=== PATIENT | female | born 2000 | race Caucasian/White ===

== ENCOUNTER 2018-12-09 15:58 | Inpatient (IN) ==
[2018-12-09 16:50] LABS: Appearance Urine Clear (Clear); Bacteria Urine Automated Negative (Negative); Bilirubin Urine Negative (Negative); Color Urine Dark Yellow; Epithelial Cell Urine Auto >30 /lpf (0-5); Glucose Urine UA Negative (Negative); Ketones Urine Negative (Negative); Leukocyte Esterase Urine Negative (Negative); Nitrite Urine Negative (Negative); Protein Urine Trace (Negative); Specific Gravity Urine 1.032 (1.000-1.030); Urobilinogen Urine Negative (Negative)
[2018-12-09 17:10] LABS: Basophils # (auto) 0.03 K/uL (0-0.2); Basophils % (auto) 0.3 %; Eosinophils # (auto) 0.05 K/uL (0-0.5); Eosinophils % (auto) 0.5 %; Hematocrit (blood only) 42.3 % (37-47); Hemoglobin 13.6 g/dL (12.0-16.0); Immature Granulocytes # (auto) 0.01 K/uL (0.00-0.02); Immature Granulocytes % (auto) 0.1 %; Lymphocytes # (auto) 1.37 K/uL (1.2-3.4); Lymphocytes % (auto) 13.6 %; Mean Corpuscular Hgb Conc 32.2 g/dL (32-36); Mean Corpuscular Volume 85.1 fL (80-100); Mean Platelet Volume 9.4 fL (7.4-10.4); Monocytes # (auto) 0.58 K/uL (0.11-0.59); Monocytes % (auto) 5.8 %; Neutrophils % (auto) 79.7 %; Platelet Count 277 K/uL (130-400); RDW Coefficient of Variation 13.7 % (11.5-14.5); RDW Standard Deviation 42.3 fL (36.4-46.3); Red Blood Count 4.97 M/uL (4.2-5.4); White Blood Count 10.04 K/uL (4.8-10.8)
[2018-12-09 17:21] LABS: Amphetamines+Metham, Urine Neg (Neg); Barbiturates, Urine Neg (Neg); Benzodiazepine, Urine Neg (Neg); Cocaine, Urine Neg (Neg); MDMA (Ecstacy), Urine Neg (Neg); Methadone, Urine Neg (Neg); Opiate, Urine Neg (Neg); Phencyclidine, Urine Neg (Neg)
[2018-12-09 17:33] LABS: Albumin Level 4.3 gm/dl (3.4-5.0); Calcium 8.8 mg/dl (8.5-10.1); Creatinine Clr Calc Pharmacy 78.6 ml/min; Est GFR (African American) 97.4; Est GFR (Non-African American) 84.1; Potassium 4.2 mmol/L (3.5-5.1)
[2018-12-09 17:43] LABS: Albumin Globulin Ratio 1.1 (0.9-2); Bilirubin,Total 0.6 mg/dl (0.2-1); Total Protein 8.3 gm/dl (6.4-8.2)
[2018-12-09 19:36] LABS: Pregnancy Test, Serum Negative (Negative)
--- NOTE | 2018-12-09 20:16 | Emergency Department Note ---
Entered by Nancy De Souza acting as a scribe for Anthony Xie DO History of Present Illness General Chief complaint: Mental Health Evaluation Stated complaint: MANIC EPISODE-BIPOLAR Source: patient and family Mode of arrival: ambulatory Limitations: no limitations History of Present Illness Provider complaint: MHE Onset (ago): day(s) (a few) Location: head Pain Consistency: + other (episode) Quality: + other (manic) Relieved By: + medication (Geodon) Associated symptoms: + denies other symptoms (SI, HI) and + other (restless, racing thoughts) The patient is a 18 year old female who presents to the Emergency Room for a mental health evaluation. The patient reports that she has a history of bipolar disorder and had not had a manic episode for 3 years. She states that she has been restless and has had racing thoughts. The father notes that the patient was home for several days and took Geodon. He reports that [employer] requires the patient to be medically cleared before returning. The patient states that she has not been taking medication for several years and was doing well. She denies any suicidal ideations, homicidal ideations or recent irrational decisions. She notes that she is currently on her menstrual period. Home Medications Home Medications Medication Instructions Recorded Confirmed Type multivitamin 1 tab PO DAILY 12/09/18 12/09/18 History ziprasidone HCl [Geodon] 80 mg PO UD 12/09/18 12/09/18 History Allergies Allergy/AdvReac Type Severity Reaction Status Date / Time Fish Containing Products AdvReac Severe Gastrointestinal Verified 12/09/18 20:39 Upset Past Med/Surg History Medical History Bipolar disorder Family History Mother Bipolar disorder Social History current occupational status: student Feels Safe at Home: Yes Smoking Status: Never smoker Preferred Language: Nigerian Review of Systems See HPI for pertinent positives & negatives. and A total of 10 systems reviewed and were otherwise negative Physical Exam Vital Signs Vital Signs - 24 hr 12/09/18 16:21 Temperature 37.2 C Temperature Source Oral Sepsis Recent Fever Within 48 Hours No Sepsis New/Unexplained Change in Mental Status No Sepsis Action Taken by Nursing No Action Required Pulse Rate 88 Pulse Rhythm Regular Pulse Strength Normal Respiratory Rate 20 Respiratory Effort / Characteristics Non-Labored Spontaneous Respiratory Depth Normal Respiratory Pattern Regular Blood Pressure 133/79 Blood Pressure Mean 97 Blood Pressure Position Sitting Pulse Oximetry 99 Oxygen Delivery Method Room Air GENERAL: Sitting up in bed, no acute distress, non-toxic EYE EXAM: normal conjunctiva. OROPHARYNX: no exudate, no erythema, lips, buccal mucosa, and tongue normal and mucous membranes are moist NECK: supple, no nuchal rigidity, no adenopathy, non-tender LUNGS: Clear to auscultation. Normal chest wall mechanics HEART: no murmurs, S1 normal and S2 normal ABDOMEN: abdomen soft, non-tender, normo-active bowel, sounds, no masses, no rebound or guarding. BACK: Back is symmetrical on inspection and there is no deformity, no midline tenderness, no CVA tenderness. SKIN: no rashes and no bruising UPPER EXTREMITIES: upper extremities are grossly normal. LOWER EXTREMITIES: No pitting edema. NEURO EXAM: Normal sensorium, cranial nerves II-XII grossly intact, normal speech, no gross weakness of arms, no gross weakness of legs. PSYCH: admits to racing thoughts, trouble sleeping, pressured speech, denies SI or HI. Course ED COURSE: Vital signs were reviewed and are within normal limits. The patients medical record was reviewed The above diagnostic studies were performed and reviewed. ED treatments and interventions as stated above. 1732: The patient was evaluated in room A6. A complete history and physical examination was performed. 2000: I discussed my findings with the patient and she understands and agrees with the treatment plan. Based on the patients age, coexisting illnesses, exam and lab findings the decision to treat as an inpatient was made. The patient remained stable while under my care. The patient was accepted into [address] [place] [address]. Administered Medications Medical Decision Making Differential Diagnosis Differential diagnoses considered include mood disorder, infection, hypoglycemia , electrolyte abnormalities, cardiac sources, intracerebral event, toxicologic, neurologic, as well as others. Medical Records Attestation: I reviewed the patient's medical records. Home Medications Current Medication List: was personally reviewed by me Laboratory Data Attestation: I reviewed the patient's lab results. Result diagrams: 12/09/18 16:56 12/09/18 16:56 Lab Results 12/09/18 12/09/18 12/09/18 Range/Units 16:56 16:56 16:56 WBC 10.04 (4.8-10.8) K/uL RBC 4.97 (4.2-5.4) M/uL Hgb 13.6 (12.0-16.0) g/dL Hct 42.3 (37-47) % MCV 85.1 (80-100) fL MCH 27.4 (25-34) pg MCHC 32.2 (32-36) g/dL RDW Std Deviation 42.3 (36.4-46.3) fL RDW Coeff of Anastacio 13.7 (11.5-14.5) % Plt Count 277 (130-400) K/uL MPV 9.4 (7.4-10.4) fL Immature Gran % (Auto) 0.1 % Neut % (Auto) 79.7 % Lymph % (Auto) 13.6 % Ocean % (Auto) 5.8 % Eos % (Auto) 0.5 % Baso % (Auto) 0.3 % Immature Gran # (Auto) 0.01 (0.00-0.02) K/uL Neut # (Auto) 8.00 H (1.4-6.5) K/uL Lymph # (Auto) 1.37 (1.2-3.4) K/uL Ocean # (Auto) 0.58 (0.11-0.59) K/uL Eos # (Auto) 0.05 (0-0.5) K/uL Baso # (Auto) 0.03 (0-0.2) K/uL Sodium 138 (136-145) mmol/L Potassium 4.2 (3.5-5.1) mmol/L Chloride 105 (98-107) mmol/L Carbon Dioxide 26 (21-32) mmol/L Anion Gap 7.0 (3-11) BUN 13 (7-18) mg/dl Creatinine 0.97 (0.6-1.2) mg/dl Est Cr Clr Drug Dosing 78.6 ml/min Est GFR ( Amer) 97.4 Est GFR (Non-Af Amer) 84.1 BUN/Creatinine Ratio 13.0 (10-20) Glucose 91 (70-99) mg/dl Calcium 8.8 (8.5-10.1) mg/dl Total Bilirubin 0.6 (0.2-1) mg/dl AST 12 L (15-37) U/L ALT 24 (12-78) U/L Alkaline Phosphatase 51 (45-117) U/L Total Protein 8.3 H (6.4-8.2) gm/dl Albumin 4.3 (3.4-5.0) gm/dl Globulin 4.0 (2.5-4.0) gm/dl Albumin/Globulin Ratio 1.1 (0.9-2) TSH 0.870 (0.300-4.500) uIu/ml HCG, Qual (Negative) Urine Color Urine Appearance (Clear) Urine pH (4.5-7.5) Ur Specific [place] (1.000-1.030) Urine Protein (Negative) Urine Glucose (UA) (Negative) Urine Ketones (Negative) Urine Blood (Negative) Urine Nitrite (Negative) Urine Bilirubin (Negative) Urine Urobilinogen (Negative) Ur Leukocyte Esterase (Negative) Urine WBC (Auto) (0-5) /hpf Urine RBC (Auto) (0-4) /hpf U Hyaline Cast (Auto) (0-5) /lpf U Epithel Cells (Auto) (0-5) /lpf Urine Bacteria (Auto) (Negative) Salicylates (2.8-20) mg/dl Urine Opiates Screen (Neg) Ur Methadone, Qual (Neg) Acetaminophen (10-30) ug/ml Urine Barbiturates (Neg) Ur Phencyclidine (PCP) (Neg) U Amphetamin/Meth Scrn (Neg) MDMA (Ecstasy) Screen (Neg) U Benzodiazepines Scrn (Neg) Ur Cocaine Metabolite (Neg) U Marijuana (THC) Screen (Neg) Ethyl Alcohol mg/dL < 3.0 (0-3) mg/dl 12/09/18 12/09/18 12/09/18 Range/Units 16:56 20:09 Unknown WBC (4.8-10.8) K/uL RBC (4.2-5.4) M/uL Hgb (12.0-16.0) g/dL Hct (37-47) % MCV (80-100) fL MCH (25-34) pg MCHC (32-36) g/dL RDW Std Deviation (36.4-46.3) fL RDW Coeff of Anastacio (11.5-14.5) % Plt Count (130-400) K/uL MPV (7.4-10.4) fL Immature Gran % (Auto) % Neut % (Auto) % Lymph % (Auto) % Ocean % (Auto) % Eos % (Auto) % Baso % (Auto) % Immature Gran # (Auto) (0.00-0.02) K/uL Neut # (Auto) (1.4-6.5) K/uL Lymph # (Auto) (1.2-3.4) K/uL Ocean # (Auto) (0.11-0.59) K/uL Eos # (Auto) (0-0.5) K/uL Baso # (Auto) (0-0.2) K/uL Sodium (136-145) mmol/L Potassium (3.5-5.1) mmol/L Chloride (98-107) mmol/L Carbon Dioxide (21-32) mmol/L Anion Gap (3-11) BUN (7-18) mg/dl Creatinine (0.6-1.2) mg/dl Est Cr Clr Drug Dosing ml/min Est GFR ( Amer) Est GFR (Non-Af Amer) BUN/Creatinine Ratio (10-20) Glucose (70-99) mg/dl Calcium (8.5-10.1) mg/dl Total Bilirubin (0.2-1) mg/dl AST (15-37) U/L ALT (12-78) U/L Alkaline Phosphatase (45-117) U/L Total Protein (6.4-8.2) gm/dl Albumin (3.4-5.0) gm/dl Globulin (2.5-4.0) gm/dl Albumin/Globulin Ratio (0.9-2) TSH (0.300-4.500) uIu/ml HCG, Qual Negative (Negative) Urine Color Urine Appearance (Clear) Urine pH (4.5-7.5) Ur Specific [place] (1.000-1.030) Urine Protein (Negative) Urine Glucose (UA) (Negative) Urine Ketones (Negative) Urine Blood (Negative) Urine Nitrite (Negative) Urine Bilirubin (Negative) Urine Urobilinogen (Negative) Ur Leukocyte Esterase (Negative) Urine WBC (Auto) (0-5) /hpf Urine RBC (Auto) (0-4) /hpf U Hyaline Cast (Auto) (0-5) /lpf U Epithel Cells (Auto) (0-5) /lpf Urine Bacteria (Auto) (Negative) Salicylates < 1.7 L (2.8-20) mg/dl Urine Opiates Screen Neg (Neg) Ur Methadone, Qual Neg (Neg) Acetaminophen < 2 L (10-30) ug/ml Urine Barbiturates Neg (Neg) Ur Phencyclidine (PCP) Neg (Neg) U Amphetamin/Meth Scrn Neg (Neg) MDMA (Ecstasy) Screen Neg (Neg) U Benzodiazepines Scrn Neg (Neg) Ur Cocaine Metabolite Neg (Neg) U Marijuana (THC) Screen Neg (Neg) Ethyl Alcohol mg/dL (0-3) mg/dl 12/09/18 Range/Units Unknown WBC (4.8-10.8) K/uL RBC (4.2-5.4) M/uL Hgb (12.0-16.0) g/dL Hct (37-47) % MCV (80-100) fL MCH (25-34) pg MCHC (32-36) g/dL RDW Std Deviation (36.4-46.3) fL RDW Coeff of Anastacio (11.5-14.5) % Plt Count (130-400) K/uL MPV (7.4-10.4) fL Immature Gran % (Auto) % Neut % (Auto) % Lymph % (Auto) % Ocean % (Auto) % Eos % (Auto) % Baso % (Auto) % Immature Gran # (Auto) (0.00-0.02) K/uL Neut # (Auto) (1.4-6.5) K/uL Lymph # (Auto) (1.2-3.4) K/uL Ocean # (Auto) (0.11-0.59) K/uL Eos # (Auto) (0-0.5) K/uL Baso # (Auto) (0-0.2) K/uL Sodium (136-145) mmol/L Potassium (3.5-5.1) mmol/L Chloride (98-107) mmol/L Carbon Dioxide (21-32) mmol/L Anion Gap (3-11) BUN (7-18) mg/dl Creatinine (0.6-1.2) mg/dl Est Cr Clr Drug Dosing ml/min Est GFR ( Amer) Est GFR (Non-Af Amer) BUN/Creatinine Ratio (10-20) Glucose (70-99) mg/dl Calcium (8.5-10.1) mg/dl Total Bilirubin (0.2-1) mg/dl AST (15-37) U/L ALT (12-78) U/L Alkaline Phosphatase (45-117) U/L Total Protein (6.4-8.2) gm/dl Albumin (3.4-5.0) gm/dl Globulin (2.5-4.0) gm/dl Albumin/Globulin Ratio (0.9-2) TSH (0.300-4.500) uIu/ml HCG, Qual (Negative) Urine Color Dark Yellow Urine Appearance Clear (Clear) Urine pH 5.0 (4.5-7.5) Ur Specific [place] 1.032 H (1.000-1.030) Urine Protein Trace H (Negative) Urine Glucose (UA) Negative (Negative) Urine Ketones Negative (Negative) Urine Blood Trace H (Negative) Urine Nitrite Negative (Negative) Urine Bilirubin Negative (Negative) Urine Urobilinogen Negative (Negative) Ur Leukocyte Esterase Negative (Negative) Urine WBC (Auto) 1-5 (0-5) /hpf Urine RBC (Auto) 0-4 (0-4) /hpf U Hyaline Cast (Auto) 1-5 (0-5) /lpf U Epithel Cells (Auto) >30 H (0-5) /lpf Urine Bacteria (Auto) Negative (Negative) Salicylates (2.8-20) mg/dl Urine Opiates Screen (Neg) Ur Methadone, Qual (Neg) Acetaminophen (10-30) ug/ml Urine Barbiturates (Neg) Ur Phencyclidine (PCP) (Neg) U Amphetamin/Meth Scrn (Neg) MDMA (Ecstasy) Screen (Neg) U Benzodiazepines Scrn (Neg) Ur Cocaine Metabolite (Neg) U Marijuana (THC) Screen (Neg) Ethyl Alcohol mg/dL (0-3) mg/dl Blood Pressure Blood Pressure Findings: Normal blood pressure Blood Pressure Disposition: did not require urgent referral MDM Narrative Patient is a 18-year-old female with a past medical history of bipolar and manic episode 3 years ago who has not been on her medications as doing well and presents the ER for racing thoughts and pressured speech. Labs were obtained and CBC along with BMP LFTs TSH were unremarkable. UA with negative. Salicylates and acetaminophen were negative. Patient was evaluated by [facility] psychiatric healthcare science specialist in [facility] Patient was accepted to [facility] on a 201. Impression & Plan Mood disorder Discharge Plan Visit Data Chief Complaint: Mental Health Evaluation Stated Complaint: MANIC EPISODE-BIPOLAR ED Provider: Anthony Xie Discharge Problem: Mood disorder Patient Disposition: Transfer Behavioral Health Fac Forms Stand Alone Forms: My [facility] Prescriptions Prescriptions: No Action ziprasidone HCl [Geodon] 40 mg Capsule 80 mg PO UD RF: 0 multivitamin Tablet 1 tab PO DAILY RF: 0 Referrals Referrals: PCP,NO [Primary Care Provider] - The scribe's documentation has been prepared under my direction and personally reviewed by me in its entirety. I confirm that the note above accurately reflects all work, treatment, procedures, and medical decision making performed by me.
[2018-12-09 21:02] LABS: Acetaminophen < 2 ug/ml (10-30); Salicylate < 1.7 mg/dl (2.8-20)
[2018-12-09] MEDS ORDERED: ZIPRASIDONE HCL 20 MG CAP PO STA ×2 (22:04→22:05)
[2018-12-09] MEDS ORDERED: MAGNESIUM HYDROXIDE SUSP 30 ML UDC PO PRN (22:06)
[2018-12-09] MEDS ORDERED: BISMUTH SUBSALICYLATE PER ML OMNICELL CHARGE PO PRN (22:06)
[2018-12-09] MEDS ORDERED: SODIUM CHLORIDE 0.65% NA SOLN 45 ML (OCEAN) PRN (22:06)
[2018-12-09] MEDS ORDERED: ACETAMINOPHEN 325 MG TAB PO PRN (22:06)
[2018-12-09] MEDS ORDERED: ALUMINUM/MAGNESIUM SUSP 30 ML UDC PO PRN (22:06)
--- NOTE | 2018-12-10 09:31 | History & Physical ---
Date of Service December 10, 2018 Impression / Recommendations Impression 18-year-old female [employer] student from [place] who has a history of bipolar disorder, eating disorder, self injury by cutting, multiple suicide attempts and hospitalizations, who has been off medications and out of treatment for several years with episodes of hypomania, now hospitalized with manic symptoms interfering with her ability to function in school. She would like to get back into treatment, and would like to resume ziprasidone which was previously beneficial for mood. Inpatient treatment is medically necessary due to the risk of decompensation, inability to function, and harm to self if discharged prematurely. (1) Bipolar disorder: Bipolar disorder type I: Patient presents with 13 days of elevated and irritable mood, decreased need for sleep, distractibility, excessive talking, racing thoughts, and suicidal thoughts, which are functionally impairing. -CBC, CMP, TSH, UA, and UDS unremarkable. No active medical conditions. -Continue voluntary hospitalization, checks for safety, and participation in unit groups and programming. Work on healthy coping skills and discharge safety plan. -Patient reports previous good response to ziprasidone, and has been taking 80 mg daily from an old prescription the past couple of days with benefit. She wishes to continue this medication, so will order 80 mg daily with dinner. Consider dose increase if necessary. -Hydroxyzine as needed for sleep. Consider additional sleep medication if needed. -Coordinate care with [facility], where the patient plans to follow up for therapy and psychiatry as an outpatient. -Coordination with the University. Encourage patient to explore ways to minimize stress for the remainder of the semester to allow for full recovery. -Family meeting with parents. Active/Remission status: currently active Current bipolar episode type: manic Current episode severity: moderate Qualified Code(s): F31.12 - Bipolar disorder, current episode manic without psychotic features, moderate Present on Admission?: Yes Inventory Assets Strengths: dedicated student, stable housing, supportive family Needs: medication, mood stability, outpatient treatment Risk Factors Assessment Male: No : Yes Do You Have Access To A Gun?: No (not at her apartment or parents' home) Health Problems: No Mental Health Diagnoses: Yes Substance Use Disorders: No Previous Attempt: Yes Family History of Suicide: No Previous Psychiatric Hospitalization: Yes Hopelessness: No Smoker: No Protective Factors Assessment Evangelical Beliefs: No : No Responsible for Young Children: No Employed: No Supportive Family: Yes Good Rapport with Provider: No Psychiatric History Identifying Data SHRUTI HUMMEL is a 18-year-old F [employer] student from [place] who has a history of bipolar disorder, and was admitted on 12/09/18 21:22 on a 201 voluntary commitment for julio cesar, paranoia, and SI. Chief Complaint "Do you want me to start with when I took Geodon before?" History of Present Illness Per records, the patient presented to the ER with racing thoughts, paranoia, decreased appetite and sleep, and SI. On my assessment she was seen with Sammie Coyne, MS4. She reports 13 days of mood symptoms, feeling "agitated" and distractible, very sensitive to lights and noises. She unable to sleep for more than a couple hours a night for the past week and a half, inability to focus, racing thoughts, feelings of agitation , excessive and rapid speech jumping from topic to topic, disorganized thinking , inability to function at school, and SI. She endorses suicidal thoughts without a plan, that she doesn't want to act on. She reports feeling so agitated that she "wanted to just bang my head against a wall." She denies any triggering event, but reports a history of similar episodes, and when symptoms are more mild, is able to get a lot done. This past weekend she went home to [place] and took an old Geodon prescription 80mg with dinner x 2 days. She returned to campus and contacted [facility] yesterday wanting to go back on medication, and they referred her to the ER. She describes a pattern of mood instability and "freak outs" that occurred while off medications, with paranoia and erratic behavior, usually lasting a couple of days, and inability to sleep with "freaking out" when stressed due to exams. She says she went to [facility] as "I couldn't function, because I hate counseling, just want to snap out of it." Mood is "stressed," and she is upset that she had to withdraw from some classes, but is planning to return to school. She reports "moments of terror" and felt unsafe at her apartment for unclear reasons. She called her parents who came and brought her to the hospital, but have since returned home. Her goal is to get back into treatment so she can return to school, recognizing "my mind isn't good." She reports a h/o bipolar which was diagnosed when she was 13 yrs old, but has been off medication for several years, and not in treatment, as she felt she was doing better and "didn't want to be on medicine my whole life, wanted to manage it with exercise." She is a previous gymnast and has a h/o eating disorder but has not had symptoms in years. She does periods of endorse elevated mood in the past, and enjoys hypomanic episodes where she doesn't need much sleep, but reports current episode has worsened to the point that she wants to sleep and stabilize. Denies hallucinations, paranoia, panic attacks. Her treatment is to get back on medication and to be able to return to school. Past Psychiatric History Previous Psych History: Diagnosed with bipolar at age 13. H/o anorexia and bulimia. H/o cutting superficially on torso (was a gymnast, so cut where leotard would hide lesions); last was in May 2018 superficially w/ razor. Prior to that hadn' t cut since high school. Never cut deep enough require sutures/medical treatment. States cutting helped her to stop her mind from racing and "feel something." Current Psychiatric Diagnosis: Bipolar disorder type I Outpatient Services: Off meds and out of treatment for several years. Intake at [facility] last week with Dr. Anneliese Garza, and plans to have OP follow up there with a psychiatrist and therapist. Previously in [place], [place] Previous Psych Admissions: Several in [id number] when [age] years old. [facility] age 13 for bipolar (2013) [facility] as a teenager after suicide attempt Do You Have Access To A Gun?: No (not at her apartment or parents' home) History of Previous Suicide Attempt: Yes (3 in teenage years - OD on pills x 2 ( OTC meds in cabinet and dad's hydrocodone, 2nd was Aleve and Geodon), tried to strangle self in hospital) Past Medication Trials: ziprasidone - helped with impulses and racing thoughts escitalopram - no effect lithium - "didn't do anything," but admits she didn't take it regularly aripiprazole - didn't take it regularly others she cannot recall Additional Notes: PCP is Dr. Arnulfo Mas at [facility] in [place], [place] Allergies Allergy/AdvReac Type Severity Reaction Status Date / Time Fish Containing Products AdvReac Severe Gastrointestinal Verified 12/09/18 20:39 Upset Home Medications Home Medications Medication Instructions Recorded Confirmed Type multivitamin 1 tab PO DAILY 12/09/18 12/09/18 History ziprasidone HCl [Geodon] 80 mg PO UD 12/09/18 12/09/18 History Family History Family History of: Anxiety (paternal grandfather), Alcoholism/Drug Abuse ( paternal grandfather abused Valium), Other-List under Comment (sister with borderline personality disorder) and Bipolar (mother and sister) Alcohol History Hx of Alcohol Use Over the Past 12 Months: No AUDIT Total Score: 0 History of alcohol abuse earlier in college, with severe hangovers, so stopped drinking. Smoking Use Have You Smoked or Used Tobacco Products in the Last 30 Days: No Smoking Status: Never smoker Substance History Hx of Prescription Med Misuse Over the Past 12 Months: No Hx of Over the Counter Med Misuse Over the Past 12 Months: No Hx of Inhalent Misuse Over the Past 12 Months: No Hx of Organic Substance Use Over the Past 12 Months: Yes (cannabis - daily in HS , last use 08/2018) Hx of Illegal Substances/Street Drug Use Over Past 12 Months: No Problems as a Result of Past Substance Use: None Identified Personal History Living Arrangements: APartment Living Arrangements Comments: alone in off campus apartment Childhood: 2 sisters, ages 21 and 28 Highest Grade Completed: High School Graduate Highest Grade Completed Comment: [employer] at [employer] majoring in nutrition; GPA 3.8. 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 Employment Status: Student Marital Status: Single Number Of Children: 0 Beliefs That Will Affect Care: None Current Legal Problems: Yes Patient History Medical History Bipolar disorder Family History Mother Bipolar disorder Social History current occupational status: student Feels Safe at Home: Yes Smoking Status: Never smoker Beliefs That Will Affect Care: None Preferred Language: Maltese Communication Ability: Impaired Ware Cleaner Required: No Review of Systems All systems reviewed & are unremarkable except as noted in HPI & below Physical Exam Psychiatric Well-nourished well-developed white female appearing her stated age. Casually dressed, adequately groomed, with a blanket wrapped around her. Seated in no acute distress. Good eye contact, mild fidgeting/restlessness. Cooperative with the interview. Speech is excessive, rapid, mildly pressured. Mood is elevated, mildly irritable, and affect is restricted to the same. Inappropriate laughter at times. Thoughts are circumstantial, slightly loose. + Suicidal thoughts, but no intent to harm herself here. No homicidal thoughts , hallucinations, paranoia, or delusions evident. Level of intelligence estimated to be above average. Insight and judgment are fair. Vital Signs (Past 24 Hours) Last Vital Signs Temp 36.5 C 12/10/18 08:18 Pulse 69 12/10/18 08:18 Resp 16 12/10/18 08:18 BP 108/78 12/10/18 08:18 Pulse Ox 99 12/09/18 16:21 A physical exam was performed in the ER prior to admission to the unit by Dr. Anthony Xie. I accept that physical as correct/medical clearance for the inpatient physical exam. Results & Data Laboratory Results Laboratory Results - last 24 hr 12/09/18 12/09/18 12/09/18 16:56 16:56 16:56 WBC 10.04 RBC 4.97 Hgb 13.6 Hct 42.3 MCV 85.1 MCH 27.4 MCHC 32.2 RDW Std Deviation 42.3 RDW Coeff of Anastacio 13.7 Plt Count 277 MPV 9.4 Immature Gran % (Auto) 0.1 Neut % (Auto) 79.7 Lymph % (Auto) 13.6 [place] % (Auto) 5.8 Eos % (Auto) 0.5 Baso % (Auto) 0.3 Immature Gran # (Auto) 0.01 Neut # (Auto) 8.00 H Lymph # (Auto) 1.37 [place] # (Auto) 0.58 Eos # (Auto) 0.05 Baso # (Auto) 0.03 Sodium 138 Potassium 4.2 Chloride 105 Carbon Dioxide 26 Anion Gap 7.0 BUN 13 Creatinine 0.97 Est Cr Clr Drug Dosing 78.6 Est GFR ( Amer) 97.4 Est GFR (Non-Af Amer) 84.1 BUN/Creatinine Ratio 13.0 Glucose 91 Calcium 8.8 Total Bilirubin 0.6 AST 12 L ALT 24 Alkaline Phosphatase 51 Total Protein 8.3 H Albumin 4.3 Globulin 4.0 Albumin/Globulin Ratio 1.1 TSH 0.870 HCG, Qual Urine Color Urine Appearance Urine pH Ur Specific [place] Urine Protein Urine Glucose (UA) Urine Ketones Urine Blood Urine Nitrite Urine Bilirubin Urine Urobilinogen Ur Leukocyte Esterase Urine WBC (Auto) Urine RBC (Auto) U Hyaline Cast (Auto) U Epithel Cells (Auto) Urine Bacteria (Auto) Salicylates Urine Opiates Screen Ur Methadone, Qual Acetaminophen Urine Barbiturates Ur Phencyclidine (PCP) U Amphetamin/Meth Scrn MDMA (Ecstasy) Screen U Benzodiazepines Scrn Ur Cocaine Metabolite U Marijuana (THC) Screen Ethyl Alcohol mg/dL < 3.0 12/09/18 12/09/18 12/09/18 16:56 20:09 Unknown WBC RBC Hgb Hct MCV MCH MCHC RDW Std Deviation RDW Coeff of Anastacio Plt Count MPV Immature Gran % (Auto) Neut % (Auto) Lymph % (Auto) [place] % (Auto) Eos % (Auto) Baso % (Auto) Immature Gran # (Auto) Neut # (Auto) Lymph # (Auto) [place] # (Auto) Eos # (Auto) Baso # (Auto) Sodium Potassium Chloride Carbon Dioxide Anion Gap BUN Creatinine Est Cr Clr Drug Dosing Est GFR ( Amer) Est GFR (Non-Af Amer) BUN/Creatinine Ratio Glucose Calcium Total Bilirubin AST ALT Alkaline Phosphatase Total Protein Albumin Globulin Albumin/Globulin Ratio TSH HCG, Qual Negative Urine Color Urine Appearance Urine pH Ur Specific [place] Urine Protein Urine Glucose (UA) Urine Ketones Urine Blood Urine Nitrite Urine Bilirubin Urine Urobilinogen Ur Leukocyte Esterase Urine WBC (Auto) Urine RBC (Auto) U Hyaline Cast (Auto) U Epithel Cells (Auto) Urine Bacteria (Auto) Salicylates < 1.7 L Urine Opiates Screen Neg Ur Methadone, Qual Neg Acetaminophen < 2 L Urine Barbiturates Neg Ur Phencyclidine (PCP) Neg U Amphetamin/Meth Scrn Neg MDMA (Ecstasy) Screen Neg U Benzodiazepines Scrn Neg Ur Cocaine Metabolite Neg U Marijuana (THC) Screen Neg Ethyl Alcohol mg/dL 12/09/18 Unknown WBC RBC Hgb Hct MCV MCH MCHC RDW Std Deviation RDW Coeff of Anastacio Plt Count MPV Immature Gran % (Auto) Neut % (Auto) Lymph % (Auto) [place] % (Auto) Eos % (Auto) Baso % (Auto) Immature Gran # (Auto) Neut # (Auto) Lymph # (Auto) [place] # (Auto) Eos # (Auto) Baso # (Auto) Sodium Potassium Chloride Carbon Dioxide Anion Gap BUN Creatinine Est Cr Clr Drug Dosing Est GFR ( Amer) Est GFR (Non-Af Amer) BUN/Creatinine Ratio Glucose Calcium Total Bilirubin AST ALT Alkaline Phosphatase Total Protein Albumin Globulin Albumin/Globulin Ratio TSH HCG, Qual Urine Color Dark Yellow Urine Appearance Clear Urine pH 5.0 Ur Specific [place] 1.032 H Urine Protein Trace H Urine Glucose (UA) Negative Urine Ketones Negative Urine Blood Trace H Urine Nitrite Negative Urine Bilirubin Negative Urine Urobilinogen Negative Ur Leukocyte Esterase Negative Urine WBC (Auto) 1-5 Urine RBC (Auto) 0-4 U Hyaline Cast (Auto) 1-5 U Epithel Cells (Auto) >30 H Urine Bacteria (Auto) Negative Salicylates Urine Opiates Screen Ur Methadone, Qual Acetaminophen Urine Barbiturates Ur Phencyclidine (PCP) U Amphetamin/Meth Scrn MDMA (Ecstasy) Screen U Benzodiazepines Scrn Ur Cocaine Metabolite U Marijuana (THC) Screen Ethyl Alcohol mg/dL Current Inpatient Medications Current Inpatient Medications: Current Inpatient Medications Acetaminophen (Tylenol) 650 mg PO Q4H PRN PRN Reason: Headache or Minor Fever Stop: 01/08/19 22:05 Al Hydrox/Mg Hydrox/Simethicone (Maalox) 30 ml PO Q4H PRN PRN Reason: GI Upset Stop: 01/08/19 22:05 Bismuth Subsalicylate (Kaopectate) 15 ml PO PRN PRN PRN Reason: Loose Stool Stop: 01/08/19 22:05 Hydroxyzine HCl (Vistaril) 50 mg PO HSZ PRN PRN Reason: Insomnia Stop: 01/08/19 22:05 Hydroxyzine HCl (Vistaril) 25 mg PO Q4H PRN PRN Reason: Anxiety Stop: 01/08/19 22:05 Magnesium Hydroxide (Milk Of Magnesia) 30 ml PO DAILY PRN PRN Reason: Heartburn Stop: 01/08/19 22:05 Sodium Chloride ([place] Nasal) 1 - 2 sprays NA PRN PRN PRN Reason: Nasal Dryness/Congestion Stop: 01/08/19 22:05 CPT Code CPT Code Initial Hospital Care: 23391
--- NOTE | 2018-12-10 10:47 | History & Physical ---
Date of Service December 10, 2018 Impression / Recommendations Impression This is a 18-year-old female with bipolar I disorder who is admitted for a >1 week of manic symptoms including irritability, decreased need for sleep, racing thoughts, distractability, and increased activity. With irritable mood being her predominant symptom and having at least 4 supporting symptoms met, she meets criteria for a manic episode. 1. Bipolar I, manic episode - As she was previously stable on ziprasidone, we will restart for her. We will begin at 80 mg once daily with meals. - Follow fasting glucose and cholesterol labs. 2. Difficulty sleeping - We will offer hydroxyzine as needed for sleep. Inventory Assets Strengths: dedicated student, stable housing, supportive family Needs: medication, mood stability, outpatient treatment Risk Factors Assessment Male: No : Yes Health Problems: No Mental Health Diagnoses: Yes Substance Use Disorders: No Previous Attempt: Yes Family History of Suicide: No Previous Psychiatric Hospitalization: Yes Hopelessness: No Smoker: No Protective Factors Assessment Tenriism Beliefs: No : No Responsible for Young Children: No Employed: No Supportive Family: Yes Good Rapport with Provider: No Psychiatric History Identifying Data SHRUTI HUMMEL is a 18-year-old F who currently lives in alone, has a history of bipolar I, and was admitted on 12/09/18 21:22 on a 201 voluntary commitment for manic episode. 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 She says this episode began 12-13 days ago where she felt highly energetic, talkative, and irritable. Her mood fluctuates but she says that she is mostly "agitated." She states "I want a to punch the wall. I won't but I want to." She is frustrated because she normally does well in school, but her symptoms aren't allowing her to be productive. She can't focus on her reading because of her mind racing. Shruti also shares that she has been more talkative than usual and speaks really fast. She is easily distracted by bright lights and loud sounds. She says that these stimuli make her even more agitated. She sleeps about 2 hours per night because of racing thoughts as well. When she can't sleep, she will stay up and do homework or go to the [employer] near her apartment so she can exercise and talk to other people there. She denies any impulsive behavior. She has had random suicidal thoughts but affirms that she has no plan or intent to follow through. She states "I like my life now." She denies homicidal ideation. She admits to a "paranoid" feeling where she fears her car will "blow up" while driving it. She acknowledges that this fear is unreasonable, but in the moment she says she panics and calls her parents about it. She also denies hallucinations. Because these symptoms were inhibiting her ability to do school work, she went to [facility] on campus on Sunday, 12/06 and to seek help. Her understanding of their plan was to wait until Sunday, 12/09 to see if things started to get better and to call with an update. Until then, she went home in [place] for the weekend and took some of her old prescription of ziprasidone with slight improvement. When it was time to call on Sunday, [facility] felt that she should be admitted to the hospital to get control of this episode. She was diagnosed with bipolar disorder at 13 years old where she was hospitalized at [facility]. She has been hospitalized several times for psychiatric care, two of which were for suicide attempts. In the past, she has tried abilify, lexapro, and lithium. She had hoarded these medications and took them sporadically, so she's not sure if they work for her or not. She was ultimately prescribed 80mg ziprasidone daily because her mother, who also has bipolar disorder, was stable on it. She said this medicine helped by decreasing her impulsivity and racing thoughts. Around 3 years ago, she was doing really well and was given the option to go off of her medication. She hasn't had a manic episode in 3 years, but she does admit to having 1-2 day periods of time where she will be more active, sleep very little, and be in a good mood. She says that she enjoys these short episodes because she is often very productive during them. Past Psychiatric History Previous Psych History: Bipolar I - as above Anorexia and Bulimia - hospitalized at [facility] in 2013. Shruti states that this is completely resolved. Cutting - She has used a razor to make superficial cuts on her abdomen so it would have been hidden by her gymnastics leotard. Her last episode of cutting was in May. Current Psychiatric Diagnosis: Bipolar I Previous Psych Admissions: [facility] - 2013 - eating disorder Jeramy - age 13 - Bipolar I History of Previous Suicide Attempt: Yes (3 in teenage years - OD on pills x 2 ( OTC meds in cabinet and dad's hydrocodone, 2nd was Aleve and Geodon), tried to strangle self in hospital) Describe Attempts in the Past: Denies Past Medication Trials: [place] Lexapro, [place] - states that she hoarded these medicines for a suicide attempt, so she's not sure that if taken as directed, they would be helpful for her. Allergies Allergy/AdvReac Type Severity Reaction Status Date / Time Fish Containing Products AdvReac Severe Gastrointestinal Verified 12/09/18 20:39 Upset Home Medications Home Medications Medication Instructions Recorded Confirmed Type multivitamin 1 tab PO DAILY 12/09/18 12/09/18 History Family History Family History of: Anxiety (paternal grandfather), Alcoholism/Drug Abuse ( paternal grandfather abused Valium), Other-List under Comment (sister with borderline personality disorder) and Bipolar (mother and sister) Family Mental Health History Comment: Pt says sister has BPD,out pt tx,Mom hx of bipolar d/o w/inpt,currently out tx Father hx of insomnia and anxiety Alcohol History Hx of Alcohol Use Over the Past 12 Months: No AUDIT Total Score: 0 Smoking Use Have You Smoked or Used Tobacco Products in the Last 30 Days: No Smoking Status: Never smoker Substance History Hx of Prescription Med Misuse Over the Past 12 Months: No Hx of Over the Counter Med Misuse Over the Past 12 Months: No Hx of Inhalent Misuse Over the Past 12 Months: No Hx of Organic Substance Use Over the Past 12 Months: Yes (cannabis - daily in HS , last use 08/2018. 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 Employment Status: Student Marital Status: Single Number Of Children: 0 Beliefs That Will Affect Care: None Patient History Medical History Bipolar disorder Family History Mother Bipolar disorder Social History current occupational status: student Feels Safe at Home: Yes Smoking Status: Never smoker Beliefs That Will Affect Care: None Preferred Language: Frisian Communication Ability: Impaired [employer] Worker Required: No Physical Exam Mental Examination Shruti sits covered in a blanket for the interview. She is cooperative and pleasant throughout the interview, despite her feeling "agitated." She uses light humor as she describes her history. Appearance: Well Groomed Eye Contact: Maintains Eye Contact Motor Behavior: Unremarkable Speech: Normal (but at times can be pressured) Mood: Irritable Affect: Appropriate Thought Process: Intact and Logical Thought Content: Linear Hallucinations: None Insight: Good Judgement: Good Vital Signs (Past 24 Hours) Last Vital Signs Temp 36.5 C 12/10/18 08:18 Pulse 69 12/10/18 08:18 Resp 16 12/10/18 08:18 BP 108/78 12/10/18 08:18 Pulse Ox 99 12/09/18 16:21 Results & Data Laboratory Results Laboratory Results - last 24 hr 12/09/18 12/09/18 12/09/18 16:56 16:56 16:56 WBC 10.04 RBC 4.97 Hgb 13.6 Hct 42.3 MCV 85.1 MCH 27.4 MCHC 32.2 RDW Std Deviation 42.3 RDW Coeff of Anastacio 13.7 Plt Count 277 MPV 9.4 Immature Gran % (Auto) 0.1 Neut % (Auto) 79.7 Lymph % (Auto) 13.6 Overton % (Auto) 5.8 Eos % (Auto) 0.5 Baso % (Auto) 0.3 Immature Gran # (Auto) 0.01 Neut # (Auto) 8.00 H Lymph # (Auto) 1.37 Overton # (Auto) 0.58 Eos # (Auto) 0.05 Baso # (Auto) 0.03 Sodium 138 Potassium 4.2 Chloride 105 Carbon Dioxide 26 Anion Gap 7.0 BUN 13 Creatinine 0.97 Est Cr Clr Drug Dosing 78.6 Est GFR ( Amer) 97.4 Est GFR (Non-Af Amer) 84.1 BUN/Creatinine Ratio 13.0 Glucose 91 Calcium 8.8 Total Bilirubin 0.6 AST 12 L ALT 24 Alkaline Phosphatase 51 Total Protein 8.3 H Albumin 4.3 Globulin 4.0 Albumin/Globulin Ratio 1.1 TSH 0.870 HCG, Qual Urine Color Urine Appearance Urine pH Ur Specific [place] Urine Protein Urine Glucose (UA) Urine Ketones Urine Blood Urine Nitrite Urine Bilirubin Urine Urobilinogen Ur Leukocyte Esterase Urine WBC (Auto) Urine RBC (Auto) U Hyaline Cast (Auto) U Epithel Cells (Auto) Urine Bacteria (Auto) Salicylates Urine Opiates Screen Ur Methadone, Qual Acetaminophen Urine Barbiturates Ur Phencyclidine (PCP) U Amphetamin/Meth Scrn MDMA (Ecstasy) Screen U Benzodiazepines Scrn Ur Cocaine Metabolite U Marijuana (THC) Screen Ethyl Alcohol mg/dL < 3.0 12/09/18 12/09/18 12/09/18 16:56 20:09 Unknown WBC RBC Hgb Hct MCV MCH MCHC RDW Std Deviation RDW Coeff of Anastacio Plt Count MPV Immature Gran % (Auto) Neut % (Auto) Lymph % (Auto) [place] % (Auto) Eos % (Auto) Baso % (Auto) Immature Gran # (Auto) Neut # (Auto) Lymph # (Auto) [place] # (Auto) Eos # (Auto) Baso # (Auto) Sodium Potassium Chloride Carbon Dioxide Anion Gap BUN Creatinine Est Cr Clr Drug Dosing Est GFR ( Amer) Est GFR (Non-Af Amer) BUN/Creatinine Ratio Glucose Calcium Total Bilirubin AST ALT Alkaline Phosphatase Total Protein Albumin Globulin Albumin/Globulin Ratio TSH HCG, Qual Negative Urine Color Urine Appearance Urine pH Ur Specific [place] Urine Protein Urine Glucose (UA) Urine Ketones Urine Blood Urine Nitrite Urine Bilirubin Urine Urobilinogen Ur Leukocyte Esterase Urine WBC (Auto) Urine RBC (Auto) U Hyaline Cast (Auto) U Epithel Cells (Auto) Urine Bacteria (Auto) Salicylates < 1.7 L Urine Opiates Screen Neg Ur Methadone, Qual Neg Acetaminophen < 2 L Urine Barbiturates Neg Ur Phencyclidine (PCP) Neg U Amphetamin/Meth Scrn Neg MDMA (Ecstasy) Screen Neg U Benzodiazepines Scrn Neg Ur Cocaine Metabolite Neg U Marijuana (THC) Screen Neg Ethyl Alcohol mg/dL 12/09/18 Unknown WBC RBC Hgb Hct MCV MCH MCHC RDW Std Deviation RDW Coeff of Anastacio Plt Count MPV Immature Gran % (Auto) Neut % (Auto) Lymph % (Auto) [place] % (Auto) Eos % (Auto) Baso % (Auto) Immature Gran # (Auto) Neut # (Auto) Lymph # (Auto) [place] # (Auto) Eos # (Auto) Baso # (Auto) Sodium Potassium Chloride Carbon Dioxide Anion Gap BUN Creatinine Est Cr Clr Drug Dosing Est GFR ( Amer) Est GFR (Non-Af Amer) BUN/Creatinine Ratio Glucose Calcium Total Bilirubin AST ALT Alkaline Phosphatase Total Protein Albumin Globulin Albumin/Globulin Ratio TSH HCG, Qual Urine Color Dark Yellow Urine Appearance Clear Urine pH 5.0 Ur Specific [place] 1.032 H Urine Protein Trace H Urine Glucose (UA) Negative Urine Ketones Negative Urine Blood Trace H Urine Nitrite Negative Urine Bilirubin Negative Urine Urobilinogen Negative Ur Leukocyte Esterase Negative Urine WBC (Auto) 1-5 Urine RBC (Auto) 0-4 U Hyaline Cast (Auto) 1-5 U Epithel Cells (Auto) >30 H Urine Bacteria (Auto) Negative Salicylates Urine Opiates Screen Ur Methadone, Qual Acetaminophen Urine Barbiturates Ur Phencyclidine (PCP) U Amphetamin/Meth Scrn MDMA (Ecstasy) Screen U Benzodiazepines Scrn Ur Cocaine Metabolite U Marijuana (THC) Screen Ethyl Alcohol mg/dL Current Inpatient Medications Current Inpatient Medications: Current Inpatient Medications Acetaminophen (Tylenol) 650 mg PO Q4H PRN PRN Reason: Headache or Minor Fever Stop: 01/08/19 22:05 Al Hydrox/Mg Hydrox/Simethicone (Maalox) 30 ml PO Q4H PRN PRN Reason: GI Upset Stop: 01/08/19 22:05 Bismuth Subsalicylate (Kaopectate) 15 ml PO PRN PRN PRN Reason: Loose Stool Stop: 01/08/19 22:05 Hydroxyzine HCl (Vistaril) 50 mg PO HSZ PRN PRN Reason: Insomnia Stop: 01/08/19 22:05 Hydroxyzine HCl (Vistaril) 25 mg PO Q4H PRN PRN Reason: Anxiety Stop: 01/08/19 22:05 Magnesium Hydroxide (Milk Of Magnesia) 30 ml PO DAILY PRN PRN Reason: Heartburn Stop: 01/08/19 22:05 Sodium Chloride ([place] Nasal) 1 - 2 sprays NA PRN PRN PRN Reason: Nasal Dryness/Congestion Stop: 01/08/19 22:05 Ziprasidone (Geodon) 80 mg PO DAILYBD FRANTZ Stop: 01/09/19 17:14
[2018-12-10] MEDS: ZIPRASIDONE HCL 80 MG CAP PO SCH (17:36)
[2018-12-11 08:48] LABS: Glucose Fasting 86 mg/dl (70-99)
[2018-12-11 08:55] LABS: Chol HDL Ratio 4; Cholesterol 172 mg/dl (0-200); HDL Cholesterol 48 mg/dl; LDL Cholesterol Calculated 111 mg/dl; Triglycerides 66 mg/dl (0-150); VLDL Cholesterol 13 mg/dl
--- NOTE | 2018-12-11 14:37 | Medical Student Progress Note ---
Date of Service December 11, 2018 Assessment & Plan (1) Bipolar disorder: This is a 18-year-old female with bipolar I who is admitted for a manic episode. She feels somewhat improved today but continues to have manic symptoms including difficulty concentrating and feeling irritable. She is participating appropriately in group but refused a family meeting. 1. Bipolar I - Improving, but not back to baseline. - Continue 80 mg ziprasidone today, increase to 100 tomorrow. - Continue to attend group therapy and activities. - Consider re-approaching idea of family meeting tomorrow. - Consider taking the ziprasidone later at night to avoid fatigue during group. - She is not sexually active, but was counseled about seeking help from her physician to manage her antipsychotic needs in combination with her control needs depending on her goals. 2. Sleep disturbance - Continue to offer hydroxyzine as needed for sleep. 3. Disposition - Discuss plan for outpatient medication management and counseling. Active/Remission status: currently active Current bipolar episode type: manic Current episode severity: moderate Psychotic features: Most recent bipolar episode type: Qualified Code(s): F31.12 - Bipolar disorder , current episode manic without psychotic features, moderate Subjective Evita is a 18-year-old female with a history of bipolar I and suicide attemps x3 who is admitted for manic episode. When asked how she's doing, she chuckles and says "living." Today she says she is doing better than yesterday - she feels less agitated, better able to focus, and better able to maintain eye contact. Although improving, she is not back to her baseline. She continues to feel somewhat agitated and still physically "on edge" and "keyed up." She says her thoughts are still going too fast, but are not racing to the same extent as yesterday Last night Evita says she had what she thinks was a "panic attack." When she laid down, she felt that she "could not breath." She says "basic easy things were overwhelming" for her. She admits that she had suicidal thoughts and says that she thought "I can't live like this." She denies having a specific plan to follow through on those thoughts. She was able to talk with one of the nurses who was able to calm her down and give her hydroxyzine to help her sleep. In addition, she became agitated during group last night. She thinks this might have been because she felt drowsy after taking her ziprasidone and couldn't focus on what was happening. She hopes to try taking her antipsychotic later at night so that she's able to function for group activities in the evening. We also discussed the concern of becoming while on ziprasidone. Evita says that she is not sexually active. We discussed following up with her psychiatrist if she decides to start having sex in order to make a safe plan consistent with her goals while also attending to her mental health. Evita denies suicidal ideation, homicidal ideation, and hallucinations today. Physical Exam 2 Vital Signs (Past 24 Hours): Last Vital Signs Temp 36.6 C 12/11/18 06:39 Pulse 63 12/11/18 06:40 Resp 16 12/11/18 06:39 BP 121/81 12/11/18 11:10 Pulse Ox 99 12/09/18 16:21 Psychiatric: Orientation: alert Apperance: appropriately dressed Eye Contact: good eye contact Motor Behavior: no abnormal motor movements Speech: normal rate/rhythm/volume of speech Affect: euthymic affect Mood: + irritable mood (but less so than yesterday) Thought Process: goal directed thought process Suicidal Thoughts: denies suicidal thoughts Homicidal Thoughts: denies homicidal thoughts Cognition: recent memory grossly intact Estimated Intelligence: average estimated intelligence Insight: good insight Judgement: good judgement Results & Data Medications Administered Hydroxyzine HCl (Vistaril) 50 mg PO HSZ PRN PRN Reason: Insomnia Stop: 01/08/19 22:05 Last Admin: 12/10/18 21:04 Dose: 50 mg Ziprasidone (Geodon) 80 mg PO DAILYBD FRANTZ Stop: 01/09/19 17:14 Last Admin: 12/10/18 17:36 Dose: 80 mg
--- NOTE | 2018-12-11 15:12 | Psychiatric Progress Note ---
Date of Service December 11, 2018 Impression / Recommendations Impression Some improvement with restart of Geodon but remains easily agitated. Geodon 80 mg just started last evening and so will wait another day before titrating to 100 mg. She is asking to move it to 8 pm so she doesn't get tired too early in the evening which I agree to do, and she agrees to hold her dinner until that time. I have told her that we will not keep secrets with her about her suicidality and so will likely need to cancel the meeting with her parents. (1) Bipolar disorder: Bipolar disorder type I: Patient presents with 13 days of elevated and irritable mood, decreased need for sleep, distractibility, excessive talking, racing thoughts, and suicidal thoughts, which are functionally impairing. -CBC, CMP, TSH, UA, and UDS unremarkable. No active medical conditions. -Continue voluntary hospitalization, checks for safety, and participation in unit groups and programming. Work on healthy coping skills and discharge safety plan. -Patient reports previous good response to ziprasidone, and has been taking 80 mg daily from an old prescription the past couple of days with benefit. She wishes to continue this medication, so will order 80 mg daily with dinner. Consider dose increase if necessary. -Hydroxyzine as needed for sleep. Consider additional sleep medication if needed. -Coordinate care with [facility], where the patient plans to follow up for therapy and psychiatry as an outpatient. -Coordination with the [facility]. Encourage patient to explore ways to minimize stress for the remainder of the semester to allow for full recovery. -Family meeting with parents. 12/11 - Continue Geodon 80 mg another day and plan to increase to 100 mg tomorrow - Will likely need to cancel family meeting as the patient is wanting to keep secrets from her parents which we cannot support. Will continue to encourage honesty in treatment and with her parents. Inventory Assets Strengths: dedicated student, stable housing, supportive family Needs: medication, mood stability, outpatient treatment Risk Factors Assessment Male: No : Yes Do You Have Access To A Gun?: No (not at her apartment or parents' home) Health Problems: No Mental Health Diagnoses: Yes Substance Use Disorders: No Previous Attempt: Yes Family History of Suicide: No Previous Psychiatric Hospitalization: Yes Hopelessness: No Smoker: No Protective Factors Assessment Orthodoxy Beliefs: No : No Responsible for Young Children: No Employed: No Supportive Family: Yes Good Rapport with Provider: No Interval History Identifying Information 18 yo female admitted voluntarily with depression and suicidality, having been off of her psychiatric medications. Chief Complaint "Better". Review of Systems Sleep Information Total Hours of Sleep: 8 Sleep Comments: pt appeared to sleep 3 hrs during evening shift. pt NPO during the night. TRISTAN @0500. pt wrote/julio while in the kitchen area. pt on q-15 minute checks Meal Information Percent Meal Consumed - Breakfast: 100 Percent Meal Consumed - Lunch: 100 Percent Meal Consumed - Dinner: 100 Subjective Subjective Patient was seen & assessed and interval progress reviewed with Treatment Team. The patient says that she is feeling better today attributing her improvement to the Geodon. Yesterday she felt like she couldn't even carry on a conversation or think clearly, which is better today. last evening she was still having frequent thoughts of suicide, but this is subsiding today. Last evening she had a panic attack and felt agitated which she thinks triggered the SI. She got a prn and waited it out til it passed. She is scheduled to have a meeting with her parents today and does not want us to tell them about the SI. I inform her that we will not keep secrets and ask her why she would want to keep that from them. "They already hate me. They'll tell me its my fault. Its always my fault.". She becomes upset and agitated, "I can't do this right now.". Wants to cancel the meeting and return to group. She also wants her Geodon increased to address the agitation. Physical Exam Vital Signs (Past 24 Hours) Last Vital Signs Temp 36.6 C 12/11/18 06:39 Pulse 63 12/11/18 06:40 Resp 16 12/11/18 06:39 BP 121/81 12/11/18 11:10 Pulse Ox 99 12/09/18 16:21 Results & Data Laboratory Results Laboratory Results - last 24 hr 12/11/18 08:08 Fasting Glucose 86 Triglycerides 66 Cholesterol 172 LDL Cholesterol, Calc 111 VLDL Cholesterol, Calc 13 HDL Cholesterol 48 Cholesterol/HDL Ratio 4 Current Inpatient Medications Current Inpatient Medications: Current Inpatient Medications Acetaminophen (Tylenol) 650 mg PO Q4H PRN PRN Reason: Headache or Minor Fever Stop: 01/08/19 22:05 Al Hydrox/Mg Hydrox/Simethicone (Maalox) 30 ml PO Q4H PRN PRN Reason: GI Upset Stop: 01/08/19 22:05 Bismuth Subsalicylate (Kaopectate) 15 ml PO PRN PRN PRN Reason: Loose Stool Stop: 01/08/19 22:05 Hydroxyzine HCl (Vistaril) 50 mg PO HSZ PRN PRN Reason: Insomnia Stop: 01/08/19 22:05 Last Admin: 12/10/18 21:04 Dose: 50 mg Hydroxyzine HCl (Vistaril) 25 mg PO Q4H PRN PRN Reason: Anxiety Stop: 01/08/19 22:05 Magnesium Hydroxide (Milk Of Magnesia) 30 ml PO DAILY PRN PRN Reason: Heartburn Stop: 01/08/19 22:05 Sodium Chloride ([place] Nasal) 1 - 2 sprays NA PRN PRN PRN Reason: Nasal Dryness/Congestion Stop: 01/08/19 22:05 Ziprasidone (Geodon) 80 mg PO DAILYBD FRANTZ Stop: 01/09/19 17:14 Last Admin: 12/10/18 17:36 Dose: 80 mg Post Discharge Appointments Primary Care Physician Name Of Family Doctor: [facility]Dr Arnulfo Mas Psychiatrist Name of Psychiatrist: Dr Benjamin Gandara Therapist Name of Therapist: JANUSZ Specialist Name of Specialist: [facility] Phone Number for Specialist: [phone] Specialty Appointment Comment: [facility] Contact Information Discharge Discharge Address: [address] [place] [address] [facility] CPT Code CPT Code 17472 _ (1) Bipolar disorder Active/Remission status: currently active Current bipolar episode type: manic Current episode severity: moderate Most recent bipolar episode type: Psychotic features: Qualified Code(s): F31.12 - Bipolar disorder, current episode manic without psychotic features, moderate
[2018-12-11] MEDS: ZIPRASIDONE HCL 80 MG CAP PO SCH (19:41)
--- NOTE | 2018-12-12 10:05 | Psychiatric Progress Note ---
Date of Service December 12, 2018 Impression / Recommendations Impression Some improvement with restart of Geodon but remains easily agitated and manic, was unable to tolerate a family meeting yesterday, so will try again. Will increase Geodon, which she would like to move back to 7:30 pm, and continue exploring OP. (1) Bipolar disorder: Bipolar disorder type I: Patient presents with 13 days of elevated and irritable mood, decreased need for sleep, distractibility, excessive talking, racing thoughts, and suicidal thoughts, which are functionally impairing. -CBC, CMP, TSH, UA, and UDS unremarkable. No active medical conditions. -Continue voluntary hospitalization, checks for safety, and participation in unit groups and programming. Work on healthy coping skills and discharge safety plan. -Patient reports previous good response to ziprasidone, and has been taking 80 mg daily from an old prescription the past couple of days with benefit. She wishes to continue this medication, so will order 80 mg daily with dinner. Consider dose increase if necessary. -Hydroxyzine as needed for sleep. Consider additional sleep medication if needed. -Coordinate care with [facility], where the patient plans to follow up for therapy and psychiatry as an outpatient. -Coordination with the [facility]. Encourage patient to explore ways to minimize stress for the remainder of the semester to allow for full recovery. -Family meeting with parents. 12/11 - Continue Geodon 80 mg another day and plan to increase to 100 mg tomorrow - Will likely need to cancel family meeting as the patient is wanting to keep secrets from her parents which we cannot support. Will continue to encourage honesty in treatment and with her parents. 12/12 - Increase ziprasidone to 100mg and move to 7:30PM at patient's request. Ensure she takes it with at least 500 sarai. - FG and FLP obtained yesterday for monitoring on an atypical antipsychotic and all values are within normal limits. - Re-attempt family meeting once symptoms are better controlled and the patient is able to tolerate it. - Coordinate with [facility], as patient states she was told she could receive outpatient care there. Inventory Assets Strengths: dedicated student, stable housing, supportive family Needs: medication, mood stability, outpatient treatment Risk Factors Assessment Male: No : Yes Do You Have Access To A Gun?: No (not at her apartment or parents' home) Health Problems: No Mental Health Diagnoses: Yes Substance Use Disorders: No Previous Attempt: Yes Family History of Suicide: No Previous Psychiatric Hospitalization: Yes Hopelessness: No Smoker: No Protective Factors Assessment Quaker Beliefs: No : No Responsible for Young Children: No Employed: No Supportive Family: Yes Good Rapport with Provider: No Interval History Identifying Information 18 yo female admitted voluntarily with depression and suicidality, having been off of her psychiatric medications. Chief Complaint "I'm just really agitated, I freak out". Review of Systems Sleep Information Total Hours of Sleep: 7.75 Sleep Comments: pt appeared to sleep 3 hrs during evening shift. pt NPO during the night. TRISTAN @0500. pt wrote/julio while in the kitchen area. pt on q-15 minute checks Meal Information Percent Meal Consumed - Breakfast: 100 Percent Meal Consumed - Lunch: 100 Percent Meal Consumed - Dinner: 100 Subjective Subjective Patient was seen & assessed and interval progress reviewed with Nursing and social work. Staff report she is attending groups, but having difficulty focusing. [facility] was contacted as the patient reported they told her they would provide services after discharge, but they have not yet confirmed that. She had a family meeting scheduled with parents yesterday afternoon, which was canceled as she was overwhelmed and unable to tolerate it. On my assessment, patient was seen with Sammie Coyne, MS4. She reports feeling on edge, irritable, easily overwhelmed/annoyed (by noises, lights, etc). She says she was unable to tolerate a family meeting yesterday as she was feeling overwhelmed and worried that her family would "hate me" if they knew how poorly she'd been doing, then started thinking the social science manager was out to get her and that people had bad intentions, which she now thinks was incorrect. She feels "I can't handle things yet" and feels out of control. She continues to have racing thoughts, decreased sleep (getting up very early). She does think that her medication is helping and is agreeable to going up on the dose. Physical Exam Mental Examination Well-nourished well-developed white female appearing her stated age. Casually dressed with adequate grooming and hygiene. Seated in no acute distress, but appears very anxious, leaning forward in her chair with muscles tensed. Good eye contact. Speech is over productive, rapid, normal volume and tone. Mood is irritable and affect is intense, expansive, and congruent. Thoughts are mildly loose but goal-directed enough to follow her train of thought. Denies SI , HI, hallucinations, but does report paranoia and thought distortions. Alert and oriented. Good insight, fair judgment. Vital Signs (Past 24 Hours) Last Vital Signs Temp 36.6 C 12/12/18 06:35 Pulse 76 12/12/18 06:36 Resp 16 12/12/18 06:35 BP 118/80 12/12/18 06:36 Pulse Ox 99 12/09/18 16:21 Results & Data Current Inpatient Medications Current Inpatient Medications: Current Inpatient Medications Acetaminophen (Tylenol) 650 mg PO Q4H PRN PRN Reason: Headache or Minor Fever Stop: 01/08/19 22:05 Al Hydrox/Mg Hydrox/Simethicone (Maalox) 30 ml PO Q4H PRN PRN Reason: GI Upset Stop: 01/08/19 22:05 Bismuth Subsalicylate (Kaopectate) 15 ml PO PRN PRN PRN Reason: Loose Stool Stop: 01/08/19 22:05 Hydroxyzine HCl (Vistaril) 50 mg PO HSZ PRN PRN Reason: Insomnia Stop: 01/08/19 22:05 Last Admin: 12/10/18 21:04 Dose: 50 mg Hydroxyzine HCl (Vistaril) 25 mg PO Q4H PRN PRN Reason: Anxiety Stop: 01/08/19 22:05 Magnesium Hydroxide (Milk Of Magnesia) 30 ml PO DAILY PRN PRN Reason: Heartburn Stop: 01/08/19 22:05 Sodium Chloride ([place] Nasal) 1 - 2 sprays NA PRN PRN PRN Reason: Nasal Dryness/Congestion Stop: 01/08/19 22:05 Ziprasidone (Geodon) 80 mg PO DAILYBD FRANTZ Stop: 01/09/19 17:14 Last Admin: 12/11/18 19:41 Dose: 80 mg Post Discharge Appointments Primary Care Physician Name Of Family Doctor: [facility]Dr Arnulfo Mas Psychiatrist Name of Psychiatrist: Dr Benjamin Gandara Therapist Name of Therapist: JANUSZ Specialist Name of Specialist: [facility] Phone Number for Specialist: [phone] Specialty Appointment Comment: [facility] Contact Information Discharge Discharge Address: [address] [place] [address] [place] [address] CPT Code CPT Code 14950 _ (1) Bipolar disorder Active/Remission status: currently active Current bipolar episode type: manic Current episode severity: moderate Most recent bipolar episode type: Psychotic features: Qualified Code(s): F31.12 - Bipolar disorder, current episode manic without psychotic features, moderate
--- NOTE | 2018-12-12 14:01 | Medical Student Progress Note ---
Date of Service December 12, 2018 Assessment & Plan (1) Bipolar disorder: This is a 18-year-old female with bipolar I who is admitted for a manic episode. Evita overall sees herself improving in her irritability and ability to focus, but is not back to baseline yet. She is in agreement with the plan to increase her ziprasidone and also find the best time to take her medicine in order for her to function as best as she can throughout the day. 1. Bipolar I - Improving, but not back to baseline. - Increase to ziprasidone to 100 mg daily with food. - Continue to attend group therapy and activities. - Consider re-approaching idea of family meeting. - Fasting glucose and lipid panel are WNL. 2. Sleep disturbance - Continue to offer hydroxyzine as needed for sleep. 3. Disposition - Discuss plan for outpatient medication management and counseling - [facility] (near her apartment) +/- [facility] on campus. Active/Remission status: currently active Current bipolar episode type: manic Current episode severity: moderate Psychotic features: Most recent bipolar episode type: Qualified Code(s): F31.12 - Bipolar disorder , current episode manic without psychotic features, moderate Subjective This is a 18-year-old female with bipolar I who is admitted for a manic episode. She says that she feels better each day that she's been here but still fells "on edge" at times. She notices her irritability being worse late at night and early in the morning, and this feeling is especially provoked by loud noises. She is glad that she is better able to maintain eye contact. Evita was scheduled to have a family meeting yesterday but felt too agitated to participate, so it was subsequently canceled. Looking back she shares that she "freaked out" because she was scared how her parents would react to hearing about her suicidal ideation. She says she was worried that they would take college away from her. She says that she sees that that is not realistic now. Overall, Evita has noticed positive progress in her manic symptoms but is not completely back to her normal self. She says she is not ready to go home yet because she doesn't "blow up on people I like." She is amenable to increasing her ziprasidone to 100mg and requests taking it ~7:30 in order to time the drowsiness side effect with her bed time, while also not becoming too tired for late group activities. Physical Exam 2 Vital Signs (Past 24 Hours): Last Vital Signs Temp 36.6 C 12/12/18 06:35 Pulse 76 12/12/18 06:36 Resp 16 12/12/18 06:35 BP 118/80 12/12/18 06:36 Pulse Ox 99 12/09/18 16:21 Psychiatric: Orientation: alert Apperance: appropriately dressed Eye Contact: good eye contact Motor Behavior: no abnormal motor movements Speech: normal rate/rhythm/volume of speech Affect: euthymic affect Mood: + irritable mood (but less so than yesterday) Thought Process: goal directed thought process Suicidal Thoughts: denies suicidal thoughts Homicidal Thoughts: denies homicidal thoughts Cognition: recent memory grossly intact Estimated Intelligence: average estimated intelligence Insight: good insight Judgement: good judgement Results & Data Medications Administered Hydroxyzine HCl (Vistaril) 50 mg PO HSZ PRN PRN Reason: Insomnia Stop: 01/08/19 22:05 Last Admin: 12/10/18 21:04 Dose: 50 mg
[2018-12-12] MEDS: ZIPRASIDONE HCL 20 MG CAP PO SCH (19:42)
[2018-12-12] MEDS: ZIPRASIDONE HCL 80 MG CAP PO SCH (19:43)
--- NOTE | 2018-12-13 09:40 | Psychiatric Progress Note ---
Date of Service December 13, 2018 Impression / Recommendations Impression Pt reports ongoing improvement in agitation and restlessness, but continues to struggle with tolerating groups discussing school subjects. Pt admits she is not ready for heavy discussions, but is hopeful for a family meeting this weekend. She has been working on writing statements to inform her parents of the presence of SI during this meeting, but continues to be anxious about disclosing this to anyone. She admits that it is important, and although anxious is still willing to tell them. Will continue ziprasidone at 100mg today , but consider titration if necessary through the weekend. Pt continues to display some signs of julio cesar, and without adequate disclosure between parents and patient, she lacks a support system reliable enough to warrant discharge. She is also unable to clearly deny SI, leaving her at increased risk of harm to self if discharged prematurely. (1) Bipolar disorder: Bipolar disorder type I: Patient presents with 13 days of elevated and irritable mood, decreased need for sleep, distractibility, excessive talking, racing thoughts, and suicidal thoughts, which are functionally impairing. -CBC, CMP, TSH, UA, and UDS unremarkable. No active medical conditions. -Continue voluntary hospitalization, checks for safety, and participation in unit groups and programming. Work on healthy coping skills and discharge safety plan. -Patient reports previous good response to ziprasidone, and has been taking 80 mg daily from an old prescription the past couple of days with benefit. She wishes to continue this medication, so will order 80 mg daily with dinner. Consider dose increase if necessary. -Hydroxyzine as needed for sleep. Consider additional sleep medication if needed. -Coordinate care with [facility], where the patient plans to follow up for therapy and psychiatry as an outpatient. -Coordination with the [facility]. Encourage patient to explore ways to minimize stress for the remainder of the semester to allow for full recovery. -Family meeting with parents. 12/11 - Continue Geodon 80 mg another day and plan to increase to 100 mg tomorrow - Will likely need to cancel family meeting as the patient is wanting to keep secrets from her parents which we cannot support. Will continue to encourage honesty in treatment and with her parents. 12/12 - Increase ziprasidone to 100mg and move to 7:30PM at patient's request. Ensure she takes it with at least 500 sarai. - FG and FLP obtained yesterday for monitoring on an atypical antipsychotic and all values are within normal limits. - Re-attempt family meeting once symptoms are better controlled and the patient is able to tolerate it. - Coordinate with [facility], as patient states she was told she could receive outpatient care there. 12/13 - Continue ziprasidone 100mg, consider titration through weekend if necessary. Pt admits she is willing to consider - Gradually more able to tolerate groups, some necessary discussions remain difficult. Hopeful she is better able to communicate school concerns and SI with parents, hoping for meeting over the weekend. - Solidify aftercare arrangements Inventory Assets Strengths: dedicated student, stable housing, supportive family Needs: medication, mood stability, outpatient treatment Risk Factors Assessment Male: No : Yes Do You Have Access To A Gun?: No (not at her apartment or parents' home) Health Problems: No Mental Health Diagnoses: Yes Substance Use Disorders: No Previous Attempt: Yes Family History of Suicide: No Previous Psychiatric Hospitalization: Yes Hopelessness: No Smoker: No Protective Factors Assessment Tenriism Beliefs: No : No Responsible for Young Children: No Employed: No Supportive Family: Yes Good Rapport with Provider: No Interval History Identifying Information 18 yo female admitted voluntarily with depression and suicidality, having been off of her psychiatric medications. Chief Complaint "I'm definitely feeling better, but still a little jumpy". Review of Systems Notes Constitutional: reports increased energy and some ongoing restlessness Cardiovascular: denied Respiratory: denied Gastrointestinal: denied Neurological: denied Psychiatric: denies symptoms other than stated above Total of at least 10 systems reviewed, pertinent positives as above and in HPI. Sleep Information Total Hours of Sleep: 6.75 Sleep Comments: pt appeared to sleep 3 hrs during evening shift. pt NPO during the night. TRISTAN @0500. pt wrote/julio while in the kitchen area. pt on q-15 minute checks Meal Information Percent Meal Consumed - Breakfast: 100 Percent Meal Consumed - Lunch: 90 Percent Meal Consumed - Dinner: 100 Subjective Subjective Patient was seen & assessed and interval progress reviewed with Treatment Team. Staff report the patient has been resistant to involve family or friends in a meeting to discuss her condition and stressors. Pt was seen today to assess progress since admission. Pt states she has been doing well, and has noticed improvement in her symptoms since resuming ziprasidone. She states, "I usually need a few days to know how well it's working." Pt states she is not resistant for further titration, but would like to see how helpful the 100mg dose is before increasing further. She admits to ongoing restlessness and energy, but feels this is improving, "I did 25 word searches last night, and walking just now really helped. At least it's to the point that I can channel it." Pt has been sleeping better as well. She continues to be concerned about expectations for a family meeting. Pt does believe it would be helpful for her to tell her parents about her SI, but is anxious about "my world just blowing up." She continues to receptive to guidance from social work, who is assisting her with ways in which she can bring up the topic. Pt is hopeful for a meeting to be scheduled this weekend. She continues to report some irritability, stating "I had to walk out of group yesterday. They were talking about school, and I just can't handle that yet." Pt was asked about the presence of SI and stated, "not really", stating she continues to have some hopelessness, but it is not as overwhelming. She denies other concerns at this time. Physical Exam Psychiatric Orientation: alert, oriented x 3 and cooperative Apperance: appropriately dressed, appropriately groomed and appeared stated age Eye Contact: good eye contact Motor Behavior: steady gait and station and no abnormal motor movements (mildly restless) Speech is not pressured, but seems rapid, somewhat hyperproductive still Affect: euthymic affect Mood: + anxious mood ("just worried about telling them [parents]" and "worried my whole world will blow up") Thought Process: goal directed thought process, linear/logical thought process and clear/coherent thought process; thought process not circumstantial, thought process not tangential and no looseness of associations Thought Content: reality based without delusions Suicidal Thoughts: denies suicidal thoughts (denies overt SI, but admits to vague hopelessness. less overwhelming, but cannot clearly deny SI) Homicidal Thoughts: denies homicidal thoughts Hallucinations: no auditory hallucinations and no visual hallucinations Cognition: recent memory grossly intact, remote memory grossly intact, attention grossly intact and language grossly intact Estimated Intelligence: consistent with education level Insight: + fair insight Judgement: + fair judgement Vital Signs (Past 24 Hours) Last Vital Signs Temp 36.6 C 12/13/18 06:29 Pulse 84 12/13/18 06:31 Resp 16 12/13/18 06:29 BP 112/73 12/13/18 06:31 Pulse Ox 99 12/09/18 16:21 Results & Data Current Inpatient Medications Current Inpatient Medications: Current Inpatient Medications Acetaminophen (Tylenol) 650 mg PO Q4H PRN PRN Reason: Headache or Minor Fever Stop: 01/08/19 22:05 Al Hydrox/Mg Hydrox/Simethicone (Maalox) 30 ml PO Q4H PRN PRN Reason: GI Upset Stop: 01/08/19 22:05 Bismuth Subsalicylate (Kaopectate) 15 ml PO PRN PRN PRN Reason: Loose Stool Stop: 01/08/19 22:05 Hydroxyzine HCl (Vistaril) 50 mg PO HSZ PRN PRN Reason: Insomnia Stop: 01/08/19 22:05 Last Admin: 12/10/18 21:04 Dose: 50 mg Hydroxyzine HCl (Vistaril) 25 mg PO Q4H PRN PRN Reason: Anxiety Stop: 01/08/19 22:05 Magnesium Hydroxide (Milk Of Magnesia) 30 ml PO DAILY PRN PRN Reason: Heartburn Stop: 01/08/19 22:05 Sodium Chloride ([place] Nasal) 1 - 2 sprays NA PRN PRN PRN Reason: Nasal Dryness/Congestion Stop: 01/08/19 22:05 Ziprasidone (Geodon) 20 mg PO DAILY@1930 [facility] Stop: 01/11/19 19:29 Last Admin: 12/12/18 19:42 Dose: 20 mg Ziprasidone (Geodon) 80 mg PO DAILY@1930 [facility] Stop: 01/11/19 19:29 Last Admin: 12/12/18 19:43 Dose: 80 mg Post Discharge Appointments Primary Care Physician Name Of Family Doctor: [facility],Dr Arnulfo Mas Psychiatrist Name of Psychiatrist: Dr Benjamin Gandara Therapist Name of Therapist: Adonis Gregory Therapist's Date of Therapist Appointment: 12/18/18 Time of Therapist Appointment: 9am Therapy Appointment Comment: [address], [place] [address] Specialist Name of Specialist: [facility] Phone Number for Specialist: [phone] Specialty Appointment Comment: [facility] Building Contact Information Discharge Discharge Address: [address] [place] [address] [address] [place] [address] CPT Code CPT Code 56146 _ (1) Bipolar disorder Active/Remission status: currently active Current bipolar episode type: manic Current episode severity: moderate Most recent bipolar episode type: Psychotic features: Qualified Code(s): F31.12 - Bipolar disorder, current episode manic without psychotic features, moderate
--- NOTE | 2018-12-13 15:23 | Psychiatric Progress Note ---
Date of Service December 13, 2018 Impression / Recommendations Impression The patient continues to show improvement, but does still have residual symptoms of hypomania. Although her speech is not pressured, she does speak rapidly and her mood appears somewhat elated, given the present circumstances. There is no evidence of any psychotic features. 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 Although she acknowledged suicidal thoughts at the time of admission, she insists that these thoughts were fleeting, occurred during episodes of sleeplessness and flight of ideas, and were not associated with any specific intent. She does acknowledge a past history of suicide attempts, as well as a more recent history of intentional self-injurious behaviors for this he self cutting, superficially, to relieve stress and slow her rapid thoughts, but she notes that she regrets her past suicide attempts, and has had no specific thoughts of suicide with plan or intent for over 3 years now. The patient, herself, reports that she does feel that her manic episode is improving as evidenced by the fact that she is now more comfortable, less anxious, able to sleep, and, for the most part, has noticed a near resolution of the flight of ideaswhich seems to have been her main complaint, together with insomnia, at the time of admission. Because she indicates that she may be having breakthrough symptoms in the early evening, I would recommend possibly increasing her dose of ziprasidone, depending upon the response to the recent increase last night. May possibility would be to increase her dose to ziprasidone 20 mg in the morning and 100 mg at bedtime. The patient's mother also takes ziprasidone, and the patient sees dosages that are as high as her mother's dose as evidence that her own bipolar disorder is "just as bad as [her] mother," and she feels that her illness is basically not as severe as her mother's was, so that I suspect that she will consider a dose of ziprasidone 120 mg daily to be evidence that, in fact, her illness is as bad as her motherbecause her mother's dose of ziprasidone typically ranges between 120 and 160 mg daily. (1) Bipolar disorder: Bipolar disorder type I: Patient presents with 13 days of elevated and irritable mood, decreased need for sleep, distractibility, excessive talking, racing thoughts, and suicidal thoughts, which are functionally impairing. -CBC, CMP, TSH, UA, and UDS unremarkable. No active medical conditions. -Continue voluntary hospitalization, checks for safety, and participation in unit groups and programming. Work on healthy coping skills and discharge safety plan. -Patient reports previous good response to ziprasidone, and has been taking 80 mg daily from an old prescription the past couple of days with benefit. She wishes to continue this medication, so will order 80 mg daily with dinner. Consider dose increase if necessary. -Hydroxyzine as needed for sleep. Consider additional sleep medication if needed. -Coordinate care with [facility], where the patient plans to follow up for therapy and psychiatry as an outpatient. -Coordination with the [employer]. Encourage patient to explore ways to minimize stress for the remainder of the semester to allow for full recovery. -Family meeting with parents. 12/11 - Continue Geodon 80 mg another day and plan to increase to 100 mg tomorrow - Will likely need to cancel family meeting as the patient is wanting to keep secrets from her parents which we cannot support. Will continue to encourage honesty in treatment and with her parents. 12/12 - Increase ziprasidone to 100mg and move to 7:30PM at patient's request. Ensure she takes it with at least 500 sarai. - FG and FLP obtained yesterday for monitoring on an atypical antipsychotic and all values are within normal limits. - Re-attempt family meeting once symptoms are better controlled and the patient is able to tolerate it. - Coordinate with [facility], as patient states she was told she could receive outpatient care there. 12/13 - Continue ziprasidone 100mg, consider titration through weekend if necessary. Pt admits she is willing to consider - Gradually more able to tolerate groups, some necessary discussions remain difficult. Hopeful she is better able to communicate school concerns and SI with parents, hoping for meeting over the weekend. - Solidify aftercare arrangements Inventory Assets Strengths: dedicated student, stable housing, supportive family Needs: medication, mood stability, outpatient treatment Risk Factors Assessment Male: No : Yes Do You Have Access To A Gun?: No (not at her apartment or parents' home) Health Problems: No Mental Health Diagnoses: Yes Substance Use Disorders: No Previous Attempt: Yes Family History of Suicide: No Previous Psychiatric Hospitalization: Yes Hopelessness: No Smoker: No Protective Factors Assessment Nondenominational Beliefs: No : No Responsible for Young Children: No Employed: No Supportive Family: Yes Good Rapport with Provider: No Interval History Identifying Information 18 yo female admitted voluntarily with julio cesar and suicidality, having been off of her psychiatric medications. Chief Complaint "I was having a manic episode". Review of Systems Sleep Information Total Hours of Sleep: 6.75 Sleep Comments: pt appeared to sleep 3 hrs during evening shift. pt NPO during the night. TRISTAN @0500. pt wrote/julio while in the kitchen area. pt on q-15 minute checks Meal Information Percent Meal Consumed - Breakfast: 100 Percent Meal Consumed - Lunch: 90 Percent Meal Consumed - Dinner: 100 Subjective Subjective Patient was seen & assessed and interval progress reviewed with Treatment Team. I met individually with the patient in order to assess her current mental status, evaluate her response to treatment, coordinate any necessary changes in the treatment plan with the patient, and address questions and concerns that may arise. The patient provides the following history: She has a known diagnosis of bipolar disorder, dating back many years. However, she tells me that she had been stable for the past 3 years without taking psychiatric medications. Historically, her manic episodes have typically lasted anywhere from a matter of hours, up to a week or 2, but the most frequent duration has been 3 or 4 days. During these periods, she experiences increased energy, flight of ideas, pressured speech, decreased desire for sleep, impulsive spending, and elated or expansive mood. Although the patient initially said that she had been stable for the past 3 years, she admitted that she has had several brief manic episodes, lasting no more than "maybe 3 days, sometimes just an afternoon" during this 3-year period. However, approximately 3 weeks ago she began to notice symptoms of julio cesar, such as decreased desire for sleep, associated insomnia, and flight of ideas with mood lability. The patient's reports that she waited several days before reporting her symptoms to her family because, as above, the manic episodes that she has experienced recently typically resolved after a few days and she re-stabilized without interventions. However, this time she experienced persistent insomnia and tells me that she went for about 12 days without sleeping more than "may be an hour or 2" each night. She also had racing thoughts to the degree that she was unable to help with her thoughts and, within that context, would periodically have fleeting nonspecific thoughts of suicide, without any plan or intent. She does acknowledge a past history of several suicide attempts during middle adolescence, but has had no attempts for at least 3 years and'denies any specific suicidal thoughts during the same time.. Her suicide attempts have included overdosing on medications and, on one occasion, tying a piece of clothing around her neck and tightening it. The patient's mother also suffers from bipolar disorder and also takes ziprasidone. The patient notes that her mother has been a primary support, and she has been able to tell her mother when she is experiencing man episodes. Also, the patient's mother is sufficiently aware of manic symptoms that she, herself, is able to identify them even before the patient tells her. There is a past favorable response to ziprasidone. She has taken aripiprazole and lithium in the past, but these medications were not particularly effective. Although she spends most of her time feeling euthymic, she also has episodes of depression. These are characterized by depressed mood, apathy, anergia, psychosocial withdrawal, and anhedonia. She reports that these episodes typically last 3 or 4 days before resolving. The team has been titrating her dose of ziprasidone and, starting last evening, she took a dose of ziprasidone 100 mg at approximately 7 PM and last night she slept for most of the night without awakening. She tells me that she still sometimes notices that her thoughts are racing, particularly in the late afternoons or early evenings, but that she also feels that her julio cesar is subsiding and she is returning to baseline. Physical Exam Psychiatric Orientation: alert and oriented x 3 Apperance: appropriately dressed Eye Contact: good eye contact Motor Behavior: steady gait and station and no abnormal motor movements The patient's speech is rapid, but not exactly pressured. She waits for responses, can be interrupted, and is not exhibiting flight of ideas. Affect: euthymic affect The patient describes her mood as "pretty good." Thought Process: goal directed thought process and clear/coherent thought process; no flight of ideas Thought Content: reality based without delusions Suicidal Thoughts: denies suicidal thoughts As above, the patient reports that she had fleeting, vague thoughts of suicide, mostly at night, prior to admission. She said these would occur while sitting alone in a darkened room and unable to sleep. However, the thoughts did not include any specific plan for suicide and were never associated with any suicidal intent. The patient states, "basically, my life is going well and I am not suicidal." She does have a recent history of intentional self-injurious behaviors that consists of superficially cutting her abdomen. She says that these are not continue to cause serious harm and, instead, 10 to help relieve the flight of ideas and anxiety associated with a manic episode. Homicidal Thoughts: denies homicidal thoughts Hallucinations: no auditory hallucinations and no visual hallucinations Cognition: recent memory grossly intact, remote memory grossly intact, attention grossly intact and language grossly intact Estimated Intelligence: + above average estimated intelligence Insight: + fair insight Judgement: + fair judgement Vital Signs (Past 24 Hours) Last Vital Signs Temp 36.6 C 12/13/18 06:29 Pulse 84 12/13/18 06:31 Resp 16 12/13/18 06:29 BP 112/73 12/13/18 06:31 Pulse Ox 99 12/09/18 16:21 Results & Data Current Inpatient Medications Current Inpatient Medications: Current Inpatient Medications Acetaminophen (Tylenol) 650 mg PO Q4H PRN PRN Reason: Headache or Minor Fever Stop: 01/08/19 22:05 Al Hydrox/Mg Hydrox/Simethicone (Maalox) 30 ml PO Q4H PRN PRN Reason: GI Upset Stop: 01/08/19 22:05 Bismuth Subsalicylate (Kaopectate) 15 ml PO PRN PRN PRN Reason: Loose Stool Stop: 01/08/19 22:05 Hydroxyzine HCl (Vistaril) 50 mg PO HSZ PRN PRN Reason: Insomnia Stop: 01/08/19 22:05 Last Admin: 12/10/18 21:04 Dose: 50 mg Hydroxyzine HCl (Vistaril) 25 mg PO Q4H PRN PRN Reason: Anxiety Stop: 01/08/19 22:05 Magnesium Hydroxide (Milk Of Magnesia) 30 ml PO DAILY PRN PRN Reason: Heartburn Stop: 01/08/19 22:05 Sodium Chloride ([place] Nasal) 1 - 2 sprays NA PRN PRN PRN Reason: Nasal Dryness/Congestion Stop: 01/08/19 22:05 Ziprasidone (Geodon) 20 mg PO DAILY@1930 FRANTZ Stop: 01/11/19 19:29 Last Admin: 12/12/18 19:42 Dose: 20 mg Ziprasidone (Geodon) 80 mg PO DAILY@1930 FRANTZ Stop: 01/11/19 19:29 Last Admin: 12/12/18 19:43 Dose: 80 mg Post Discharge Appointments Primary Care Physician Name Of Family Doctor: [facility],Viviana ZARAGOZA,Dr Arnulfo Mas [facility] Time of Appointment with PCP: follow up as needed. Provider Appointment Comment: [address] [place] [address] Psychiatrist Name of Psychiatrist: Dr Benjamin Gandara Psychiatrist's Date of Appointment with Psychiatrist: 12/30/18 Time of Appointment with Psychiatrist: 3:30pm Psychiatric Appointment Comment: [phone], [place] [address] Therapist Name of Therapist: [facility] Gregory Therapist's Date of Therapist Appointment: 12/18/18 Time of Therapist Appointment: 9am Therapy Appointment Comment: [address], [place] [address] Specialist Name of Specialist: [facility] Phone Number for Specialist: [phone] Date of Appointment with Specialist: 12/17/18 Time of Appointment with Specialist: 11am Specialty Appointment Comment: [facility] Contact Information Discharge Discharge Address: [address] [place] [address] CPT Code CPT Code 97030 _ (1) Bipolar disorder Active/Remission status: currently active Current bipolar episode type: manic Current episode severity: moderate Psychotic features: Most recent bipolar episode type: Qualified Code(s): F31.12 - Bipolar disorder, current episode manic without psychotic features, moderate
--- NOTE | 2018-12-13 15:57 | Medical Student Progress Note ---
Date of Service December 13, 2018 Assessment & Plan (1) Bipolar disorder: This is a 18-year-old female with bipolar I who is admitted for a manic episode. Evita overall sees herself improving in her irritability and ability to focus, but is not back to baseline yet. Evita sees improvement with 100 mg of ziprasidone and would like to stay on this dose for one more day. She is attending and participating well in group activities. 1. Bipolar I - Overall improving, but not back to baseline. - Continue ziprasidone 100 mg daily with food. - Continue to attend group therapy and activities. - Family meeting planned for this evening. - Fasting glucose and lipid panel are WNL. 2. Sleep disturbance - Improving with moving ziprasidone administration later in the day. - Continue to offer hydroxyzine as needed for sleep. 3. Disposition - Discuss plan for outpatient medication management and counseling - [facility] (near her apartment) +/- [facility] on campus. She prefers a younger therapist. Active/Remission status: currently active Current bipolar episode type: manic Current episode severity: moderate Most recent bipolar episode type: Psychotic features: Qualified Code(s): F31.12 - Bipolar disorder, current episode manic without psychotic features, moderate Subjective This is a 18-year-old female with bipolar I who is admitted for a manic episode. Today she says she feels "less overwhelmed." She continues to feel more so agitated in the mornings and evenings. She shares that her physical symptoms of julio cesar are improving, but not the psychological such as racing thoughts. When asked about suicidal ideation, she says "I like my life but I don 't know how to get through it" but confirms that she has no intention or plan to harm herself. She denies homicidal ideation and hallucinations. She shares that many adults in her life have not been emotionally supportive. One of her concerns with going to therapy is seeing an older therapist because of her distrust for adults. She would prefer a therapist closer to her own age. Evita is noticing overall improvement in her symptoms at 100 mg of ziprasidone. She also took her medication later in the evening which is why she thinks she slept longer and uninterrupted last night. She would like to stay on this dose for one more day before considering alteration of her dosage. She plans to have a family meeting with her parents moo. Physical Exam 2 Vital Signs (Past 24 Hours): Last Vital Signs Temp 36.6 C 12/13/18 06:29 Pulse 84 12/13/18 06:31 Resp 16 12/13/18 06:29 BP 112/73 12/13/18 06:31 Pulse Ox 99 12/09/18 16:21 Psychiatric: Orientation: alert Apperance: appropriately dressed Eye Contact: good eye contact Motor Behavior: no abnormal motor movements Speech: normal rate/rhythm/volume of speech (however sometimes she is difficult to interrupt.) Affect: euthymic affect Mood: + irritable mood (but less so than yesterday) Thought Process: goal directed thought process Suicidal Thoughts: denies suicidal thoughts Homicidal Thoughts: denies homicidal thoughts Cognition: recent memory grossly intact Estimated Intelligence: average estimated intelligence Insight: good insight Judgement: good judgement Results & Data Medications Administered Hydroxyzine HCl (Vistaril) 50 mg PO HSZ PRN PRN Reason: Insomnia Stop: 01/08/19 22:05 Last Admin: 12/10/18 21:04 Dose: 50 mg Ziprasidone (Geodon) 20 mg PO DAILY@1929 REPLACED [facility] Stop: 01/11/19 19:29 Last Admin: 12/12/18 19:42 Dose: 20 mg Ziprasidone (Geodon) 80 mg PO DAILY@1929 REPLACED BY [facility] Stop: 01/11/19 19:29 Last Admin: 12/12/18 19:43 Dose: 80 mg
[2018-12-13] MEDS: ZIPRASIDONE HCL 20 MG CAP PO SCH (19:44)
[2018-12-13] MEDS: ZIPRASIDONE HCL 80 MG CAP PO SCH (19:44)
--- NOTE | 2018-12-14 09:11 | Psychiatric Progress Note ---
Date of Service December 14, 2018 Impression / Recommendations Impression The patient continues to show improvement, but does still have residual symptoms of hypomania. Although her speech is not pressured, she does speak rapidly and her mood appears activated today with an increased intensity. There is no evidence of any psychotic features. 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 Although she acknowledged suicidal thoughts at the time of admission, she insists that these thoughts were fleeting, occurred during episodes of sleeplessness and flight of ideas, and were not associated with any specific intent, she confirms this today. She does acknowledge a past history of suicide attempts, as well as a more recent history of intentional self- injurious behaviors for this he self cutting, superficially, to relieve stress and slow her rapid thoughts, but she notes that she regrets her past suicide attempts, and has had no specific thoughts of suicide with plan or intent for over 3 years now." She confirms this today. Due to some residual symptoms of activation s/p 2 nights of geodon 100mg, will advance to 120mg at hs tonight as she declines bid dosing due to h/o sedation with geodon when taken too early in the day. Could consider buspar if anxiety persists. SHe declines additional med today wishing to see if one med will be sufficient. (1) Bipolar disorder: This is a 18-year-old female with bipolar I who is admitted for a manic episode. Evita barlow sees herself improving in her irritability and ability to focus, but is not back to baseline yet. She is attending and participating well in group activities. 1. Bipolar I - Overall improving, but not back to baseline, advance to 120mg geodon at hs with food tonight 12/14. - Continue to attend group therapy and activities. - Family meeting planned for this evening. - Fasting glucose and lipid panel are WNL. 2. Sleep disturbance - Improving with moving ziprasidone administration later in the day. - Continue to offer hydroxyzine as needed for sleep. 3. Disposition - Discuss plan for outpatient medication management and counseling - [facility] (near her apartment) +/- [facility] on campus. She prefers a younger therapist. Outpatient Medication management is presently set for Dr Coffman. Inventory Assets Strengths: dedicated student, stable housing, supportive family Needs: medication, mood stability, outpatient treatment, work on assertive communication and emotional interdependence with her supports Risk Factors Assessment Male: No : Yes Do You Have Access To A Gun?: No (not at her apartment or parents' home) Health Problems: No Mental Health Diagnoses: Yes Substance Use Disorders: No Previous Attempt: Yes Family History of Suicide: No Previous Psychiatric Hospitalization: Yes Hopelessness: No Smoker: No Protective Factors Assessment Sikhism Beliefs: No : No Responsible for Young Children: No Employed: No Supportive Family: Yes Good Rapport with Provider: No Interval History Identifying Information 18 yo female admitted voluntarily with julio cesar and suicidality, having been off of her psychiatric medications. Chief Complaint " I am feeling somewhat better but still not myself, I am on edge". Review of Systems Sleep Information Total Hours of Sleep: 7.5 Sleep Comments: pt appeared to sleep 3 hrs during evening shift. pt NPO during the night. TRISTAN @0500. pt wrote/julio while in the kitchen area. pt on q-15 minute checks Meal Information Percent Meal Consumed - Breakfast: 100 Percent Meal Consumed - Lunch: 90 Percent Meal Consumed - Dinner: 100 Subjective Subjective Patient was seen & assessed and interval progress reviewed with Treatment Team. She is engaging in the milieu and appropriate behavior, sleep has improved Today she states "I am feeling better but still not myself" She is perseverative on the family meeting and not wanting to tell her parents that she was suicidal fearing they will again hover and over monitor as they did in her tten years when she was suicidal in the past. SHe states "I don't know how to do this....my brain does not work" SHe speaks in [id number] patterns, e.g. "they are perfect, they don't understand." She reports she feels "on egde" describes tightness in her chest but "I feel better than I did when I came." She denies racing thoughts today but verbalizes perseverative worries and is somewhat distractible jumping into circular thoughts about how she cannot talk to her parents, and listens to discussion but unable to generate ideas for ways to talk despite being given examples. 'My brain does not work" She denies EPS, dystonia, despite stating she feels 'on edge" she denies feeling restless or akathisia feels able to sit still. SHe has intact appetite and denies feeling sedated in the day with all hs dosing with food of geodon 100mg. She denies h/h/w denies acute SI, but seems to have difficulty verbalizing how she would reach out if she again had SI not wanting to talk to parents, not having aftercare established and not able to tell her friends. She does feel modestly irritable "on edge" and anxious , she denies overt depressive symptoms but feels more "low" than when she came inpatient. Physical Exam Psychiatric Orientation: alert, oriented x 3 and cooperative Apperance: appropriately dressed, appropriately groomed and appeared stated age Eye Contact: good eye contact Motor Behavior: steady gait and station and no abnormal motor movements (she is somewhat "on edge" sitting with leg pulled to chest, upright posture not relaxed but not shaking her legs) Speech: normal rate/rhythm/volume of speech (voluble and repititious in thought about talking to her parents, not pressured, is redirectable) Affect: + anxious affect Mood: + anxious mood ("just worried about talking to my parents") and + irritable mood (but "less so everyday") Thought Process: goal directed thought process and clear/coherent thought process (perseveration on conversation with her parents); thought process not circumstantial, thought process not tangential, no flight of ideas and no looseness of associations Thought Content: reality based without delusions (expresses that she feels her mind is not working and cannot easily participate in CBT to work on communication today) Suicidal Thoughts: denies suicidal thoughts Homicidal Thoughts: denies homicidal thoughts Hallucinations: no auditory hallucinations and no visual hallucinations Cognition: recent memory grossly intact, remote memory grossly intact, attention grossly intact and language grossly intact Estimated Intelligence: average estimated intelligence, consistent with education level and + above average estimated intelligence Insight: good insight (to need for treatment, poor for building and communication to supports, and poor for safety planning stating "I can't do it on my own" but feeling unable to know how to ask for help or communicate when she is feeling poorly) Judgement: good judgement (in regards to agreeing to treatment and meds, but limited in her dilema about communication) Vital Signs (Past 24 Hours) Last Vital Signs Temp 36.6 C 12/14/18 07:02 Pulse 72 12/14/18 07:03 Resp 16 02/09/19 07:02 BP 115/81 12/14/18 07:03 Pulse Ox 99 12/09/18 16:21 Results & Data Current Inpatient Medications Current Inpatient Medications: Current Inpatient Medications Acetaminophen (Tylenol) 650 mg PO Q4H PRN PRN Reason: Headache or Minor Fever Stop: 01/08/19 22:05 Al Hydrox/Mg Hydrox/Simethicone (Maalox) 30 ml PO Q4H PRN PRN Reason: GI Upset Stop: 01/08/19 22:05 Bismuth Subsalicylate (Kaopectate) 15 ml PO PRN PRN PRN Reason: Loose Stool Stop: 01/08/19 22:05 Hydroxyzine HCl (Vistaril) 50 mg PO HSZ PRN PRN Reason: Insomnia Stop: 01/08/19 22:05 Last Admin: 12/10/18 21:04 Dose: 50 mg Hydroxyzine HCl (Vistaril) 25 mg PO Q4H PRN PRN Reason: Anxiety Stop: 01/08/19 22:05 Magnesium Hydroxide (Milk Of Magnesia) 30 ml PO DAILY PRN PRN Reason: Heartburn Stop: 01/08/19 22:05 Sodium Chloride ([place] Nasal) 1 - 2 sprays NA PRN PRN PRN Reason: Nasal Dryness/Congestion Stop: 01/08/19 22:05 Ziprasidone (Geodon) 20 mg PO DAILY@[facility] Stop: 01/11/19 19:29 Last Admin: 12/13/18 19:44 Dose: 20 mg Ziprasidone (Geodon) 80 mg PO DAILY@[facility] Stop: 01/11/19 19:29 Last Admin: 12/13/18 19:44 Dose: 80 mg Post Discharge Appointments Primary Care Physician Name Of Family Doctor: [facility]Dr Arnulfo Mas Primary [facility] Time of Appointment with PCP: follow up as needed. Provider Appointment Comment: [facility] [place] [address] Psychiatrist Name of Psychiatrist: Dr Benjamin Gandara Psychiatrist's Date of Appointment with Psychiatrist: 12/30/18 Time of Appointment with Psychiatrist: 3:30pm Psychiatric Appointment Comment: [address], [place] [address] Therapist Name of Therapist: Ad[facility]is Gregory Therapist's Date of Therapist Appointment: 12/18/18 Time of Therapist Appointment: 9am Therapy Appointment Comment: [address], [place] [address] Specialist Name of Specialist: [facility] Phone Number for Specialist: [phone] Date of Appointment with Specialist: 12/17/18 Time of Appointment with Specialist: 11am Specialty Appointment Comment: [facility] Contact Information Discharge Discharge Address: [address] [place] [address] [place] [address] CPT Code CPT Code 18204 _ (1) Bipolar disorder Active/Remission status: currently active Current bipolar episode type: manic Current episode severity: moderate Psychotic features: Most recent bipolar episode type: Qualified Code(s): F31.12 - Bipolar disorder, current episode manic without psychotic features, moderate
[2018-12-14] MEDS ORDERED: ZIPRASIDONE HCL 20 MG CAP PO SCH (19:30)
--- NOTE | 2018-12-15 09:54 | Psychiatric Progress Note ---
Date of Service December 15, 2018 Impression / Recommendations Impression The patient continues to show improvement wtih some ongoing emotionality in the 4pm time frame which is likely due to residual sx combined with trough of her medication levels. She continues to be hesitant about bid dosing, so we agree to montior to see if she continues to get improvement over several days, if afternoon emotionality continues could split medication to 20mg/AM and 100mg/hs to minimize daytime sedation while trying to minimize the level trough in the afternoon. She is an anxious individual, agrees to therapy and CBT, declines additional medication to target worry, or anxiety at this time. (1) Bipolar disorder: This is a 18-year-old female with bipolar I who is admitted for a manic episode. Evita overall sees herself improving in her irritability and ability to focus, but is not back to baseline yet. She is attending and participating well in group activities. 1. Bipolar I - Overall improving, but not back to baseline, advance to 120mg geodon at hs with food starting 12/14. - Continue to attend group therapy and activities. - Family meeting planned for this evening. - Fasting glucose and lipid panel are WNL. 2. Sleep disturbance - Improving with moving ziprasidone administration later in the day. - Continue to offer hydroxyzine as needed for sleep. 3. ANxiety - prefers to pursue therapy and declines medication at this time, but seems to have underlying WENDY sx 3. Disposition - Discuss plan for outpatient medication management and counseling - [facility] (near her apartment). She prefers a younger therapist. Outpatient Medication management is presently set for Dr Coffman. Inventory Assets Strengths: dedicated student, stable housing, supportive family Needs: medication, mood stability, outpatient treatment, work on assertive communication and emotional interdependence with her supports Risk Factors Assessment Male: No : Yes Do You Have Access To A Gun?: No (not at her apartment or parents' home) Health Problems: No Mental Health Diagnoses: Yes Substance Use Disorders: No Previous Attempt: Yes Family History of Suicide: No Previous Psychiatric Hospitalization: Yes Hopelessness: No Smoker: No Protective Factors Assessment Christian Beliefs: No : No Responsible for Young Children: No Employed: No Supportive Family: Yes Good Rapport with Provider: No Interval History Identifying Information 18 yo female admitted voluntarily with julio cesar and suicidality, having been off of her psychiatric medications. Chief Complaint "I am doing better". Review of Systems Sleep Information Total Hours of Sleep: 6.75 Sleep Comments: pt appeared to sleep 3 hrs during evening shift. pt NPO during the night. TRISTAN @0500. pt wrote/julio while in the kitchen area. pt on q-15 minute checks Meal Information Percent Meal Consumed - Breakfast: 25 Percent Meal Consumed - Lunch: 50 Percent Meal Consumed - Dinner: 100 Subjective Subjective Patient was seen & assessed and interval progress reviewed with Nursing Patient selpt overnight, she is whoing more opennes to a meeting with her parents and disclosing her recent suicidality, she wrote a letter to parents to help her articulate what she wants to say [facility] patient, she denies SE from the 120mg geodon first dose last night She continues to feel mildly edgy "but less everyday, I think the medication is helping" specifically she notes in the 4pm hour she feels a "mood swing" with more proness to irritability and emotionality "It is getting better, I am no longer crying for 2 hours each afternoon." She admits to anxiety worrying for instance about the upcoming snow and sleet and having to "uber, what if there are no uber rides when it is time to go" She is readily willing to engage in CBT to unpack her thoughts and feelings and find balance thought that she will problem solve this if/when the need arises. She expresses that it is the reassurance she is seeking. Discussed ways to ask her parents for what she needs, and to ask therapist for help in practicing expressing her thoughts and even discussing how to communicate when she is having SI before it is so severe that it obligates inpatient. She participates actively and is receptive to this conversation. We discussed bid geodon vs. continuing all in the evening. On ROS she denies other physical concerns at this time. Physical Exam Psychiatric Orientation: alert, oriented x 3 and cooperative Apperance: appropriately dressed, appropriately groomed and appeared stated age Eye Contact: good eye contact Motor Behavior: steady gait and station and no abnormal motor movements (she does bounce her leg intermittantly but denies feeling restless, "I am worried about the weather") Speech: normal rate/rhythm/volume of speech (voluble anxious tone, not pressured , is redirectable) Affect: + anxious affect (but bright, not elevated and not depressed) Mood: + anxious mood ("just worried about talking to my parents") and + irritable mood (but "less so everyday just around 4pm") Thought Process: goal directed thought process, linear/logical thought process and clear/coherent thought process (perseveration on conversation with her parents); thought process not circumstantial, thought process not tangential, no flight of ideas and no looseness of associations Thought Content: reality based without delusions (seems even more clear and fluid thinking today, less preoccupied, less overwhelmed with concepts) Suicidal Thoughts: denies suicidal thoughts Homicidal Thoughts: denies homicidal thoughts Hallucinations: no auditory hallucinations and no visual hallucinations Cognition: recent memory grossly intact, remote memory grossly intact, attention grossly intact and language grossly intact Estimated Intelligence: average estimated intelligence, consistent with education level and + above average estimated intelligence Insight: good insight (to need for treatment, improving for willingness to work on communication to supports, and poor for safety planning stating "I can't do it on my own" but feeling unable to know how to ask for help or communicate when she is feeling poorly) and + fair insight Judgement: good judgement (in regards to agreeing to treatment and meds, improving regarding communication) Vital Signs (Past 24 Hours) Last Vital Signs Temp 36.7 C 12/15/18 06:57 Pulse 74 12/15/18 06:58 Resp 16 12/15/18 06:57 BP 111/79 12/15/18 06:58 Pulse Ox 99 12/09/18 16:21 Results & Data Current Inpatient Medications Current Inpatient Medications: Current Inpatient Medications Acetaminophen (Tylenol) 650 mg PO Q4H PRN PRN Reason: Headache or Minor Fever Stop: 01/08/19 22:05 Al Hydrox/Mg Hydrox/Simethicone (Maalox) 30 ml PO Q4H PRN PRN Reason: GI Upset Stop: 01/08/19 22:05 Bismuth Subsalicylate (Kaopectate) 15 ml PO PRN PRN PRN Reason: Loose Stool Stop: 01/08/19 22:05 Hydroxyzine HCl (Vistaril) 50 mg PO HSZ PRN PRN Reason: Insomnia Stop: 01/08/19 22:05 Last Admin: 12/10/18 21:04 Dose: 50 mg Hydroxyzine HCl (Vistaril) 25 mg PO Q4H PRN PRN Reason: Anxiety Stop: 01/08/19 22:05 Magnesium Hydroxide (Milk Of Magnesia) 30 ml PO DAILY PRN PRN Reason: Heartburn Stop: 01/08/19 22:05 Sodium Chloride ([place] Nasal) 1 - 2 sprays NA PRN PRN PRN Reason: Nasal Dryness/Congestion Stop: 01/08/19 22:05 Ziprasidone (Geodon) 120 mg PO DAILY@1929 [facility] Stop: 12/15/18 19:00 Last Admin: 12/14/18 19:41 Dose: 120 mg Ziprasidone (Geodon) 80 mg PO DAILY@1929 [facility] Stop: 01/14/19 19:29 Ziprasidone (Geodon) 40 mg PO DAILY@1929 [facility] Stop: 01/14/19 19:29 Post Discharge Appointments Primary Care Physician Name Of Family Doctor: [facility]Dr Arnulfo Mas Primary [facility] Time of Appointment with PCP: follow up as needed. Provider Appointment Comment: [facility] [place] [address] Psychiatrist Name of Psychiatrist: Dr Benjamin Gandara Psychiatrist's Date of Appointment with Psychiatrist: 12/30/18 Time of Appointment with Psychiatrist: 3:30pm Psychiatric Appointment Comment: [address], [place] [address] Therapist Name of Therapist: [facility]is Gregory Therapist's Date of Therapist Appointment: 12/18/18 Time of Therapist Appointment: 9am Therapy Appointment Comment: [address], [place] [address] Specialist Name of Specialist: [facility] Phone Number for Specialist: [phone] Date of Appointment with Specialist: 12/17/18 Time of Appointment with Specialist: 11am Specialty Appointment Comment: [address] Contact Information Discharge Discharge Address: [address] [place] [address] CPT Code CPT Code 68357 _ (1) Bipolar disorder Active/Remission status: currently active Current bipolar episode type: manic Current episode severity: moderate Psychotic features: Most recent bipolar episode type: Qualified Code(s): F31.12 - Bipolar disorder, current episode manic without psychotic features, moderate
[2018-12-15] MEDS: ZIPRASIDONE HCL 80 MG CAP PO SCH (20:50)
[2018-12-15] MEDS: ZIPRASIDONE HCL 20 MG CAP PO SCH (20:50)
--- NOTE | 2018-12-16 11:26 | Psychiatric Progress Note ---
Date of Service December 16, 2018 Impression / Recommendations Impression Sleep and irritability have improved, but patient remains hyperverbal, pressured , anxious, and easily overwhelmed. She has not yet been able to tolerate a family meeting with her parents, but we will attempt again today. (1) Bipolar disorder: Bipolar disorder type I: Patient presents with 13 days of elevated and irritable mood, decreased need for sleep, distractibility, excessive talking, racing thoughts, and suicidal thoughts, which are functionally impairing. -CBC, CMP, TSH, UA, and UDS unremarkable. No active medical conditions. -Continue voluntary hospitalization, checks for safety, and participation in unit groups and programming. Work on healthy coping skills and discharge safety plan. -Patient reports previous good response to ziprasidone, and has been taking 80 mg daily from an old prescription the past couple of days with benefit. She wishes to continue this medication, so will order 80 mg daily with dinner. Consider dose increase if necessary. -Hydroxyzine as needed for sleep. Consider additional sleep medication if needed. -Coordinate care with [facility], where the patient plans to follow up for therapy and psychiatry as an outpatient. -Coordination with the [facility]. Encourage patient to explore ways to minimize stress for the remainder of the semester to allow for full recovery. -Family meeting with parents. 12/11 - Continue Geodon 80 mg another day and plan to increase to 100 mg tomorrow - Will likely need to cancel family meeting as the patient is wanting to keep secrets from her parents which we cannot support. Will continue to encourage honesty in treatment and with her parents. 12/12 - Increase ziprasidone to 100mg and move to 7:30PM at patient's request. Ensure she takes it with at least 500 sarai. - FG and FLP obtained yesterday for monitoring on an atypical antipsychotic and all values are within normal limits. - Re-attempt family meeting once symptoms are better controlled and the patient is able to tolerate it. - Coordinate with [facility], as patient states she was told she could receive outpatient care there. 12/13 - Continue ziprasidone 100mg, consider titration through weekend if necessary. Pt admits she is willing to consider - Gradually more able to tolerate groups, some necessary discussions remain difficult. Hopeful she is better able to communicate school concerns and SI with parents, hoping for meeting over the weekend. - Solidify aftercare arrangements 12/14 - 12/15 - Overall improving, but not back to baseline, advance to 120mg Geodon at hs with food starting 12/14. - Continue to attend group therapy and activities. - Family meeting planned for this evening. - Fasting glucose and lipid panel are WNL. 2. Sleep disturbance - Improving with moving ziprasidone administration later in the day. - Continue to offer hydroxyzine as needed for sleep. 3. Anxiety - prefers to pursue therapy and declines medication at this time, but seems to have underlying WENDY sx 3. Disposition - Discuss plan for outpatient medication management and counseling - [facility] (near her apartment). She prefers a younger therapist. Outpatient Medication management is presently set for Dr Coffman. 12/16 - Will again attempt family meeting with parents today. - Patient improved but remains hyperverbal, easily overwhelmed, anxious, distractible. She believes she is ready to return to school, but parents would like her to take more time off. Doctor to doctor review performed with Dr. Singleton from her insurance company today, who declined to faustino coverage for any further days despite concerns expressed regarding patient's ability to function on an outpatient basis and inability to tolerate a family meeting despite multiple tries during her hospitalization. Inventory Assets Strengths: dedicated student, stable housing, supportive family Needs: medication, mood stability, outpatient treatment, work on assertive communication and emotional interdependence with her supports Risk Factors Assessment Male: No : Yes Do You Have Access To A Gun?: No (not at her apartment or parents' home) Health Problems: No Mental Health Diagnoses: Yes Substance Use Disorders: No Previous Attempt: Yes Family History of Suicide: No Previous Psychiatric Hospitalization: Yes Hopelessness: No Smoker: No Protective Factors Assessment Anglican Beliefs: No : No Responsible for Young Children: No Employed: No Supportive Family: Yes Good Rapport with Provider: No Interval History Identifying Information 18 yo female admitted voluntarily with julio cesar and suicidality, having been off of her psychiatric medications. Chief Complaint "You know how things fall together? Well things are falling apart". Review of Systems Sleep Information Total Hours of Sleep: 7.25 Sleep Comments: pt appeared to sleep 3 hrs during evening shift. pt NPO during the night. TRISTAN @0500. pt wrote/julio while in the kitchen area. pt on q-15 minute checks Meal Information Percent Meal Consumed - Breakfast: 100 Percent Meal Consumed - Lunch: 70 Percent Meal Consumed - Dinner: 80 Subjective Subjective Patient was seen & assessed and interval progress reviewed with Treatment Team. Staff report she continues to perseverate on her family meeting with her parents , and although she wrote the letter, has not yet been able to tolerate a meeting or discuss her suicidal thoughts with them. She thinks that her parents will blame her for her suicidal thoughts, or will become more controlling. She has been working one-on-one with staff on ways to express herself to her parents. On my assessment, the patient reports she is perseverating on the family meeting and telling her parents about her SI, and is very anxious about the meeting and how it will go. She notes her conversations with them have been "good, because we don't talk about anything bad." She says she "literally can't say it" with respect to telling her parents about her symptoms, and is focused on a particular oncology social work not being here to help her discuss this with her parents. She feels her symptoms are improving, "but I'm still really stressed and anxious," and worries she won't be able to function well in school. She is sleeping more, 6-7 hours a night, but still less than at baseline. Appetite is "back and forth," worse when she is anxious. She denies SI and feels safe here. Physical Exam Mental Examination Well-nourished, well-developed white female appearing her stated age. Casually dressed, appropriate grooming and hygiene. Seated in no acute distress, but tensed up, on the edge of her chair, leaning forward. Good eye contact, normal gait and station. Cooperative with the assessment. Speech is over productive, rapid, and loud. Mood is anxious, and affect is restricted to anxious. Thoughts are perseverative, focused on a family meeting with her parents. Denies SI, HI, hallucinations, and delusions. Alert and oriented. Insight and judgment are fair. Vital Signs (Past 24 Hours) Last Vital Signs Temp 36.6 C 12/16/18 07:13 Pulse 86 12/16/18 07:14 Resp 16 12/16/18 07:13 BP 117/81 12/16/18 07:14 Pulse Ox 99 12/15/18 10:00 Results & Data Current Inpatient Medications Current Inpatient Medications: Current Inpatient Medications Acetaminophen (Tylenol) 650 mg PO Q4H PRN PRN Reason: Headache or Minor Fever Stop: 01/08/19 22:05 Al Hydrox/Mg Hydrox/Simethicone (Maalox) 30 ml PO Q4H PRN PRN Reason: GI Upset Stop: 01/08/19 22:05 Bismuth Subsalicylate (Kaopectate) 15 ml PO PRN PRN PRN Reason: Loose Stool Stop: 01/08/19 22:05 Hydroxyzine HCl (Vistaril) 50 mg PO HSZ PRN PRN Reason: Insomnia Stop: 01/08/19 22:05 Last Admin: 12/10/18 21:04 Dose: 50 mg Hydroxyzine HCl (Vistaril) 25 mg PO Q4H PRN PRN Reason: Anxiety Stop: 01/08/19 22:05 Magnesium Hydroxide (Milk Of Magnesia) 30 ml PO DAILY PRN PRN Reason: Heartburn Stop: 01/08/19 22:05 Sodium Chloride ([place] Nasal) 1 - 2 sprays NA PRN PRN PRN Reason: Nasal Dryness/Congestion Stop: 01/08/19 22:05 Ziprasidone (Geodon) 80 mg PO DAILY@1929 [facility] Stop: 01/14/19 19:29 Last Admin: 12/15/18 20:50 Dose: 80 mg Ziprasidone (Geodon) 40 mg PO DAILY@1929 [facility] Stop: 01/14/19 19:29 Last Admin: 12/15/18 20:50 Dose: 40 mg Post Discharge Appointments Primary Care Physician Name Of Family Doctor: [facility],Viviana ZARAGOZA,Dr Arnulfo Mas Primary [facility] Time of Appointment with PCP: follow up as needed. Provider Appointment Comment: [address] [facility] [place] [address] Psychiatrist Name of Psychiatrist: Dr Benjamin Gandara Psychiatrist's Date of Appointment with Psychiatrist: 12/30/18 Time of Appointment with Psychiatrist: 3:30pm Psychiatric Appointment Comment: [id number], [place] [address] Therapist Name of Therapist: [facility] Therapist's Date of Therapist Appointment: 12/18/18 Time of Therapist Appointment: 9am Therapy Appointment Comment: [address], [place] [address] Specialist Name of Specialist: [facility] Phone Number for Specialist: [phone] Date of Appointment with Specialist: 12/17/18 Time of Appointment with Specialist: 11am Specialty Appointment Comment: [address] Smoking Cessation Counseling Tobacco Cessation Medication Prescribed at Discharge: Not Applicable/Non-Smoker Contact Information Discharge Discharge Address: [address] [place] [address] [place] [address] CPT Code CPT Code 60075 _ (1) Bipolar disorder Active/Remission status: currently active Current bipolar episode type: manic Current episode severity: moderate Psychotic features: Most recent bipolar episode type: Qualified Code(s): F31.12 - Bipolar disorder, current episode manic without psychotic features, moderate
--- NOTE | 2018-12-16 15:16 | Medical Student Progress Note ---
Date of Service December 16, 2018 Assessment & Plan (1) Bipolar disorder: This is a 18-year-old female with bipolar I who is admitted for a manic episode. Evita overall sees herself improving in her irritability and ability to focus, but is not back to baseline yet. Evita sees improvement with 120 mg of ziprasidone and is starting to feel ready to go back to school. She is still resistant to having a family meeting without having Mariana present. 1. Bipolar I - Overall improving, but not back to baseline. - Continue ziprasidone 120 mg daily with food. - Continue to attend group therapy and activities. - Family meeting has been canceled. She is not trusting of anyone to disclose her thoughts to. - Fasting glucose and lipid panel are WNL. 2. Sleep disturbance - Improving with moving ziprasidone administration later in the day. - Continue to offer hydroxyzine as needed for sleep. 3. Disposition - Discuss plan for outpatient medication management and counseling - [facility] (near her apartment) +/- [facility] on campus. She prefers a younger therapist. Active/Remission status: currently active Current bipolar episode type: manic Current episode severity: moderate Most recent bipolar episode type: Psychotic features: Qualified Code(s): F31.12 - Bipolar disorder, current episode manic without psychotic features, moderate Subjective This is a 18-year-old female with bipolar I who is admitted for a manic episode. Today she says she feels "less stressed." She is starting to feel close to her normal self and feels ready to go back to class. She denies having suicidal thoughts today. She says that she was "in a mood" this morning" but feels more calm now. Evita has been resistant to the idea of a family meeting, but Mariana was able to convince her to have it. Because Mariana is not here today, Evita does not want to do it. She says that she would rather have one with her older sister. She is worried that they will respond in similar way that they have in the past. She worries they will take her "out of school and make me go to community college." She says that the way they controlled her in the past has made her have more suicidal thoughts, and she worries that this will happen again. She enjoys her independence of being away at college and says she has great friends as supporters. Upon meeting with Nava, Evita insists that she does not want the meeting and asks if it is her right to not have one. Physical Exam 2 Vital Signs (Past 24 Hours): Last Vital Signs Temp 36.6 C 12/16/18 07:13 Pulse 86 12/16/18 07:14 Resp 16 12/16/18 07:13 BP 117/81 12/16/18 07:14 Pulse Ox 99 12/15/18 10:00 Psychiatric: Orientation: alert Apperance: appropriately dressed Eye Contact: good eye contact Motor Behavior: no abnormal motor movements Speech: normal rate/rhythm/volume of speech (however sometimes she is difficult to interrupt.) Affect: euthymic affect Mood: + anxious mood Thought Process: goal directed thought process Suicidal Thoughts: denies suicidal thoughts Homicidal Thoughts: denies homicidal thoughts Cognition: recent memory grossly intact Estimated Intelligence: average estimated intelligence Insight: + limited insight Judgement: + limited judgement Results & Data Medications Administered Hydroxyzine HCl (Vistaril) 50 mg PO HSZ PRN PRN Reason: Insomnia Stop: 01/08/19 22:05 Last Admin: 12/10/18 21:04 Dose: 50 mg Ziprasidone (Geodon) 80 mg PO DAILY@1929 [facility] Stop: 01/14/19 19:29 Last Admin: 12/15/18 20:50 Dose: 80 mg Ziprasidone (Geodon) 40 mg PO DAILY@193 [facility] Stop: 01/14/19 19:29 Last Admin: 12/15/18 20:50 Dose: 40 mg
[2018-12-16] MEDS: ZIPRASIDONE HCL 20 MG CAP PO SCH (20:28)
[2018-12-16] MEDS: ZIPRASIDONE HCL 80 MG CAP PO SCH (20:28)
--- NOTE | 2018-12-17 08:33 | Discharge Summary ---
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 She says this episode began 12-13 days ago where she felt highly energetic, talkative, and irritable. Her mood fluctuates but she says that she is mostly "agitated." She states "I want a to punch the wall. I won't but I want to." She is frustrated because she normally does well in school, but her symptoms aren't allowing her to be productive. She can't focus on her reading because of her mind racing. Evita also shares that she has been more talkative than usual and speaks really fast. She is easily distracted by bright lights and loud sounds. She says that these stimuli make her even more agitated. She sleeps about 2 hours per night because of racing thoughts as well. When she can't sleep, she will stay up and do homework or go to the [employer] near her apartment so she can exercise and talk to other people there. She denies any impulsive behavior. She has had random suicidal thoughts but affirms that she has no plan or intent to follow through. She states "I like my life now." She denies homicidal ideation. She admits to a "paranoid" feeling where she fears her car will "blow up" while driving it. She acknowledges that this fear is unreasonable, but in the moment she says she panics and calls her parents about it. She also denies hallucinations. Because these symptoms were inhibiting her ability to do school work, she went to [facility] on campus on Sunday, 12/06 and to seek help. Her understanding of their plan was to wait until Sunday, 12/09 to see if things started to get better and to call with an update. Until then, she went home in [place] for the weekend and took some of her old prescription of ziprasidone with slight improvement. When it was time to call on Sunday, [facility] felt that she should be admitted to the hospital to get control of this episode. She was diagnosed with bipolar disorder at 13 years old where she was hospitalized at [facility]. She has been hospitalized several times for psychiatric care, two of which were for suicide attempts. In the past, she has tried abilify, lexapro, and lithium. She had hoarded these medications and took them sporadically, so she's not sure if they work for her or not. She was ultimately prescribed 80mg ziprasidone daily because her mother, who also has bipolar disorder, was stable on it. She said this medicine helped by decreasing her impulsivity and racing thoughts. Around 3 years ago, she was doing really well and was given the option to go off of her medication. She hasn't had a manic episode in 3 years, but she does admit to having 1-2 day periods of time where she will be more active, sleep very little, and be in a good mood. She says that she enjoys these short episodes because she is often very productive during them. Physical Exam Mental Examination WNWD WF appearing her stated age. Casually dressed and adequately groomed. Seated in NAD. Calm and cooperative with the assessment. Good eye contact, and no abnormal movements. Speech is spontaneous, slightly rapid, but normal volume and tone, not pressured. Mood is "pretty good, still up and down, but better." Affect is mildly anxious, but appropriate, reactive, and congruent. Thoughts are goal-directed, focused on discharge. She denies SI, HI, hallucinations. No delusions are evident. She is alert and oriented. Level of intelligence is estimated to be at least average. Insight and judgment are fair to good. Vital Signs (Past 24 Hours) Last Vital Signs Temp 36.5 C 12/17/18 06:45 Pulse 77 12/17/18 06:45 Resp 16 12/17/18 06:45 BP 117/78 12/17/18 06:45 Pulse Ox 99 12/15/18 10:00 Principal Diagnosis Bipolar disorder type I, most recent episode manic. Psychiatric Data Lenore was hospitalized for 8 days. On admission, she was resumed on ziprasidone , she reported it had been previously effective. She wanted to take it only once a day, so it was prescribed at dinner. Over the course of her hospitalization, the dose was titrated to 120 mg daily. Her manic symptoms improved, mood stabilized, and sleep improved. She was eating well and performing ADLs independently. She attended and participated in groups and therapy. Multiple family meetings with her parents were attempted, and she was initially unable to tolerate them. She ultimately declined a family meeting with parents, although she did talk to them throughout her hospital stay. She was referred for outpatient therapy and psychiatric care in the community. Her suicidal thoughts resolved, and she worked on her discharge safety plan. Day of Discharge Assessment Patient is focused on discharge, asking if she can go home. She reports she feels improved from admission, although is not yet at her baseline, as she feels "still jumpy, forgetful, cannot put X and Y together sometimes." She describes being confused at times, and gives the example of mixing up the days and thinking that the holiday was today rather than 2 days from now. She feels is easily overwhelmed at times, but notes she is no longer getting upset and tearful, and does not feel as overwhelmed by her emotions. Mood is described as "pretty good, still up and down, but better." She is no longer feeling hypersensitive to light and sound, and thoughts are slowed and more organized. Although she ultimately declined a meeting with her parents, she says they are coming to visit her this weekend. She is not sure when she will return to class , noting she is worried that she is still forgetful and confused at times, and plans to meet with [facility] and then decide when she will return to school. She denies suicidal thoughts in the last several days. Transition of Care Transition Of Care Record: was reviewed with the patient Advance Directives Advance Directives Information Provided: Yes Advance Directives: No Mental Health Advance Directive: No Advance Directives on File: No Living Will: No Power of Business Services Coordinator: No Advance Directives Reason:: Declines as Mental Health Visit. Risk Factors Assessment Risk factors were mitigated by admission to the inpatient unit, use of medications to target manic symptoms, psychoeducation regarding her diagnosis and the need for ongoing treatment, involving her in groups and therapy, working on healthy coping skills and a discharge safety plan, recommending a family meeting which she ultimately declined, referring her for outpatient follow-up, and coordination with the University. She has been compliant with medications, involved in treatment, demonstrated improvement in mood, suicidal thoughts have resolved, she is eating and sleeping well, and is tending to ADLs independently. She is requesting discharge, and as she is no longer at acute risk of harm to herself, can be managed as an outpatient at this time. She does not have significant risk factors for harm to others. Male: No : Yes Do You Have Access To A Gun?: No (not at her apartment or parents' home) Health Problems: No Mental Health Diagnoses: Yes Substance Use Disorders: No Previous Attempt: Yes Family History of Suicide: No Previous Psychiatric Hospitalization: Yes Hopelessness: No Smoker: No Protective Factors Assessment Adventism Beliefs: No : No Responsible for Young Children: No Employed: No Supportive Family: Yes Good Rapport with Provider: No Tobacco Cessation at Discharge Tobacco Cessation Medication Prescribed at Discharge: Not Applicable/Non-Smoker Total Time Total Time Spent: Greater Than 30 Minutes Total Time Includes: Examination of the patient, Discharge Planning and Medication Reconciliation Discharge Data Lab Results 12/09/18 12/09/18 12/09/18 16:56 16:56 16:56 WBC 10.04 RBC 4.97 Hgb 13.6 Hct 42.3 MCV 85.1 MCH 27.4 MCHC 32.2 RDW Std Deviation 42.3 RDW Coeff of Anastacio 13.7 Plt Count 277 MPV 9.4 Immature Gran % (Auto) 0.1 Neut % (Auto) 79.7 Lymph % (Auto) 13.6 Salem % (Auto) 5.8 Eos % (Auto) 0.5 Baso % (Auto) 0.3 Immature Gran # (Auto) 0.01 Neut # (Auto) 8.00 H Lymph # (Auto) 1.37 Salem # (Auto) 0.58 Eos # (Auto) 0.05 Baso # (Auto) 0.03 Sodium 138 Potassium 4.2 Chloride 105 Carbon Dioxide 26 Anion Gap 7.0 BUN 13 Creatinine 0.97 Est Cr Clr Drug Dosing 78.6 Est GFR ( Amer) 97.4 Est GFR (Non-Af Amer) 84.1 BUN/Creatinine Ratio 13.0 Glucose 91 Fasting Glucose Calcium 8.8 Total Bilirubin 0.6 AST 12 L ALT 24 Alkaline Phosphatase 51 Total Protein 8.3 H Albumin 4.3 Globulin 4.0 Albumin/Globulin Ratio 1.1 Triglycerides Cholesterol LDL Cholesterol, Calc VLDL Cholesterol, Calc HDL Cholesterol Cholesterol/HDL Ratio TSH 0.870 HCG, Qual Urine Color Urine Appearance Urine pH Ur Specific [place] Urine Protein Urine Glucose (UA) Urine Ketones Urine Blood Urine Nitrite Urine Bilirubin Urine Urobilinogen Ur Leukocyte Esterase Urine WBC (Auto) Urine RBC (Auto) U Hyaline Cast (Auto) U Epithel Cells (Auto) Urine Bacteria (Auto) Salicylates Urine Opiates Screen Ur Methadone, Qual Acetaminophen Urine Barbiturates Ur Phencyclidine (PCP) U Amphetamin/Meth Scrn MDMA (Ecstasy) Screen U Benzodiazepines Scrn Ur Cocaine Metabolite U Marijuana (THC) Screen Ethyl Alcohol mg/dL < 3.0 12/09/18 12/09/18 12/09/18 16:56 20:09 Unknown WBC RBC Hgb Hct MCV MCH MCHC RDW Std Deviation RDW Coeff of Anastacio Plt Count MPV Immature Gran % (Auto) Neut % (Auto) Lymph % (Auto) [place] % (Auto) Eos % (Auto) Baso % (Auto) Immature Gran # (Auto) Neut # (Auto) Lymph # (Auto) Salem # (Auto) Eos # (Auto) Baso # (Auto) Sodium Potassium Chloride Carbon Dioxide Anion Gap BUN Creatinine Est Cr Clr Drug Dosing Est GFR ( Amer) Est GFR (Non-Af Amer) BUN/Creatinine Ratio Glucose Fasting Glucose Calcium Total Bilirubin AST ALT Alkaline Phosphatase Total Protein Albumin Globulin Albumin/Globulin Ratio Triglycerides Cholesterol LDL Cholesterol, Calc VLDL Cholesterol, Calc HDL Cholesterol Cholesterol/HDL Ratio TSH HCG, Qual Negative Urine Color Urine Appearance Urine pH Ur Specific [place] Urine Protein Urine Glucose (UA) Urine Ketones Urine Blood Urine Nitrite Urine Bilirubin Urine Urobilinogen Ur Leukocyte Esterase Urine WBC (Auto) Urine RBC (Auto) U Hyaline Cast (Auto) U Epithel Cells (Auto) Urine Bacteria (Auto) Salicylates < 1.7 L Urine Opiates Screen Neg Ur Methadone, Qual Neg Acetaminophen < 2 L Urine Barbiturates Neg Ur Phencyclidine (PCP) Neg U Amphetamin/Meth Scrn Neg MDMA (Ecstasy) Screen Neg U Benzodiazepines Scrn Neg Ur Cocaine Metabolite Neg U Marijuana (THC) Screen Neg Ethyl Alcohol mg/dL 12/09/18 12/11/18 Unknown 08:08 WBC RBC Hgb Hct MCV MCH MCHC RDW Std Deviation RDW Coeff of Anastacio Plt Count MPV Immature Gran % (Auto) Neut % (Auto) Lymph % (Auto) [place] % (Auto) Eos % (Auto) Baso % (Auto) Immature Gran # (Auto) Neut # (Auto) Lymph # (Auto) [place] # (Auto) Eos # (Auto) Baso # (Auto) Sodium Potassium Chloride Carbon Dioxide Anion Gap BUN Creatinine Est Cr Clr Drug Dosing Est GFR ( Amer) Est GFR (Non-Af Amer) BUN/Creatinine Ratio Glucose Fasting Glucose 86 Calcium Total Bilirubin AST ALT Alkaline Phosphatase Total Protein Albumin Globulin Albumin/Globulin Ratio Triglycerides 66 Cholesterol 172 LDL Cholesterol, Calc 111 VLDL Cholesterol, Calc 13 HDL Cholesterol 48 Cholesterol/HDL Ratio 4 TSH HCG, Qual Urine Color Dark Yellow Urine Appearance Clear Urine pH 5.0 Ur Specific [place] 1.032 H Urine Protein Trace H Urine Glucose (UA) Negative Urine Ketones Negative Urine Blood Trace H Urine Nitrite Negative Urine Bilirubin Negative Urine Urobilinogen Negative Ur Leukocyte Esterase Negative Urine WBC (Auto) 1-5 Urine RBC (Auto) 0-4 U Hyaline Cast (Auto) 1-5 U Epithel Cells (Auto) >30 H Urine Bacteria (Auto) Negative Salicylates Urine Opiates Screen Ur Methadone, Qual Acetaminophen Urine Barbiturates Ur Phencyclidine (PCP) U Amphetamin/Meth Scrn MDMA (Ecstasy) Screen U Benzodiazepines Scrn Ur Cocaine Metabolite U Marijuana (THC) Screen Ethyl Alcohol mg/dL Hospital Course (1) Bipolar disorder: Bipolar disorder type I: Patient presents with 13 days of elevated and irritable mood, decreased need for sleep, distractibility, excessive talking, racing thoughts, and suicidal thoughts, which are functionally impairing. -CBC, CMP, TSH, UA, and UDS unremarkable. No active medical conditions. -Continue voluntary hospitalization, checks for safety, and participation in unit groups and programming. Work on healthy coping skills and discharge safety plan. -Patient reports previous good response to ziprasidone, and has been taking 80 mg daily from an old prescription the past couple of days with benefit. She wishes to continue this medication, so will order 80 mg daily with dinner. Consider dose increase if necessary. -Hydroxyzine as needed for sleep. Consider additional sleep medication if needed. -Coordinate care with [facility], where the patient plans to follow up for therapy and psychiatry as an outpatient. -Coordination with the [facility]. Encourage patient to explore ways to minimize stress for the remainder of the semester to allow for full recovery. -Family meeting with parents. 12/11 - Continue Geodon 80 mg another day and plan to increase to 100 mg tomorrow - Will likely need to cancel family meeting as the patient is wanting to keep secrets from her parents which we cannot support. Will continue to encourage honesty in treatment and with her parents. 12/12 - Increase ziprasidone to 100mg and move to 7:30PM at patient's request. Ensure she takes it with at least 500 sarai. - FG and FLP obtained yesterday for monitoring on an atypical antipsychotic and all values are within normal limits. - Re-attempt family meeting once symptoms are better controlled and the patient is able to tolerate it. - Coordinate with [facility], as patient states she was told she could receive outpatient care there. 12/13 - Continue ziprasidone 100mg, consider titration through weekend if necessary. Pt admits she is willing to consider - Gradually more able to tolerate groups, some necessary discussions remain difficult. Hopeful she is better able to communicate school concerns and SI with parents, hoping for meeting over the weekend. - Solidify aftercare arrangements 12/14 - 12/15 - Overall improving, but not back to baseline, advance to 120mg Geodon at hs with food starting 12/14. - Continue to attend group therapy and activities. - Family meeting planned for this evening. - Fasting glucose and lipid panel are WNL. 2. Sleep disturbance - Improving with moving ziprasidone administration later in the day. - Continue to offer hydroxyzine as needed for sleep. 3. Anxiety - prefers to pursue therapy and declines medication at this time, but seems to have underlying WENDY sx 3. Disposition - Discuss plan for outpatient medication management and counseling - [facility] (near her apartment). She prefers a younger therapist. Outpatient Medication management is presently set for Dr Coffman. 12/16 - Will again attempt family meeting with parents today. - Patient improved but remains hyperverbal, easily overwhelmed, anxious, distractible. She believes she is ready to return to school, but parents would like her to take more time off. Doctor to doctor review performed with Dr. Singleton from her insurance company today, who declined to faustino coverage for any further days despite concerns expressed regarding patient's ability to function on an outpatient basis and inability to tolerate a family meeting despite multiple tries during her hospitalization. 12/17 -patient declined family meeting with parents. -Patient requesting discharge, willing to follow up with outpatient providers. Post Discharge Appointments Primary Care Physician Name Of Family Doctor: [facility]Dr Arnulfo Mas Primary [facility] Time of Appointment with PCP: follow up as needed. Provider Appointment Comment: [id number] [place] [address] Psychiatrist Name of Psychiatrist: Dr. Coffman Psychiatrist's Date of Appointment with Psychiatrist: 12/30/18 Time of Appointment with Psychiatrist: 3:30pm Psychiatric Appointment Comment: [id number], [place] [address] Therapist Name of Therapist: Adonis Gregory Therapist's Date of Therapist Appointment: 12/18/18 Time of Therapist Appointment: 9am Therapy Appointment Comment: [address], [address], [facility] [id number] Specialist Name of Specialist: [facility] Phone Number for Specialist: [phone] Date of Appointment with Specialist: 12/17/18 Time of Appointment with Specialist: 11 am Specialty Appointment Comment: [address] Smoking Cessation Counseling Tobacco Cessation Medication Prescribed at Discharge: Not Applicable/Non-Smoker Contact Information Discharge Discharge Address[address] [address] [place] [address] Discharge Plan Discharge Items Patient Disposition: Home - Self-Care Reason For Visit: BIPOLAR DISORDER Discharge Diagnosis: bipolar disorder type I, most recent episode manic Discharge Goals: Improve disease control, Improve function, Learn about illness and Therapeutic intervention Activity: Per 'Additional Instructions' section Non-emergency contact: Primary Care Provider, Psychiatrist and Therapist Call non-emergency contact if: you have any medication questions and your symptoms worsen Diet: Regular Addtl Provider Instructions: SPECIAL CARE INSTRUCTIONS: 1. Follow through with your scheduled aftercare appointments. If unable to keep an appointment, please call to reschedule. 2. Take your medication only as prescribed. Medication should not be changed or stopped without the approval of your doctor. In the event of worsening symptoms or concerns about side effects, contact your doctor immediately. 3. Utilize new healthy coping skills, anger management skills, and stress management skills learned during your hospitalization. Journal feelings and process them with a support person. Identify stressors or situations that may result in relapse, deterioration or inappropriate behaviors and develop a plan to deal with those issues. 4. If your coping skills are ineffective and you are in crisis, contact your outpatient providers for direction. If unable to reach your providers, please call the CAN HELP LINE AT or go to the closest Emergency Room. 5. Avoid alcohol and un-prescribed drugs. 6. You have been provided with the Mental Health Advance Directives Pamphlet for your review. AFTERCARE APPOINTMENTS: * Please call your insurance company prior to your scheduled appointment to confirm your aftercare providers are covered. Take your insurance information to your appointments. WHO TO CALL AND WHEN: Medical Emergencies: For questions or emergencies related to your hospital stay, please contact the Inpatient Behavioral Health Unit at [phone]. A direct mail clerk is on-call 28/05 for the Behavioral Health Unit for emergencies At any time you feel your situation is an emergency, you may also call 911 immediately. Your Doctors Instructions noted above were prepared by provider Larissa Mcgraw MD. Prescriptions: New ziprasidone HCl 80 mg Capsule 80 mg PO DAILY@193 Qty: 30 RF: 0 ziprasidone HCl 20 mg Capsule 40 mg PO DAILY@1930 Qty: 60 RF: 0 Continue multivitamin Tablet 1 tab PO DAILY RF: 0 Stand-Alone Forms: [facility] Discharge Orders: Discharge Order (Routine); Ordered 12/17/18 Ordered By: Larissa Mcgraw Admission Data Admit Date/Time: 12/09/18 21:22 Attending Provider: Larissa Mcgraw Admit Provider: Ame Menendez Primary Care Provider: PCP,LENNY Service: Psychiatry Other Interventions: Discharge Summary Assessment (RN) Last Done: 12/15/18 10:00 PSY Interdisciplinary Discharge Planning Last Done: 12/16/18 15:48 Pending Studies at Discharge: No
[2018-12-17] MEDS ORDERED: ZIPRASIDONE HCL 80 MG CAP PO SCH ×2 (09:00)
[2018-12-17] MEDS ORDERED: ZIPRASIDONE HCL 20 MG CAP PO SCH ×2 (09:00)
== END 2018-12-17 10:10 | disposition home or self-care (01) | DRG 885 ==
LOC: ED 15:58 → 3S 21:22

== ENCOUNTER 2019-04-30 15:23 | Inpatient (IN) ==
[2019-04-30 15:31] VITALS: O2SAT 97
[2019-04-30 16:23] LABS: Pregnancy Test, Urine Negative (Negative)
[2019-04-30 16:29] LABS: Appearance Urine Clear (Clear); Bacteria Urine Automated Negative (Negative); Bilirubin Urine Negative (Negative); Blood Urine Negative (Negative); Color Urine Dark Yellow; Epithelial Cell Urine Auto >30 /lpf (0-5); Glucose Urine UA Negative (Negative); Ketones Urine Trace (Negative); Leukocyte Esterase Urine Negative (Negative); Nitrite Urine Negative (Negative); Protein Urine Trace (Negative); RBC Urine Automated 0-4 /hpf (0-4); Specific Gravity Urine 1.029 (1.000-1.030); Urobilinogen Urine Negative (Negative)
[2019-04-30 16:40] LABS: Basophils # (auto) 0.02 K/uL (0-0.2); Basophils % (auto) 0.3 %; Eosinophils # (auto) 0.02 K/uL (0-0.5); Eosinophils % (auto) 0.3 %; Hematocrit (blood only) 38.9 % (37-47); Immature Granulocytes # (auto) 0.01 K/uL (0.00-0.02); Immature Granulocytes % (auto) 0.1 %; Lymphocytes # (auto) 1.35 K/uL (1.2-3.4); Lymphocytes % (auto) 17.9 %; Mean Corpuscular Hgb Conc 33.4 g/dL (32-36); Mean Corpuscular Volume 84.9 fL (80-100); Mean Platelet Volume 9.5 fL (7.4-10.4); Monocytes # (auto) 0.54 K/uL (0.11-0.59); Monocytes % (auto) 7.2 %; Neutrophils % (auto) 74.2 %; Platelet Count 260 K/uL (130-400); RDW Coefficient of Variation 13.8 % (11.5-14.5); Red Blood Count 4.58 M/uL (4.2-5.4); White Blood Count 7.54 K/uL (4.8-10.8)
[2019-04-30 17:01] LABS: Albumin Level 4.2 gm/dl (3.4-5.0); BUN Creatinine Ratio 8.8 (10-20); Calcium 8.9 mg/dl (8.5-10.1); Creatinine Clr Calc Pharmacy 97.4 ml/min; Est GFR (African American) 112.7; Est GFR (Non-African American) 97.3
[2019-04-30 17:05] LABS: Acetaminophen < 2 ug/ml (10-30); Salicylate < 1.7 mg/dl (2.8-20)
[2019-04-30 17:05] LABS: Amphetamines+Metham, Urine Neg (Neg); Barbiturates, Urine Neg (Neg); Benzodiazepine, Urine Neg (Neg); Cocaine, Urine Neg (Neg); MDMA (Ecstacy), Urine Neg (Neg); Methadone, Urine Neg (Neg); Opiate, Urine Neg (Neg); Phencyclidine, Urine Neg (Neg)
[2019-04-30 17:12] LABS: Albumin Globulin Ratio 1.3 (0.9-2); Bilirubin,Total 0.5 mg/dl (0.2-1); Globulin 3.3 gm/dl (2.5-4.0); Total Protein 7.5 gm/dl (6.4-8.2)
--- NOTE | 2019-04-30 18:10 | Emergency Department Note ---
Entered by Jayy Pleitez acting as a scribe for Pérez Redd MD History of Present Illness General Chief complaint: Mental Health Evaluation Stated complaint: WANT'S TO KILL HER SELF Time Seen by Provider: 04/30/19 15:57 Source: patient History of Present Illness Onset (ago): hour(s) (prior to arrival) Location: head (suicidal thoughts) Pain Consistency: + other (worsening) Relieved By: + none Associated symptoms: + denies other symptoms and + other (suicidal throughts with plan) The patient is a 18 year old F who presents to the Emergency Room with complaints of worsening suicidal thoughts that started prior to arrival. She states that she has a history of bipolar disorder and 3 previous suicidal attempts. She notes that she had a plan today. She states that her plan was to overdose on her medications and alcohol. She adds that she is prescribed 160 mg of Geodon and 10 mg of Lexapro. She notes that she is taking her medications as prescribed. She states that she went to see her therapist at [facility] today. She adds that her therapist referred her to come into the ED. She states that she is currently experiencing suicidal thoughts. She denies any other symptoms. Home Medications Home Medications Medication Instructions Recorded Confirmed Type Geodon 160 mg PO DAILY 04/30/19 04/30/19 History Lexapro 10 mg PO DAILY 04/30/19 04/30/19 History Allergies Allergy/AdvReac Type Severity Reaction Status Date / Time Fish Containing Products AdvReac Severe Gastrointestinal Verified 04/30/19 16:20 Upset Past Med/Surg History Medical History Anorexia nervosa, binge eating/purging type Anxiety Bipolar disorder Social History Preferred Language: Nigerien Communication Ability: Effective E Learning Specialist Required: No Beliefs That Will Affect Care: None current occupational status: student Feels Safe at Home: Yes Smoking Status: Never smoker Review of Systems See HPI for pertinent positives & negatives. and A total of 10 systems reviewed and were otherwise negative Physical Exam Vital Signs Vital Signs - 24 hr 04/30/19 15:26 Temperature 36.8 C Temperature Source Oral Sepsis Recent Fever Within 48 Hours No Sepsis New/Unexplained Change in Mental Status No Sepsis Action Taken by Nursing No Action Required Pulse Rate 72 Respiratory Rate 18 Respiratory Effort / Characteristics Non-Labored Respiratory Depth Normal Respiratory Pattern Regular Blood Pressure 128/88 Blood Pressure Mean 101 Pulse Oximetry 97 Oxygen Delivery Method Room Air GENERAL: Awake, alert, well-appearing, in no acute distress HENT: Normocephalic, atraumatic. Oropharynx unremarkable. EYES: Normal conjunctiva. Sclera non-icteric. NECK: Supple. No nuchal rigidity. FROM. No JVD. RESPIRATORY: Clear to auscultation. CARDIAC: Regular rate, normal rhythm. Extremities warm and well perfused. Pulses equal. ABDOMEN: Soft, non-distended. No tenderness to palpation. No rebound or guarding. No masses. RECTAL: Deferred. MUSCULOSKELETAL: Chest examination reveals no tenderness. The back is symmetrical on inspection without obvious abnormality. There is no CVA tendernes s to palpation. No joint edema. LOWER EXTREMITIES: Calves are equal size bilaterally and non-tender. No edema. No discoloration. NEURO: Normal sensorium. No sensory or motor deficits noted. SKIN: No rash or jaundice noted. Course 1600: Past medical records reviewed. The patient was evaluated in room A7. A complete history and physical exam was performed. 1855: The patient has been medically cleared and has been accepted to [facility]. Administered Medications Hydroxyzine HCl (Vistaril) 25 mg PO Q4H PRN PRN Reason: Anxiety Stop: 05/30/19 18:46 Last Admin: 05/01/19 17:37 Dose: 25 mg Documented by: [id number] Ziprasidone (Geodon) 160 mg PO QDD [facility] Stop: 05/31/19 17:44 Last Admin: 05/01/19 17:38 Dose: 160 mg Documented by: [id number] Discontinued Medications Escitalopram Oxalate (Lexapro) 10 mg PO DAILY [facility] Stop: 05/31/19 08:59 Last Admin: 05/01/19 08:16 Dose: 10 mg Documented by: [id number] Sertraline HCl (Zoloft) 25 mg PO NOW ONE Stop: 05/01/19 10:34 Last Admin: 05/01/19 10:53 Dose: 25 mg Documented by: [id number] Ziprasidone (Geodon) 160 mg PO DAILY@1530 [facility] Stop: 05/31/19 15:29 Last Admin: 04/30/19 21:35 Dose: 160 mg Documented by: [id number] Medical Decision Making Differential Diagnosis Differential diagnosis includes: mood disorder, infection, hypoglycemia, electrolyte abnormalities, cardiac sources, intracerebral event, toxicologic, neurologic, as well as others were entertained. Medical Records Attestation: I reviewed the patient's medical records. Home Medications Current Medication List: was personally reviewed by me Laboratory Data Attestation: I reviewed the patient's lab results. Result diagrams: 04/30/19 16:29 04/30/19 16:29 Lab Results 04/30/19 04/30/19 04/30/19 Range/Units 15:40 15:40 15:40 WBC (4.8-10.8) K/uL RBC (4.2-5.4) M/uL Hgb (12.0-16.0) g/dL Hct (37-47) % MCV (80-100) fL MCH (25-34) pg MCHC (32-36) g/dL RDW Std Deviation (36.4-46.3) fL RDW Coeff of Anastacio (11.5-14.5) % Plt Count (130-400) K/uL MPV (7.4-10.4) fL Immature Gran % (Auto) % Neut % (Auto) % Lymph % (Auto) % [place] % (Auto) % Eos % (Auto) % Baso % (Auto) % Immature Gran # (Auto) (0.00-0.02) K/uL Neut # (Auto) (1.4-6.5) K/uL Lymph # (Auto) (1.2-3.4) K/uL [place] # (Auto) (0.11-0.59) K/uL Eos # (Auto) (0-0.5) K/uL Baso # (Auto) (0-0.2) K/uL Sodium (136-145) mmol/L Potassium (3.5-5.1) mmol/L Chloride (98-107) mmol/L Carbon Dioxide (21-32) mmol/L Anion Gap (3-11) BUN (7-18) mg/dl Creatinine (0.6-1.2) mg/dl Est Cr Clr Drug Dosing ml/min Est GFR ( Amer) Est GFR (Non-Af Amer) BUN/Creatinine Ratio (10-20) Glucose (70-99) mg/dl Calcium (8.5-10.1) mg/dl Total Bilirubin (0.2-1) mg/dl AST (15-37) U/L ALT (12-78) U/L Alkaline Phosphatase (45-117) U/L Total Protein (6.4-8.2) gm/dl Albumin (3.4-5.0) gm/dl Globulin (2.5-4.0) gm/dl Albumin/Globulin Ratio (0.9-2) TSH (0.300-4.500) uIu/ml Urine Color Dark Yellow Urine Appearance Clear (Clear) Urine pH 6.0 (4.5-7.5) Ur Specific [place] 1.029 (1.000-1.030) Urine Protein Trace H (Negative) Urine Glucose (UA) Negative (Negative) Urine Ketones Trace H (Negative) Urine Blood Negative (Negative) Urine Nitrite Negative (Negative) Urine Bilirubin Negative (Negative) Urine Urobilinogen Negative (Negative) Ur Leukocyte Esterase Negative (Negative) Urine WBC (Auto) 1-5 (0-5) /hpf Urine RBC (Auto) 0-4 (0-4) /hpf U Hyaline Cast (Auto) 1-5 (0-5) /lpf U Epithel Cells (Auto) >30 H (0-5) /lpf Urine Bacteria (Auto) Negative (Negative) Urine Test Negative (Negative) Salicylates (2.8-20) mg/dl Urine Opiates Screen Neg (Neg) Ur Methadone, Qual Neg (Neg) Acetaminophen (10-30) ug/ml Urine Barbiturates Neg (Neg) Ur Phencyclidine (PCP) Neg (Neg) U Amphetamin/Meth Scrn Neg (Neg) MDMA (Ecstasy) Screen Neg (Neg) U Benzodiazepines Scrn Neg (Neg) Ur Cocaine Metabolite Neg (Neg) U Marijuana (THC) Screen Neg (Neg) Ethyl Alcohol mg/dL (0-3) mg/dl 04/30/19 04/30/19 04/30/19 Range/Units 16:29 16:29 16:29 WBC 7.54 (4.8-10.8) K/uL RBC 4.58 (4.2-5.4) M/uL Hgb 13.0 (12.0-16.0) g/dL Hct 38.9 (37-47) % MCV 84.9 (80-100) fL MCH 28.4 (25-34) pg MCHC 33.4 (32-36) g/dL RDW Std Deviation 43.0 (36.4-46.3) fL RDW Coeff of Anastacio 13.8 (11.5-14.5) % Plt Count 260 (130-400) K/uL MPV 9.5 (7.4-10.4) fL Immature Gran % (Auto) 0.1 % Neut % (Auto) 74.2 % Lymph % (Auto) 17.9 % [place] % (Auto) 7.2 % Eos % (Auto) 0.3 % Baso % (Auto) 0.3 % Immature Gran # (Auto) 0.01 (0.00-0.02) K/uL Neut # (Auto) 5.60 (1.4-6.5) K/uL Lymph # (Auto) 1.35 (1.2-3.4) K/uL [place] # (Auto) 0.54 (0.11-0.59) K/uL Eos # (Auto) 0.02 (0-0.5) K/uL Baso # (Auto) 0.02 (0-0.2) K/uL Sodium 141 (136-145) mmol/L Potassium 4.0 (3.5-5.1) mmol/L Chloride 109 H (98-107) mmol/L Carbon Dioxide 26 (21-32) mmol/L Anion Gap 6.0 (3-11) BUN 8 (7-18) mg/dl Creatinine 0.86 (0.6-1.2) mg/dl Est Cr Clr Drug Dosing 97.4 ml/min Est GFR ( Amer) 112.7 Est GFR (Non-Af Amer) 97.3 BUN/Creatinine Ratio 8.8 L (10-20) Glucose 87 (70-99) mg/dl Calcium 8.9 (8.5-10.1) mg/dl Total Bilirubin 0.5 (0.2-1) mg/dl AST 9 L (15-37) U/L ALT 17 (12-78) U/L Alkaline Phosphatase 41 L (45-117) U/L Total Protein 7.5 (6.4-8.2) gm/dl Albumin 4.2 (3.4-5.0) gm/dl Globulin 3.3 (2.5-4.0) gm/dl Albumin/Globulin Ratio 1.3 (0.9-2) TSH 0.418 (0.300-4.500) uIu/ml Urine Color Urine Appearance (Clear) Urine pH (4.5-7.5) Ur Specific [place] (1.000-1.030) Urine Protein (Negative) Urine Glucose (UA) (Negative) Urine Ketones (Negative) Urine Blood (Negative) Urine Nitrite (Negative) Urine Bilirubin (Negative) Urine Urobilinogen (Negative) Ur Leukocyte Esterase (Negative) Urine WBC (Auto) (0-5) /hpf Urine RBC (Auto) (0-4) /hpf U Hyaline Cast (Auto) (0-5) /lpf U Epithel Cells (Auto) (0-5) /lpf Urine Bacteria (Auto) (Negative) Urine Test (Negative) Salicylates < 1.7 L (2.8-20) mg/dl Urine Opiates Screen (Neg) Ur Methadone, Qual (Neg) Acetaminophen < 2 L (10-30) ug/ml Urine Barbiturates (Neg) Ur Phencyclidine (PCP) (Neg) U Amphetamin/Meth Scrn (Neg) MDMA (Ecstasy) Screen (Neg) U Benzodiazepines Scrn (Neg) Ur Cocaine Metabolite (Neg) U Marijuana (THC) Screen (Neg) Ethyl Alcohol mg/dL (0-3) mg/dl 04/30/19 Range/Units 16:29 WBC (4.8-10.8) K/uL RBC (4.2-5.4) M/uL Hgb (12.0-16.0) g/dL Hct (37-47) % MCV (80-100) fL MCH (25-34) pg MCHC (32-36) g/dL RDW Std Deviation (36.4-46.3) fL RDW Coeff of Anastacio (11.5-14.5) % Plt Count (130-400) K/uL MPV (7.4-10.4) fL Immature Gran % (Auto) % Neut % (Auto) % Lymph % (Auto) % [place] % (Auto) % Eos % (Auto) % Baso % (Auto) % Immature Gran # (Auto) (0.00-0.02) K/uL Neut # (Auto) (1.4-6.5) K/uL Lymph # (Auto) (1.2-3.4) K/uL [place] # (Auto) (0.11-0.59) K/uL Eos # (Auto) (0-0.5) K/uL Baso # (Auto) (0-0.2) K/uL Sodium (136-145) mmol/L Potassium (3.5-5.1) mmol/L Chloride (98-107) mmol/L Carbon Dioxide (21-32) mmol/L Anion Gap (3-11) BUN (7-18) mg/dl Creatinine (0.6-1.2) mg/dl Est Cr Clr Drug Dosing ml/min Est GFR ( Amer) Est GFR (Non-Af Amer) BUN/Creatinine Ratio (10-20) Glucose (70-99) mg/dl Calcium (8.5-10.1) mg/dl Total Bilirubin (0.2-1) mg/dl AST (15-37) U/L ALT (12-78) U/L Alkaline Phosphatase (45-117) U/L Total Protein (6.4-8.2) gm/dl Albumin (3.4-5.0) gm/dl Globulin (2.5-4.0) gm/dl Albumin/Globulin Ratio (0.9-2) TSH (0.300-4.500) uIu/ml Urine Color Urine Appearance (Clear) Urine pH (4.5-7.5) Ur Specific [place] (1.000-1.030) Urine Protein (Negative) Urine Glucose (UA) (Negative) Urine Ketones (Negative) Urine Blood (Negative) Urine Nitrite (Negative) Urine Bilirubin (Negative) Urine Urobilinogen (Negative) Ur Leukocyte Esterase (Negative) Urine WBC (Auto) (0-5) /hpf Urine RBC (Auto) (0-4) /hpf U Hyaline Cast (Auto) (0-5) /lpf U Epithel Cells (Auto) (0-5) /lpf Urine Bacteria (Auto) (Negative) Urine Test (Negative) Salicylates (2.8-20) mg/dl Urine Opiates Screen (Neg) Ur Methadone, Qual (Neg) Acetaminophen (10-30) ug/ml Urine Barbiturates (Neg) Ur Phencyclidine (PCP) (Neg) U Amphetamin/Meth Scrn (Neg) MDMA (Ecstasy) Screen (Neg) U Benzodiazepines Scrn (Neg) Ur Cocaine Metabolite (Neg) U Marijuana (THC) Screen (Neg) Ethyl Alcohol mg/dL < 3.0 (0-3) mg/dl Blood Pressure Blood Pressure Findings: Normal blood pressure Blood Pressure Disposition: did not require urgent referral MDM Narrative This is a 18-year-old female who presents emergency department complaining of threatening to kill herself. Patient has a plan to overdose on her medications. She was medically cleared by me and discussed with the psychiatric case liaison. She was then subsequently discussed with the [facility] liaison. Patient was admitted to [facility] Impression & Plan Mood disorder Discharge Plan Visit Data *Final* Discharge Date/Time: 04/30/19 19:21 Chief Complaint: Mental Health Evaluation Stated Complaint: WANT'S TO KILL HER SELF ED Provider: Pérez Redd Discharge Problem: Mood disorder Patient Disposition: Admitted As Inpatient Discharge Instructions Interventions: ED Discharge Assessment Last Done: 04/30/19 19:21 The deeptiibe's documentation has been prepared under my direction and personally reviewed by me in its entirety. I confirm that the note above accurately reflec ts all work, treatment, procedures, and medical decision making performed by me.
[2019-04-30] MEDS ORDERED: SODIUM CHLORIDE 0.65% NA SOLN 45 ML (OCEAN) PRN (18:47)
[2019-04-30] MEDS ORDERED: MAGNESIUM HYDROXIDE SUSP 30 ML UDC PO PRN (18:47)
[2019-04-30] MEDS ORDERED: ALUMINUM/MAGNESIUM SUSP 30 ML UDC PO PRN (18:47)
[2019-04-30] MEDS ORDERED: BISMUTH SUBSALICYLATE PER ML OMNICELL CHARGE PO PRN (18:47)
[2019-04-30] MEDS ORDERED: ACETAMINOPHEN 325 MG TAB PO PRN (18:47)
[2019-05-01] MEDS ORDERED: ESCITALOPRAM OXALATE 10 MG TAB PO SCH (09:00)
--- NOTE | 2019-05-01 09:08 | History & Physical ---
Date of Service May 01, 2019 Impression / Recommendations Impression 18yo F who currently lives in [place] with her parents, has a history of Bipolar I, h/o eating disorder, h/o self-injurious behaviour, h/o multiple suicide attempts, h/o multiple psychiatric hospitalizations, and was admitted on 04/30/19 18:47 on a 201 voluntary commitment for suicidal ideation with plan to overdose on her SSRI and EtOH. Admission labs reviewed, no significant abnormalities noted. Initial assessment reveals multiple triggers and symptoms, which need to be addressed. Patient is willing for therapy and medication management. At this time, with ongoing suicidal ideation as well as multiple provoking symptoms, inpatient treatment is medically necessary due to the risk of decompensation, inability to function, and harm to self if discharged prematurely. Clinical history and presentation was reviewed with psychiatrist, Dr. Mcgraw, who was present during assessment and medical decision making with patient. (1) Suicidal ideation: - q15 minute safety checks - Medication management for symptoms as described below - Encourage participation in group and recreational therapies to develop healthy coping skills - Gather collateral information from outpatient providers and family - Suggest family meeting to involve outpatient supports in safety planning - patient agreeable to meeting with mother and encouraged to involve father as well - Need to collect/dispose hoarded medication from patient's home - Arrangements for appropriate aftercare (2) Bipolar disorder: - Fasting lipids and glucose reviewed from Dec 2018 - in acceptable range - Continue dose of Geodon 160mg with supper - was increased a few weeks ago in outpatient setting - Can discuss optimize dosing/absorption if split into BID dosing in future Active/Remission status: currently active Current bipolar episode type: manic Current episode severity: moderate Qualified Code(s): F31.12 - Bipolar disorder, current episode manic without psychotic features, moderate (3) Anxiety: - Seemingly patient's most distressing symptom, patient keen for alternative/titrated medications - Long h/o escitalopram use with minimal benefits, per patient. Patient denies trial of any other SSRI - Agreeable to switch to sertraline, with risks and benefits outlined - 25mg of sertraline added to AM dose of escitalopram. Will discontinue escitalopram and start sertraline 50mg daily starting tomorrow - titrate as tolerated - Monitor for mood instability or evidence of provoked (hypo)manic symptoms, which would necessitate discontinuation/med change. - Encourage participation in group and recreational therapies to develop healthy coping skills - PRN hydroxyzine available (4) Paranoia: - Patient describes paranoia, agoraphobia, feeling unsafe, being followed, lack of trust with therapist who might be lying to her - Continue Geodon as patient describes improvement in paranoia since recent titration - Management of anxiety as above (5) Alcohol use: - Offer motivational interviewing for cessation - Encourage participation in group and recreational therapies to develop healthy coping skills (6) Anorexia nervosa, binge eating/purging type: - Past issue that had seemingly resolved. Recurrent episode prior to admission - Offered outpatient referral for eating disorder management/therapy - patient declines attributing episode to recent stressors and symptoms, but otherwise denying restrictive/binge eating/purging as ongoing behavioural issues - Monitor for signs of restrictive/binge eating +/- purging Inventory Assets Strengths: dedicated student, stable housing, supportive family Needs: medication, mood stability, outpatient treatment, plan for return to [place] for school in June Risk Factors Assessment Male: No : Yes Do You Have Access To A Gun?: No (not at her apartment or parents' home) Health Problems: No Mental Health Diagnoses: Yes Substance Use Disorders: No Previous Attempt: Yes Previous Attempt; Highly Lethal: Yes Previous Attempt; Planned: Yes Family History of Suicide: Yes Previous Psychiatric Hospitalization: Yes Hopelessness: Yes Smoker: No Protective Factors Assessment Zoroastrian Beliefs: No : No Responsible for Young Children: No Employed: No Stable Relationships: Yes Supportive Family: Yes Psychiatric History Identifying Data SHRUTI HUMMEL is a 18-year-old F who currently lives in [place] with her parents, has a history of Bipolar I, h/o eating disorder, h/o self-injurious behaviour, h/o multiple suicide attempts, h/o multiple psychiatric hospitalizations, and was admitted on 04/30/19 18:47 on a 201 voluntary commitment for suicidal ideation with plan to overdose on her SSRI and EtOH. Chief Complaint "I can't be alone. I need to drink alcohol to not kill myself". History of Present Illness Patient states that she has been a mess since her previous admission to [facility] in December 2018 for manic episode, after which she withdrew from the semester at [employer] and moved back home with her parents in [place]. Since that admission, patient has noted worsened anxiety, intermittent episodes of low mood, and feelings of paranoia. She stated despite this, she had been coping well, even without therapy thanks to support from her mother and participation in cross fit training. However, during a cross fit exercise, the patient 'broke her elbow' ~1 month ago and has been unable to utilize this strategy as a means of coping. She is also frustrated because she does not feel her psychiatrist is trying to help her, stating "they said I'm maxed out on my meds, but I'm not better. I asked for something for anxiety, but they said they can't help me. They can't go up on my Lexapro because I have julio cesar. They gave me gabapentin, but that turned me into a zombie [sedation]." She is concerned/paranoid that her therapist is trying to hurt her or is lying to her. She does state that since discharge, her Geodon was increased from 120mg to 160mg daily, which has helped her with sleep and improved her paranoia. She states that initially, she "could not even leave the house" because of paranoia, but she is able to do so now. However, her anxiety does worsen in crowds. Also, when driving she continues to have intermittent fear of being followed. As a break, the patient and her family decided she should visit her friend in [place] for the month. However, the patient notes that her symptoms spiraled acutely since arriving in [place] 2 weeks ago. Interactions with her friends were positive, but since then, patient has been staying alone in her rented apartment, and has been tormented by her thoughts and anxiety. She has felt alone, persistently depressed, and unsafe with suicidal thoughts commencing 2 weeks ago. She has had to drink multiple units of mixed alcoholic drinks to tolerate her thoughts and prevent herself from acting on her suicidal thoughts. She notes, that in planning for her overdose, she actually stopped taking/started collecting her Lexapro tablets over the last 2 weeks. She denies any missed doses of Geodon. In the interim, patient admits she began restricting her diet to gain control of her life. On at least 5 occasions, patient also purged self, in hopes to lose weight and possibly feel better. She admits to diagnosis of anorexia, purging type with hospitalization from ages [age], but no issues with eating disorder since then. She admits that since being admitted presently, she has discontinued restrictive eating patterns, and would rather not have ongoing outpatient follow up for eating disorder, attributing the relapse to her spiraling symptoms. Patient states that she has racing thoughts related to her anxiety, but denies manic/hypomanic episodes since December 2018. She states the Geodon is effective in allowing her to sleep ~8 hours nightly, although she does wake up early ~5am on several mornings. She feels returning to [place] has worsened her anxiety, and she fears that she "won't be able to return to school since [her] brain is so broken." She states "since no one can help me, I think I should just ," confirming ongoing suicidal ideation. She denies HI, compulsive thoughts, auditory/visual hallucinations. She does not smoke tobacco. She admits to intermittently smoking cannabis "but only once in the past 2 weeks," and increased EtOH use patterns in the last 2 weeks. She denies access to weapons. Her main supports are her mother, one of her two older sisters, and some friends in [place]. She denies physical or sexual trauma in her past. Past Psychiatric History Previous Psych History: - Bipolar I - diagnosed at 13 years old where she was hospitalized at [facility]. Has tried Abilify, Lexapro, and lithium in past, but difficult to assess effectiveness given inconsistent/sporadic use. Was ultimately prescribed 80mg ziprasidone daily because her mother, who also has bipolar disorder, was stable on it. Patient feels this medicine helped by decreasing her paranoia, impulsivity and racing thoughts. Around 3 years ago, patient was doing really well and was given the option to go off of her medication. Since being off medication, patient had no manic episodes, although she does admit to having 1-2 day periods of time where she will be more active, sleep very little, and be in a good mood. She says that she enjoys these short episodes because she is often very productive during them. Last admission for julio cesar Dec 2018 where she was restarted and discharged on 120mg ziprasidone. - Anorexia and Bulimia - hospitalized at [facility] in 2013. Not an ongoing issue since then. - Cutting - She has used a razor to make superficial cuts on her abdomen so it would have been hidden by her gymnastics leotard. Her last episode of cutting was in May 2018. Never cut deep enough require sutures/medical treatment. States cutting helped her to stop her mind from racing and "feel something." - History of Previous Suicide Attempt - 3 in teenage years - OD on pills x 2 (OTC meds in cabinet and dad's hydrocodone, 2nd was Aleve and Geodon), tried to strangle self in hospital Current Psychiatric Diagnosis: Bipolar disorder Outpatient Services: Psychiatrist in [place] Therapist at [facility], no recent visits since discharge in Dec 2018, until just prior to admission in Apr 2019 Previous Psych Admissions: Several in [id number] when [age] years old [facility] age 13 for Bipolar I (2013) [facility] for eating disorder, and as a teenager after suicide attempt (2013) [facility] for Bipolar I (2018) Do You Have Access To A Gun?: No (not at her apartment or parents' home) History of Previous Suicide Attempt: Yes Describe Attempts in the Past: Overdose 2x and strangulation 1x Past Medication Trials: ziprasidone - helped with impulses and racing thoughts escitalopram - no effect lithium - "didn't do anything," but admits she didn't take it regularly aripiprazole - didn't take it regularly gabapentin - "made her feel ," describing excessive sedation others she cannot recall Additional Notes: PCP is Dr. Arnulfo Mas at [facility] in [place], [place] Past Head Trauma/Neuro History History of Concussion/Seizure: No Allergies Allergy/AdvReac Type Severity Reaction Status Date / Time Fish Containing Products AdvReac Severe Gastrointestinal Verified 04/30/19 16:20 Upset Home Medications Home Medications Medication Instructions Recorded Confirmed Type Geodon 160 mg PO DAILY 04/30/19 04/30/19 History Lexapro 10 mg PO DAILY 04/30/19 04/30/19 History Family History Family History of: Anxiety, Other-List under Comment, Bipolar and Suicide Completion Family Mental Health History Comment: Mom - bipolar Maternal grandfather - completed suicide Father - anxiety Sister - borderline personality disorder Alcohol History Hx of Alcohol Use Over the Past 12 Months: Yes (Past week daily, drinking to get intoxicated) AUDIT Total Score: 7 Smoking Use Have You Smoked or Used Tobacco Products in the Last 30 Days: No Smoking Status: Never smoker Substance History Hx of Prescription Med Misuse Over the Past 12 Months: No Hx of Over the Counter Med Misuse Over the Past 12 Months: No Hx of Inhalent Misuse Over the Past 12 Months: No Hx of Organic Substance Use Over the Past 12 Months: Yes (marijuana 1x monthly) Hx of Illegal Substances/Street Drug Use Over Past 12 Months: Yes (intermittent use of cannabis) Problems as a Result of Past Substance Use: None Identified Personal History Living Arrangements: Home Living Arrangements Comments: Home with Mom and dad when in [place], alone in rented apartment in [place] Highest Grade Completed: High School Graduate 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; 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.) Marital Status: Single Beliefs That Will Affect Care: None Current Legal Problems: No Hx Traumatic Life Events: No Patient History Medical History Anorexia nervosa, binge eating/purging type Anxiety Bipolar disorder Social History Preferred Language: Welsh Communication Ability: Effective Decorator Consultant Required: No Beliefs That Will Affect Care: None current occupational status: student Feels Safe at Home: Yes Smoking Status: Never smoker Review of Systems Review of Systems: All systems reviewed & are unremarkable except as noted in HPI & below Physical Exam Psychiatric: Well-nourished, well-developed female. Seated without acute distress, but persistent restlessness/fidgeting. Cooperative with the interview. Orientation: alert, oriented x 3 and cooperative Apperance: appropriately dressed (casually dress), appropriately groomed and appeared stated age Eye Contact: good eye contact Motor Behavior: + psychomotor agitation (fidgeting, bouncing legs, and appearing restless); no psychomotor retardation and n tremor Speech: normal rate/rhythm/volume of speech Affect: + anxious affect Mood: + anxious mood and + irritable mood Thought Process: goal directed thought process, linear/logical thought process and clear/coherent thought process Thought Content: + paranoid, + cognitive distortions, + persecution and + hopelessness Suicidal Thoughts: + reports suicidal thoughts and + reports suicidal plan Homicidal Thoughts: denies homicidal thoughts Hallucinations: no auditory hallucinations and no visual hallucinations Cognition: recent memory grossly intact, remote memory grossly intact, attention grossly intact and language grossly intact Estimated Intelligence: consistent with education level and + above average estimated intelligence Insight: + fair insight Judgement: + poor judgement Vital Signs (Past 24 Hours): Last Vital Signs Temp 36.5 C 05/01/19 06:45 Pulse 74 05/01/19 06:46 Resp 16 05/01/19 06:45 BP 117/71 05/01/19 06:46 Pulse Ox 97 04/30/19 15:26 Results & Data Laboratory Results Laboratory Results - last 24 hr 04/30/19 04/30/19 04/30/19 15:40 15:40 15:40 WBC RBC Hgb Hct MCV MCH MCHC RDW Std Deviation RDW Coeff of Anastacio Plt Count MPV Immature Gran % (Auto) Neut % (Auto) Lymph % (Auto) Rains % (Auto) Eos % (Auto) Baso % (Auto) Immature Gran # (Auto) Neut # (Auto) Lymph # (Auto) Rains # (Auto) Eos # (Auto) Baso # (Auto) Sodium Potassium Chloride Carbon Dioxide Anion Gap BUN Creatinine Est Cr Clr Drug Dosing Est GFR ( Amer) Est GFR (Non-Af Amer) BUN/Creatinine Ratio Glucose Calcium Total Bilirubin AST ALT Alkaline Phosphatase Total Protein Albumin Globulin Albumin/Globulin Ratio TSH Urine Color Dark Yellow Urine Appearance Clear Urine pH 6.0 Ur Specific Parish 1.029 Urine Protein Trace H Urine Glucose (UA) Negative Urine Ketones Trace H Urine Blood Negative Urine Nitrite Negative Urine Bilirubin Negative Urine Urobilinogen Negative Ur Leukocyte Esterase Negative Urine WBC (Auto) 1-5 Urine RBC (Auto) 0-4 U Hyaline Cast (Auto) 1-5 U Epithel Cells (Auto) >30 H Urine Bacteria (Auto) Negative Urine Test Negative Salicylates Urine Opiates Screen Neg Ur Methadone, Qual Neg Acetaminophen Urine Barbiturates Neg Ur Phencyclidine (PCP) Neg U Amphetamin/Meth Scrn Neg MDMA (Ecstasy) Screen Neg U Benzodiazepines Scrn Neg Ur Cocaine Metabolite Neg U Marijuana (THC) Screen Neg Ethyl Alcohol mg/dL 04/30/19 04/30/19 04/30/19 16:29 16:29 16:29 WBC 7.54 RBC 4.58 Hgb 13.0 Hct 38.9 MCV 84.9 MCH 28.4 MCHC 33.4 RDW Std Deviation 43.0 RDW Coeff of Anastacio 13.8 Plt Count 260 MPV 9.5 Immature Gran % (Auto) 0.1 Neut % (Auto) 74.2 Lymph % (Auto) 17.9 Rains % (Auto) 7.2 Eos % (Auto) 0.3 Baso % (Auto) 0.3 Immature Gran # (Auto) 0.01 Neut # (Auto) 5.60 Lymph # (Auto) 1.35 Rains # (Auto) 0.54 Eos # (Auto) 0.02 Baso # (Auto) 0.02 Sodium 141 Potassium 4.0 Chloride 109 H Carbon Dioxide 26 Anion Gap 6.0 BUN 8 Creatinine 0.86 Est Cr Clr Drug Dosing 97.4 Est GFR ( Amer) 112.7 Est GFR (Non-Af Amer) 97.3 BUN/Creatinine Ratio 8.8 L Glucose 87 Calcium 8.9 Total Bilirubin 0.5 AST 9 L ALT 17 Alkaline Phosphatase 41 L Total Protein 7.5 Albumin 4.2 Globulin 3.3 Albumin/Globulin Ratio 1.3 TSH 0.418 Urine Color Urine Appearance Urine pH Ur Specific Parish Urine Protein Urine Glucose (UA) Urine Ketones Urine Blood Urine Nitrite Urine Bilirubin Urine Urobilinogen Ur Leukocyte Esterase Urine WBC (Auto) Urine RBC (Auto) U Hyaline Cast (Auto) U Epithel Cells (Auto) Urine Bacteria (Auto) Urine Test Salicylates < 1.7 L Urine Opiates Screen Ur Methadone, Qual Acetaminophen < 2 L Urine Barbiturates Ur Phencyclidine (PCP) U Amphetamin/Meth Scrn MDMA (Ecstasy) Screen U Benzodiazepines Scrn Ur Cocaine Metabolite U Marijuana (THC) Screen Ethyl Alcohol mg/dL 04/30/19 16:29 WBC RBC Hgb Hct MCV MCH MCHC RDW Std Deviation RDW Coeff of Anastacio Plt Count MPV Immature Gran % (Auto) Neut % (Auto) Lymph % (Auto) Rains % (Auto) Eos % (Auto) Baso % (Auto) Immature Gran # (Auto) Neut # (Auto) Lymph # (Auto) Rains # (Auto) Eos # (Auto) Baso # (Auto) Sodium Potassium Chloride Carbon Dioxide Anion Gap BUN Creatinine Est Cr Clr Drug Dosing Est GFR ( Amer) Est GFR (Non-Af Amer) BUN/Creatinine Ratio Glucose Calcium Total Bilirubin AST ALT Alkaline Phosphatase Total Protein Albumin Globulin Albumin/Globulin Ratio TSH Urine Color Urine Appearance Urine pH Ur Specific Parish Urine Protein Urine Glucose (UA) Urine Ketones Urine Blood Urine Nitrite Urine Bilirubin Urine Urobilinogen Ur Leukocyte Esterase Urine WBC (Auto) Urine RBC (Auto) U Hyaline Cast (Auto) U Epithel Cells (Auto) Urine Bacteria (Auto) Urine Test Salicylates Urine Opiates Screen Ur Methadone, Qual Acetaminophen Urine Barbiturates Ur Phencyclidine (PCP) U Amphetamin/Meth Scrn MDMA (Ecstasy) Screen U Benzodiazepines Scrn Ur Cocaine Metabolite U Marijuana (THC) Screen Ethyl Alcohol mg/dL < 3.0 Current Inpatient Medications Current Inpatient Medications: Current Inpatient Medications Acetaminophen (Tylenol) 650 mg PO Q4H PRN PRN Reason: Headache or Minor Fever Stop: 05/30/19 18:46 Al Hydrox/Mg Hydrox/Simethicone (Maalox) 30 ml PO Q4H PRN PRN Reason: GI Upset Stop: 05/30/19 18:46 Bismuth Subsalicylate (Kaopectate) 15 ml PO PRN PRN PRN Reason: Loose Stool Stop: 05/30/19 18:46 Escitalopram Oxalate (Lexapro) 10 mg PO DAILY FRANTZ Stop: 05/31/19 08:59 Last Admin: 05/01/19 08:16 Dose: 10 mg Documented by: Hydroxyzine HCl (Vistaril) 25 mg PO Q4H PRN PRN Reason: Anxiety Stop: 05/30/19 18:46 Hydroxyzine HCl (Vistaril) 50 mg PO HSZ PRN PRN Reason: Insomnia Stop: 05/30/19 18:46 Magnesium Hydroxide (Milk Of Magnesia) 30 ml PO DAILY PRN PRN Reason: Heartburn Stop: 05/30/19 18:46 Sodium Chloride ([place] Nasal) 1 - 2 sprays NA PRN PRN PRN Reason: Nasal Dryness/Congestion Stop: 05/30/19 18:46 Ziprasidone (Geodon) 160 mg PO QDD FRANTZ Stop: 05/31/19 17:44 Resident Activity Tracking Resident Involvement: Resident Care Provided Care Provided: Adult Hospital Medicine
[2019-05-01] MEDS ORDERED: SERTRALINE HCL 50 MG TABLET PO ONE (10:33)
[2019-05-01] MEDS ORDERED: ZIPRASIDONE HCL 80 MG CAP PO SCH (15:30)
[2019-05-01] MEDS: ZIPRASIDONE HCL 80 MG CAP PO SCH (17:38)
[2019-05-02] MEDS ORDERED: SERTRALINE HCL 50 MG TABLET PO SCH (09:00)
--- NOTE | 2019-05-02 09:24 | Psychiatric Progress Note ---
Date of Service May 02, 2019 Impression / Recommendations Impression 18-year-old female who currently lives in [place] with her parents, has a history of Bipolar I, h/o eating disorder, h/o self-injurious behavior, h/o multiple suicide attempts, h/o multiple psychiatric hospitalizations, and was admitted on 04/30/19 18:47 on a 201 voluntary commitment for suicidal ideation with plan to overdose on her SSRI and EtOH. Pt now refusing medication adjustments she had been agreeable to yesterday. She states her one dose of 25mg sertraline was ineffective and she is not interested in any more medications. Attempted to review mechanism of medications and that sertraline is a long-term solution to reducing anxiety. Pt not interested in hydroxyzine for anxiety as she feels it is also ineffective; however, nursing documentation suggests the patient reported moderate improvement from a dose last evening. She is scheduled to participate in a family meeting with her parents today. At this time, with ongoing suicidal ideation as well as multiple provoking symptoms, inpatient treatment is medically necessary due to the risk of decompensation, inability to function, and harm to self if discharged prematurely. (1) Suicidal ideation: 05/01 - q15 minute safety checks - Medication management for symptoms as described below - Encourage participation in group and recreational therapies to develop healthy coping skills - Gather collateral information from outpatient providers and family - Suggest family meeting to involve outpatient supports in safety planning - patient agreeable to meeting with mother and encouraged to involve father as well - Need to collect/dispose hoarded medication from patient's home - Arrangements for appropriate aftercare 05/02 - Remains actively suicidal, reporting desire to "go home and kill myself" (2) Bipolar disorder: 05/01 - Fasting lipids and glucose reviewed from Dec 2018 - in acceptable range - Continue dose of Geodon 160mg with supper - was increased a few weeks ago in outpatient setting - Can discuss optimize dosing/absorption if split into BID dosing in future 05/02 - Continue Geodon as above - Given limited cooperation, conversation regarding split dosing was not discussed (3) Anxiety: 05/01 - Seemingly patient's most distressing symptom, patient keen for alternative/titrated medications - Long h/o escitalopram use with minimal benefits, per patient. Patient denies trial of any other SSRI - Agreeable to switch to sertraline, with risks and benefits outlined - 25mg of sertraline added to AM dose of escitalopram. Will discontinue escitalopram and start sertraline 50mg daily starting tomorrow - titrate as tolerated - Monitor for mood instability or evidence of provoked (hypo)manic symptoms, which would necessitate discontinuation/med change. - Encourage participation in group and recreational therapies to develop healthy coping skills - PRN hydroxyzine available 05/02 - Pt refusing sertraline as she states it was ineffective, patient reminded that medication is not for acute anxiety; encouraged she reconsider her refusal and allow for titration to effective dosing. Will plan to revisit patient's willingness for medication adjustments - Continue to offer hydroxyzine as needed for anxiety, patient upset about not being provided with alprazolam - If sufficient trials of hydroxyzine with limited relief, could explore alternative agents such as buspirone (4) Paranoia: 05/01 - Patient describes paranoia, agoraphobia, feeling unsafe, being followed, lack of trust with therapist who might be lying to her - Continue Geodon as patient describes improvement in paranoia since recent titration - Management of anxiety as above (5) Alcohol use: 05/01 - Offer motivational interviewing for cessation - Encourage participation in group and recreational therapies to develop healthy coping skills (6) Anorexia nervosa, binge eating/purging type: 05/01 - Past issue that had seemingly resolved. Recurrent episode prior to admission - Offered outpatient referral for eating disorder management/therapy - patient declines attributing episode to recent stressors and symptoms, but otherwise denying restrictive/binge eating/purging as ongoing behavioral issues - Monitor for signs of restrictive/binge eating +/- purging Inventory Assets Strengths: dedicated student, stable housing, supportive family Needs: medication, mood stability, outpatient treatment, plan for return to [place] for school in June Risk Factors Assessment Male: No : Yes Do You Have Access To A Gun?: No (not at her apartment or parents' home) Health Problems: No Mental Health Diagnoses: Yes Substance Use Disorders: No Previous Attempt: Yes Previous Attempt; Highly Lethal: Yes Previous Attempt; Planned: Yes Family History of Suicide: Yes Previous Psychiatric Hospitalization: Yes Hopelessness: Yes Smoker: No Protective Factors Assessment Episcopal Beliefs: No : No Responsible for Young Children: No Employed: No Stable Relationships: Yes Supportive Family: Yes Interval History Identifying Information SHRUTI HUMMEL is a 18-year-old F who currently lives in [place] with her parents, has a history of Bipolar I, h/o eating disorder, h/o self-injurious behavior, h/o multiple suicide attempts, h/o multiple psychiatric hospitalizations, and was admitted on 04/30/19 18:47 on a 201 voluntary commitment for suicidal ideation with plan to overdose on her SSRI and EtOH. Chief Complaint "Not very well. I just have so much anxiety, I can't do it anymore. There is a solution, something that works, and you won't give it to me." Review of Systems Notes Constitutional: reports anxiety Cardiovascular: denied Respiratory: denied Gastrointestinal: denied Neurological: denied Psychiatric: denies symptoms other than stated above Total of at least 10 systems reviewed, pertinent positives as above and in HPI. Sleep Information Total Hours of Sleep: 9 Sleep Comments: pt on q-15 minute checks Meal Information Percent Meal Consumed - Breakfast: 80 Percent Meal Consumed - Lunch: 40 Percent Meal Consumed - Dinner: 100 Subjective Subjective Patient was seen & assessed and interval progress reviewed with Treatment Team. Staff reports the patient has continued to demonstrate irritability throughout her stay. She was reportedly angry and anxious thus far this morning, planning to request clonazepam for anxiety. Pt is scheduled for a family meeting with her parents this morning. Pt was seen prior to the meeting to assess progress since admission, as she had been reporting increased anxiety. This provider was also informed that the patient had refused her sertraline for the morning. Pt was agreeable to speaking with this provider, and immediately broke into tears upon entering the office. Pt admits to anxiety and states that she cannot keep living in this way. She states, "There is a solution, something that works, and you won't give it to me." Pt is referring to benzodiazepines, which she was previously informed would not be prescribed. Pt states, "the Zoloft didn't do sh*t yesterday." This provider attempting to explain to patient that response to SSRIs/SNRIs is rarely immediate and that it was an ideal solution to managing her anxiety long-term. Pt was informed that we would work to titrate her dose as quickly as tolerated to maximize eventual benefits. Pt states, "stop it, I dont' get it, just put me right on a dose that actually works!" Pt remained irritable and tearful as this provider attempted to explain why that approach is inappropriate. Pt continued to believe the Zoloft would not be effective for her and is not agreeing to take it. Pt was offered to discuss shorter-term solutions to manage anxiety, with recommendation to utilize hydroxyzine to determine her response. Pt states, "that doesn't work either, I still had a panic attack." Pt was read the nursing note from last evening, in which she reported moderate benefit from the prn - she had no follow-up comment. Pt states, "I just want to . Just let me go home so I can kill myself." Pt then states, "I want to go" confirming her request was to leave the office. Request was granted as conversation at this point in the day was not overly productive. Pt did not verbalize other concerns. Physical Exam Psychiatric Orientation: alert, oriented x 3 and + guarded; + uncooperative Apperance: appropriately dressed (casually in sweatshirt and scrub pants) and + disheveled Wearing corrective lenses, has obviously been crying this morning Eye Contact: + fair eye contact Motor Behavior: steady gait and station and no abnormal motor movements Speech: normal rate/rhythm/volume of speech Affect: + tearful affect and + irritable affect Mood: + anxious mood "I'm just so anxious, I can't live like this." Thought Process: clear/coherent thought process Thought Content: + preoccupation (with obtaining benzodiazepines for anxiety), + cognitive distortions and + hopelessness Suicidal Thoughts: + reports suicidal thoughts (verbalizes desire to go home so she can kill herself) Homicidal Thoughts: denies homicidal thoughts Cognition: attention grossly intact and language grossly intact Estimated Intelligence: consistent with education level Insight: + poor insight Judgement: + poor judgement Vital Signs (Past 24 Hours) Last Vital Signs Temp 36.7 C 05/02/19 06:51 Pulse 56 L 05/02/19 06:51 Resp 18 05/02/19 06:51 BP 115/79 05/02/19 06:51 Pulse Ox 97 04/30/19 15:26 Results & Data Current Inpatient Medications Current Inpatient Medications: Current Inpatient Medications Acetaminophen (Tylenol) 650 mg PO Q4H PRN PRN Reason: Headache or Minor Fever Stop: 05/30/19 18:46 Al Hydrox/Mg Hydrox/Simethicone (Maalox) 30 ml PO Q4H PRN PRN Reason: GI Upset Stop: 05/30/19 18:46 Bismuth Subsalicylate (Kaopectate) 15 ml PO PRN PRN PRN Reason: Loose Stool Stop: 05/30/19 18:46 Hydroxyzine HCl (Vistaril) 25 mg PO Q4H PRN PRN Reason: Anxiety Stop: 05/30/19 18:46 Last Admin: 05/01/19 17:37 Dose: 25 mg Documented by: Hydroxyzine HCl (Vistaril) 50 mg PO HSZ PRN PRN Reason: Insomnia Stop: 05/30/19 18:46 Magnesium Hydroxide (Milk Of Magnesia) 30 ml PO DAILY PRN PRN Reason: Heartburn Stop: 05/30/19 18:46 Sertraline HCl (Zoloft) 50 mg PO QAM FRANTZ Stop: 06/01/19 08:59 Sodium Chloride ([place] Nasal) 1 - 2 sprays NA PRN PRN PRN Reason: Nasal Dryness/Congestion Stop: 05/30/19 18:46 Ziprasidone (Geodon) 160 mg PO QDD FRANTZ Stop: 05/31/19 17:44 Last Admin: 05/01/19 17:38 Dose: 160 mg Documented by: Post Discharge Appointments Primary Care Physician Name Of Family Doctor: [facility] - Dr. aMs Primary Care Provider Appointment Comment: [address] [place] [address] Psychiatrist Name of Psychiatrist: Dr. Daniel Date of Appointment with Psychiatrist: 05/12/19 Time of Appointment with Psychiatrist: 3:45 p.m. Psychiatric Appointment Comment: [place] Therapist Name of Therapist: [facility] Date of Therapist Appointment: 05/06/19 Time of Therapist Appointment: 12:00 p.m. Therapy Appointment Comment: [address] [facility] Contact Information Discharge Discharge Address: [address] [place] [address] CPT Code CPT Code 95245 (1) Bipolar disorder Active/Remission status: currently active Current bipolar episode type: manic Current episode severity: moderate Qualified Code(s): F31.12 - Bipolar disorder, current episode manic without psychotic features, moderate
[2019-05-02] MEDS ORDERED: ESCITALOPRAM OXALATE 20 MG TAB PO ONE (14:30)
[2019-05-02] MEDS: ZIPRASIDONE HCL 80 MG CAP PO SCH (18:19)
[2019-05-03] MEDS: ESCITALOPRAM OXALATE 20 MG TAB PO SCH (08:30)
--- NOTE | 2019-05-03 08:50 | Psychiatric Progress Note ---
Date of Service May 03, 2019 Impression / Recommendations Impression 18-year-old female who currently lives in [place] with her parents, has a history of Bipolar I, h/o eating disorder, h/o self-injurious behavior, h/o multiple suicide attempts, h/o multiple psychiatric hospitalizations, and was admitted on 04/30/19 18:47 on a 201 voluntary commitment for suicidal ideation with plan to overdose on her SSRI and EtOH. Patient verbalized a desire to continue escitalopram, but was agreeable to titrating the dose to 20 mg yesterday. We will continue to observe changes in mood and anxiety and make other medication adjustments accordingly. Patient has been utilizing hydroxyzine for acute anxiety, finding it effective at the time of use - but continues to verbalize elevated anxiety levels and a desire for alprazolam. Patient participated in a family meeting with her mother yesterday, but was unwilling to disclose the worsening depression, suicidal ideation, and concerns about returning to school. We will continue to encourage patient to discuss these concerns with her parents, as she has been avoiding these topics which does not allow for adequate medication of risk factors. At this time, with ongoing suicidal ideation as well as multiple provoking symptoms, inpatient treatment is medically necessary due to the risk of decompensation, inability to function, and harm to self if discharged prematurely. (1) Suicidal ideation: 05/01 - q15 minute safety checks - Medication management for symptoms as described below - Encourage participation in group and recreational therapies to develop healthy coping skills - Gather collateral information from outpatient providers and family - Suggest family meeting to involve outpatient supports in safety planning - patient agreeable to meeting with mother and encouraged to involve father as well - Need to collect/dispose hoarded medication from patient's home - Arrangements for appropriate aftercare 05/02 - Remains actively suicidal, reporting desire to "go home and kill myself" 05/03 - SI ongoing, mildly improved. Able to contract for safety on unit, but not as an outpatient (2) Bipolar disorder: 05/01 - Fasting lipids and glucose reviewed from Dec 2018 - in acceptable range - Continue dose of Geodon 160mg with supper - was increased a few weeks ago in outpatient setting - Can discuss optimize dosing/absorption if split into BID dosing in future 05/02 - Continue Geodon as above - Given limited cooperation, conversation regarding split dosing was not discussed 05/03 - Continue current medication regimen (3) Anxiety: 05/01 - Seemingly patient's most distressing symptom, patient keen for alternative/titrated medications - Long h/o escitalopram use with minimal benefits, per patient. Patient denies trial of any other SSRI - Agreeable to switch to sertraline, with risks and benefits outlined - 25mg of sertraline added to AM dose of escitalopram. Will discontinue escitalopram and start sertraline 50mg daily starting tomorrow - titrate as tolerated - Monitor for mood instability or evidence of provoked (hypo)manic symptoms, which would necessitate discontinuation/med change. - Encourage participation in group and recreational therapies to develop healthy coping skills - PRN hydroxyzine available 05/02 - Pt refusing sertraline as she states it was ineffective, patient reminded that medication is not for acute anxiety; encouraged she reconsider her refusal and allow for titration to effective dosing. Will plan to revisit patient's willingness for medication adjustments - Continue to offer hydroxyzine as needed for anxiety, patient upset about not being provided with alprazolam - If sufficient trials of hydroxyzine with limited relief, could explore alternative agents such as buspirone 05/03 - Continue escitalopram 20mg daily; sertraline discontinued per patient request yesterday in favor of titration of escitalopram - Continue hydroxyzine as needed for anxiety (4) Paranoia: 05/01 - Patient describes paranoia, agoraphobia, feeling unsafe, being followed, lack of trust with therapist who might be lying to her - Continue Geodon as patient describes improvement in paranoia since recent titration - Management of anxiety as above 05/03 - Paranoia and lack of trust may be related to possible underlying personality traits - Pt appearing more trusting and adjusting to unit (5) Alcohol use: 05/01 - Offer motivational interviewing for cessation - Encourage participation in group and recreational therapies to develop healthy coping skills (6) Anorexia nervosa, binge eating/purging type: 05/01 - Past issue that had seemingly resolved. Recurrent episode prior to admission - Offered outpatient referral for eating disorder management/therapy - patient declines attributing episode to recent stressors and symptoms, but otherwise denying restrictive/binge eating/purging as ongoing behavioral issues - Monitor for signs of restrictive/binge eating +/- purging Inventory Assets Strengths: dedicated student, stable housing, supportive family Needs: medication, mood stability, outpatient treatment, plan for return to [place] for school in June Risk Factors Assessment Male: No : Yes Do You Have Access To A Gun?: No (not at her apartment or parents' home) Health Problems: No Mental Health Diagnoses: Yes Substance Use Disorders: No Previous Attempt: Yes Previous Attempt; Highly Lethal: Yes Previous Attempt; Planned: Yes Family History of Suicide: Yes Previous Psychiatric Hospitalization: Yes Hopelessness: Yes Smoker: No Protective Factors Assessment Muslim Beliefs: No : No Responsible for Young Children: No Employed: No Stable Relationships: Yes Supportive Family: Yes Interval History Identifying Information SHRUTI HUMMEL is a 18-year-old F who currently lives in [place] with her parents, has a history of Bipolar I, h/o eating disorder, h/o self-injurious behavior, h/o multiple suicide attempts, h/o multiple psychiatric hospitalizations, and was admitted on 04/30/19 18:47 on a 201 voluntary commitment for suicidal ideation with plan to overdose on her SSRI and EtOH. Chief Complaint "I'm feeling better today." Review of Systems Notes Constitutional: denied Cardiovascular: denied Respiratory: denied Gastrointestinal: denied Neurological: denied Psychiatric: denies symptoms other than stated above Total of at least 10 systems reviewed, pertinent positives as above and in HPI. Sleep Information Total Hours of Sleep: 10.75 Sleep Comments: pt on q-15 minute checks Meal Information Percent Meal Consumed - Breakfast: 80 Percent Meal Consumed - Lunch: 30 Percent Meal Consumed - Dinner: 80 Subjective Subjective Patient was seen & assessed and interval progress reviewed during report with nursing and transition social worker. Staff reports patient participated in a meeting with her mother via phone yesterday, but was unwilling to discuss her worsening depre ssion, suicidality, or thoughts regarding her ability to return to school. Patient's mother is scheduled to visit this weekend. Patient was seen today to assess progress since admission. She states that she is feeling "better." Patient reports taking hydroxyzine yesterday evening due to some increasing anxiety, which she found effective. Patient was encouraged to continue to utilize the medication as needed throughout the day to manage acute anxiety and prevent panic attacks. Patient reports her mood is "a little higher, but still depressed." Suicidal ideation is ongoing, and only mildly improved. Patient remains able to contract for safety on the unit. We reviewed her current medication regimen, which included her decision to continue escitalopram while titrating the dose to 20 mg daily. Patient states "it still does nothing for my anxiety." Again, this provider explained that these classes of medications are not designed for immediate relief of symptoms but rather gradual improvement in mood and anxiety over period of several weeks. Patient was encouraged to continue to utilize hydroxyzine in the short-term, as escitalopram becomes more effective. Patient requested an increased dose for today, and was educated on the FDA maximum being 20 mg with little evidence to go beyond that dose at this time. Patient was again reminded that this medication would not work overnight, and to utilize the hydroxyzine for anxiety in the short-term. Patient denies other needs or concerns at this time. Physical Exam Psychiatric Orientation: alert, oriented x 3 and cooperative (Superficially) Apperance: appropriately dressed, appropriately groomed and appeared stated age Eye Contact: good eye contact Motor Behavior: steady gait and station and no abnormal motor movements Speech: normal rate/rhythm/volume of speech Affect: + depressed affect, + anxious affect and + tearful affect (Though less so today) Mood: + depressed mood ("A little higher, but I am still depressed") and + anxious mood Thought Process: goal directed thought process and clear/coherent thought process Thought Content: + hopelessness and + worthlessness Suicidal Thoughts: + reports suicidal thoughts Homicidal Thoughts: denies homicidal thoughts Hallucinations: no auditory hallucinations and no visual hallucinations Cognition: attention grossly intact and language grossly intact Estimated Intelligence: consistent with education level Insight: + poor insight Judgement: + poor judgement Vital Signs (Past 24 Hours) Last Vital Signs Temp 36.7 C 05/03/19 06:32 Pulse 73 05/03/19 06:33 Resp 18 05/03/19 06:32 BP 112/73 05/03/19 06:33 Pulse Ox 97 04/30/19 15:26 Results & Data Current Inpatient Medications Current Inpatient Medications: Current Inpatient Medications Acetaminophen (Tylenol) 650 mg PO Q4H PRN PRN Reason: Headache or Minor Fever Stop: 05/30/19 18:46 Al Hydrox/Mg Hydrox/Simethicone (Maalox) 30 ml PO Q4H PRN PRN Reason: GI Upset Stop: 05/30/19 18:46 Bismuth Subsalicylate (Kaopectate) 15 ml PO PRN PRN PRN Reason: Loose Stool Stop: 05/30/19 18:46 Escitalopram Oxalate (Lexapro) 20 mg PO QAM FRANTZ Stop: 06/02/19 08:59 Last Admin: 05/03/19 08:30 Dose: 20 mg Documented by: Hydroxyzine HCl (Vistaril) 25 mg PO Q4H PRN PRN Reason: Anxiety Stop: 05/30/19 18:46 Last Admin: 05/02/19 18:19 Dose: 25 mg Documented by: Hydroxyzine HCl (Vistaril) 50 mg PO HSZ PRN PRN Reason: Insomnia Stop: 05/30/19 18:46 Magnesium Hydroxide (Milk Of Magnesia) 30 ml PO DAILY PRN PRN Reason: Heartburn Stop: 05/30/19 18:46 Sodium Chloride ([place] Nasal) 1 - 2 sprays NA PRN PRN PRN Reason: Nasal Dryness/Congestion Stop: 05/30/19 18:46 Ziprasidone (Geodon) 160 mg PO QDD FRANTZ Stop: 05/31/19 17:44 Last Admin: 05/02/19 18:19 Dose: 160 mg Documented by: Post Discharge Appointments Primary Care Physician Name Of Family Doctor: [facility] - Dr. Mas Primary Care Provider Appointment Comment: [address] [place] [address] Psychiatrist Name of Psychiatrist: Dr. Daniel Date of Appointment with Psychiatrist: 05/12/19 Time of Appointment with Psychiatrist: 3:45 p.m. Psychiatric Appointment Comment: [place] Therapist Name of Therapist: [facility] Date of Therapist Appointment: 05/06/19 Time of Therapist Appointment: 12:00 p.m. Therapy Appointment Comment: [address] [facility] Contact Information Discharge Discharge Address: [address] [place] [address] CPT Code CPT Code 47276 (1) Bipolar disorder Active/Remission status: currently active Current bipolar episode type: manic Current episode severity: moderate Qualified Code(s): F31.12 - Bipolar disorder, current episode manic without psychotic features, moderate
[2019-05-03] MEDS ORDERED: ESCITALOPRAM OXALATE 20 MG TAB PO ONE (14:11)
[2019-05-03] MEDS: ZIPRASIDONE HCL 80 MG CAP PO SCH (18:47)
[2019-05-04] MEDS: ESCITALOPRAM OXALATE 20 MG TAB PO SCH (07:40)
--- NOTE | 2019-05-04 07:50 | Psychiatric Progress Note ---
Date of Service May 04, 2019 Impression / Recommendations Impression 18-year-old female who currently lives in [place] with her parents, has a history of Bipolar I, h/o eating disorder, h/o self-injurious behavior, h/o multiple suicide attempts, h/o multiple psychiatric hospitalizations, and was admitted on 04/30/19 18:47 on a 201 voluntary commitment for suicidal ideation with plan to overdose on her SSRI and EtOH. Patient verbalized a desire to continue escitalopram, but was agreeable to titrating the dose to 20 mg yesterday. Pt did discuss her worsening mood and SI with her mother yesterday afternoon, but remains unable to contract for safety outside of the hospital set ting. At this time, with ongoing suicidal ideation as well as multiple provoking symptoms, inpatient treatment is medically necessary due to the risk of decompensation, inability to function, and harm to self if discharged prematurely. (1) Suicidal ideation: 05/01 - q15 minute safety checks - Medication management for symptoms as described below - Encourage participation in group and recreational therapies to develop healthy coping skills - Gather collateral information from outpatient providers and family - Suggest family meeting to involve outpatient supports in safety planning - patient agreeable to meeting with mother and encouraged to involve father as well - Need to collect/dispose hoarded medication from patient's home - Arrangements for appropriate aftercare 05/02 - Remains actively suicidal, reporting desire to "go home and kill myself" 05/03 - SI ongoing, mildly improved. Able to contract for safety on unit, but not as an outpatient (2) Bipolar disorder: 05/01 - Fasting lipids and glucose reviewed from Dec 2018 - in acceptable range - Continue dose of Geodon 160mg with supper - was increased a few weeks ago in outpatient setting - Can discuss optimize dosing/absorption if split into BID dosing in future 05/02 - Continue Geodon as above - Given limited cooperation, conversation regarding split dosing was not discussed 05/03 - Continue current medication regimen 05/04 - Continue Geodon 160mg, patient is not interested in split dosing (3) Anxiety: 05/01 - Seemingly patient's most distressing symptom, patient keen for alternative/titrated medications - Long h/o escitalopram use with minimal benefits, per patient. Patient denies trial of any other SSRI - Agreeable to switch to sertraline, with risks and benefits outlined - 25mg of sertraline added to AM dose of escitalopram. Will discontinue escitalopram and start sertraline 50mg daily starting tomorrow - titrate as tolerated - Monitor for mood instability or evidence of provoked (hypo)manic symptoms, which would necessitate discontinuation/med change. - Encourage participation in group and recreational therapies to develop healthy coping skills - PRN hydroxyzine available 05/02 - Pt refusing sertraline as she states it was ineffective, patient reminded that medication is not for acute anxiety; encouraged she reconsider her refusal and allow for titration to effective dosing. Will plan to revisit patient's willingness for medication adjustments - Continue to offer hydroxyzine as needed for anxiety, patient upset about not being provided with alprazolam - If sufficient trials of hydroxyzine with limited relief, could explore alternative agents such as buspirone 05/03 - Continue escitalopram 20mg daily; sertraline discontinued per patient request yesterday in favor of titration of escitalopram - Continue hydroxyzine as needed for anxiety 05/04 - Continue current medication regimen - Continue to communicate with parents and outpatient supports - Assist patient with development of aftercare plan, especially as it relates to returning to school (4) Paranoia: 05/01 - Patient describes paranoia, agoraphobia, feeling unsafe, being followed, lack of trust with therapist who might be lying to her - Continue Geodon as patient describes improvement in paranoia since recent titration - Management of anxiety as above 05/03 - Paranoia and lack of trust may be related to possible underlying personality characteristics - Pt appearing more trusting and adjusting to unit (5) Alcohol use: 05/01 - Offer motivational interviewing for cessation - Encourage participation in group and recreational therapies to develop healthy coping skills 05/04 -Brief intervention was offered and accepted Intervention was greater than 5 min in length. Brief interventions include: 1. Assess Readiness to Quit, 2. Advise: Help Patient to Reduce or Abstain from Alcohol, 3. Agree: Set Specific, Feasible Goals, 4. Assist: Anticipate barriers, Problem-Solving Solutions. Social work to 5. Arrange: Referrals to appropriate treatment. Summary of intervention: The patient is in precontemplation stage with regards to transtheoretical model of change. The patient is advised to decrease alcohol consumption due to depressant effects and risk of interactions with prescription medications. The patient was advised of recommendations for abstinence from alcohol and other abusable substances and to attend substance abuse treatment at discharge, and will be provided with recovery materials to continue to education self on how to cope with their condition without drinking. (6) Anorexia nervosa, binge eating/purging type: 05/01 - Past issue that had seemingly resolved. Recurrent episode prior to admission - Offered outpatient referral for eating disorder management/therapy - patient declines attributing episode to recent stressors and symptoms, but otherwise denying restrictive/binge eating/purging as ongoing behavioral issues - Monitor for signs of restrictive/binge eating +/- purging Inventory Assets Strengths: dedicated student, stable housing, supportive family Needs: medication, mood stability, outpatient treatment, plan for return to [employer] for school in June Risk Factors Assessment Male: No : Yes Do You Have Access To A Gun?: No (not at her apartment or parents' home) Health Problems: No Mental Health Diagnoses: Yes Substance Use Disorders: No Previous Attempt: Yes Previous Attempt; Highly Lethal: Yes Previous Attempt; Planned: Yes Family History of Suicide: Yes Previous Psychiatric Hospitalization: Yes Hopelessness: Yes Smoker: No Protective Factors Assessment Jewish Beliefs: No : No Responsible for Young Children: No Employed: No Stable Relationships: Yes Supportive Family: Yes Interval History Identifying Information SHRUTI HUMMEL is a 18-year-old F who currently lives in [place] with her parents, has a history of Bipolar I, h/o eating disorder, h/o self-injurious behavior, h/o multiple suicide attempts, h/o multiple psychiatric hospitalizations, and was admitted on 04/30/19 18:47 on a 201 voluntary commitment for suicidal ideation with plan to overdose on her SSRI and EtOH. Chief Complaint "Anxious...anxious and tired." Review of Systems Notes Constitutional: reports increased fatigue Cardiovascular: denied Respiratory: denied Gastrointestinal: denied Neurological: denied Psychiatric: denies symptoms other than stated above Total of at least 10 systems reviewed, pertinent positives as above and in HPI. Sleep Information Total Hours of Sleep: 6.5 Sleep Comments: pt on q-15 minute checks Meal Information Percent Meal Consumed - Breakfast: 80 Percent Meal Consumed - Lunch: 100 Percent Meal Consumed - Dinner: 100 Subjective Subjective Patient was seen & assessed and interval progress reviewed during report with nursing and social work. Staff reports the patient did disclose her worsening mood and SI to her mother last evening with some encouragement. Pt was seen today to assess progress since admission. Pt reports she continues to feel "anxious." Pt states, "I don't think I can be successful like this. I can't even concentrate in groups here. How am I supposed to concentrate in class, when it counts for a grade?" Pt began doubting her progress asking this provider, "Am I ever going to be successful? Do other people with bipolar disorder leave here and do productive things?" This provider attempted to comfort the patient, acknowledging that it will likely be an ongoing process, but with open communication and willingness to continue taking medications appropriately it is likely she will be able to return to school and work toward success academically and professionally. Pt seemed only somewhat comforted by this conversation. Pt states she is happy to have discussed her worsening condition with her mother, but feels her parents do not believe she will be successful returning to school. Pt continues to feel she could not participate appropriately in classes in her current condition, but was encouraged to continue her progress and work toward this goal. Pt admits to suicidality, but feels it is not as severe as at the time of admission. Pt denies other needs or concerns presently. Physical Exam Psychiatric Orientation: alert, oriented x 3 and cooperative Apperance: appropriately dressed, appropriately groomed and appeared stated age Eye Contact: good eye contact Motor Behavior: steady gait and station and no abnormal motor movements Speech: normal rate/rhythm/volume of speech Affect: + anxious affect and + tearful affect Mood: + anxious mood "Anxious...anxious and tired" Thought Process: goal directed thought process and clear/coherent thought process Thought Content: reality based without delusions, + hopelessness, + worthlessness and + guilt Suicidal Thoughts: + reports suicidal thoughts Homicidal Thoughts: denies homicidal thoughts Hallucinations: no auditory hallucinations and no visual hallucinations Cognition: attention grossly intact and language grossly intact Estimated Intelligence: consistent with education level Insight: + fair insight Judgement: + fair judgement Vital Signs (Past 24 Hours) Last Vital Signs Temp 36.8 C 05/04/19 06:55 Pulse 69 05/04/19 06:58 Resp 16 05/04/19 06:55 BP 107/71 05/04/19 06:58 Pulse Ox 97 04/30/19 15:26 Results & Data Current Inpatient Medications Current Inpatient Medications: Current Inpatient Medications Acetaminophen (Tylenol) 650 mg PO Q4H PRN PRN Reason: Headache or Minor Fever Stop: 05/30/19 18:46 Al Hydrox/Mg Hydrox/Simethicone (Maalox) 30 ml PO Q4H PRN PRN Reason: GI Upset Stop: 05/30/19 18:46 Bismuth Subsalicylate (Kaopectate) 15 ml PO PRN PRN PRN Reason: Loose Stool Stop: 05/30/19 18:46 Escitalopram Oxalate (Lexapro) 20 mg PO QAM FRANTZ Stop: 06/02/19 08:59 Last Admin: 05/04/19 07:40 Dose: 20 mg Documented by: Hydroxyzine HCl (Vistaril) 25 mg PO Q4H PRN PRN Reason: Anxiety Stop: 05/30/19 18:46 Last Admin: 05/03/19 14:49 Dose: 25 mg Documented by: Hydroxyzine HCl (Vistaril) 50 mg PO HSZ PRN PRN Reason: Insomnia Stop: 05/30/19 18:46 Magnesium Hydroxide (Milk Of Magnesia) 30 ml PO DAILY PRN PRN Reason: Heartburn Stop: 05/30/19 18:46 Sodium Chloride ([place] Nasal) 1 - 2 sprays NA PRN PRN PRN Reason: Nasal Dryness/Congestion Stop: 05/30/19 18:46 Ziprasidone (Geodon) 160 mg PO QDD FRANTZ Stop: 05/31/19 17:44 Last Admin: 05/03/19 18:47 Dose: 160 mg Documented by: Post Discharge Appointments Primary Care Physician Name Of Family Doctor: [facility] - Dr. Mas Primary Care Provider Appointment Comment: [address] [place] [address] Psychiatrist Name of Psychiatrist: Dr. Daniel Date of Appointment with Psychiatrist: 05/12/19 Time of Appointment with Psychiatrist: 3:45 p.m. Psychiatric Appointment Comment: [place] [facility] Name of Therapist: [facility] Date of Therapist Appointment: 05/06/19 Time of Therapist Appointment: 12:00 p.m. Therapy Appointment Comment: [facility] Contact Information Discharge Discharge Address: [address] [place] [address] CPT Code CPT Code 92890 (1) Bipolar disorder Active/Remission status: currently active Current bipolar episode type: manic Current episode severity: moderate Qualified Code(s): F31.12 - Bipolar disorder, current episode manic without psychotic features, moderate
[2019-05-04] MEDS: ZIPRASIDONE HCL 80 MG CAP PO SCH (18:08)
--- NOTE | 2019-05-05 11:20 | Psychiatric Progress Note ---
Date of Service May 05, 2019 Impression / Recommendations Impression 18-year-old female who currently lives in [place] with her parents, has a history of Bipolar I, h/o eating disorder, h/o self-injurious behavior, h/o multiple suicide attempts, h/o multiple psychiatric hospitalizations, and was admitted on 04/30/19 18:47 on a 201 voluntary commitment for suicidal ideation with plan to overdose on her SSRI and EtOH. Patient refused escitalopram this morning, stating that it is causing restlessness and making her "manic." Based on her presentation during our discussion, her behavior is not clearly reflective of activation or julio cesar. Patient was asked to explore the possibility that her restlessness may be related to ongoing anxiety. Despite education from several staff members regarding expectations for SSRIs, patient continues to feel that her Lexapro "is not working." And has decided she will not continue the medication. Multiple attempts were made during her visit to explore other antidepressant options, with limited willingness from the patient to engage in this conversation. Patient was clearly informed of this provider's concerns with her choosing to discontinue her antidepressant. We will continue to observe behaviors and educate the patient on appropriate medication adjustments, as refusing medications at this time put her at higher risk of decompensation and discharge would be considered unsafe. Pt feels her mood is worsening, and she is unable to contract for safety at this time feeling as though she is "nowhere close to discharge." At this time, with ongoing suicidal ideation as well as multiple provoking symptoms, inpatient treatment is medically necessary due to the risk of decompensation, inability to function, and harm to self if discharged prematurely. (1) Suicidal ideation: 05/01 - q15 minute safety checks - Medication management for symptoms as described below - Encourage participation in group and recreational therapies to develop healthy coping skills - Gather collateral information from outpatient providers and family - Suggest family meeting to involve outpatient supports in safety planning - patient agreeable to meeting with mother and encouraged to involve father as well - Need to collect/dispose hoarded medication from patient's home - Arrangements for appropriate aftercare 05/02 - Remains actively suicidal, reporting desire to "go home and kill myself" 05/03 - SI ongoing, mildly improved. Able to contract for safety on unit, but not as an outpatient (2) Bipolar disorder: 05/01 - Fasting lipids and glucose reviewed from Dec 2018 - in acceptable range - Continue dose of Geodon 160mg with supper - was increased a few weeks ago in outpatient setting - Can discuss optimize dosing/absorption if split into BID dosing in future 05/02 - Continue Geodon as above - Given limited cooperation, conversation regarding split dosing was not discussed 05/03 - Continue current medication regimen 05/04 - Continue Geodon 160mg, patient is not interested in split dosing (3) Anxiety: 05/01 - Seemingly patient's most distressing symptom, patient keen for altern ative/titrated medications - Long h/o escitalopram use with minimal benefits, per patient. Patient denies trial of any other SSRI - Agreeable to switch to sertraline, with risks and benefits outlined - 25mg of sertraline added to AM dose of escitalopram. Will discontinue escitalopram and start sertraline 50mg daily starting tomorrow - titrate as tolerated - Monitor for mood instability or evidence of provoked (hypo)manic symptoms, which would necessitate discontinuation/med change. - Encourage participation in group and recreational therapies to develop healthy coping skills - PRN hydroxyzine available 05/02 - Pt refusing sertraline as she states it was ineffective, patient reminded that medication is not for acute anxiety; encouraged she reconsider her refusal and allow for titration to effective dosing. Will plan to revisit patient's willingness for medication adjustments - Continue to offer hydroxyzine as needed for anxiety, patient upset about not being provided with alprazolam - If sufficient trials of hydroxyzine with limited relief, could explore alternative agents such as buspirone 05/03 - Continue escitalopram 20mg daily; sertraline discontinued per patient request yesterday in favor of titration of escitalopram - Continue hydroxyzine as needed for anxiety 05/04 - Continue current medication regimen - Continue to communicate with parents and outpatient supports - Assist patient with development of aftercare plan, especially as it relates to returning to school 05/05 - Pt now refusing her dose of escitalopram as reporting "restlessness" and "julio cesar" - no behavioral evidence at this time that this is the case - Continue to observe mood for possible evidence of activation (4) Paranoia: 05/01 - Patient describes paranoia, agoraphobia, feeling unsafe, being followed, lack of trust with therapist who might be lying to her - Continue Geodon as patient describes improvement in paranoia since recent titration - Management of anxiety as above 05/03 - Paranoia and lack of trust may be related to possible underlying personality characteristics - Pt appearing more trusting and adjusting to unit (5) Alcohol use: 05/01 - Offer motivational interviewing for cessation - Encourage participation in group and recreational therapies to develop healthy coping skills 05/04 -Brief intervention was offered and accepted Intervention was greater than 5 min in length. Brief interventions include: 1. Assess Readiness to Quit, 2. Advise: Help Patient to Reduce or Abstain from Alcohol, 3. Agree: Set Specific, Feasible Goals, 4. Assist: Anticipate barriers, Problem-Solving Solutions. Social work to 5. Arrange: Referrals to appropriate treatment. Summary of intervention: The patient is in precontemplation stage with regards to transtheoretical model of change. The patient is advised to decrease alcohol consumption due to depressant effects and risk of interactions with prescription medications. The patient was advised of recommendations for abstinence from alcohol and other abusable substances and to attend substance abuse treatment at discharge, and will be provided with recovery materials to continue to education self on how to cope with their condition without drinking. (6) Anorexia nervosa, binge eating/purging type: 05/01 - Past issue that had seemingly resolved. Recurrent episode prior to admission - Offered outpatient referral for eating disorder management/therapy - patient declines attributing episode to recent stressors and symptoms, but otherwise denying restrictive/binge eating/purging as ongoing behavioral issues - Monitor for signs of restrictive/binge eating +/- purging Inventory Assets Strengths: dedicated student, stable housing, supportive family Needs: medication, mood stability, outpatient treatment, plan for return to [place] for school in June Risk Factors Assessment Male: No : Yes Do You Have Access To A Gun?: No (not at her apartment or parents' home) Health Problems: No Mental Health Diagnoses: Yes Substance Use Disorders: No Previous Attempt: Yes Previous Attempt; Highly Lethal: Yes Previous Attempt; Planned: Yes Family History of Suicide: Yes Previous Psychiatric Hospitalization: Yes Hopelessness: Yes Smoker: No Protective Factors Assessment Jain Beliefs: No : No Responsible for Young Children: No Employed: No Stable Relationships: Yes Supportive Family: Yes Interval History Identifying Information SHRUTI HUMMEL is a 18-year-old F who currently lives in [place] with her parents, has a history of Bipolar I, h/o eating disorder, h/o self-injurious behavior, h/o multiple suicide attempts, h/o multiple psychiatric hospitalizations, and was admitted on 04/30/19 18:47 on a 201 voluntary commitment for suicidal ideation with plan to overdose on her SSRI and EtOH. Chief Complaint "I just cannot take the Lexapro anymore." Review of Systems Notes Constitutional: reports current "restlessness" Cardiovascular: denied Respiratory: denied Gastrointestinal: denied Neurological: denied Psychiatric: denies symptoms other than stated above Total of at least 10 systems reviewed, pertinent positives as above and in HPI. Sleep Information Total Hours of Sleep: 8.5 Sleep Comments: pt on q-15 minute checks Meal Information Percent Meal Consumed - Breakfast: 100 Percent Meal Consumed - Lunch: 80 Percent Meal Consumed - Dinner: 100 Subjective Subjective Patient was seen & assessed and interval progress reviewed with Treatment Team. Staff reports the patient continues to participate in group and recreational programming. Now that the work week has resumed, we will attempt to solidify patient's aftercare plan, as it remains unclear if she is intending to return to school or back home to [place] where her current providers are. Patient was seen today to assess progress since admission. She begins assessment by stating "I cannot take the Lexapro anymore." Patient was asked why she felt this was the case, and stated that she has been feeling "really restless and anxious, it is not working." Patient tells this provider "I feel manic." When asked to describe her physical concerns, patient continues to reiterate restlessness and anxiety. Patient reports ongoing depression and states "when I am manic I am still depressed. I feel manic." Patient continues to be unable to give specific descriptions of her physical presentation. Patient was informed of this provider's concern that what she is feeling, though it could be a result of activation, may be a result of ongoing anxiety. Patient again states "see, then it is not working." Patient was again reminded that antidepressant medications do not typically prove beneficial within a few days' time, and that it was too soon to determine if the increased dose of escitalopram would be effective to manage her anxiety in the long-term. Patient states "can I just be off it?" Patient was informed of this provider's concerns with not replacing the medication with another antidepressant, as she continues to endorse anxiety, low mood, and suicidal ideations. Patient states "then what else can I try?" This provider attempts to explain alternative agents to the patient, who does not appear to be receptive to the conversation at this time. Patient frequently interjects as this provider attempts to offer education on antidepressant agents, stating various other comments on her treatment: "My roommate got Ativan, it is not fair" and "my friend gained 15 pounds on Zoloft" and "she is harassing me" (referring to a psychiatrically ill patient on the unit). Patient verbalizes a desire to leave this provider's office, as she is now in tears. She states she would like one day to be "just on the Geodon." Patient was reminded on her way out of the office that this provider was concerned about this decision interfering with her overall progress. Patient did not verbalize any other needs or concerns today. Physical Exam Psychiatric Orientation: alert and oriented x 3; + uncooperative Apperance: appropriately dressed and + disheveled Wearing corrective lenses, a sweatshirt, and pajama bottoms Eye Contact: good eye contact Motor Behavior: steady gait and station and no abnormal motor movements Speech: normal rate/rhythm/volume of speech (Speaks for majority of visit and a whining tone) Affect: + tearful affect, + labile affect and + irritable affect Mood: + depressed mood and + anxious mood "Nothing is helping my mood" and "I feel restless, I am manic" Thought Process: goal directed thought process and clear/coherent thought process Thought Content: reality based without delusions Suicidal Thoughts: + reports suicidal thoughts Homicidal Thoughts: denies homicidal thoughts Hallucinations: no auditory hallucinations and no visual hallucinations Cognition: remote memory grossly intact and language grossly intact Estimated Intelligence: consistent with education level Insight: + limited insight Judgement: + limited judgement Vital Signs (Past 24 Hours) Last Vital Signs Temp 36.6 C 05/05/19 06:56 Pulse 62 05/05/19 06:56 Resp 16 05/05/19 06:56 BP 103/69 05/05/19 06:56 Pulse Ox 97 04/30/19 15:26 Results & Data Current Inpatient Medications Current Inpatient Medications: Current Inpatient Medications Acetaminophen (Tylenol) 650 mg PO Q4H PRN PRN Reason: Headache or Minor Fever Stop: 05/30/19 18:46 Al Hydrox/Mg Hydrox/Simethicone (Maalox) 30 ml PO Q4H PRN PRN Reason: GI Upset Stop: 05/30/19 18:46 Bismuth Subsalicylate (Kaopectate) 15 ml PO PRN PRN PRN Reason: Loose Stool Stop: 05/30/19 18:46 Escitalopram Oxalate (Lexapro) 20 mg PO QAM FRANTZ Stop: 06/02/19 08:59 Last Admin: 05/04/19 07:40 Dose: 20 mg Documented by: Hydroxyzine HCl (Vistaril) 25 mg PO Q4H PRN PRN Reason: Anxiety Stop: 05/30/19 18:46 Last Admin: 05/05/19 09:40 Dose: 25 mg Documented by: Hydroxyzine HCl (Vistaril) 50 mg PO HSZ PRN PRN Reason: Insomnia Stop: 05/30/19 18:46 Magnesium Hydroxide (Milk Of Magnesia) 30 ml PO DAILY PRN PRN Reason: Heartburn Stop: 05/30/19 18:46 Sodium Chloride ([place] Nasal) 1 - 2 sprays NA PRN PRN PRN Reason: Nasal Dryness/Congestion Stop: 05/30/19 18:46 Ziprasidone (Geodon) 160 mg PO QDD FRANTZ Stop: 05/31/19 17:44 Last Admin: 05/04/19 18:08 Dose: 160 mg Documented by: Mental Health [facility] Subst Abuse [facility] Psychiatrist Name of Psychiatrist: Dr. Daniel Date of Appointment with Psychiatrist: 05/12/19 Time of Appointment with Psychiatrist: 3:45 p.m. Psychiatric Appointment Comment: [place] Therapist Name of Therapist: [facility] Date of Therapist Appointment: 05/06/19 Time of Therapist Appointment: 12:00 p.m. Therapy Appointment Comment: [address] [facility] Post Discharge Appointments Primary Care Physician Name Of Family Doctor: [facility] - Dr. Mas Primary [facility] Time of Appointment with PCP: Follow up as needed Provider Appointment Comment: [address] [place], [place] [address] Contact Information Discharge Discharge Address: [address] [place] [address] CPT Code CPT Code 52270 (1) Bipolar disorder Active/Remission status: currently active Current bipolar episode type: manic Current episode severity: moderate Qualified Code(s): F31.12 - Bipolar disorder, current episode manic without psychotic features, moderate
[2019-05-05] MEDS: ESCITALOPRAM OXALATE 20 MG TAB PO SCH (11:22)
[2019-05-05] MEDS: ZIPRASIDONE HCL 80 MG CAP PO SCH (18:22)
[2019-05-06 06:51] VITALS: TEMP 97.7
[2019-05-06] MEDS: ESCITALOPRAM OXALATE 20 MG TAB PO SCH (08:50)
--- NOTE | 2019-05-06 09:25 | Discharge Summary ---
Date of Service May 06, 2019 History of Present Illness Patient states that she has been a mess since her previous admission to [facility] in December 2018 for manic episode, after which she withdrew from the semester at [employer] and moved back home with her parents in [place]. Since that admission, patient has noted worsened anxiety, intermittent episodes of low mood, and feelings of paranoia. She stated despite this, she had been coping well, even without therapy thanks to support from her mother and participation in cross fit training. However, during a cross fit exercise, the patient 'broke her elbow' ~1 month ago and has been unable to utilize this strategy as a means of coping. She is also frustrated because she does not feel her psychiatrist is trying to help her, stating "they said I'm maxed out on my meds, but I'm not better. I asked for something for anxiety, but they said they can't help me. They can't go up on my Lexapro because I have julio cesar. They gave me gabapentin, but that turned me into a zombie [sedation]." She is concerned/paranoid that her therapist is trying to hurt her or is lying to her. She does state that since discharge, her Geodon was increased from 120mg to 160mg daily, which has helped her with sleep and improved her paranoia. She states that initially, she "could not even leave the house" because of paranoia, but she is able to do so now. However, her anxiety does worsen in crowds. Also, when driving she continues to have intermittent fear of being followed. As a break, the patient and her family decided she should visit her friend in [place] for the month. However, the patient notes that her symptoms spiraled acutely since arriving in [place] 2 weeks ago. Interactions with her friends were positive, but since then, patient has been staying alone in her rented apartment, and has been tormented by her thoughts and anxiety. She has felt alone, persistently depressed, and unsafe with suicidal thoughts commencing 2 weeks ago. She has had to drink multiple units of mixed alcoholic drinks to tolerate her thoughts and prevent herself from acting on her suicidal thoughts. She notes, that in planning for her overdose, she actually stopped taking/started collecting her Lexapro tablets over the last 2 weeks. She denies any missed doses of Geodon. In the interim, patient admits she began restricting her diet to gain control of her life. On at least 5 occasions, patient also purged self, in hopes to lose weight and possibly feel better. She admits to diagnosis of anorexia, purging type with hospitalization from ages [age], but no issues with eating disorder since then. She admits that since being admitted presently, she has discontinued restrictive eating patterns, and would rather not have ongoing outpatient follow up for eating disorder, attributing the relapse to her spiraling symptoms. Patient states that she has racing thoughts related to her anxiety, but denies manic/hypomanic episodes since December 2018. She states the Geodon is effective in allowing her to sleep ~8 hours nightly, although she does wake up early ~5am on several mornings. She feels returning to [place] has worsened her anxiety, and she fears that she "won't be able to return to school since [her] brain is so broken." She states "since no one can help me, I think I should just ," confirming ongoing suicidal ideation. She denies HI, compulsive thoughts, auditory/visual hallucinations. She does not smoke tobacco. She admits to intermittently smoking cannabis "but only once in the past 2 weeks," and increased EtOH use patterns in the last 2 weeks. She denies access to weapons. Her main supports are her mother, one of her two older sisters, and some friends in [place]. She denies physical or sexual trauma in her past. Physical Exam Psychiatric Orientation: alert, oriented x 3 and cooperative (only somewhat cooperative) Apperance: appropriately dressed, + disheveled and appeared stated age Eye Contact: good eye contact Motor Behavior: steady gait and station and no abnormal motor movements Speech: normal rate/rhythm/volume of speech (Speaks for majority of visit and a whining tone) Affect: + anxious affect Mood: no depressed mood "I feel fine, not anxious as long as I get the Vistaril" Thought Process: goal directed thought process and clear/coherent thought process Thought Content: + preoccupation (with discharge) and reality based without delusions; no hopelessness and no worthlessness Suicidal Thoughts: denies suicidal thoughts and denies suicidal plan Homicidal Thoughts: denies homicidal thoughts Hallucinations: no auditory hallucinations and no visual hallucinations Cognition: recent memory grossly intact, remote memory grossly intact, attention grossly intact and language grossly intact Estimated Intelligence: consistent with education level Insight: + fair insight Judgement: + fair judgement Vital Signs (Past 24 Hours) Last Vital Signs Temp 36.5 C 05/06/19 06:49 Pulse 80 05/06/19 06:50 Resp 18 05/06/19 06:49 BP 104/69 05/06/19 06:50 Pulse Ox 97 04/30/19 15:26 Principal Diagnosis Bipolar I disorder, current episodes manic without psychotic features, moderate; Anxiety NOS; Alcohol use; Anorexia nervosa, binge eating/purging type Rule Out borderline personality disorder Psychiatric Data 18-year-old female admitted for inpatient psychiatric treatment on 04/30/2019 due to suicidal ideation with a plan to overdose on her escitalopram in combination with alcohol. Patient was last admitted to the behavioral health unit in December 2018, and subsequently withdrew from school to return home to [place] with her parents. Patient had returned to [place] to spend time with friends, but endorsed worsening mood and fear of leaving her house. Patient had endorsed a significant increase in alcohol use as well. Patient had admitted to discontinuing her escitalopram 2 weeks prior to admission, as she had been stockpiling the medications in order to overdose. At time of admission, patient had endorsed Venu ideation, increased anxiety, worsening mood, and some paranoia. Prior to admission, the patient's dose of ziprasidone was increased from 120 mg to 160 mg daily, which she feels has been helpful for sleep and mood. At time of admission, it was recommended the patient consider titration of escitalopram to 20 mg daily to target low mood and suicidal ideati on. Patient had endorsed concern about this he felt it would "make my julio cesar worse." It was encouraged that patient consider an alternative SSRI, and was initiated on sertraline 25 mg with a plan to titrate to therapeutic levels. Patient had taken 1 dose of the sertraline and had refused subsequent doses. Despite frequent education on expectations of efficacy with SSRIs/SSRIs, patient continued to feel that the medications did not have an immediate response but they were ineffective. Following 1 dose of sertraline, the patient is requested to return to escitalopram, and was agreeable to titrating the dose to 20 mg daily. Patient has tolerated this dose for several days, and then abruptly decided to refuse the medicationclaiming it was contributing to her anxiety/"julio cesar". Education was provided on alternative agents, though patient refused to participate in these discussions. Patient had requested to continue on ziprasidone alone, deciding she would not continue an antidepressant agent. Patient did find as needed doses of hydroxyzine beneficial, and is requesting to receive this medication on discharge. At time of discharge, recommended medication regimen was to continue ziprasidone 160 mg in combination with escitalopram 20mg; hydroxyzine to be used as needed for anxiety. Patient had participated in group and recreational programming over the course of her admission, though at times did not have a positive attitude as it relates to her treatment plan. She did reluctantly disclose to her mother that her depressive symptoms have been worsening and her suicidal ideation had returned. She now feels that she would be able to share any future concerns with her mother. At time of discharge, patient felt that her mood, suicidality, anxiety, and paranoia had all improved to an appropriate degree. She feels that she would be able to contract for safety outside of the hospital setting, and feels that she is no longer benefiting from inpatient treatment. Staff had frequently been in contact with the patient's mother to discuss her concerns and abuse on treatment. Patient's mother also sees improvement, and feels comfortable with the patient returning home in time to attend her outpatient therapy appointment. Concerns relating to mood fluctuations and episodes of emotional dysregulation were discussed with the patient and her mother, who did not feel that these concerns would affect the patient's safety at discharge. Both patient and mother feel the patient is safe to return home, as she will be with family until she begins classes in the fall. Appointments with her outpatient therapist and psychiatric prescriber have been confirmed and mother and patient ensure they will be compliant with these visits. Patient remains at relatively high risk of harm to self when compared with the general population. Acute risk of harm to self has been minimized during this admission, the patient will require ongoing monitoring of mood and suicidality to prevent decompensation. Based on patient's limited willingness to participate fully in treatment recommendations, it is felt that this risk will likely not be reduced further by ongoing inpatient treatment. Ongoing psychiatric treatment on an outpatient basis is the least restrictive setting for mood to be monitored. After reviewing these concerns with patient and mother, patient is to be discharged home to her mother supervision with recommendation for close follow-up appointments with her psychiatric providers. Day of Discharge Assessment Patient's case was reviewed and discussed during report with nursing and social work. Staff reports that the patient had refused to call student care and advocacy in order to have her questions addressed as it relates to returning to school. Patient's mother has continued to visit the patient while she is admitted, and we will need to confirm that mother feels comfortable with possible discharge today. It is reported that mother, herself, is requesting that the patient be discharged as she has an outpatient therapy appointment this afternoon. Patient was seen today to assess readiness for discharge. She tells this provider that she is feeling "fine." Patient begins conversation by requesting to go home. She does tell this provider that she has not been experiencing suicidal ideation, and feels comfortable reaching out to her mother should the thoughts recur. Patient endorses an improvement in mood from yesterday, but admits that she does not plan to continue the escitalopram after discharge. This provider again attempted to educate the patient on her presenting symptoms, and our recommendation that patient have an antidepressant medication in her regimen to target low mood, anxiety, and episodes of suicidality. Patient continues to believe that the escitalopram is contributing to her anxiety. She does state that hydroxyzine has been beneficial in managing her anxiety, and she has been taking it up to 2 times a day while on the unit. Patient states that she did not contact student care and advocacy as she states "they did not help me last time." Provider expressed concern related to patient returning to school if she does not yet feel ready. Patient states that she does have email contact for the office, and would reach out to them with any questions or concerns as the fall approaches. Patient was commended for her willingness to disclose worsening mood and suicidal ideation to her mother during her hospitalization. She states that she feels at this time she would be able to reach out to her mother for support if symptoms should worsen or suicidality recur. Patient states that she will remain with her mother for "the next 2 months." Patient is agreeable to following up with established aftercare appointments. She admits that she is interested in additional medication adjustments, but verbalizes a desire to return to her outpatient psychiatrist at home to discuss these options. Patient denies suicidal ideation, and at time of encounter is future oriented. She is initially irritated at the request to discuss her safety plan, but does participate in the conversation after this provider stresses its importance. Patient is able to verbalize red flags and provide several coping strategies that she finds to be effective. At this time, patient is requesting discharge so that she can attend an outpatient therapy appointment as scheduled. She does not verbalize any concerns related to discharge today and feels that she is able to contract for safety outside of the inpatient setting. Based on review of patient's case and their current presentation, risk of harm to self or others is no longer perceived to be acute-but some risk is ongoing. Management of symptoms on an outpatient basis seems the most appropriate and least restrictive setting. Pt seems appropriate for discharge with recommendation for consistent follow-up with outpatient psychiatric prescriber and therapist. Pt verbalized understanding of discharge plan reviewed and is agreeable with plan to be discharged home today. ROS: Constitutional: denied Cardiovascular: denied Respiratory: denied Gastrointestinal: denied Neurological: denied Psychiatric: denies symptoms other than stated above Total of at least 10 systems reviewed, pertinent positives as above and in HPI. Transition of Care Transition Of Care Record: was reviewed with the patient Advance Directives Advance Directives Information Provided: Yes Advance Directives: No Mental Health Advance Directive: No Advance Directives on File: No Living Will: No Power of Hospital Aide: No Advance Directives Reason:: Declines as Mental Health Visit. Risk Factors Assessment Presenting risk factors reviewed on discharge. Precipitating stressors mitigated by: admission for inpatient psychiatric observation and treatment, appropriate adjustments to medications to target symptoms, attendance of therapeutic treatment groups, development of healthy and effective coping strategies, involvement of outpatient supports, completion of a safety plan, discussion regarding substance abuse and effects on mental health diagnoses, and education on diagnoses. Pt has demonstrated improvement in condition with regard to reported improvement in mood and willingness to disclose worsened symptoms to parents. At this time, patient is requesting discharge and is no longer considered to be at acute risk of harm to herself, though a continued risk of decompensation to exist. Pt will be discharged with recommendation for ongoing outpatient psychiatric treatment. Pt is at increased risk of harm to self or others when compared to the general population and there are several risk factors which are not likely to be mitigated in an inpatient treatment setting. Risk is perceived to be reduced when compared to admission, but is not entirely resolved. Patient demonstrated conditional willingness to participate in group programming and consider sarah tment recommendations. Despite recommendations from psychiatric providers, it is not certain that patient will continue her current medication regimen after discharge. Patient continues to be emotionally driven in her decisions, which puts her at higher risk of potential harm to self or decompensation leading to readmission. Patient is verbalized feeling as though she has not a risk to herself or others at this time. Patient's mother was informed of discharge request, and is herself requesting that the patient be discharged today in order to attend an outpatient therapy appointment this afternoon. Mother feels comfortable with a discharge today, and feels the patient will be able to maintain safety in an outpatient setting. Mother has informed staff that the patient will remain with family until she returns to school in 2 months. Patient has established aftercare appointments in place, which mother will see she attends. Staff's concerns were reviewed with the mother and the patient who both verbalized awareness. They were made aware of crisis resources and encouraged to return to the ED with any safety concerns. Male: No : Yes Do You Have Access To A Gun?: No (not at her apartment or parents' home) Health Problems: No Mental Health Diagnoses: Yes Substance Use Disorders: No Previous Attempt: Yes Previous Attempt; Highly Lethal: Yes Previous Attempt; Planned: Yes Family History of Suicide: Yes Previous Psychiatric Hospitalization: Yes Hopelessness: Yes Smoker: No Protective Factors Assessment Amish Beliefs: No : No Responsible for Young Children: No Employed: No Stable Relationships: Yes Supportive Family: Yes Tobacco Cessation at Discharge Tobacco Cessation Medication Prescribed at Discharge: Not Applicable/Non-Smoker Total Time Total Time Spent: Greater Than 30 Minutes Total Time Includes: Examination of the patient, Discharge Planning, Medication Reconciliation and Communication with other providers Discharge Data Lab Results 04/30/19 04/30/19 04/30/19 15:40 15:40 15:40 WBC RBC Hgb Hct MCV MCH MCHC RDW Std Deviation RDW Coeff of Anastacio Plt Count MPV Immature Gran % (Auto) Neut % (Auto) Lymph % (Auto) [place] % (Auto) Eos % (Auto) Baso % (Auto) Immature Gran # (Auto) Neut # (Auto) Lymph # (Auto) [place] # (Auto) Eos # (Auto) Baso # (Auto) Sodium Potassium Chloride Carbon Dioxide Anion Gap BUN Creatinine Est Cr Clr Drug Dosing Est GFR ( Amer) Est GFR (Non-Af Amer) BUN/Creatinine Ratio Glucose Calcium Total Bilirubin AST ALT Alkaline Phosphatase Total Protein Albumin Globulin Albumin/Globulin Ratio TSH Urine Color Dark Yellow Urine Appearance Clear Urine pH 6.0 Ur Specific [place]ona 1.029 Urine Protein Trace H Urine Glucose (UA) Negative Urine Ketones Trace H Urine Blood Negative Urine Nitrite Negative Urine Bilirubin Negative Urine Urobilinogen Negative Ur Leukocyte Esterase Negative Urine WBC (Auto) 1-5 Urine RBC (Auto) 0-4 U Hyaline Cast (Auto) 1-5 U Epithel Cells (Auto) >30 H Urine Bacteria (Auto) Negative Urine Test Negative Salicylates Urine Opiates Screen Neg Ur Methadone, Qual Neg Acetaminophen Urine Barbiturates Neg Ur Phencyclidine (PCP) Neg U Amphetamin/Meth Scrn Neg MDMA (Ecstasy) Screen Neg U Benzodiazepines Scrn Neg Ur Cocaine Metabolite Neg U Marijuana (THC) Screen Neg Ethyl Alcohol mg/dL 04/30/19 04/30/19 04/30/19 16:29 16:29 16:29 WBC 7.54 RBC 4.58 Hgb 13.0 Hct 38.9 MCV 84.9 MCH 28.4 MCHC 33.4 RDW Std Deviation 43.0 RDW Coeff of Anastacio 13.8 Plt Count 260 MPV 9.5 Immature Gran % (Auto) 0.1 Neut % (Auto) 74.2 Lymph % (Auto) 17.9 [place] % (Auto) 7.2 Eos % (Auto) 0.3 Baso % (Auto) 0.3 Immature Gran # (Auto) 0.01 Neut # (Auto) 5.60 Lymph # (Auto) 1.35 [place] # (Auto) 0.54 Eos # (Auto) 0.02 Baso # (Auto) 0.02 Sodium 141 Potassium 4.0 Chloride 109 H Carbon Dioxide 26 Anion Gap 6.0 BUN 8 Creatinine 0.86 Est Cr Clr Drug Dosing 97.4 Est GFR ( Amer) 112.7 Est GFR (Non-Af Amer) 97.3 BUN/Creatinine Ratio 8.8 L Glucose 87 Calcium 8.9 Total Bilirubin 0.5 AST 9 L ALT 17 Alkaline Phosphatase 41 L Total Protein 7.5 Albumin 4.2 Globulin 3.3 Albumin/Globulin Ratio 1.3 TSH 0.418 Urine Color Urine Appearance Urine pH Ur Specific Lam[place] Urine Protein Urine Glucose (UA) Urine Ketones Urine Blood Urine Nitrite Urine Bilirubin Urine Urobilinogen Ur Leukocyte Esterase Urine WBC (Auto) Urine RBC (Auto) U Hyaline Cast (Auto) U Epithel Cells (Auto) Urine Bacteria (Auto) Urine Test Salicylates < 1.7 L Urine Opiates Screen Ur Methadone, Qual Acetaminophen < 2 L Urine Barbiturates Ur Phencyclidine (PCP) U Amphetamin/Meth Scrn MDMA (Ecstasy) Screen U Benzodiazepines Scrn Ur Cocaine Metabolite U Marijuana (THC) Screen Ethyl Alcohol mg/dL 04/30/19 16:29 WBC RBC Hgb Hct MCV MCH MCHC RDW Std Deviation RDW Coeff of Anastacio Plt Count MPV Immature Gran % (Auto) Neut % (Auto) Lymph % (Auto) [place] % (Auto) Eos % (Auto) Baso % (Auto) Immature Gran # (Auto) Neut # (Auto) Lymph # (Auto) [place] # (Auto) Eos # (Auto) Baso # (Auto) Sodium Potassium Chloride Carbon Dioxide Anion Gap BUN Creatinine Est Cr Clr Drug Dosing Est GFR ( Amer) Est GFR (Non-Af Amer) BUN/Creatinine Ratio Glucose Calcium Total Bilirubin AST ALT Alkaline Phosphatase Total Protein Albumin Globulin Albumin/Globulin Ratio TSH Urine Color Urine Appearance Urine pH Ur Specific [place] Urine Protein Urine Glucose (UA) Urine Ketones Urine Blood Urine Nitrite Urine Bilirubin Urine Urobilinogen Ur Leukocyte Esterase Urine WBC (Auto) Urine RBC (Auto) U Hyaline Cast (Auto) U Epithel Cells (Auto) Urine Bacteria (Auto) Urine Test Salicylates Urine Opiates Screen Ur Methadone, Qual Acetaminophen Urine Barbiturates Ur Phencyclidine (PCP) U Amphetamin/Meth Scrn MDMA (Ecstasy) Screen U Benzodiazepines Scrn Ur Cocaine Metabolite U Marijuana (THC) Screen Ethyl Alcohol mg/dL < 3.0 Hospital Course (1) Suicidal ideation: 05/01 - q15 minute safety checks - Medication management for symptoms as described below - Encourage participation in group and recreational therapies to develop healthy coping skills - Gather collateral information from outpatient providers and family - Suggest family meeting to involve outpatient supports in safety planning - patient agreeable to meeting with mother and encouraged to involve father as well - Need to collect/dispose hoarded medication from patient's home - Arrangements for appropriate aftercare 05/02 - Remains actively suicidal, reporting desire to "go home and kill myself" 05/03 - SI ongoing, mildly improved. Able to contract for safety on unit, but not as an outpatient (2) Bipolar disorder: 05/01 - Fasting lipids and glucose reviewed from Dec 2018 - in acceptable range - Continue dose of Geodon 160mg with supper - was increased a few weeks ago in outpatient setting - Can discuss optimize dosing/absorption if split into BID dosing in future 05/02 - Continue Geodon as above - Given limited cooperation, conversation regarding split dosing was not discussed 05/03 - Continue current medication regimen 05/04 - Continue Geodon 160mg, patient is not interested in split dosing (3) Anxiety: 05/01 - Seemingly patient's most distressing symptom, patient keen for alte rnative/titrated medications - Long h/o escitalopram use with minimal benefits, per patient. Patient denies trial of any other SSRI - Agreeable to switch to sertraline, with risks and benefits outlined - 25mg of sertraline added to AM dose of escitalopram. Will discontinue escitalopram and start sertraline 50mg daily starting tomorrow - titrate as tolerated - Monitor for mood instability or evidence of provoked (hypo)manic symptoms, which would necessitate discontinuation/med change. - Encourage participation in group and recreational therapies to develop healthy coping skills - PRN hydroxyzine available 05/02 - Pt refusing sertraline as she states it was ineffective, patient reminded that medication is not for acute anxiety; encouraged she reconsider her refusal and allow for titration to effective dosing. Will plan to revisit patient's willingness for medication adjustments - Continue to offer hydroxyzine as needed for anxiety, patient upset about not being provided with alprazolam - If sufficient trials of hydroxyzine with limited relief, could explore alternative agents such as buspirone 05/03 - Continue escitalopram 20mg daily; sertraline discontinued per patient request yesterday in favor of titration of escitalopram - Continue hydroxyzine as needed for anxiety 05/04 - Continue current medication regimen - Continue to communicate with parents and outpatient supports - Assist patient with development of aftercare plan, especially as it relates to returning to school 05/05 - Pt now refusing her dose of escitalopram as reporting "restlessness" and "julio cesar" - no behavioral evidence at this time that this is the case - Continue to observe mood for possible evidence of activation (4) Paranoia: 05/01 - Patient describes paranoia, agoraphobia, feeling unsafe, being followed, lack of trust with therapist who might be lying to her - Continue Geodon as patient describes improvement in paranoia since recent titration - Management of anxiety as above 05/03 - Paranoia and lack of trust may be related to possible underlying personality characteristics - Pt appearing more trusting and adjusting to unit (5) Alcohol use: 05/01 - Offer motivational interviewing for cessation - Encourage participation in group and recreational therapies to develop healthy coping skills 05/04 -Brief intervention was offered and accepted Intervention was greater than 5 min in length. Brief interventions include: 1. Assess Readiness to Quit, 2. Advise: Help Patient to Reduce or Abstain from Alcohol, 3. Agree: Set Specific, Feasible Goals, 4. Assist: Anticipate barriers, Problem-Solving Solutions. Social work to 5. Arrange: Referrals to appropriate treatment. Summary of intervention: The patient is in precontemplation stage with regards to transtheoretical model of change. The patient is advised to decrease alcohol consumption due to depressant effects and risk of interactions with prescription medications. The patient was advised of recommendations for abstinence from alcohol and other abusable substances and to attend substance abuse treatment at discharge, and will be provided with recovery materials to continue to education self on how to cope with their condition without drinking. (6) Anorexia nervosa, binge eating/purging type: 05/01 - Past issue that had seemingly resolved. Recurrent episode prior to admission - Offered outpatient referral for eating disorder management/therapy - patient declines attributing episode to recent stressors and symptoms, but otherwise denying restrictive/binge eating/purging as ongoing behavioral issues - Monitor for signs of restrictive/binge eating +/- purging Post Discharge Appointments Primary Care Physician Name Of Family Doctor: [facility] - Dr. Mas Primary Care Time of Appointment with PCP: Follow up as needed Provider Appointment Comment: [address], [place] [address] Smoking Cessation Counseling Tobacco Cessation Medication Prescribed at Discharge: Not Applicable/Non-Smoker Contact Information Discharge Discharge Address: [address] [place] [address] Discharge Plan Discharge Items Patient Disposition: Home - Self-Care Reason For Visit: BIPOLAR DISORDER Discharge Diagnosis: Bipolar disorder, Anxiety Condition: Fair Discharge Goals: Decrease discomfort, Improve disease control, Improve function, Increase independence, Learn about illness and Therapeutic intervention Activity: Resume your previous activity Non-emergency contact: Primary Care Provider, Psychiatrist and Therapist Call non-emergency contact if: you have any medication questions and your symptoms worsen Follow-up/Referrals: Sandee Mulligan LSW [Primary Care Provider] - Diet: Regular Addtl Provider Instructions: SPECIAL CARE INSTRUCTIONS: 1. Follow through with your scheduled aftercare appointments. If unable to keep an appointment, please call to reschedule. 2. Take your medication only as prescribed. Medication should not be changed or stopped without the approval of your doctor. In the event of worsening symptoms or concerns about side effects, contact your doctor immediately. 3. Utilize new healthy coping skills, anger management skills, and stress management skills learned during your hospitalization. Journal feelings and process them with a support person. Identify stressors or situations that may result in relapse, deterioration or inappropriate behaviors and develop a plan to deal with those issues. 4. If your coping skills are ineffective and you are in crisis, contact your outpatient providers for direction. If unable to reach your providers, please call the CAN HELP LINE AT or go to the closest Emergency Room. 5. Avoid alcohol and un-prescribed drugs. 6. You have been provided with the Mental Health Advance Directives Pamphlet for your review. AFTERCARE APPOINTMENTS: * Please call your insurance company prior to your scheduled appointment to confirm your aftercare providers are covered. Take your insurance information to your appointments. WHO TO CALL AND WHEN: Medical Emergencies: For questions or emergencies related to your hospital stay, please contact the Inpatient Behavioral Health Unit at [phone]. A crisis clinician is on-call 28/05 for the Behavioral Health Unit for emergencies At any time you feel your situation is an emergency, you may also call 911 immediately. Your Doctors Instructions noted above were prepared by provider Anneliese Denton PA-C. Prescriptions: New hydroxyzine HCl 25 mg Tablet 25 mg PO Q4H PRN (Reason: anxiety) 30 Days Qty: 60 RF: 0 escitalopram oxalate 20 mg Tablet 20 mg PO QAM 30 Days Qty: 30 RF: 0 Continued Geodon 160 mg PO DAILY RF: 0 Discontinued Lexapro 10 mg PO DAILY RF: 0 Stand-Alone Forms: [facility] Discharge Orders: Discharge Order (Routine); Ordered 05/06/19 Ordered By: Anneliese Denton Admission Data Admit Date/Time: 04/30/19 18:47 Attending Provider: Larissa Mcgraw Admit Provider: Larissa Mcgraw Primary Care Provider: Sandee Mulligan Service: Psychiatry Other Interventions: Discharge Summary Assessment (RN) Last Done: 05/06/19 09:36 PSY Interdisciplinary Discharge Planning Last Done: 05/06/19 09:34 Pending Studies at Discharge: No DC Date/Time DO NOT enter until pt leaves facility: 05/06/19 10:20
[2019-05-06 09:37] VITALS: BP 121/85; PULSE 64
== END 2019-05-06 10:20 | disposition home or self-care (01) | DRG 885 ==
LOC: ED 15:23 → 3S 18:47

== ENCOUNTER 2021-02-07 12:37 | Inpatient (IN) ==
[2021-02-07] MEDS ORDERED: hydrOXYzine HCl 25 MG TAB PO PRN (16:52)
--- NOTE | 2021-02-07 17:08 | History & Physical Report ---
Date of Service February 07, 2021 Assessment & Plan (1) Anorexia nervosa, binge eating/purging type: Severe, long-standing disease. Follows with Dr Enma De Jesus at [facility] on [facility]. Patient with complicated psychiatric history including bipolar disorder. Recent worsening of her anorexia nervosa with limited oral intake over the last 2 weeks and frequent purging. Start dextrose-containing IVF with KCL supplementation. Continue all psych meds. Formal psychiatry consultation. Nutrition consultation. Check nutrition labs - iron studies, b12. Provide supplemental thiamine/folic acid/MVI. Treat suspected esophagitis. Replete low potassium. (2) Hypokalemia: 2.7 at admission tonight. KCL in IV fluids. Start KCL by mouth - 40meq PO TID x 3 doses. Recheck BMP am. Mag level today wnl. Likely cause of QTc prolongation along with anti-psychotics. (3) Hypoglycemia: 2nd to prolonged fast. Dextrose given; BSG rechecked and in the 80s. Consider cortisol level but doubt [place]'s. (4) Paresthesias: b/l LEs. With difficulty voiding. Symptoms are intermittent. No signs of myelopathy or motor weakness on exam. Could consider MRI lumbar spine to rule out cord lesion however. Paresthesias could be from severe hypokalemia. Check B12 level in am as b12 deficiency can cause dorsal column disease. Check TSH. (5) Chest pain: Most of her symptomatology suggests esophagitis from her frequent vomiting/purging. HOWEVER, she had a recent episode of chest pain WITH Exercise. It was also associated with a HR of nearly 200. EKG today with inverted T wave in V2. At minimum needs echocardiogram and ongoing telemetry to rule out dysrhythmia. Certainly at risk of dysrhythmia given her hypokalemia. Treat the suspected esophagitis. Consider cardiology consultation. Of note - she has no prior h/o exercise-induced asthma, doesn't have dyspnea, and does not report presyncope with exertion. Given her frequent travel will obtain d-dimer. If high consider CTA chest - r/o PE. (6) Esophagitis: Suspected. Start PPI twice daily. Start carafate qid. 2nd purging. (7) Prolonged QT interval: Likely combination of severe hypokalemia and her antipsychotics. Once K is corrected recheck the EKG. Telemetry. mag/calcium wnl. (8) Anxiety: Cont all psych meds as previous except vistaril (apparently was taking 100mg at a time?? will only use 25mg prn). Psych consult requested. (9) Bipolar disorder: Toyah level wnl. Continue lithium 600mg, lamictal 100mg, and geodon 160mg. Psych consult. No active manic symptoms. No suicidal ideation at this time. Check TSH given the lithium usage. Sodium level wnl; thus, no nephrogenic DI. (10) Moderate protein-calorie malnutrition: 2nd anorexia nervosa. nutrition consult. psych consult. MVI/thiamine/folate. Nutritional labs. (11) DVT prophylaxis: low risk ambulation again COVID test today at [facility] was NEGATIVE COVID ab's (serum) checked due to chest pain symptoms and other symptoms -- negative Admission and Anticipated Discharge Date Admission Date: February 07, 2021 History of Present Illness Chief Complaint: anorexia, hypokalemia, mood changes Primary Care Provider: KANDI Padilla 20yo female, currently a senior at [employer], with long-standing history of anorexia nervosa - purging subtype, bipolar disorder, and anxiety who presents as a direct admission from Dr Enma De Jesus's office. Dr De Jesus is on the [facility] and specializes in eating disorders. Although Evita is taking [employer] classes remotely from [place] she comes back to [place] frequently to see Dr De Jesus in her clinic. Apparently Evita has had a 2-week period of severe anorexia with 3 episodes/day of purging. She has lost at least 10-11 pounds over the last 1-2 weeks. She drinks diet sodas for hydration. Last week she came to [place] for a visit with Dr De Jesus and hospital admission was advised at that time for potassium repletion, correction of her QTc interval, and psychiatry consult. It was recommended that Evita come to [facility]. However, Evita instead drove back to [place] and was ultimately admitted to [facility] in [facility]. She was admitted and discharged Sunday of last week after receiving IVF and IV potassium. By report she did not eat during that hospital stay and did not have consultation with psychiatry. Following discharge she went to her mom/dad's home in [place]. Today Evita drove from [place] to [place] for another visit with Dr De Jesus. QTc on EKG in the office was prolonged, and potassium was again low. Dr De Jesus again advised admission to the hospital and she was agreeable. At my request Dr De Jesus performed a COVID test at the [employer] clinic on campus and this returned negative. At that point she was sent over to [facility] [place]. During my admission assessment Evita admits to feeling depressed over the last 2 weeks. She was vague about what was contributing to her depression. She alluded to difficulties with her parents and she asked me NOT to share any medical information with them. Denies that parents are physically or verbally abusive although it sounds as if they have frequent disagreements. She also alluded to a science program that she got accepted into at [employer]. It sounds as if the process to get into this program was stressful. Denied ANY suicidal or homicidal ideations. Reports compliance with her medications for bipolar including lithium 600mg daily, lamictal 100mg daily, and geodon 160mg at 6pm each evening. She feels that this combination of meds is working well. She is aggravated that several people have told her that they may need to be changed because of "heart effects." Patient reports doing a very hard treadmill run at home in [place] sometime last week. She typically runs for 60 minutes and about 40 minutes into the run she experienced severe chest pain. She had to stop running. The pain improved gradually over hours/days (?) and she still has mild pain albeit it is improved. Pain is also worsened by eating or when she vomits. She also mentions that her HR hit 200 BPM during the same work-out. Lastly, she has had intermittent paresthesias of both legs from the knees down to the feet when she is standing over the toilet purging. Rather than kneeling on the ground she stands/hovers over the toilet. The numbness lasts about 20 minutes then gets better. Denies any motor weakness. Has occasional back pain. No headaches. No issues with arms. No bowel incontinence but has had constipation for 1-2 weeks. States he has to strain to pass her urine. Allergies Allergy/AdvReac Type Severity Reaction Status Date / Time Fish Containing Products AdvReac Severe Gastrointestinal Verified 03/30/20 10:45 Upset Home Medications Medication Instructions Recorded Confirmed Type hydroxyzine pamoate 25 mg PO DAILY PRN 03/30/20 03/30/20 History lamotrigine 100 mg PO DAILY@0900 03/30/20 03/30/20 History ziprasidone HCl 160 mg PO DAILY@1800 03/30/20 03/30/20 History Past Med/Surg History Medical History (Updated 02/07/21 @ 22:07 by Ed Thompson) Anorexia nervosa, binge eating/purging type Anxiety Bipolar disorder Surgical History (Updated 02/07/21 @ 21:38 by Ed Thompson) No pertinent past surgical history Family History (Updated 02/07/21 @ 21:42 by Ed Thompson) Mother Bipolar disorder Denies family history of Sudden Social History (Updated 02/07/21 @ 21:40 by Ed Thompson) Smoking Status: Never smoker Second Hand Exposure: No; Do You Dip or Chew Tobacco: No; Tobacco Cessation Education Requested by Patient: No Hx Alcohol Use: No Hx Substance Use: No Preferred Language: Scottish Communication Ability: Effective Geospatial Information Technologist Required: No Beliefs That Will Affect Care: Presybeterian marital status: Single Current Living Situation: Other Current Living Situation Comment: lives with parents in [place] current occupational status: student 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; 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 Other Information That Helps Us Care for You: No Feels Safe at Home: Yes Safety Concerns: Feels Safe At This Time Sexual Activity Comment: denies sexual activity at this time Assistive Devices: Glasses Review of Systems Constitutional: + anorexia and + weight loss; no fever and no chills Eyes: + worsening vision (blurry at times ) Ear, Nose, Mouth, Throat: no nasal congestion and no sore throat Respiratory: no cough, no dyspnea, no dyspnea on exertion and no wheezing d enies asthma history Cardiovascular: as per Subjective / HPI, + chest pain and + chest pain with activity; no radiating jaw, neck or arm pain, no dyspnea on exertion, no palpitations and no syncope Additional Comments: denies any syncope or presyncope with activity Gastrointestinal: + vomiting and + constipation; no abdominal pain, no hematemesis, no diarrhea/loose stools and no blood in stools Genitourinary: + difficulty urinating; no dysuria Musculoskeletal: + back pain; no neck pain Integumentary: no rash Neurologic: as per Subjective / HPI, + loss of sensation and + paresthesia; no localized weakness and no headache(s) Psychiatric: + depression and + anxiety denies julio cesar Endocrine: + cold intolerance Hematologic / Lymphatic: no easy bleeding Allergy / Immunological: no wheezing and no rash Physical Exam Constitutional: + thin; no acute distress and no altered mental status looks pale, washed out Eyes: PERRL ENMT: Mouth: + oropharynx abnormality (mildly erythematous pharynx ) Neck: trachea midline, no thyromegaly Respiratory: normal respiratory effort, lungs clear to auscultation Cardiovascular: Rate/Rhythm: regular rate and regular rhythm Heart Sounds: normal S1 and normal S2; no murmur Vessels: posterior tibial pulses present and dorsalis pedis pulses present; no JVD Extremities: no edema Gastrointestinal (Abdomen): normal bowel sounds, soft, nontender, no hepatosplenomegaly Musculoskeletal: no cyanosis or clubbing, extremities motor strength 5/5 Skin: no rashes, warm and dry Neurologic: patellar DTR's 2+ bilat, sensation intact (arms/legs b/l ) moves all extremities; no focal motor deficits Psychiatric: Orientation: alert and oriented x 3 Lymphatic: no cervical lymphadenopathy Results & Data Results & Data ([facility]) Vital Signs (Past 12 Hours) Vital Signs Temp Pulse Pulse Resp BP Pulse Ox 02/07/21 16:32 73 02/07/21 16:02 73 02/07/21 15:30 37.5 C 70 18 111/74 92 02/07/21 15:26 37.5 C 70 18 111/74 92 Laboratory Results Laboratory Results - last 24 hr 02/07/21 02/07/21 02/07/21 17:21 17:21 17:21 WBC 6.65 RBC 4.42 Hgb 12.3 Hct 37.2 MCV 84.2 MCH 27.8 MCHC 33.1 RDW Std Deviation 38.0 RDW Coeff of Anastacio 12.4 Plt Count 252 MPV 9.6 Immature Gran % (Auto) 0.2 Neut % (Auto) 52.0 Lymph % (Auto) 35.9 Dundy % (Auto) 10.7 Eos % (Auto) 0.9 Baso % (Auto) 0.3 Neut # (Auto) 3.46 Lymph # (Auto) 2.39 Dundy # (Auto) 0.71 H Eos # (Auto) 0.06 Baso # (Auto) 0.02 Immature Gran # (Auto) 0.01 D-Dimer Sodium 135 L Potassium 2.7 L Chloride 94 L Carbon Dioxide 31 Anion Gap 10.0 BUN 12 Creatinine 0.94 Est Cr Clr Drug Dosing 74.2 Est GFR ( Amer) 99.8 Est GFR (Non-Af Amer) 86.1 BUN/Creatinine Ratio 12.9 Glucose 68 L POC Glucose Calcium 9.0 Magnesium 2.3 Total Bilirubin 0.6 AST 15 ALT 22 Alkaline Phosphatase 36 L Troponin I < 0.015 Total Protein 7.4 Albumin 4.2 Globulin 3.2 Albumin/Globulin Ratio 1.3 Toyah 1.1 SARS-CoV-2 IgG & IgM Ab 02/07/21 02/07/21 02/07/21 17:21 17:21 19:43 WBC RBC Hgb Hct MCV MCH MCHC RDW Std Deviation RDW Coeff of Anastacio Plt Count MPV Immature Gran % (Auto) Neut % (Auto) Lymph % (Auto) Dundy % (Auto) Eos % (Auto) Baso % (Auto) Neut # (Auto) Lymph # (Auto) Dundy # (Auto) Eos # (Auto) Baso # (Auto) Immature Gran # (Auto) D-Dimer < 190 Sodium Potassium Chloride Carbon Dioxide Anion Gap BUN Creatinine Est Cr Clr Drug Dosing Est GFR ( Amer) Est GFR (Non-Af Amer) BUN/Creatinine Ratio Glucose POC Glucose 87 Calcium Magnesium Total Bilirubin AST ALT Alkaline Phosphatase Troponin I Total Protein Albumin Globulin Albumin/Globulin Ratio Toyah SARS-CoV-2 IgG & IgM Ab Negative Diagnostic Findings Chest X-Ray 02/07/21 17:07 XR chest 2V PA/lateral CLINICAL HISTORY: Recent chest pain. COMPARISON STUDY: No previous studies for comparison. FINDINGS: Lung volumes are normal. Lungs are clear. There is no pneumothorax or pleural effusion. Cardiac size is normal. Mediastinal contours are normal. There is no evidence for pulmonary edema. IMPRESSION: No acute cardiopulmonary findings. ACT 112: Negative or not required by law. Electronically signed by: Nolan Su M.D. 02/07/2021 7:06 PM EKG - my reading - NSR, QTc prolonged >500msec; V1/V2 inverted T waves Code Status & VTE Plan Code Status full PG Care Time/CCT Total # of Minutes Spent Total Time Spent with Patient: Total time spent is greater than 50% in coordination of care (as documented) at patient's floor/unit and/or counseling patient: Coding Level of Care Code 91065 Initial Inpt Care Lvl 3 Diagnoses Anorexia nervosa, binge eating/purging type F50.02 Hypokalemia E87.6 Hypoglycemia E16.2 Paresthesias R20.2 Chest pain R07.9 Chest pain type: unspecified Esophagitis K20.90 Prolonged QT interval R94.31 Anxiety F41.9 Bipolar disorder F31.12 Active/Remission status: currently active Current bipolar episode type: manic Current episode severity: moderate Moderate protein-calorie malnutrition E44.0 DVT prophylaxis Z29.9 (1) Bipolar disorder Active/Remission status: currently active Current bipolar episode type: manic Current episode severity: moderate Qualified Code(s): F31.12 - Bipolar disorder, current episode manic without psychotic features, moderate (2) Chest pain Chest pain type: unspecified Qualified Code(s): R07.9 - Chest pain, unspe cified
[2021-02-07 17:34] LABS: Basophils # (auto) 0.02 K/uL (0-0.2); Basophils % (auto) 0.3 %; Eosinophils # (auto) 0.06 K/uL (0-0.5); Eosinophils % (auto) 0.9 %; Hematocrit (blood only) 37.2 % (37-47); Hemoglobin 12.3 g/dL (12.0-16.0); Immature Granulocytes # (auto) 0.01 K/uL (0.00-0.02); Immature Granulocytes % (auto) 0.2 %; Lymphocytes # (auto) 2.39 K/uL (1.2-3.4); Lymphocytes % (auto) 35.9 %; Mean Corpuscular Hemoglobin 27.8 pg (25-34); Mean Corpuscular Hgb Conc 33.1 g/dL (32-36); Mean Corpuscular Volume 84.2 fL (80-100); Mean Platelet Volume 9.6 fL (7.4-10.4); Monocytes # (auto) 0.71 K/uL (0.11-0.59); Monocytes % (auto) 10.7 %; Neutrophils # (auto) 3.46 K/uL (1.4-6.5); Platelet Count 252 K/uL (130-400); RDW Coefficient of Variation 12.4 % (11.5-14.5); Red Blood Count 4.42 M/uL (4.2-5.4); White Blood Count 6.65 K/uL (4.8-10.8)
[2021-02-07 17:43] LABS: D Dimer < 190 ug/L FEU (0-500)
[2021-02-07] MEDS: CEROVITE ADV FORMULA TAB PO SCH (17:50)
[2021-02-07] MEDS: SUCRALFATE 1 GM/10 ML UDC PO SCH ×2 (17:58→20:46)
[2021-02-07] MEDS ORDERED: FOLIC ACID 1 MG in SYRINGE 9.8 ML IV ONE (18:00)
[2021-02-07] MEDS ORDERED: THIAMINE HCL 200 MG in SODIUM CHLORIDE 0.9% 50 ML IV ONE (18:00)
[2021-02-07 18:03] LABS: Alanine Aminotransferase 22 U/L (12-78); Albumin Level 4.2 gm/dl (3.4-5.0); Aspartate Aminotransferase 15 U/L (15-37); BUN Creatinine Ratio 12.9 (10-20); Blood Urea Nitrogen 12 mg/dl (7-18); Carbon Dioxide 31 mmol/L (21-32); Chloride 94 mmol/L (98-107); Creatinine Clr Calc Pharmacy 74.2 ml/min; Est GFR (African American) 99.8; Est GFR (Non-African American) 86.1; Glucose 68 mg/dl (70-99); Magnesium 2.3 mg/dl (1.8-2.4); Potassium 2.7 mmol/L (3.5-5.1); Sodium 135 mmol/L (136-145)
[2021-02-07 18:07] LABS: Albumin Globulin Ratio 1.3 (0.9-2); Alkaline Phosphatase 36 U/L (45-117); Bilirubin,Total 0.6 mg/dl (0.2-1); Globulin 3.2 gm/dl (2.5-4.0); Total Protein 7.4 gm/dl (6.4-8.2); Troponin I < 0.015 ng/ml (0-0.045)
[2021-02-07 18:11] LABS: CoV2 Total Antibody Negative (Negative)
[2021-02-07] MEDS: POTASSIUM CHLORIDE CRTAB 20 MEQ TABCR PO SCH ×2 (18:40→20:46)
[2021-02-07] MEDS: ziprasidone HCL 80 MG CAP PO SCH (18:40)
[2021-02-07] MEDS: D5NSS + 20MEQ KCL 20 MEQ/1,000 ML BAG IV SCH (18:41)
--- NOTE | 2021-02-07 19:07 | XRay Report ---
XR chest 2V PA/lateral CLINICAL HISTORY: Recent chest pain. COMPARISON STUDY: No previous studies for comparison. FINDINGS: Lung volumes are normal. Lungs are clear. There is no pneumothorax or pleural effusion. Car diac size is normal. Mediastinal contours are normal. There is no evidence for pulmonary edema. IMPRESSION: No acute cardiopulmonary findings. ACT 112: Negative or not required by law. Electronically signed by: Nolan Su M.D. 02/07/2021 7:06 PM
[2021-02-07] MEDS: PANTOprazole 40 MG TAB PO SCH (20:46)
[2021-02-08 04:07] LABS: Appearance Urine Clear (Clear); Bilirubin Urine Negative (Negative); Blood Urine Negative (Negative); Color Urine Dark Yellow; Glucose Urine UA Negative (Negative); Ketones Urine 2+ (Negative); Leukocyte Esterase Urine Negative (Negative); Nitrite Urine Negative (Negative); Protein Urine Negative (Negative); Specific Gravity Urine 1.018 (1.000-1.030); Urobilinogen Urine Negative (Negative); pH Urine 6.5 (4.5-7.5)
[2021-02-08 04:08] LABS: Pregnancy Test, Urine Negative (Negative)
[2021-02-08 07:04] LABS: BUN Creatinine Ratio 11.6 (10-20); Calcium 8.4 mg/dl (8.5-10.1); Creatinine Clr Calc Pharmacy 66.5 ml/min; Est GFR (African American) 87.3; Est GFR (Non-African American) 75.3; Potassium 3.4 mmol/L (3.5-5.1)
[2021-02-08 07:10] LABS: Ferritin 84.6 ng/ml (8-388); Thyroid Stimulating Hormone 2.83 uIu/ml (0.300-4.500)
--- NOTE | 2021-02-08 07:17 | Hospitalist Progress Note ---
Date of Service February 08, 2021 Assessment & Plan Admission and Anticipated Discharge Date Admission Date: February 07, 2021 Results & Data Results & Data ([facility]) Vital Signs (Past 12 Hours) Vital Signs Temp Pulse Pulse Resp BP Pulse Ox 02/08/21 07:13 36.6 C 69 18 96/60 L 97 02/08/21 03:56 36.8 C 74 18 92/58 L 97 02/08/21 01:40 86 02/07/21 23:41 36.9 C 94 H 18 92/54 L 96
[2021-02-08] MEDS: CEROVITE ADV FORMULA TAB PO SCH (07:43)
[2021-02-08] MEDS: POTASSIUM CHLORIDE CRTAB 20 MEQ TABCR PO SCH (07:43)
[2021-02-08] MEDS: FOLIC ACID 1 MG in SYRINGE 9.8 ML IV SCH (07:43)
[2021-02-08] MEDS: PANTOprazole 40 MG TAB PO SCH (07:45)
[2021-02-08] MEDS: SUCRALFATE 1 GM/10 ML UDC PO SCH (07:45)
[2021-02-08] MEDS: lamoTRIgine 100 MG TAB PO SCH (07:45)
[2021-02-08] MEDS: THIAMINE HCL 200 MG in SODIUM CHLORIDE 0.9% 50 ML IV SCH (07:51)
[2021-02-08] MEDS: D5NSS + 20MEQ KCL 20 MEQ/1,000 ML BAG IV SCH ×2 (08:36→23:00)
[2021-02-08] MEDS ORDERED: LITHIUM CARBONATE 300 MG TAB PO SCH (09:00)
--- NOTE | 2021-02-08 10:37 | XCELERA ---
[id number]
[2021-02-08] MEDS ORDERED: hydrOXYzine HCl 25 MG TAB PO PRN (11:27)
[2021-02-08] MEDS: SUCRALFATE 1 GM TAB PO SCH ×3 (12:09→21:01)
--- NOTE | 2021-02-08 12:36 | Electrocardiogram Report ---
Test Reason : Blood Pressure : / mmHG Vent. Rate : 077 BPM Atrial Rate : 077 BPM P-R Int : 142 ms QRS Dur : 086 ms QT Int : 484 ms P-R-T Axes : 029 079 055 degrees QTc Int : 547 ms Normal sinus rhythm Prolonged QT Abnormal ECG When compared with ECG of 30-MAR-2020 10:44, T wave inversion no longer evident in Inferior leads QT has lengthened Confirmed by Gibson Faust ([id number]) on 02/08/2021 12:36:00 PM Referred By: Ed Thompson Confirmed By:Gibson Faust
--- NOTE | 2021-02-08 13:45 | Medical Student Progress Note ---
Date of Service February 08, 2021 Assessment & Plan (1) Anorexia nervosa, binge eating/purging type: The patient is a 20 year old female with a past medical history of anorexia nervosa and bipolar 1 disorder who presents after 2 weeks of no food intake other than diet coke, purging by vomiting 3x/day, and 11lb weight loss over 1 week for medical stabilization and refeeding. Appreciate nutrition consult which suggested initial refeeding with 3 meals per day with total of [id number] calories. Continue to monitor for refeeding syndrome with daily electrolyte labs. Psychiatry consulted. (2) Moderate protein-calorie malnutrition: See above. On thiamine and potassium IV. Today Na 139 (on 02/07, 135), K 3.4 (on 02/07, 2.7), Mg 2.3, Phos 3.0, Calcium 8.4, Cr 1.05. (3) Prolonged QT interval: Has a history of high-normal QT interval on ziprasidone. On 02/03 admission to [facility], QT interval was 578 with K of 2.9. On 02/07 admission to [facility], QTc was 547, K of 2.7. [place] and ziprazidone held as of 02/07. Today, 03/10, she was in sinus leigha (59) with QTc of 447ms and K of 3.4. (4) Bipolar disorder: On lithium carbonate 600mg and ziprasidone 160mg, with last manic episode in June 2020. Consult psychiatry about med changes due to long QT and recommendations for treatment of bipolar 1, anxiety, and anorexia. Active/Remission status: currently active Current bipolar episode type: manic Current episode severity: moderate Qualified Code(s): F31.12 - Bipolar disorder, current episode manic without psychotic features, moderate (5) Chest pain: She has had chest pain WITH exercise. This does not happen with SOB, and no pain radiation to arm, back, or jaw. Symptoms may be due to esophagitis but cardiac etiology should be ruled out. Echo on 02/08 was normal, with EF of 50-55%, and no valvular disease. EKG today showed high normal QTc (447ms) and no ST segment changes or Q waves. Chest pain type: unspecified Qualified Code(s): R07.9 - Chest pain, unspecified (6) Esophagitis: Pantoprazole sodium 40mg IV and sucralfate 1mg PO QID started to relieve suspected esophagitis due to frequent vomiting. She does not have pain or discomfort when eating. (7) Paresthesias: Resolved. On admission B12 was 502, TSH 2.8, UA negative other than +ketones. Likely due to severe hypokalemia (8) DVT prophylaxis: low risk. Is not able to ambulate due to fall risk with lightheadedness. Admission and Anticipated Discharge Date Admission Date: February 07, 2021 Supervising Attestation Medical Student Supervision Note: I was personally present during medical student patient encounter and independently interviewed and examined the patient and verified the rudolph history and physical, reviewed labs and image studies, discussed the case with Kristen Quintana and agree with the findings and care plan. Anorexia - with concern of refeeding syndrome. Had oral intake today and denied purging. repleting electrolytes. continue slow hydration until oral intake improves. chest pain- likely esophagitis. PPI. echo results noted. Prolonged QT in setting of antipsychotic med and severe hypokalemia - cardiology consulted for monitoring while decision being made for med adjustment/titration per psychiatry. Subjective The patient is a 20 year old female student at [employer] with a past medical history of anorexia nervosa and bipolar 1 disorder who presents after 2 weeks of no food intake other than diet coke and 11lbs weight loss for medical stabilization and refeeding. She has been purging by vomiting up to 3 times a day, making sure to take her medications after vomiting. She has also had lightheadedness with standing, falling in the shower one week ago and hitting her head without major injury or blood. She has palpitation, and chest pain during exercise. She denies any SOB or pain radiation to her arm, jaw, or back. She reports her bipolar disorder has been well controlled on lithium and ziprasidone since June 2020, which was her last manic episode. She is currently at a BMI of 19.7 so she qualifies as mild anorexia nervosa with restricting, purging, and overexciting. 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 She continued this until age 13 when she had a psychotic episode and was diagnosed with anorexia and bipolar 1 while receiving inpatient psychiatric treatment. 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 At 16, she had a 10 month period of psychotic symptoms which triggered her anorexia and she relapsed. She then had a manic episode in June of 2020 with exacerbation of her eating disorder and she was treated in an inpatient psychiatric facility where they started her on lithium which has majorly improved her bipolar symptoms. However, she relapsed into her anorexia days after discharge from this program. She is currently seeing Dr. De Jesus as her PCP at [facility] who also specializes in eating disorder care. She saw Dr. De Jesus on 02/03 and was encouraged to get inpatient medical care due to 1.5 weeks of no food intake and concern for electrolytes. Her mom drover her to [place] and she was admitted overnight at [facility] in [place] for IV hydration and IV potassium repletion. She saw Dr. De Jesus again on 02/07 and was encouraged to go to [facility] for inpatient care due to no food intake for 2 weeks and concern for electrolyte levels. Patient's goal for this admission is to become medically stable, to increase food intake, and to avoid inpatient psychiatric hospitalization. 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 Review of Systems Respiratory: no cough and no dyspnea Cardiovascular: + chest pain, + palpitations and + lightheadedness (when standing up) Additional Comments: chest pain while exercising as well as during the echocardiogram from the pressure of the ultrasound probe Gastrointestinal: no abdominal pain, no nausea, no vomiting and no diarrhea/loose stools Genitourinary: no dysuria and no hematuria Psychiatric: Breakthrough anxiety as ziprasidone wears off around 4pm daily. Some low mood with mood swings. No manic episodes since Jun 2020 and no depressive episodes recently. Physical Exam Constitutional: average body habitus and cooperative; no acute distress Respiratory: normal respiratory effort, lungs clear to auscultation Cardiovascular: RRR, no murmur, no edema Gastrointestinal (Abdomen): Inspection/Auscultation: abdomen not distended Percussion/Palpation: abdomen soft; abdomen nontender and no guarding Psychiatric: Orientation: alert and oriented x 3 Eye Contact: good eye contact Speech: normal rate/rhythm/volume of speech Affect: euthymic affect Thought Process: linear/logical thought process Suicidal Thoughts: denies suicidal plan and denies suicidal intent Insight: good insight Judgement: good judgement Results & Data ([facility]) Vital Signs (Past 12 Hours) Vital Signs Temp Pulse Pulse Resp BP Pulse Ox 02/08/21 11:32 37.0 C 56 L 20 93/60 L 100 02/08/21 07:13 36.6 C 69 18 96/60 L 97 02/08/21 03:56 36.8 C 74 18 92/58 L 97 02/08/21 01:40 86 Laboratory Results Laboratory Results - last 24 hr 02/07/21 02/07/21 02/07/21 17:21 17:21 17:21 WBC 6.65 RBC 4.42 Hgb 12.3 Hct 37.2 MCV 84.2 MCH 27.8 MCHC 33.1 RDW Std Deviation 38.0 RDW Coeff of Anastacio 12.4 Plt Count 252 MPV 9.6 Immature Gran % (Auto) 0.2 Neut % (Auto) 52.0 Lymph % (Auto) 35.9 [place] % (Auto) 10.7 Eos % (Auto) 0.9 Baso % (Auto) 0.3 Neut # (Auto) 3.46 Lymph # (Auto) 2.39 [place] # (Auto) 0.71 H Eos # (Auto) 0.06 Baso # (Auto) 0.02 Immature Gran # (Auto) 0.01 D-Dimer Sodium 135 L Potassium 2.7 L Chloride 94 L Carbon Dioxide 31 Anion Gap 10.0 BUN 12 Creatinine 0.94 Est Cr Clr Drug Dosing 74.2 Est GFR ( Amer) 99.8 Est GFR (Non-Af Amer) 86.1 BUN/Creatinine Ratio 12.9 Glucose 68 L POC Glucose Calcium 9.0 Phosphorus Magnesium 2.3 Iron Transferrin Transferrin % Sat Ferritin Total Bilirubin 0.6 AST 15 ALT 22 Alkaline Phosphatase 36 L Troponin I < 0.015 Total Protein 7.4 Albumin 4.2 Globulin 3.2 Albumin/Globulin Ratio 1.3 Vitamin B12 25-OH Vitamin D Total TSH Urine Color Urine Appearance Urine pH Ur Specific [place] Urine Protein Urine Glucose (UA) Urine Ketones Urine Blood Urine Nitrite Urine Bilirubin Urine Urobilinogen Ur Leukocyte Esterase Urine Test [place] 1.1 SARS-CoV-2 IgG & IgM Ab 02/07/21 02/07/21 02/07/21 17:21 17:21 19:43 WBC RBC Hgb Hct MCV MCH MCHC RDW Std Deviation RDW Coeff of Anastacio Plt Count MPV Immature Gran % (Auto) Neut % (Auto) Lymph % (Auto) [place] % (Auto) Eos % (Auto) Baso % (Auto) Neut # (Auto) Lymph # (Auto) [place] # (Auto) Eos # (Auto) Baso # (Auto) Immature Gran # (Auto) D-Dimer < 190 Sodium Potassium Chloride Carbon Dioxide Anion Gap BUN Creatinine Est Cr Clr Drug Dosing Est GFR ( Amer) Est GFR (Non-Af Amer) BUN/Creatinine Ratio Glucose POC Glucose 87 Calcium Phosphorus Magnesium Iron Transferrin Transferrin % Sat Ferritin Total Bilirubin AST ALT Alkaline Phosphatase Troponin I Total Protein Albumin Globulin Albumin/Globulin Ratio Vitamin B12 25-OH Vitamin D Total TSH Urine Color Urine Appearance Urine pH Ur Specific [place] Urine Protein Urine Glucose (UA) Urine Ketones Urine Blood Urine Nitrite Urine Bilirubin Urine Urobilinogen Ur Leukocyte Esterase Urine Test [place] SARS-CoV-2 IgG & IgM Ab Negative 02/08/21 02/08/21 02/08/21 03:52 05:58 05:58 WBC RBC Hgb Hct MCV MCH MCHC RDW Std Deviation RDW Coeff of Anastacio Plt Count MPV Immature Gran % (Auto) Neut % (Auto) Lymph % (Auto) [place] % (Auto) Eos % (Auto) Baso % (Auto) Neut # (Auto) Lymph # (Auto) [place] # (Auto) Eos # (Auto) Baso # (Auto) Immature Gran # (Auto) D-Dimer Sodium 139 Potassium 3.4 L D Chloride 105 Carbon Dioxide 33 H Anion Gap 2.0 L BUN 12 Creatinine 1.05 Est Cr Clr Drug Dosing 66.5 Est GFR ( Amer) 87.3 Est GFR (Non-Af Amer) 75.3 BUN/Creatinine Ratio 11.6 Glucose 90 POC Glucose Calcium 8.4 L Phosphorus Magnesium Iron 41 Transferrin 167 L Transferrin % Sat 17 Ferritin 84.6 Total Bilirubin AST ALT Alkaline Phosphatase Troponin I Total Protein Albumin Globulin Albumin/Globulin Ratio Vitamin B12 502 25-OH Vitamin D Total TSH 2.830 Urine Color Urine Appearance Urine pH Ur Specific [place] Urine Protein Urine Glucose (UA) Urine Ketones Urine Blood Urine Nitrite Urine Bilirubin Urine Urobilinogen Ur Leukocyte Esterase Urine Test Negative [place] SARS-CoV-2 IgG & IgM Ab 02/08/21 02/08/21 02/08/21 05:58 05:58 Unknown WBC RBC Hgb Hct MCV MCH MCHC RDW Std Deviation RDW Coeff of Anastacio Plt Count MPV Immature Gran % (Auto) Neut % (Auto) Lymph % (Auto) [place] % (Auto) Eos % (Auto) Baso % (Auto) Neut # (Auto) Lymph # (Auto) [place] # (Auto) Eos # (Auto) Baso # (Auto) Immature Gran # (Auto) D-Dimer Sodium Potassium Chloride Carbon Dioxide Anion Gap BUN Creatinine Est Cr Clr Drug Dosing Est GFR ( Amer) Est GFR (Non-Af Amer) BUN/Creatinine Ratio Glucose POC Glucose Calcium Phosphorus 3.0 Magnesium Iron Transferrin Transferrin % Sat Ferritin Total Bilirubin AST ALT Alkaline Phosphatase Troponin I Total Protein Albumin Globulin Albumin/Globulin Ratio Vitamin B12 25-OH Vitamin D Total 33.2 TSH Urine Color Dark Yellow Urine Appearance Clear Urine pH 6.5 Ur Specific [place] 1.018 Urine Protein Negative Urine Glucose (UA) Negative Urine Ketones 2+ H Urine Blood Negative Urine Nitrite Negative Urine Bilirubin Negative Urine Urobilinogen Negative Ur Leukocyte Esterase Negative Urine Test [place] SARS-CoV-2 IgG & IgM Ab Medications Administered Current Inpatient Medications Hydroxyzine HCl (Hydroxyzine Hcl 25 Mg Tab) 50 mg PO AC PRN PRN Reason: Anxiety Stop: 03/09/21 16:51 Hydroxyzine HCl (Hydroxyzine Hcl 25 Mg Tab) 100 mg PO DAILY@1600 [facility] Stop: 03/11/21 15:59 Thiamine HCl 200 mg/ Sodium (Chloride) 52 mls @ 208 [facility] [place]: 03/10/21 08:59 Last Infusion: 02/08/21 08:23 Dose: Infused Documented by: Folic Acid 1 mg/ Syringe 10 mls @ 5 mls/min IV QAM [facility] Stop: 03/10/21 08:59 Last Admin: 02/08/21 07:43 Dose: 5 mls/min Documented by: Potassium Chloride/Dextrose/Sod Cl (D5nss + 20meq Kcl) 20 meq in 1,000 mls @ 75 mls/hr IV .[id number] [facility] Stop: 03/09/21 18:44 Last Admin: 02/08/21 08:36 Dose: 75 mls/hr Documented by: Pantoprazole Sodium 40 mg/ (Syringe) 10 mls @ 5 mls/min IV BID [facility] Stop: 03/10/21 20:59 Lamotrigine (Lamotrigine 100 Mg Tab) 100 mg PO DAILY@0900 [facility] Stop: 03/10/21 08:59 Last Admin: 02/08/21 07:45 Dose: 100 mg Documented by: [place] Carbonate ([place] Carbonate 300 Mg Tab) 600 mg PO QAM [facility] Stop: 03/10/21 08:59 Last Admin: 02/08/21 07:44 Dose: 600 mg Documented by: Multivitamins/Minerals (Cerovite Adv Formula Tab) 1 [facility] [place] Stop: 03/09/21 16:59 Last Admin: 02/08/21 07:43 Dose: 1 tab Documented by: Sucralfate (Sucralfate 1 Gm Tab) 1 gm PO QID [facility] Stop: 03/10/21 12:59 Last Admin: 02/08/21 12:09 Dose: 1 gm Documented by: Ziprasidone (Ziprasidone Hcl 80 Mg Cap) 160 mg PO DAILY@1800 [facility] Stop: 03/09/21 17:59 Last Admin: 02/07/21 18:40 Dose: 160 mg Documented by:
--- NOTE | 2021-02-08 14:09 | Psychiatric Consultation ---
Date of Consultation February 08, 2021 Impression / Recommendations Impression Dr. Larissa Mcgraw was directly involved in review and discussion of the patient's case and participated in medical decision making regarding treatment recommendations. RECOMMENDATIONS: 02/08/2021 - Psychiatric consultation requested by our hospitalist service to evaluate the patient for history of eating disorder and bipolar I disorder. Pt known to our service from two previous admissions to our unit in 2019, related to her bipolar I disorder symptoms. Pt was reportedly sent for hospitalization from her carpentry specialist, Dr. De Jesus - reportedly evading these recommendations a few days prior. - Recommend discontinuation of ziprasidone, as this medication is well-known to contribute to QTc prolongation, which is not a new issue for this patient. Response to medication is also highly related to appropriate caloric intake, which patient reports she has not been achieving for several weeks. Would strongly consider cardiology consultation before considering this medication (or other antipsychotic agents) again in this particular patient. - Given that we are discontinuing one of patient's mood stabilization agents, would suggest continuing lithium 600mg daily (will reach out to outpatient psychiatrist as this reported dose is inconsistent with [facility] records - TID dosing of 300mg/300mg/600mg). Would advise repeat lithium level if patient demonstrates any signs of lithium toxicity, which may be in the setting of poor nutritional intake. - Continue lamotrigine home dose of 100mg daily, titration could be consider for additional mood stabilization properties. It is reported that patient's hydroxyzine was discontinued during her hospitalization in [place], and would advise consistency with this change as hydroxyzine can also contribute to QTc prolongation. - Pt was uncooperative with assessment today, unfortunately verbalizing some frustrations related to her past admissions to our unit. Pt was informed of the above medication recommendations and became upset. Pt demanded to speak with her nurse, suggested she would leave the hospital, and refused to continue conversation with this provider. - 302 petitioning statement was completed by this provider related to concerns for restrictive eating behaviors and very poor nutritional intake for the past 3 weeks. >10lb weight loss, concerning electrolyte imbalance (potassi um of 2.7 on presentation), prolonged QTc interval (547 on presentation), and inability to safely be continued on the medication regimen that stabilizes her bipolar I disorder symptoms. Pt should not be permitted to leave the hospital AMA, 302 warrant can be pursued by calling Crisis services if patient should request this. - Appreciate the opportunity to participate in the care of this patient. Please reach out to our service with any additional questions or updates. Psych History Identifying Data 20-year-old female admitted medically on 02/07/2021 after presenting to the ED upon recommendation from her PCP/carpentry specialist due to restricting behavior and weight loss. Psychiatric consultation was requested by our hospitalist team to evaluate patient for history of eating disorder and bipolar I disorder diagnoses. Chief Complaint "I'm fine." History of Present Illness Evita Segura is a 20-year-old female admitted medically on 02/07/21 after presenting to the ED upon recommendation from her outpatient carpentry specialist for reports the patient had been engaging in significant restrictive behaviors for the past 2-3 weeks. QTc at time of presentation was 547 and potassium was 2.7. Pt had also reported >10lb weight loss during this time. It had been recommended that the patient present to the nearest ED on 02/04; however, patient and mother drove home to [place] for medical admission. Pt returned with little to no improvement in symptoms and was again encouraged to present to the hospital for medical admission and stabilization, with consideration for inpatient eating disorder treatment if behavior did not improve. Psychiatric consultation was requested to evaluate patient for history of eating disorder and bipolar I disorder. She is known to our service from two previous psychiatric admissions in 2019. Pt was reportedly uncooperative with nurse liaison attempts to have ROIs for outpatient providers. Pt was superficially cooperative during conversation with this provider, but answer questions with only 1-2 word phrases. Pt admits "I wasn't eating for 3 weeks." When asked what patients feels led to this change, she states "my doctor couldn't see me anymore. We went from every week to every other week." Pt admits that up until that point she believed she had been doing well. 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 Pt denies any significant mood changes or suicidal ideation/safety concerns. When this provider expressed concern about her current medication regimen and recent eating behaviors, the patient became rather agitated. She states "you are not f*cking up my medications." This provider attempted to explain contraindication to continue ziprasidone at this time, but patient continued to be upset. She stated again "get my nurse right now. If you f*ck up my medications, I'm leaving." Pt was clearly unwilling to continue conversation. This provider was able to speak with Dr. De Jesus on the phone, who suggested the patient went from "doing really well to doing really poorly in the matter of 2 weeks." It is felt that patient's relapse in disordered eating behaviors was related to scheduling changes, where patient would be seen every other week at the clinic as opposed to weekly. It was reported that consideration was given to petitioning a 302 on of last week - the appointment prior to patient being driven by her mother back to [place] for medical admission. Pt was encouraged to present to the hospital for stabilization and demonstration of returning to baseline eating behaviors. Dr. De Jesus did admit that she may consider it appropriate for the patient to return to outpatient treatment once this changes in behavior has been demonstrated, but admitted that inpatient eating disorder treatment was a consideration as well if this could not be attained. It was reported there have been numerous attempts to coordinate with the patient's outpatient psychiatrist with limited response. Dr. De Jesus reported willingness to continue coordination of care as the patient's hospitalization progresses. Past Psychiatric History Current Psychiatric Diagnosis: Bipolar I disorder; eating disorder Outpatient Services: Dr. De Jesus - [facility] for eating disorder treatment Psychiatrist - Dr. Marisa Daniel - in [place] Previous Psych Admissions: - Numerous admissions from 2013 -2014 - [facility] in 2013 - Bipolar I - [facility] for eating disorder, 2013 - [facility] 12/2018 and 05/2019 for bipolar I History of Previous Suicide Attempt: Yes (history of overdose x2; strangulation x1) Past Medication Trials: Per past psychiatric H&P 1. ziprasidone - helped with impulses and racing thoughts 2. escitalopram - no effect 3. lithium - "didn't do anything," but admits she didn't take it regularly 4. aripiprazole - didn't take it regularly 5. gabapentin - "made her feel ," describing excessive sedation others she cannot recall Allergies Allergy/AdvReac Type Severity Reaction Status Date / Time Fish Containing Products AdvReac Severe Gastrointestinal Verified 03/30/20 10:45 Upset Home Medications Medication Instructions Recorded Confirmed Type hydroxyzine pamoate 25 mg PO DAILY PRN 05/26/20 05/26/20 History lamotrigine 100 mg PO DAILY@0900 03/30/20 03/30/20 History ziprasidone HCl 160 mg PO DAILY@1800 03/30/20 03/30/20 History Family History Reports mother with bipolar disorder. Denies other known family history of mental health conditions. Substance Abuse History Denies significant alcohol or tobacco use. Denies use of illicit substances. Personal History Living Arrangements: Apartment Highest Grade Completed: Some College (Studying biochemistry at [employer]) Employment Status: Student Marital Status: Single Number Of Children: None History of Legal Problems: Denied Psychological Trauma History Comment: Reports past psychiatric hospitalizations as traumatic. Patient History Medical History Anorexia nervosa, binge eating/purging type Anxiety Bipolar disorder Surgical History No pertinent past surgical history Family History Mother Bipolar disorder Denies family history of Sudden Social History Smoking Status: Never smoker Second Hand Exposure: No; Do You Dip or Chew Tobacco: No; Tobacco Cessation Education Requested by Patient: No Hx Alcohol Use: No Hx Substance Use: No Preferred Language: Marshallese Communication Ability: Effective Firer Powerhouse Required: No marital status: Single Current Living Situation: Other Current Living Situation Comment: lives with parents in [place] current occupational status: student 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; 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 Other Information That Helps Us Care for You: No Feels Safe at Home: Yes Safety Concerns: Feels Safe At This Time Sexual Activity Comment: denies sexual activity at this time Assistive Devices: None Physical Exam Psychiatric: Orientation: alert, oriented x 3 and + guarded (initially only superficially cooperative, then rather frustrated/defiant) Apperance: appropriately dressed, appropriately groomed and appeared stated age Eye Contact: good eye contact Motor Behavior: no abnormal motor movements Speech: normal rate/rhythm/volume of speech (very brief repsonses to questions) Affect: + irritable affect Mood: + irritable mood (acutely related to conversations about medication recommendations) Thought Process: goal directed thought process (rigid thought process, unwilling to shift from thoughts about medications) Thought Content: + cognitive distortions Suicidal Thoughts: denies suicidal thoughts, denies suicidal plan and denies suicidal intent Homicidal Thoughts: denies homicidal thoughts Hallucinations: no auditory hallucinations and no visual hallucinations Cognition: attention grossly intact and language grossly intact Insight: + poor insight Judgement: + poor judgement Vital Signs (Past 24 Hours): Last Vital Signs Temp 37.0 C 02/08/21 11:32 Pulse 56 L 02/08/21 11:32 Resp 20 02/08/21 11:32 BP 93/60 L 02/08/21 11:32 Pulse Ox 100 02/08/21 11:32 Review of Systems Pt unwilling to participate in full psychiatric assessment due to level of frustration. She does not openly verbalize any physical concerns during encounter. Results & Data (PSY) Medications Administered Thiamine HCl 200 mg/ Sodium (Chloride) 52 mls @ 208 mls/hr IV QAM [facility] Stop: 03/10/21 08:59 Last Infusion: 02/08/21 08:23 Dose: 0 mls/hr Documented by: [id number] Admin: 02/08/21 07:51 Dose: 208 mls/hr Documented by: [id number] Folic Acid 1 mg/ Syringe 10 mls @ 5 mls/min IV QAM [facility] Stop: 03/10/21 08:59 Last Admin: 02/08/21 07:43 Dose: 5 mls/min Documented by: [id number] Potassium Chloride/Dextrose/Sod Cl (D5nss + 20meq Kcl) 20 meq in 1,000 mls @ 75 mls/hr IV .[id number] [facility] Stop: 03/09/21 18:44 Last Admin: 02/08/21 08:36 Dose: 75 mls/hr Documented by: [id number] Infusion: 02/08/21 08:23 Dose: 0 mls/hr Documented by: [id number] Admin: 02/07/21 18:41 Dose: 75 mls/hr Documented by: [id number] Lamotrigine (Lamotrigine 100 Mg Tab) 100 mg PO DAILY@0900 [facility] Stop: 03/10/21 08:59 Last Admin: 02/08/21 07:45 Dose: 100 mg Documented by: [id number] [place] Carbonate ([place] Carbonate 300 Mg Tab) 600 mg PO QAM [facility] Stop: 03/10/21 08:59 Last Admin: 02/08/21 07:44 Dose: 600 mg Documented by: [id number] Multivitamins/Minerals (Cerovite Adv Formula Tab) 1 tab PO QAM [facility] Stop: 03/09/21 16:59 Last Admin: 02/08/21 07:43 Dose: 1 tab Documented by: [id number] Admin: 02/07/21 17:50 Dose: 1 tab Documented by: [id number] Sucralfate (Sucralfate 1 Gm Tab) 1 gm PO QID [facility] Stop: 03/10/21 12:59 Last Admin: 02/08/21 12:09 Dose: 1 gm Documented by: [id number] Ziprasidone (Ziprasidone Hcl 80 Mg Cap) 160 mg PO DAILY@1800 [facility] Stop: 03/09/21 17:59 Last Admin: 02/07/21 18:40 Dose: 160 mg Documented by: [id number] Coding Level of Care Code 82480 [facility] Intl Hosp Care Lvl 2
--- NOTE | 2021-02-08 14:47 | Electrocardiogram Report ---
Test Reason : Blood Pressure : / mmHG Vent. Rate : 059 BPM Atrial Rate : 059 BPM P-R Int : 134 ms QRS Dur : 080 ms QT Int : 452 ms P-R-T Axes : 036 084 054 degrees QTc Int : 447 ms Sinus bradycardia Otherwise normal ECG When compared with ECG of 07-FEB-2021 17:29, QT has shortened Confirmed by Gibson Faust ([id number]) on 02/08/2021 2:46:30 PM Referred By: Ed Thompson Confirmed By:Gibson Faust
[2021-02-08] MEDS: ziprasidone HCL 80 MG CAP PO SCH (18:01)
[2021-02-08] MEDS ORDERED: POTASSIUM CHLORIDE CRTAB 20 MEQ TABCR PO STA (18:07)
--- NOTE | 2021-02-08 18:22 | Communication Note ---
Date of Service: February 08, 2021 I was called by nursing after patient was seen by psychiatry because patient was very upset with their proposed plan. Spoke with patient regarding plan proposed by psychiatry. When discussing discontinuing QT-prolonging meds, patient quickly became emotional, stating "I'll become psychotic", "why don't you want me to sleep?", "if you don't give me all 160mg geodon, I will leave", "I don't want to be paranoid", and other statements. Patient emphatically insists her psychotic symptoms will return if not given her full dose of geodon, threatening to leave AMA if it is not given. Patient was at times tearful during this conversation, and at times yelling. I managed to calm her down by telling her I did not want her to go through a recurrence of any of these painful experiences, and that I wanted to discuss the case with cardiology to assess medication safety. I then spoke with Cardiology informally due to the time-sensitive nature of the situation, before a formal consult could take place tomorrow. They noted that on one hand, they could not guarantee that the medicine was not without risk, given that patient had a QTc of 547 on admission, though a likely contributing factor was patient's severe hypokalemia and degree of calorie restriction pre-arrival. They also said that it would not be unreasonable to give the patient her normal dose of geodon tonight, while on the electric locomotive firer/fireman, to assess for any QTc prolongation overnight, which could then aid in further decision-making about making changes to this medicine. They also noted that if patient were to enter torsades, it would be identified on cardiac monitoring and could be managed effectively while in the hospital. Patient's most recent QTc at 10:45am this morning was 447 after patient had eaten breakfast in addition to a snack last night.
[2021-02-08] MEDS ORDERED: POTASSIUM CHLORIDE CRTAB 20 MEQ TABCR PO ONE (20:00)
[2021-02-08] MEDS: hydrOXYzine HCl 25 MG TAB PO PRN (20:59)
[2021-02-08] MEDS: PANTOprazole 40 MG in SYRINGE 0 ML IV SCH (21:01)
[2021-02-09 07:16] LABS: BUN Creatinine Ratio 5.5 (10-20); Creatinine Clr Calc Pharmacy 82.1 ml/min; Est GFR (African American) 103.8; Est GFR (Non-African American) 89.6; Potassium 4.4 mmol/L (3.5-5.1)
[2021-02-09] MEDS: SUCRALFATE 1 GM TAB PO SCH ×4 (08:58→20:47)
[2021-02-09] MEDS: PANTOprazole 40 MG in SYRINGE 0 ML IV SCH ×2 (08:59→20:47)
[2021-02-09] MEDS: CEROVITE ADV FORMULA TAB PO SCH (08:59)
[2021-02-09] MEDS: FOLIC ACID 1 MG in SYRINGE 9.8 ML IV SCH (08:59)
[2021-02-09] MEDS: lamoTRIgine 100 MG TAB PO SCH (08:59)
[2021-02-09] MEDS: THIAMINE HCL 200 MG in SODIUM CHLORIDE 0.9% 50 ML IV SCH (09:04)
--- NOTE | 2021-02-09 09:05 | Cardiology Consultation ---
Date of Consultation February 09, 2021 Assessment & Plan (1) Prolonged QT interval: On presentation she did have a long QT as well as a long QTC, that improved yesterday although the morphology of the T wave was little bit abnormal and today her T wave morphology is essentially normal with a normal QT interval. Her medications have been continued therefore it is not primarily due to her medications. It could be due to a contribution of malnutrition plus the medications or conceivably just the malnutrition. She has no symptoms to suggest paroxysmal arrhythmias. It seems that as long as she will eat a reasonable diet (it probably does not need to be perfect but cannot be a starvation diet) that she would not have difficulty with QT prolongation although that could be checked from time to time (although I believe it is from her description). I do not think there is any role for genetic testing for long QT syndromes. (2) Left ventricular dysfunction: Her echocardiogram suggested low normal left ventricular function which in my mind is abnormal for 20-year-old physically active girl. This could be nutritionally related as well. I would recommend repeating the echocardiogram, I would probably wait a month or 2 to make sure that this corrects. It may be something to watch over the long run as well and it may be reasonable for her to have a family service caseworker to follow-up with given this and the QT abnormalities. History of Present Illness Reason for Consultation: Long QT Attending Physician: Kathie Iverson MD History of Present Illness This is a 20-year-old woman who has a history of bipolar disorder as well as anorexia nervosa. She is on lithium as well as Lamictal and Geodon. She does frequent vomiting and purging. She presents now as a direct admission having lost 10 to 11 pounds over 1 to 2 weeks due to frequent purging. Immediately prior to this admission she was admitted to [facility] in [facility] for an overnight stay where she received intravenous fluids and intravenous potassium. Evidently she did not eat while in the hospital. She then drove here and was seen by Dr. De Jesus, it was noted that her QT interval was prolonged on electrocardiography and she had hypokalemia and she was advised to come to the hospital for admission. She exercises frequently. She typically runs for 60 minutes, a week ago she was running on a treadmill and had to stop due to severe chest discomfort which has resolved. Electrocardiogram here showed long QT interval, holding her medications, having her eat and giving electrolytes did correct her QT interval. Evaluation here also included an echocardiogram which was normal although her left ventricular systolic function is low normal (50 to 55%) which is unusual at her age. The ventricle was normal in size. I believe she may adjust her lithium at home, although she did get 600 mg yesterday, and her levels have been within the therapeutic range here. She is receiving Geodon 160 mg daily and Lamictal 100 mg daily and receive these both yesterday and today. I discussed at length with her symptoms of arrhythmias such as palpitations, lightheadedness or dizziness, presyncope or syncope and she does not have any other than possible mild orthostatic symptoms. She does not have exercise intolerance and does not have heart failure symptoms. Allergies Allergy/AdvReac Type Severity Reaction Status Date / Time Fish Containing Products AdvReac Intermediate Gastrointestinal Verified 02/09/21 10:07 Upset escitalopram [From Lexapro] AdvReac Mild Insomnia Unverified 02/09/21 10:07 Home Medications Medication Instructions Recorded Confirmed Type hydroxyzine pamoate 25 mg PO DAILY PRN 03/30/20 03/30/20 History lamotrigine 100 mg PO DAILY@0900 03/30/20 03/30/20 History ziprasidone HCl 160 mg PO DAILY@1800 03/30/20 03/30/20 History Patient History Medical History Anorexia nervosa, binge eating/purging type Anxiety Bipolar disorder Surgical History No pertinent past surgical history Family History Mother Bipolar disorder Denies family history of Sudden Social History Smoking Status: Never smoker Second Hand Exposure: No; Do You Dip or Chew Tobacco: No; Tobacco Cessation Education Requested by Patient: No Hx Alcohol Use: No Hx Substance Use: No Preferred Language: Danish Communication Ability: Effective Radio Interference Investigator Required: No marital status: Single Current Living Situation: Other Current Living Situation Comment: lives with parents in [place] current occupational status: student 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 HEENT: Unremarkable Neck: No jugular venous distention, carotid pulses are normal and equal bilaterally without bruits. Pulmonary: Clear to auscultation bilaterally. Cardiac: Regular rhythm with no murmur, gallop or rub. Abdomen: Soft, nontender with normal bowel sounds. Extremities: No edema. Distal pulses intact. Neurologic: No focal findings. Gait is steady based on her walking around the room. Skin: No rash, ecchymoses or petechiae. Results & Data ([facility]) Vital Signs (Past 12 Hours) Vital Signs Temp Pulse Pulse Resp BP BP Pulse Ox 02/09/21 07:54 36.6 C 64 16 97/61 L 98 02/09/21 07:14 64 02/09/21 04:29 36.5 C 71 18 87/51 L 98 02/09/21 00:21 72 02/09/21 00:07 36.7 C 70 18 86/50 L 97 Laboratory Results Comprehensive Metabolic Panel 02/09/21 Range/Units 06:04 Sodium 142 (136-145) mmol/L Potassium 4.4 D (3.5-5.1) mmol/L Chloride 115 H (98-107) mmol/L Carbon Dioxide 27 (21-32) mmol/L BUN 5 L D (7-18) mg/dl Creatinine 0.91 (0.6-1.2) mg/dl Glucose 100 H (70-99) mg/dl Calcium 8.0 L (8.5-10.1) mg/dl Intake and Output 02/08/21 02/09/21 02/09/21 22:59 06:59 14:59 Intake Total 1960 / 3538.25 286.25 / 3538.25 Output Total 700 / 1125 Balance 1260 / 2413.25 286.25 / 2413.25 Intake: IV 999 / 2097.25 46.25 / 2097.25 D5NSS + 20MEQ KCL 20 meq In 1, 1000 / 2045.25 46.25 / 2046.25 000 ml @ 75 mls/hr IV .[id number] [facility] Rx#:[id number] Oral 960 / 1440 240 / 1440 Output: Urine 700 / 1125 Diagnostic Findings Telemetry: Sinus rhythm in the 60s. No significant arrhythmia. Electrocardiogram this morning: Sinus rhythm at a rate of 73 bpm, the QT interval is 404 with a corrected QT interval of 445 and a morphology is normal. It is a normal electrocardiogram. PG Care Time/CCT Total # of Minutes Spent Total Time Spent with Patient: Total time spent is greater than 50% in coordination of care (as documented) at patient's floor/unit and/or counseling patient: Coding Level of Care Code 31228 Inpt Consult Level 4 Diagnoses Prolonged QT interval R94.31 Left ventricular dysfunction I51.9
--- NOTE | 2021-02-09 09:44 | Medical Student Progress Note ---
Date of Service February 09, 2021 Assessment & Plan (1) Anorexia nervosa, binge eating/purging type: The patient is a 20 year old female with a past medical history of anorexia nervosa and bipolar 1 disorder who presents after 2 weeks of no food intake other than diet coke, purging by vomiting 3x/day, and 11lb weight loss over 1 week for medical stabilization and refeeding. Appreciate nutrition consult which suggested initial refeeding with 3 meals per day with total of 4935-2098 calories. Continue to monitor for refeeding syndrome with daily electrolyte labs. Patient denies purging while in the hospital and reported that she was able to eat 60% of her meals yesterday. She likes the s moothies and apples with peanut butter. Psychiatry was consulted and has filed a 302 admission for eating disorder treatment and psychiatric medicine stabilization. Dr De Jesus, PCP, is in agreement with this plan. (2) Moderate protein-calorie malnutrition: See above. On thiamine and potassium IV. Today Na 142 (on 02/08, 139), K 4.4 (on 02/08, 3.4), Mg 2.3 on 02/07, Phos 3.0 on 02/08, Calcium 8. (3) Prolonged QT interval: Share D[employer] states that her QT prolongation was most likely due to hypokalemia and malnutrition, and not due to ziprasidone since she has continued to take it while admitted and her QT has improved to normal length. Psychiatry does not recommend staying on the ziprasidone and will admit as 302 for stabilization of medications since patient is not willing voluntarily. Has a history of high-normal QT interval on ziprasidone. On 02/03 admission to [facility], QT interval was 578 with K of 2.9. On 02/07 admission to [facility], QTc was 547, K of 2.7. [place] and ziprazidone held as of 02/07. Today, 03/10, she was in sinus leigha (59) with QTc of 447ms and K of 3.4. (4) Bipolar disorder: PCP, Dr De Jesus confirmed that prescribed lithium carbonate dose is 300mg morning, 300mg lunch, 600mg evening per day and not 600mg QD as reported by patient on admission. The patient has been taking 600mg in the morning for the past 3 weeks without consulting her PCP or psychiatrist because she did not think she needed the whole dose. The lithium level on admission was 1.1, 0.7 today so she is being dosed at 600mg QD currently. Suspect she decreased the dose since she was restricting her diet. Psychiatry consult recommended to hold ziprasidone 160mg and hydroxyzine due to QT interval prolongation effects. See above for cardiology consult. Active/Remission status: currently active Current bipolar episode type: manic Current episode severity: moderate Qualified Code(s): F31.12 - Bipolar disorder, current episode manic without psychotic features, moderate (5) Chest pain: Cardiology suggesting for patient to establish with an outpatient equipment manager due to low-normal EF of 50-55%, and monitoring of QT interval. She has had chest pain WITH exercise. This does not happen with SOB, and no pain radiation to arm, back, or jaw. Symptoms may be due to esophagitis but cardiac etiology should be ruled out. Echo on 02/08 was normal, with EF of 50-55%, and no valvular disease. EKG today showed high normal QTc (447ms) and no ST segment changes or Q waves. Chest pain type: unspecified Qualified Code(s): R07.9 - Chest pain, unspecified (6) Esophagitis: Pantoprazole sodium 40mg IV and sucralfate 1mg PO QID started to relieve suspected esophagitis due to frequent vomiting. She does not have pain or discomfort when eating. (7) Paresthesias: Resolved. On admission B12 was 502, TSH 2.8, UA negative other than +ketones. Likely due to severe hypokalemia (8) DVT prophylaxis: low risk. Is not able to ambulate due to fall risk with lightheadedness. Admission and Anticipated Discharge Date Admission Date: February 07, 2021 Subjective Yesterday, patient was uncooperative with the psychiatry consult because she did not want to stop the ziprasidone 160mg. She became agitated and anxious, threatening to leave AMA if her ziprasidone dose is changed or stopped. This morning, patient's anxiety level is better and she is able to have a calm discussion. She is still insisting that she wants to stay on the lithium and ziprasidone because she is afraid of becoming manic or psychotic without those medications. She is willing to stay for refeeding and medical management if her psychiatric medications are unchanged. She states she was able to eat around 60% of her meals yesterday and is willing to try to eat more today. Review of Systems Respiratory: no cough and no dyspnea Cardiovascular: + lightheadedness; no chest pain, no palpitations, no edema and no calf pain Gastrointestinal: no nausea, no vomiting and no diarrhea/loose stools Genitourinary: no dysuria and no difficulty urinating Psychiatric: + anxiety Physical Exam Constitutional: average body habitus and cooperative; no acute distress Respiratory: normal respiratory effort, lungs clear to auscultation Cardiovascular: RRR, no murmur, no edema Gastrointestinal (Abdomen): Inspection/Auscultation: abdomen not distended Percussion/Palpation: abdomen soft; abdomen nontender and no guarding Psychiatric: Orientation: alert and oriented x 3 Eye Contact: good eye contact Speech: normal rate/rhythm/volume of speech Affect: euthymic affect Thought Process: linear/logical thought process Suicidal Thoughts: denies suicidal plan and denies suicidal intent Insight: + fair insight Judgement: + fair judgement Results & Data ([facility]) Vital Signs (Past 12 Hours) Vital Signs Temp Pulse Pulse Resp BP BP Pulse Ox 02/09/21 07:54 36.6 C 64 16 97/61 L 98 02/09/21 07:14 64 02/09/21 04:29 36.5 C 71 18 87/51 L 98 02/09/21 00:21 72 02/09/21 00:07 36.7 C 70 18 86/50 L 97
[2021-02-09 10:10] LABS: Magnesium 2.3 mg/dl (1.8-2.4); Phosphorus 2.5 mg/dl (2.5-4.9)
[2021-02-09] MEDS: LITHIUM CARBONATE SLOW REL 300 MG TAB PO SCH (10:46)
--- NOTE | 2021-02-09 11:18 | Psychiatric Progress Note ---
Date of Service February 09, 2021 Impression / Recommendations (1) Anorexia nervosa, binge eating/purging type: Patient on a 302 warrant for anorexia with acute decompensation, 11 pound weight loss in 1 week, no food for 4-5 days, resulting in potassium 2.7 and QTC as high as 578. Her outpatient eating disorder physician had recommended inpatient hospitalization due to these concerns on February 03, and although the patient agreed to go to the ER, she instead went home to [place]. She then s aw her outpatient psychiatrist over the weekend and did not inform him of her medical instability, and was referred to the ER as she was still not eating, had lost additional weight, and was hypokalemic with prolonged QTC after returning to her outpatient eating disorder physician 02/07/21. She has been labile, agitated, and poorly cooperative here in the hospital, unwilling to engage in discussions of her medications and the safety concerns expressed by her outpatient clinicians, and after discussion with them agree that involuntary inpatient eating disorder treatment is indicated. She is now on a completed 302 and we will assist with referrals to eating disorder units. (2) Mood disorder: Complex case, previously well controlled on ziprasidone, but given the risk of QTC prolongation and this medication and her unstable eating disorder, it is contraindicated in her outpatient psychiatrist no longer feels comfortable prescribing it. The inpatient hospitalist service indicated the retirement actuary felt it was safe to give her as long as she was on the sheep clipper, so if she is complying with that while on the unit awaiting placement, it could be continued, but ultimately a safer medication will likely need to be agreed upon by the patient and her outpatient psychiatrist. She was unwilling to engage in a discussion of these options today. Adeline is also a cardiac irritant which is concerning given her chronic eating disorder and poor treatment adherence. There appears to be a component of maladaptive coping which is complicating the case and preventing the patient from engaging with treatment staff and working towards a safe discharge plan. Interval History Chief Complaint "Not great because you are threatening to take my meds away!". Review of Systems Notes Unable to complete review of systems as patient uncooperative, agitated Subjective Subjective Patient was seen & assessed twice today, and interval progress reviewed with nursing and social work. Spoke with primary attending, outpatient eating disorder physician Dr. Enma De Jesus, and her outpatient psychiatrist Dr. Johny Chavez. Dr. De Jesus has been following her EKGs as QTc had been at the upper end of normal, and she had decompensated over the past couple of weeks after being told her eating disorder visits would be reduced from weekly to every other week, and stopped eating. Dr. De Jesus saw her 02/03/21 at which point her potassium 2.9, QTc 578, and had lost 11 pounds in 1 week. She agreed to go to the ER for inpatient treatment, but instead went back to [place] and was admitted to the hospital there overnight and discharged home. She followed up with Dr. De Jesus 02/07/21, reported she had not eaten in 4-5 days, and had not informed her psychiatrist of her hospitalization. On her presentation to the ER, potassium was 2.7, and QTC was 547. Reviewed mood lability here, history of cluster B traits. Spoke with her OP psychiatrist Dr. Chavez and reviewed situation. He saw her 02/05 and she did not disclose any concerns, did not inform him of her recent visit with Dr. De Jesus 2 days prior, medical hospitalization, or the recommendations for inpatient treatment. He agreed with concerns with her being on Geodon as an outpatient given ongoing eating disorder and QTc prolongation, and said he was not comfortable continuing that medication. Also discussed concerns about lithium and cardiac irritation. Met with the patient twice today, initially this morning at which point she was angry, interrupting each time I tried to speak to her, accusing me of "threatening" to take her medications away, although I had not yet spoken with her during this hospitalization. She says that her oral intake is "a little bit better," which she attributes to being in the hospital. She cannot explain how she would maintain adequate oral intake outside of the hospital, focusing only on wanting to be discharged, stating she needs to return to school and does not want to be here. Explained that she is on a 302 warrant after she demanded to leave the hospital last night, and she became acutely agitated, yelling that she does not want to be on a 302, and that I am ruining her life. She grabbed her IV pole and stormed out of the room, and did not respond well to verbal redirection. Return to see her with the psychiatric liaison nurse several hours later, after speaking with her outpatient clinicians and primary attending and being informed of medical clearance. Informed her of updates regarding outpatient psychiatrist concerns about her Geodon and the need to discuss other medication options. Her floor nurse also joined us at the patient's request. She frequently interrupted, stating we were "going to make me psychotic!" Advised that we were consulted to help her examine other medication options that may have less risk of prolonging QTC. She insists that as her QTC is now normalized, she does not need to consider other medications. Repeatedly explained the concerns with her chronic anorexia, and that per her outpatient physician her QTC has been at the upper level of normal for some time, and that this is not a safe medication in this circumstance. She remained unwilling to engage in a productive conversation, becoming increasingly agitated and upset. Reviewed the current recommendations for inpatient eating disorder treatment, and that this will be on a 302 involuntary commitment. She repeatedly stated she did not want to be here, and would not go for inpatient treatment. Left the room to complete 302 paperwork, and moments later the patient was observed walking very rapidly out of her room and down the hallway toward an exit. Nursing staff responded, security called, patient was returned to her room several minutes later and was yelling and throwing items. Physical Exam Psychiatric Orientation: alert; + uncooperative Apperance: + disheveled Thin WF, casually dressed, restless, initially sat in bed, but later grabbed IV pole and tried to run out of the room. Eye Contact: + poor eye contact Motor Behavior: + psychomotor agitation Angry tone, repeatedly interrupts/speaks over me Affect: + labile affect and + irritable affect Initially irritable and insolent, quickly became agitated, wailing and yelling Irrational Thought Content: + paranoid and + persecution Patient uncooperative with exam, could not assess SI and HI as she was yelling and irate. Insight: + poor insight Judgement: + poor judgement Vital Signs (Past 24 Hours) Last Vital Signs Temp 36.6 C 02/09/21 07:54 Pulse 64 02/09/21 07:54 Resp 16 02/09/21 07:54 BP 97/61 L 02/09/21 07:54 Pulse Ox 98 02/09/21 07:54 Results & Data ([facility]) Laboratory Results Laboratory Results - last 24 hr 02/09/21 02/09/21 02/09/21 06:04 06:04 06:04 Sodium 142 Potassium 4.4 D Chloride 115 H Carbon Dioxide 27 Anion Gap 1.0 L BUN 5 L D Creatinine 0.91 Est Cr Clr Drug Dosing 82.1 Est GFR ( Amer) 103.8 Est GFR (Non-Af Amer) 89.6 BUN/Creatinine Ratio 5.5 L Glucose 100 H Calcium 8.0 L Phosphorus 2.5 Magnesium 2.3 Adeline 0.7 Current Inpatient Medications Current Inpatient Medications: Current Inpatient Medications Hydroxyzine HCl (Hydroxyzine Hcl 25 Mg Tab) 100 mg PO DAILY PRN PRN Reason: Anxiety Stop: 03/10/21 20:23 Last Admin: 02/08/21 20:59 Dose: 100 mg Documented by: Thiamine HCl 200 mg/ Sodium (Chloride) 52 mls @ 208 mls/hr IV QAM [facility] Stop: 03/10/21 08:59 Last Infusion: 02/09/21 10:56 Dose: Infused Documented by: Folic Acid 1 mg/ Syringe 10 mls @ 5 mls/min IV QAM [facility] Stop: 03/10/21 08:59 Last Admin: 02/09/21 08:59 Dose: 5 mls/min Documented by: Potassium Chloride/Dextrose/Sod Cl (D5nss + 20meq Kcl) 20 meq in 1,000 mls @ 50 mls/hr IV .Q20H [facility] Stop: 03/09/21 18:44 Last Infusion: 02/08/21 23:37 Dose: 50 mls/hr Documented by: Pantoprazole Sodium 40 mg/ (Syringe) 10 mls @ 5 mls/min IV BID [facility] Stop: 03/10/21 20:59 Last Admin: 02/09/21 08:59 Dose: 5 mls/min Documented by: Lamotrigine (Lamotrigine 100 Mg Tab) 100 mg PO DAILY@0900 [facility] Stop: 03/10/21 08:59 Last Admin: 02/09/21 08:59 Dose: 100 mg Documented by: Adeline Carbonate (Adeline Carbonate Slow Rel 300 Mg Tab) 600 mg PO DAILY [facility] Stop: 03/11/21 10:14 Last Admin: 02/09/21 10:46 Dose: 600 mg Documented by: Multivitamins/Minerals (Cerovite Adv Formula Tab) 1 tab PO QAM [facility] Stop: 03/09/21 16:59 Last Admin: 02/09/21 08:59 Dose: 1 tab Documented by: Sucralfate (Sucralfate 1 Gm Tab) 1 gm PO QID [facility] Stop: 03/10/21 12:59 Last Admin: 02/09/21 08:58 Dose: 1 gm Documented by: Ziprasidone (Ziprasidone Hcl 80 Mg Cap) 160 mg PO DAILY@1800 [facility] Stop: 03/09/21 17:59 Last Admin: 02/08/21 18:01 Dose: 160 mg Documented by: Post Discharge Appointments Primary Care Physician Name Of Family Doctor: Dr. Enma De Jesus @ [facility] Date of Appointment with PCP: 02/17/21 Primary Care Release of Information: Obtained, Reviewed and Signed
--- NOTE | 2021-02-09 12:18 | Communication Note ---
Date of Service: February 09, 2021 Pt is cleared from a medical standpoint at this moment. Rest of management per Psychiatry. Resident Activity Tracking Resident Involvement: Resident Care Provided Care Provided: Adult Hospital Medicine
[2021-02-09] MEDS ORDERED: LORazepam 2 MG/4 ML VIAL IV STA (13:18)
[2021-02-09] MEDS ORDERED: HALOPERIDOL LACTATE 5 MG/ML 1 ML VIAL IM STA (13:18)
[2021-02-09] MEDS ORDERED: LORazepam 1 MG TAB ONE (13:22)
[2021-02-09] MEDS ORDERED: LORazepam 1 MG TAB PO STA ×2 (13:31→13:35)
[2021-02-09] MEDS ORDERED: haloperidoL 5 MG TAB PO ONE (14:15)
--- NOTE | 2021-02-09 14:28 | Electrocardiogram Report ---
Test Reason : Blood Pressure : / mmHG Vent. Rate : 073 BPM Atrial Rate : 073 BPM P-R Int : 118 ms QRS Dur : 082 ms QT Int : 404 ms P-R-T Axes : 030 088 045 degrees QTc Int : 445 ms Normal sinus rhythm Normal ECG When compared with ECG of 08-FEB-2021 10:59, No significant change was found Confirmed by Gibson Faust ([id number]) on 02/09/2021 2:27:58 PM Referred By: Ed Thompson Confirmed By:Gibson Faust
[2021-02-09] MEDS ORDERED: hydrOXYzine HCl 25 MG TAB PO SCH (16:00)
[2021-02-09] MEDS: D5NSS + 20MEQ KCL 20 MEQ/1,000 ML BAG IV SCH (16:19)
--- NOTE | 2021-02-09 17:06 | Hospitalist Progress Note ---
Date of Service February 09, 2021 Assessment & Plan (1) Anorexia nervosa, binge eating/purging type: 20 y/o F PMHx of anorexia nervosa and bipolar 1 disorder presented after 2 weeks of no food intake other than diet coke, purging by vomiting 3x/day, and 11lb weight loss over 1 week for medical stabilization and refeeding. Anorexia nervosa, binge eating/purging type: Currently restricting for 2 wks Per nutrition consult - initiated refeeding with 3 meals per day with total of 0714-9672 calories. Continue to monitor for refeeding syndrome with daily electrolyte labs. Denies purging while in the hospital, reported eating 60% of meal. Psychiatry consulted and has filed a 302 admission for eating disorder treatment and psychiatric medicine stabilization. Dr De Jesus, PCP, is in agreement with this plan. Severe protein-calorie malnutrition: See above. On thiamine and potassium IV. Today Na 142 (on 02/08, 139), K 4.4 (on 02/08, 3.4), Mg 2.3 on 02/07, Phos 3.0 on 02/08, Calcium 8. Prolonged QT interval: Has a history of high-normal QT interval on ziprasidone. On 02/03 admission to [facility], QT interval was 578 with K of 2.9. On 02/07 admission to [facility], QTc was 547, K of 2.7. [place] and ziprazidone held as of 02/07. 02/08, she was in sinus leigha (59) with QTc of 447ms and K of 3.4. Per Cardio - QT prolongation multifactorial with combination of hypokalemia, malnutrition, ziprasidone QT stable after resuming ziprasidone. Continue to replete electrolytes. Bipolar disorder: Per PCP - lithium carbonate home dose is 300mg morning, 300mg lunch, 600mg evening per day and not 600mg QD as reported by patient on admission. The patient has been taking 600mg in the morning for the past 3 weeks without consulting her PCP or psychiatrist because she did not think she needed the whole dose. The lithium level on admission was 1.1, 0.7 today -Resumed [place] dosed at 600mg QD currently. -suspect she decreased the dose since she was restricting her diet. -Psychiatry consulted Chest pain: Echo on 02/08 was normal, with EF of 50-55%, and no valvular disease. EKG today showed high normal QTc (447ms) and no ST segment changes or Q waves. Symptoms likely from esophagitis Per Cardio - establish with an outpatient applied behavior science specialist due to low-normal EF of 50-55%, and monitoring of QT interval. Esophagitis: Sec to frequent purging. Pantoprazole sodium 40mg IV and sucralfate 1mg PO QID. Paresthesias: Resolved. On admission B12 was 502, TSH 2.8,. Likely due to severe hypoka lemia DVT prophylaxis: low risk. Is not able to ambulate due to fall risk with lightheadedness. (2) Severe protein-calorie malnutrition: (3) Prolonged QT interval: (4) Hypokalemia: (5) Bipolar disorder: (6) Chest pain: (7) Esophagitis: (8) Paresthesias: (9) DVT prophylaxis: Admission and Anticipated Discharge Date Admission Date: February 07, 2021 Subjective Ate better. Upset most of the day with decision of being involuntary committed 302. Denied fever, chills,shortness of breath. no vomiting/purging Physical Exam Constitutional: Not in acute distress Respiratory: normal respiratory effort Cardiovascular: Rate/Rhythm: regular rate Psychiatric: Orientation: alert and oriented x 3 Results & Data Results & Data ([facility]) Vital Signs (Past 12 Hours) Vital Signs Temp Pulse Pulse Resp BP BP Pulse Ox 02/09/21 15:20 36.8 C 89 20 108/74 98 02/09/21 11:47 36.9 C 94 H 16 103/57 L 100 02/09/21 07:54 36.6 C 64 16 97/61 L 98 02/09/21 07:14 64 (1) Bipolar disorder Active/Remission status: currently active Current bipolar episode type: manic Current episode severity: moderate Qualified Code(s): F31.12 - Bipolar disorder, current episode manic without psychotic features, moderate (2) Chest pain Chest pain type: unspecified Qualified Code(s): R07.9 - Chest pain, unspecified
[2021-02-09] MEDS: ziprasidone HCL 80 MG CAP PO SCH (18:17)
--- NOTE | 2021-02-09 20:29 | Communication Note ---
Date of Service: February 09, 2021 case reviewed as psychiatrist senior director of global commercial technology solutions. Floor called stating patient is medically cleared for transfer but also concerns about restlessness/irritability, asking about prn. Patient had not yet received daily prn allotment of Vistaril 100 mg so agreed to attempt. Appears that received Haldol 5 mg and Ativan 2 mg po earlier today. Clarified commitment status as completed 302. Per liaison, appears delegate will be attempting bed search for eating disorder unit at direction of Dr. Mcgraw which has been suspended at this point until tomorrow. Contacted liaison as if Vistaril 100 mg ineffective, would recommend repeat Haldol and Ativan from earlier today, generally ordered by primary service as consulting. Liaison directed to monitor response to provide support to primary service.
[2021-02-09] MEDS: hydrOXYzine HCl 25 MG TAB PO PRN (20:47)
[2021-02-10] MEDS: PANTOprazole 40 MG in SYRINGE 0 ML IV SCH ×2 (08:44→20:12)
[2021-02-10] MEDS: CEROVITE ADV FORMULA TAB PO SCH (08:44)
[2021-02-10] MEDS: lamoTRIgine 100 MG TAB PO SCH (08:44)
[2021-02-10] MEDS: FOLIC ACID 1 MG in SYRINGE 9.8 ML IV SCH (08:44)
[2021-02-10] MEDS: SUCRALFATE 1 GM TAB PO SCH ×4 (08:45→20:12)
[2021-02-10] MEDS: LITHIUM CARBONATE SLOW REL 300 MG TAB PO SCH (08:45)
[2021-02-10] MEDS: THIAMINE HCL 200 MG in SODIUM CHLORIDE 0.9% 50 ML IV SCH (08:48)
--- NOTE | 2021-02-10 11:33 | Cardiology Progress Note ---
Date of Service February 10, 2021 Assessment & Plan (1) Prolonged QT interval: On presentation she did have a long QT as well as a long QTC, that improved subsequently although the morphology of the T wave remained a little bit abnormal until yesterday when her T wave morphology was essentially normal with a normal QT interval. Today's electrocardiogram is essentially normal as well. Her medications have been continued during this hospitalization therefore it is not primarily due to her medications. It could be due to a contribution of malnutrition plus the medications or conceivably just the malnutrition. She has no symptoms to suggest paroxysmal arrhythmias (such as lightheadedness, dizziness, presyncope or syncope) and on telemetry has had no arrhythmias at all. It seems that as long as she will eat a reasonable diet (it probably does not need to be perfect but cannot be a starvation diet) that she would not have difficulty with QT prolongation although that should be checked from time to time (although I believe it is from her description). I do not think there is any role for genetic testing for long QT syndromes. (2) Left ventricular dysfunction: Her echocardiogram suggested low normal left ventricular function which in my mind is abnormal for a 20-year-old physically active girl. This could be nutritionally related as well. I would recommend repeating the echocardiogram, I would probably wait a month or 2 to make sure that this corrects in case it was due to nutritional abnormalities. It may be something to watch over the long run as well and it may be reasonable for her to have a solar hot water installer to follow-up with given the LV dysfunction and the QT abnormalities. Admission and Anticipated Discharge Date Admission Date: February 07, 2021 Subjective Patient remains very tearful regarding her future and her psychiatric care under the 302. She has no cardiovascular complaints. Physical Exam Physical Exam: Constitutional: Alert, cooperative and in no distress. Pulmonary: Clear to auscultation bilaterally. Cardiac: Regular rhythm with no murmur, gallop or rub. Abdomen: Soft, nontender with normal bowel sounds. Extremities: No edema. Skin: No rash, ecchymoses or petechiae. Results & Data ([facility]) Vital Signs (Past 12 Hours) Vital Signs Temp Pulse Pulse Resp BP Pulse Ox 02/10/21 10:24 80 02/10/21 07:48 36.5 C 88 16 107/69 98 02/10/21 00:00 70 Laboratory Results Intake and Output 02/09/21 02/10/21 02/10/21 22:59 06:59 14:59 Intake Total 1433.75 / 1725.75 Output Total 550 / 1300 Balance 883.75 / 425.75 Intake: IV 953.75 / 1005.75 D5NSS + 20MEQ KCL 20 meq In 1, 953.75 / 953.75 000 ml @ 50 mls/hr IV .Q20H FRANTZ Rx#:[id number] Vitamin B-1 200 mg In Nss 50 ml @ 208 mls/hr IV QAM FRANTZ Rx#: [id number] Oral 480 / 720 Output: Urine 550 / 1300 Diagnostic Findings An electrocardiogram early this morning had some precordial abnormalities which I think were lead placement, lead electrocardiogram has been discarded and I repeated one being careful of lead placement and it is normal with a normal QT interval. Telemetry: Sinus rhythm, heart rate 60s to 70s mostly except when she is agitated PG Care Time/CCT Total # of Minutes Spent Total Time Spent with Patient: Total time spent is greater than 50% in coordination of care (as documented) at patient's floor/unit and/or counseling patient: Coding Level of Care Code 83952 Subseq Hosp Care Lvl 2 Diagnoses Prolonged QT interval R94.31 Left ventricular dysfunction I51.9
[2021-02-10 14:44] LABS: Appearance Urine Clear (Clear); Bacteria Urine Automated Negative (Negative); Bilirubin Urine Negative (Negative); Blood Urine Negative (Negative); Color Urine Yellow; Epithelial Cell Urine Auto >30 /lpf (0-5); Glucose Urine UA Negative (Negative); Ketones Urine Negative (Negative); Leukocyte Esterase Urine Trace (Negative); Nitrite Urine Negative (Negative); Protein Urine Negative (Negative); RBC Urine Automated 0-4 /hpf (0-4); Specific Gravity Urine 1.015 (1.000-1.030); Urobilinogen Urine Negative (Negative)
--- NOTE | 2021-02-10 15:52 | Electrocardiogram Report ---
Test Reason : Blood Pressure : / mmHG Vent. Rate : 101 BPM Atrial Rate : 101 BPM P-R Int : 140 ms QRS Dur : 084 ms QT Int : 374 ms P-R-T Axes : 064 080 033 degrees QTc Int : 484 ms Sinus tachycardia Otherwise normal ECG When compared with ECG of 10-FEB-2021 06:06, (unconfirmed) Vent. rate has increased BY 37 BPM Confirmed by Gibson Faust ([id number]) on 02/10/2021 3:52:42 PM Referred By: Ed Thompson Confirmed By:Gibson Faust
[2021-02-10] MEDS: ziprasidone HCL 80 MG CAP PO SCH (17:09)
[2021-02-10] MEDS: hydrOXYzine HCl 25 MG TAB PO PRN (18:46)
--- NOTE | 2021-02-10 18:51 | Hospitalist Progress Note ---
Date of Service February 10, 2021 Assessment & Plan (1) Anorexia nervosa, binge eating/purging type: 20 y/o F PMHx of anorexia nervosa and bipolar 1 disorder presented after 2 weeks of no food intake other than diet coke, purging by vomiting 3x/day, and 11lb weight loss over 1 week for medical stabilization and refeeding. Anorexia nervosa, binge eating/purging type: Currently restricting for 2 wks Severe protein calorie malnutrition Monitor and encourage PO intake. No further concern of refeeding syndrome Psychiatry consulted Bed search in process [address] 1:[address] Continue MVI, Thiamine, Folate. BMP, Mag in am. Prolonged QT interval: On 02/03 admission to [facility], QT interval was 578 with K of 2.9. 02/07 at [facility], QTc was 547, K of 2.7. QT prolongation multifactorial with combination of hypokalemia, mal nutrition, ziprasidone Ziprasidone resumed. Repeat EKG 02/10 - normal. Electrolytes in normal range. Encourage PO intake. Bipolar disorder: -Continue lamotrigine 100mg daily, Ziprasidone 160mgs daily, and prn hydroxyzine 100mgs daily. -Resumed [place] dosed at 600mg QD currently (prescribed home dose 300mg am, 300mgs at noon and 600mgs at night). -suspect she decreased lithium dose since she was restricting her diet. -Psychiatry following. -If agitated - to give 5mgs Haldol and 2mgs lorazepam - per psych recommendation. Low normal EF Echo on 02/08 was normal, with EF of 50-55%, and no valvular disease. Symptoms likely from esophagitis Per Cardio - establish with an outpatient field service supervisor due to low-normal EF of 50-55%, Chest pain sec to Esophagitis: Sec to frequent purging. Pantoprazole sodium 40mg IV and sucralfate 1mg PO QID. Pain resolved. Paresthesias: Resolved. On admission B12 was 502, TSH 2.8,. Likely due to severe hypokalemia DVT prophylaxis: low risk (2) Severe protein-calorie malnutrition: (3) Prolonged QT interval: (4) Hypokalemia: (5) Bipolar disorder: (6) Chest pain: (7) Esophagitis: (8) Paresthesias: (9) DVT prophylaxis: Admission and Anticipated Discharge Date Admission Date: February 07, 2021 Subjective Seen this am. Was laying in bed. Asking to go home. Tearful during conversation. Per nursing - no concern of agitation/irritability this am. Did eat >50% of her meal. No chest pain, dizziness. Physical Exam Constitutional: Comfortable and in no distress. Pleasant at the end of conversation Respiratory: normal respiratory effort, lungs clear to auscultation Cardiovascular: RRR, no murmur, no edema Gastrointestinal (Abdomen): normal bowel sounds, soft, nontender, no hepatosplenomegaly Psychiatric: Orientation: alert and oriented x 3 Results & Data Results & Data ([facility]) Vital Signs (Past 12 Hours) Vital Signs Temp Pulse Pulse Resp BP Pulse Ox 02/10/21 15:50 88 02/10/21 15:22 37.0 C 78 20 123/84 99 02/10/21 10:24 80 02/10/21 07:48 36.5 C 88 16 107/69 98 (1) Bipolar disorder Active/Remission status: currently active Current bipolar episode type: manic Current episode severity: moderate Qualified Code(s): F31.12 - Bipolar disorder, current episode manic without psychotic features, moderate (2) Chest pain Chest pain type: unspecified Qualified Code(s): R07.9 - Chest pain, unspecified
[2021-02-11] MEDS ORDERED: MELATONIN 3 MG TAB PO PRN (00:30)
[2021-02-11] MEDS: lamoTRIgine 100 MG TAB PO SCH (08:47)
[2021-02-11] MEDS: CEROVITE ADV FORMULA TAB PO SCH (08:47)
[2021-02-11] MEDS: FOLIC ACID 1 MG in SYRINGE 9.8 ML IV SCH (08:47)
[2021-02-11] MEDS: SUCRALFATE 1 GM TAB PO SCH ×4 (08:47→20:47)
[2021-02-11] MEDS: LITHIUM CARBONATE SLOW REL 300 MG TAB PO SCH (08:47)
[2021-02-11] MEDS: PANTOprazole 40 MG in SYRINGE 0 ML IV SCH (08:47)
[2021-02-11] MEDS: THIAMINE HCL 200 MG in SODIUM CHLORIDE 0.9% 50 ML IV SCH (09:02)
--- NOTE | 2021-02-11 10:30 | Hospitalist Progress Note ---
Date of Service February 11, 2021 Assessment & Plan (1) Anorexia nervosa, binge eating/purging type: 20 y/o F PMHx of anorexia nervosa and bipolar 1 disorder presented after 2 weeks of no food intake other than diet coke, purging by vomiting 3x/day, and 11lb weight loss over 1 week for medical stabilization and refeeding. Anorexia nervosa, binge eating/purging type: Currently restricting for 2 wks Severe protein calorie malnutrition Monitor and encourage PO intake No further concern of refeeding syndrome Psychiatry consulted Bed search in process [address] 1:[address] 02/11: psychiatry willing to consider discharge if an appropriate safety plan can be arranged between patient's parents and Dr. De Jesus, pt's outpatient eating disorder physician Continue MVI, Thiamine, Folate. Continue blinded weights, continue restroom restrictions (no restroom use during meals or for 30 minutes after meal completion) Prolonged QT interval: On 02/03 admission to [facility], QT interval was 578 with K of 2.9. 02/07 at [facility], QTc was 547, K of 2.7. QT prolongation multifactorial with combination of hypokalemia, malnutrition, ziprasidone Ziprasidone resumed. Repeat EKG 02/10 and 02/11 - normal. Electrolytes in normal range. Encourage PO intake. Bipolar disorder: Continue lamotrigine 100mg daily, Ziprasidone 160mgs daily, and prn hydroxyzine 100mgs daily. Resumed [place] dosed at 600mg QD currently (prescribed home dose 300mg am, 300mgs at noon and 600mgs at night, patient reports self-titration to 600mg QD for 2-3 weeks prior to admission). Suspect she decreased lithium dose since she was restricting her diet. [place] level 02/09 therapeutic at 0.6 Psychiatry following. -If agitated - to give 5mgs Haldol and 2mgs lorazepam - per psych recommendation. Haldol 5mg IV q8h prn added for severe agitation, to be given if verbal deescalation and prn hydroxyzine have failed, if patient is a threat to herself or others Low normal EF Echo on 02/08 was normal, with EF of 50-55%, and no valvular disease. Symptoms likely from esophagitis Per Cardio - establish with an outpatient cat dog or other pet groomer due to low-normal EF of 50-55%, Chest pain sec to Esophagitis: Sec to frequent purging. Pantoprazole sodium 40mg IV and sucralfate 1mg PO QID. Pain resolved. Paresthesias: Resolved. On admission B12 was 502, TSH 2.8,. Likely due to severe hypokalemia FENGI: diet per nutrition CODE STATUS: full code DVT ppx: not indicated - low risk ISOLATION: none HELD HOME MEDS: none CONSULTS: psychiatry, nutrition, cardiology DISPO: pending inpatient eating disorder placement (2) Severe protein-calorie malnutrition: (3) Prolonged QT interval: (4) Hypokalemia: (5) Bipolar disorder: (6) Chest pain: (7) Esophagitis: (8) Paresthesias: (9) DVT prophylaxis: Admission and Anticipated Discharge Date Admission Date: February 07, 2021 Supervising Physician Co-Signing Physician Notes Resident Physician Supervision Note: I independently interviewed and examined the patient and verified the rudolph history and physical, reviewed labs and image studies, discussed the case with the resident Dr. Singh and agree with the findings and care plan. Subjective Patient seen this morning. Feels "okay", is cooperative and interactive despite not wanting to be here. Patient had eggs and toast this morning. Reports minimal anxiety during or after the meal. Endorses thoughts but no current desire to purge. Denies chest pain, SOB, lightheadedness, dizziness, palpitations, nausea, vomiting, racing thoughts, auditory/visual hallucinations, thoughts of harming herself or others. 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 Review of Systems Review of Systems: See HPI Physical Exam Physical Exam: Tired-appearing thin female, no acute distress NCAT, MMM CV: regular rhythm, rate 70s, no murmur noted Resp: CTABL Abd: soft, nontender Appearance: fairly-groomed, wearing hospital gown Behavior: calm, cooperative, interactive, eye contact good Mood: "okay" Affect: pleasant, affect congruent with mood Speech: appropriate rate, quantity and volume Thought process: linear, coherent, goal-directed Thought content: appropriate to topic of discussion; denies SI/HI Cognition: alert, focused, abstraction intact Insight: fair (understands events that led to and required hospitalization, but limited/fair insight into the severity of her eating disorder) Judgment: fair Results & Data Results & Data ([facility]) Vital Signs (Past 12 Hours) Vital Signs Temp Pulse Pulse Resp BP Pulse Ox 02/11/21 08:50 36.8 C 72 18 98/62 L 99 02/11/21 07:09 68 02/11/21 04:00 37.0 C 71 18 106/68 98 02/11/21 00:12 77 Resident Activity Tracking Resident Involvement: Resident Care Provided Care Provided: Adult Hospital Medicine (1) Bipolar disorder Active/Remission status: currently active Current bipolar episode type: manic Current episode severity: moderate Qualified Code(s): F31.12 - Bipolar disorder, current episode manic without psychotic features, moderate (2) Chest pain Chest pain type: unspecified Qualified Code(s): R07.9 - Chest pain, unspecified
[2021-02-11 11:15] LABS: BUN Creatinine Ratio 9.2 (10-20); Calcium 8.6 mg/dl (8.5-10.1); Creatinine Clr Calc Pharmacy 82.1 ml/min; Est GFR (African American) 102.4; Est GFR (Non-African American) 88.4; Magnesium 2.5 mg/dl (1.8-2.4); Potassium 4.1 mmol/L (3.5-5.1)
[2021-02-11] MEDS: hydrOXYzine HCl 25 MG TAB PO PRN (16:44)
[2021-02-11] MEDS ORDERED: HALOPERIDOL LACTATE 5 MG/ML 1 ML VIAL IM PRN (16:59)
--- NOTE | 2021-02-11 17:41 | Psychiatric Progress Note ---
Date of Service February 11, 2021 Impression / Recommendations Impression Supervising psychiatrist was directly involved in review and discussion of the patient's case and participated in medical decision making regarding treatment recommendations. INITIAL RECOMMENDATIONS: 02/08/2021 - Psychiatric consultation requested by our hospitalist service to evaluate the patient for history of eating disorder and bipolar I disorder. Pt known to our service from two previous admissions to our unit in 2019, related to her bipolar I disorder symptoms. Pt was reportedly sent for hospitalization from her case management specialist, Dr. De Jesus - reportedly evading these recommendations a few days prior. - Recommend discontinuation of ziprasidone, as this medication is well-known to contribute to QTc prolongation, which is not a new issue for this patient. Response to medication is also highly related to appropriate caloric intake, which patient reports she has not been achieving for several weeks. Would strongly consider cardiology consultation before considering this medication (or other antipsychotic agents) again in this particular patient. - Given that we are discontinuing one of patient's mood stabilization agents, would suggest continuing lithium 600mg daily (will reach out to outpatient psychiatrist as this reported dose is inconsistent with [facility] records - TID dosing of 300mg/300mg/600mg). Would advise repeat lithium level if patient de monstrates any signs of lithium toxicity, which may be in the setting of poor nutritional intake. - Continue lamotrigine home dose of 100mg daily, titration could be consider for additional mood stabilization properties. It is reported that patient's hydroxyzine was discontinued during her hospitalization in [place], and would advise consistency with this change as hydroxyzine can also contribute to QTc prolongation. - Pt was uncooperative with assessment today, unfortunately verbalizing some frustrations related to her past admissions to our unit. Pt was informed of the above medication recommendations and became upset. Pt demanded to speak with her nurse, suggested she would leave the hospital, and refused to continue conversation with this provider. - 302 petitioning statement was completed by this provider related to concerns for restrictive eating behaviors and very poor nutritional intake for the past 3 weeks. >10lb weight loss, concerning electrolyte imbalance (p otassium of 2.7 on presentation), prolonged QTc interval (547 on presentation), and inability to safely be continued on the medication regimen that stabilizes her bipolar I disorder symptoms. Pt should not be permitted to leave the hospital AMA, 302 warrant can be pursued by calling Crisis services if patient should request this. - Appreciate the opportunity to participate in the care of this patient. Please reach out to our service with any additional questions or updates. - See problem list below for ongoing recommendations - (1) Anorexia nervosa, binge eating/purging type: 02/09/21 - Patient on a 302 warrant for anorexia with acute decompensation, 11 pound weight loss in 1 week, no food for 4-5 days, resulting in potassium 2.7 and QTC as high as 578. Her outpatient eating disorder physician had recommended inpatient hospitalization due to these concerns on February 03, and although the patient agreed to go to the ER, she instead went home to [place]. She then saw her outpatient psychiatrist over the weekend and did not inform him of her medical instability, and was referred to the ER as she was still not eating, had lost additional weight, and was hypokalemic with prolonged QTC after returning to her outpatient eating disorder physician 02/07/21. She has been labile, agitated, and poorly cooperative here in the hospital, unwilling to engage in discussions of her medications and the safety concerns expressed by her outpatient clinicians, and after discussion with them agree that involuntary inpatient eating disorder treatment is indicated. She is now on a completed 302 and we will assist with referrals to eating disorder units. 02/11/21 - Continue efforts to refer to inpatient eating disorder programs. Pt remains on a completed 302. She is refusing to consider voluntary treatment for inpatient eating disorder programs. On last report there were still several psychiatric units reviewing referrals for possible admission. - In general, patient's nutritional intake has improved and she has gained some weight since her initial admission. Electrolytes improved. She is reporting far less emotional distress which is allowing her to focus on her eating. - Pt states that she is willing to engage her parents in safety planning conversations regarding monitoring of her eating disorder on discharge. - Coordinated care with her outpatient PCP/case management specialist and reviewed bed search update. It was reported that her current specialist is hoping to coordinate with the patient's PCP in [place] regarding transition of care, as patient will be returning with her parents to [place]. She is happy to hear that the patient's eating is improved and is willing to consider discharge from the medical floor if an adequate safety plan can be arranged regarding the patient's eating disorder behaviors. (2) Mood disorder: 02/09 Complex case, previously well controlled on ziprasidone, but given the risk of QTC prolongation and this medication and her unstable eating disorder, it is contraindicated in her outpatient psychiatrist no longer feels comfortable prescribing it. The inpatient hospitalist service indicated the instrumentation and controls technician felt it was safe to give her as long as she was on the cardiac nurse practitioner, so if she is complying with that while on the unit awaiting placement, it could be continued, but ultimately a safer medication will likely need to be agreed upon by the patient and her outpatient psychiatrist. She was unwilling to engage in a discussion of these options today. [place] is also a cardiac irritant which is concerning given her chronic eating disorder and poor treatment adherence. There appears to be a component of maladaptive coping which is complicating the case and preventing the patient from engaging with treatment staff and working towards a safe discharge plan. 02/11 - We continue to suggest that ziprasidone be cross-titrated to a mood stabilization agent or antipsychotic medication with reduced risk of QTc prolongation. Pt is unwilling to engage in conversation about a possibly safer alternative. She was made aware that it cannot be guaranteed that her outpatient psychiatrist or future providers will be willing to continue this medication. - Pt verbalized understanding of the risks discussed and remains unwilling to consider changing medications as she does feel the ziprasidone has been the most effective medication at managing her "psychosis". We do have the benefit of a cardiology consultation as well as reports from the patient that she is using the medication as a motivating factor to improve her eating behavior so that she can remain on the medication. Given long-term risk, ideally an alternative plan would still be determined. - Will continue to address acute safety concerns, which are primarily related to her eating disorder history, and work to develop an appropriate discharge plan i n the event that an eating disorder unit cannot be found. - She continues to deny suicidal ideation or acute mood concerns. She is future oriented in conversation. Interval History Identifying Information 20-year-old female admitted medically on 02/07/2021 after presenting to the ED upon recommendation from her PCP/case management specialist due to restricting behavior and weight loss. Psychiatric consultation was requested by our hospitalist team to evaluate patient for history of eating disorder and bipolar I disorder diagnoses. Chief Complaint "I'm doing ok." Review of Systems Notes Constitutional: denied Cardiovascular: denied Respiratory: denied Gastrointestinal: denied Neurological: denied Psychiatric: denies symptoms other than stated above Total of at least 10 systems reviewed, pertinent positives as above and in HPI. Subjective Subjective Patient's case was reviewed and discussed during morning report with psychiatric nurse liaison and supervising psychiatrist. Staff report the patient has been cooperative with treatment and demonstrating appropriate behavior on the floor. Bed search has been ongoing for inpatient eating disorder treatment, many facilities without bed availability or not able to accommodate involuntary commitments. Pt was seen today to provide an update on status and assess progress since admission. Pt denied any acute concerns. She reported feeling proud that her eating behaviors have improved and denied any suicidal ideation or acute mood concerns. We reviewed concerns regarding ongoing use of ziprasidone and patient was offered to consider an alternative agent. Pt verbalized understanding of risks discussed and argued that being able to continue the ziprasidone is a motivating factor for her to maintain progress with regard to her eating disorder treatment. She is unwilling to consider our recommendation that the medication be switched. Pt is permitting ongoing coordination with her outpatient case management specialist. She denied other needs from our service at this time. Physical Exam Psychiatric Orientation: alert, oriented x 3 and cooperative (at least superficially ) Apperance: appropriately dressed, appropriately groomed and appeared stated age Eye Contact: + fair eye contact Motor Behavior: no abnormal motor movements (observed while laying in bed) Speech: normal rate/rhythm/volume of speech Affect: + blunted affect (subdued but with a mildly irritable edge) Mood: no depressed mood and no anxious mood Thought Process: goal directed thought process and clear/coherent thought process though somewhat rigid in her thinking, motivated toward her own personal goals of care Thought Content: + cognitive distortions (most consistent with personality disorder traits); no hopelessness and no worthlessness Suicidal Thoughts: denies suicidal thoughts, denies suicidal plan and denies suicidal intent Homicidal Thoughts: denies homicidal thoughts Hallucinations: no auditory hallucinations and no visual hallucinations Cognition: attention grossly intact and language grossly intact Estimated Intelligence: consistent with education level Insight: + limited insight Judgement: + limited judgement Vital Signs (Past 24 Hours) Last Vital Signs Temp 37.1 C 02/11/21 15:40 Pulse 94 H 02/11/21 15:40 Resp 18 02/11/21 15:40 BP 103/70 02/11/21 15:40 Pulse Ox 97 02/11/21 15:40 Results & Data ([facility]) Laboratory Results Laboratory Results - last 24 hr 02/11/21 09:57 Sodium 141 Potassium 4.1 Chloride 110 H Carbon Dioxide 28 Anion Gap 3.0 BUN 8 Creatinine 0.92 Est Cr Clr Drug Dosing 82.1 Est GFR ( Amer) 102.4 Est GFR (Non-Af Amer) 88.4 BUN/Creatinine Ratio 9.2 L Glucose 87 Calcium 8.6 Magnesium 2.5 H Current Inpatient Medications Current Inpatient Medications: Current Inpatient Medications Haloperidol Lactate (Haloperidol Lactate 5 Mg/Ml 1 Ml Vial) 5 mg IM Q8H PRN PRN Reason: Agitation Stop: 03/13/21 16:58 Hydroxyzine HCl (Hydroxyzine Hcl 25 Mg Tab) 100 mg PO DAILY PRN PRN Reason: Anxiety Stop: 03/10/21 20:23 Last Admin: 02/11/21 16:44 Dose: 100 mg Documented by: Thiamine HCl 200 mg/ Sodium (Chloride) 52 mls @ 208 mls[facility] [place] Stop: 03/10/21 08:59 Last Infusion: 02/11/21 09:22 Dose: Infused Documented by: Folic Acid 1 mg/ Syringe 10 mls @ 5 mls/min IV QAM [facility] Stop: 03/10/21 08:59 Last Admin: 02/11/21 08:47 Dose: 5 mls/min Documented by: Pantoprazole Sodium 40 mg/ (Syringe) 10 mls @ 5 mls/min IV DAILY [facility] Stop: 03/14/21 08:59 Lamotrigine (Lamotrigine 100 Mg Tab) 100 mg PO DAILY@0900 [facility] Stop: 03/10/21 08:59 Last Admin: 02/11/21 08:47 Dose: 100 mg Documented by: [place] Carbonate ([place] Carbonate Slow Rel 300 Mg Tab) 600 mg PO DAILY [facility] Stop: 03/11/21 10:14 Last Admin: 02/11/21 08:47 Dose: 600 mg Documented by: Melatonin (Melatonin 3 Mg Tab) 3 mg PO HS PRN PRN Reason: Sleep Stop: 03/13/21 00:29 Multivitamins/Minerals (Cerovite Adv Formula Tab) 1 tab PO QAM [facility] Stop: 03/09/21 16:59 Last Admin: 02/11/21 08:47 Dose: 1 tab Documented by: Sucralfate (Sucralfate 1 Gm Tab) 1 gm PO QID [facility] Stop: 03/10/21 12:59 Last Admin: 02/11/21 16:44 Dose: 1 gm Documented by: Ziprasidone (Ziprasidone Hcl 80 Mg Cap) 160 mg PO DAILY@1800 [facility] Stop: 03/09/21 17:59 Last Admin: 02/10/21 17:09 Dose: 160 mg Documented by: Post Discharge Appointments Primary Care Physician Name Of Family Doctor: Dr. Enma De Jesus @ [facility] Date of Appointment with PCP: 02/17/21 Time of Appointment with PCP: 11 am Provider Appointment Comment: in person Primary Care Release of Information: Obtained, Reviewed and Signed
[2021-02-11] MEDS: ziprasidone HCL 80 MG CAP PO SCH (18:43)
[2021-02-12 05:29] LABS: Appearance Urine Clear (Clear); Bilirubin Urine Negative (Negative); Blood Urine Negative (Negative); Color Urine Yellow; Glucose Urine UA Negative (Negative); Ketones Urine Negative (Negative); Leukocyte Esterase Urine Negative (Negative); Nitrite Urine Negative (Negative); Protein Urine Negative (Negative); Specific Gravity Urine 1.022 (1.000-1.030); Urobilinogen Urine Negative (Negative)
[2021-02-12 06:58] LABS: Albumin Level 3.4 gm/dl (3.4-5.0); BUN Creatinine Ratio 15.9 (10-20); Calcium 8.8 mg/dl (8.5-10.1); Creatinine Clr Calc Pharmacy 85.1 ml/min; Est GFR (African American) 106.6; Magnesium 2.3 mg/dl (1.8-2.4); Potassium 3.9 mmol/L (3.5-5.1)
[2021-02-12 07:01] LABS: Albumin Globulin Ratio 1.2 (0.9-2); Bilirubin,Total 0.2 mg/dl (0.2-1); Globulin 2.8 gm/dl (2.5-4.0); Phosphorus 4.4 mg/dl (2.5-4.9); Total Protein 6.2 gm/dl (6.4-8.2)
--- NOTE | 2021-02-12 07:21 | Hospitalist Progress Note ---
Date of Service February 12, 2021 Assessment & Plan (1) Anorexia nervosa, binge eating/purging type: 20 y/o F PMHx of anorexia nervosa and bipolar 1 disorder presented after 2 weeks of no food intake other than diet coke, purging by vomiting 3x/day, and 11lb weight loss over 1 week for medical stabilization and refeeding. Stable, 5kg weight gain since admission. Anorexia nervosa, binge eating/purging type: Currently restricting for 2 wks Severe protein calorie malnutrition Monitor and encourage PO intake No further concern of refeeding syndrome Psychiatry consulted Bed search on hold [address] 1:[address] 02/11: psychiatry willing to consider discharge if an appropriate safety plan can be arranged between patient's parents and Dr. De Jesus pt's outpatient eating disorder physician 02/12: 5kg weight gain since admission Continue MVI, Thiamine, Folate. Continue blinded weights, continue restroom restrictions (no restroom use during meals or for 30 minutes after meal completion) Prolonged QT interval: On 02/03 admission to [facility], QT interval was 578 with K of 2.9. 02/07 at [facility], QTc was 547, K of 2.7. QT prolongation multifactorial with combination of hypokalemia, malnutrition, ziprasidone Ziprasidone resumed. Repeat EKG 02/10 and 02/11 - normal. Electrolytes in normal range. Encourage PO intake. Cardiac monitoring discontinued 02/12 given stable and steady clinical improvement and weight gain, bradycardia resolved Bipolar disorder: Continue lamotrigine 100mg daily, Ziprasidone 160mgs daily, and prn hydroxyzine 100mgs daily. Resumed Fraser dosed at 600mg QD currently (prescribed home dose 300mg am, 300mgs at noon and 600mgs at night, patient reports self-titration to 600mg QD for 2-3 weeks prior to admission). Suspect self dose decrease of lithium since she was restricting. Fraser level 02/09 therapeutic at 0.6 Psychiatry following. -If agitated - to give 5mgs Haldol and 2mgs lorazepam - per psych recommendation. Haldol 5mg IM q8h prn added for severe agitation, to be given if verbal deescalation and prn hydroxyzine have failed, if patient is a threat to herself or others Low normal EF Echo on 02/08 showed low-normal EF of 50-55%, and no valvular disease. Per Cardio - establish with an outpatient senior information security consultant due to low-normal EF Chest pain sec to Esophagitis: Likely secondary to esophagitis from frequent purging. Pantoprazole sodium 40mg IV and sucralfate 1mg PO QID. Pain resolved. Paresthesias: Resolved. On admission B12 was 502, TSH 2.8,. Likely due to severe hypokalemia FENGI: diet per nutrition CODE STATUS: full code DVT ppx: not indicated - low risk ISOLATION: none HELD HOME MEDS: none CONSULTS: psychiatry, nutrition, cardiology DISPO: inpatient eating disorder placement vs discharge home to family with safety plan, tentatively for 02/14 unless a treatment facility accepts patient before then (2) Severe protein-calorie malnutrition: (3) Prolonged QT interval: (4) Hypokalemia: (5) Bipolar disorder: (6) Chest pain: (7) Esophagitis: (8) Paresthesias: (9) DVT prophylaxis: Admission and Anticipated Discharge Date Admission Date: February 07, 2021 Supervising Physician Co-Signing Physician Notes Resident Physician Supervision Note: I independently interviewed and examined the patient and verified the rudolph history and physical, reviewed labs and image studies, discussed the case with the resident Dr. Singh and agree with the findings and care plan. Subjective Today, patient feels well physically but is frustrated with a few things - her IV fell out and she doesn't want it replaced, she wants to be off cardiac monitoring, and she wants her bathroom restrictions removed. Regarding bathroom restrictions, says the team should trust her since she's been eating well and has no thoughts of purging. I reminded her these restrictions were so that we can monitor what goes on while she's under our care, that the restrictions are not punitive, and will remain in place while she is here. She then said that if we don't remove the bathroom restrictions, she won't drink fluid. I told her that it's okay to leave the IV out and cardiac monitoring off as long as she keeps her oral fluid intake up, and reminded her that her willingness and ability to maintain oral intake is critical if she is to be discharged home to family with safety plan. Continues to endorse minimal anxiety during/after meals, denies chest pain, SOB, lightheadedness, dizziness, palpitations, nausea, vomiting, racing thoughts, auditory/visual hallucinations, thoughts of harming herself or others. Review of Systems Review of Systems: See HPI Physical Exam Physical Exam: Well-appearing thin female, no acute distress NCAT, MMM CV: regular rhythm, no murmur Lungs CTABL Appearance: fairly-groomed, wearing hospital gown, sitting up cross-legged in bed Behavior: reluctantly cooperative, eye contact fair Mood: "fine" Affect: frustrated, affect stable Speech: appropriate rate, quantity and volume Thought process: linear, coherent Thought content: appropriate to topic of discussion; denies SI/HI Cognition: alert, focused, abstraction intact Insight: fair Judgment: poor (threatening to refuse PO fluid intake in an attempt to get bathroom restrictions lifted) Results & Data Results & Data ([facility]) Vital Signs (Past 12 Hours) Vital Signs Temp Pulse Pulse Resp BP Pulse Ox 02/12/21 07:16 36.6 C 64 16 100/63 97 02/12/21 07:00 63 02/12/21 03:38 36.7 C 65 16 95/65 L 98 02/11/21 23:39 69 02/11/21 22:58 36.9 C 70 18 101/51 L 99 Resident Activity Tracking Resident Involvement: Resident Care Provided Care Provided: Adult Hospital Medicine (1) Bipolar disorder Active/Remission status: currently active Current bipolar episode type: manic Current episode severity: moderate Qualified Code(s): F31.12 - Bipolar disorder, current episode manic without psychotic features, moderate (2) Chest pain Chest pain type: unspecified Qualified Code(s): R07.9 - Chest pain, unspecified
--- NOTE | 2021-02-12 07:23 | Electrocardiogram Report ---
Test Reason : Blood Pressure : / mmHG Vent. Rate : 083 BPM Atrial Rate : 083 BPM P-R Int : 136 ms QRS Dur : 084 ms QT Int : 390 ms P-R-T Axes : 063 065 046 degrees QTc Int : 458 ms Normal sinus rhythm Normal ECG When compared with ECG of 10-FEB-2021 09:15, No significant change was found Confirmed by Gibson Faust ([id number]) on 02/12/2021 7:22:31 AM Referred By: Ed Thompson Confirmed By:Gibson Faust
[2021-02-12] MEDS: lamoTRIgine 100 MG TAB PO SCH (08:21)
[2021-02-12] MEDS: SUCRALFATE 1 GM TAB PO SCH ×5 (08:21→21:04)
[2021-02-12] MEDS: FOLIC ACID 1 MG in SYRINGE 9.8 ML IV SCH (08:22)
[2021-02-12] MEDS: CEROVITE ADV FORMULA TAB PO SCH (08:22)
[2021-02-12] MEDS: LITHIUM CARBONATE SLOW REL 300 MG TAB PO SCH (08:22)
[2021-02-12] MEDS ORDERED: PANTOprazole 40 MG in SYRINGE 0 ML IV SCH (09:00)
[2021-02-12] MEDS: THIAMINE HCL 200 MG in SODIUM CHLORIDE 0.9% 50 ML IV SCH (09:26)
--- NOTE | 2021-02-12 12:16 | Psychiatric Progress Note ---
Date of Service February 12, 2021 Impression / Recommendations Impression Supervising psychiatrist was directly involved in review and discussion of the patient's case and participated in medical decision making regarding treatment recommendations. INITIAL RECOMMENDATIONS: 02/08/2021 - Psychiatric consultation requested by our hospitalist service to evaluate the patient for history of eating disorder and bipolar I disorder. Pt known to our service from two previous admissions to our unit in 2019, related to her bipolar I disorder symptoms. Pt was reportedly sent for hospitalization from her behavioral intervention specialist, Dr. De Jesus - reportedly evading these recommendations a few days prior. - Recommend discontinuation of ziprasidone, as this medication is well-known to contribute to QTc prolongation, which is not a new issue for this patient. Response to medication is also highly related to appropriate caloric intake, which patient reports she has not been achieving for several weeks. Would strongly consider cardiology consultation before considering this medication (or other antipsychotic agents) again in this particular patient. - Given that we are discontinuing one of patient's mood stabilization agents, would suggest continuing lithium 600mg daily (will reach out to outpatient psychiatrist as this reported dose is inconsistent with [facility] records - TID dosing of 300mg/300mg/600mg). Would advise repeat lithium level if patient d emonstrates any signs of lithium toxicity, which may be in the setting of poor nutritional intake. - Continue lamotrigine home dose of 100mg daily, titration could be consider for additional mood stabilization properties. It is reported that patient's hydroxyzine was discontinued during her hospitalization in [place], and would advise consistency with this change as hydroxyzine can also contribute to QTc prolongation. - Pt was uncooperative with assessment today, unfortunately verbalizing some frustrations related to her past admissions to our unit. Pt was informed of the above medication recommendations and became upset. Pt demanded to speak with her nurse, suggested she would leave the hospital, and refused to continue conversation with this provider. - 302 petitioning statement was completed by this provider related to concerns for restrictive eating behaviors and very poor nutritional intake for the past 3 weeks. >10lb weight loss, concerning electrolyte imbalance ( potassium of 2.7 on presentation), prolonged QTc interval (547 on presentation), and inability to safely be continued on the medication regimen that stabilizes her bipolar I disorder symptoms. Pt should not be permitted to leave the hospital AMA, 302 warrant can be pursued by calling Crisis services if patient should request this. - Appreciate the opportunity to participate in the care of this patient. Please reach out to our service with any additional questions or updates. - See problem list below for ongoing recommendations - (1) Anorexia nervosa, binge eating/purging type: 02/09/21 - Patient on a 302 warrant for anorexia with acute decompensation, 11 pound weight loss in 1 week, no food for 4-5 days, resulting in potassium 2.7 and QTC as high as 578. Her outpatient eating disorder physician had recommended inpatient hospitalization due to these concerns on February 03, and although the patient agreed to go to the ER, she instead went home to [place]. She then saw her outpatient psychiatrist over the weekend and did not inform him of her medical instability, and was referred to the ER as she was still not eating, had lost additional weight, and was hypokalemic with prolonged QTC after returning to her outpatient eating disorder physician 02/07/21. She has been labile, agitated, and poorly cooperative here in the hospital, unwilling to engage in discussions of her medications and the safety concerns expressed by her outpatient clinicians, and after discussion with them agree that involuntary inpatient eating disorder treatment is indicated. She is now on a completed 302 and we will assist with referrals to eating disorder units. 02/11/21 - Continue efforts to refer to inpatient eating disorder programs. Pt remains on a completed 302. She is refusing to consider voluntary treatment for inpatient eating disorder programs. On last report there were still several psychiatric units reviewing referrals for possible admission. - In general, patient's nutritional intake has improved and she has gained some weight since her initial admission. Electrolytes improved. She is reporting far less emotional distress which is allowing her to focus on her eating. - Pt states that she is willing to engage her parents in safety planning conversations regarding monitoring of her eating disorder on discharge. - Coordinated care with her outpatient PCP/behavioral intervention specialist and reviewed bed search update. It was reported that her current specialist is hoping to coordinate with the patient's PCP in [place] regarding transition of care, as patient will be returning with her parents to [place]. She is happy to hear that the patient's eating is improved and is willing to consider discharge from the medical floor if an adequate safety plan can be arranged regarding the patient's eating disorder behaviors. 02/12/21 - Pt reports ongoing improvement with nutritional intake, electrolytes continue to be stable. Ongoing bed search for inpatient eating disorder treatment, though referrals have been declined by appropriate facilities thus far. - Reviewed with patient need to focus on discharge/safety planning in the event that an appropriate facility is not found. Pt is maintaining medical stability since admission. She agreed to involve parents in safety/discharge planning efforts - including accountability related to her eating disorder treatment. - Anticipate working toward a safe and appropriate discharge plan for 02/14 unless an appropriate facility can be found before that time. Pt has been more cooperative with safety planning efforts, denies SI and HI. (2) Mood disorder: 02/09 Complex case, previously well controlled on ziprasidone, but given the risk of QTC prolongation and this medication and her unstable eating disorder, it is contraindicated in her outpatient psychiatrist no longer feels comfortable prescribing it. The inpatient hospitalist service indicated the assistant paralegal felt it was safe to give her as long as she was on the rn cardiac, so if she is complying with that while on the unit awaiting placement, it could be continued, but ultimately a safer medication will likely need to be agreed upon by the patient and her outpatient psychiatrist. She was unwilling to engage in a discussion of these options today. [place] is also a cardiac irritant which is concerning given her chronic eating disorder and poor treatment adherence. There appears to be a component of maladaptive coping which is complicating the case and preventing the patient from engaging with treatment staff and working towards a safe discharge plan. 02/11 - We continue to suggest that ziprasidone be cross-titrated to a mood stabilization agent or antipsychotic medication with reduced risk of QTc prolongation. Pt is unwilling to engage in conversation about a possibly safer alternative. She was made aware that it cannot be guaranteed that her outpatient psychiatrist or future providers will be willing to continue this medication. - Pt verbalized understanding of the risks discussed and remains unwilling to consider changing medications as she does feel the ziprasidone has been the most effective medication at managing her "psychosis". We do have the benefit of a cardiology consultation as well as reports from the patient that she is using the medication as a motivating factor to improve her eating behavior so that she can remain on the medication. Given long-term risk, ideally an alternative plan would still be determined. - Will continue to address acute safety concerns, which are primarily related to her eating disorder history, and work to develop an appropriate discharge plan in the event that an eating disorder unit cannot be found. - She continues to deny suicidal ideation or acute mood concerns. She is future oriented in conversation. 02/12 - Continue as above. No episodes of significant emotional dysregulation. Mood is reportedly stable, no signs or symptoms of psychosis. Interval History Identifying Information 20-year-old female admitted medically on 02/07/2021 after presenting to the ED upon recommendation from her PCP/behavioral intervention specialist due to restricting behavior and weight loss. Psychiatric consultation was requested by our hospitalist team to evaluate patient for history of eating disorder and bipolar I disorder diagnoses. Chief Complaint "I'm good." Review of Systems Notes Constitutional: denied Cardiovascular: denied Respiratory: denied Gastrointestinal: denied Neurological: denied Psychiatric: denies symptoms other than stated above Total of at least 10 systems reviewed, pertinent positives as above and in HPI. Subjective Subjective Patient's case was reviewed and discussed during morning report. No reported incidents over night. Pt was seen today to assess progress since admission. Pt states she is doing well and denies any acute concerns. Pt was updated that an there has not yet been an appropriate accepting facility identified. Pt is more cooperative recently and more willing to engage with our service regarding safety and discharge planning in the event that an appropriate facility cannot be found. We will provide patient with a written safety plan - which we discussed modifying to more directly target her restrictive and purging behaviors. Pt was agreeable with completing this and reviewing with staff. Pt denied SI/HI, hallucinations, or signs of psychosis. She denied other needs or concerns at this time. Physical Exam Psychiatric Orientation: alert, oriented x 3 and cooperative Apperance: appropriately dressed, appropriately groomed and appeared stated age Eye Contact: good eye contact Motor Behavior: no abnormal motor movements (observed to be sitting cross-legged on bed) Speech: normal rate/rhythm/volume of speech Affect: euthymic affect Mood: no depressed mood and no anxious mood Thought Process: goal directed thought process Thought Content: + cognitive distortions (consistent with personality disorder); no hopelessness and no worthlessness Suicidal Thoughts: denies suicidal thoughts, denies suicidal plan and denies suicidal intent Homicidal Thoughts: denies homicidal thoughts Hallucinations: no auditory hallucinations and no visual hallucinations Cognition: attention grossly intact and language grossly intact Estimated Intelligence: consistent with education level Insight: + fair insight Judgement: + fair judgement Vital Signs (Past 24 Hours) Last Vital Signs Temp 36.6 C 02/12/21 07:16 Pulse 64 02/12/21 07:16 Resp 16 02/12/21 07:16 BP 100/63 02/12/21 07:16 Pulse Ox 97 02/12/21 07:16 Results & Data ([facility]) Laboratory Results Laboratory Results - last 24 hr 02/12/21 02/12/21 05:30 Unknown Sodium 141 Potassium 3.9 Chloride 110 H Carbon Dioxide 27 Anion Gap 4.0 BUN 14 D Creatinine 0.89 Est Cr Clr Drug Dosing 85.1 Est GFR ( Amer) 106.6 Est GFR (Non-Af Amer) 92.0 BUN/Creatinine Ratio 15.9 Glucose 79 Calcium 8.8 Phosphorus 4.4 Magnesium 2.3 Total Bilirubin 0.2 AST 7 L ALT 15 Alkaline Phosphatase 34 L Total Protein 6.2 L Albumin 3.4 Globulin 2.8 Albumin/Globulin Ratio 1.2 Urine Color Yellow Urine Appearance Clear Urine pH 7.0 Ur Specific [place] 1.022 Urine Protein Negative Urine Glucose (UA) Negative Urine Ketones Negative Urine Blood Negative Urine Nitrite Negative Urine Bilirubin Negative Urine Urobilinogen Negative Ur Leukocyte Esterase Negative Current Inpatient Medications Current Inpatient Medications: Current Inpatient Medications Haloperidol Lactate (Haloperidol Lactate 5 Mg/Ml 1 Ml Vial) 5 mg IM Q8H PRN PRN Reason: Agitation Stop: 03/13/21 16:58 Hydroxyzine HCl (Hydroxyzine Hcl 25 Mg Tab) 100 mg PO DAILY PRN PRN Reason: Anxiety Stop: 03/10/21 20:23 Last Admin: 02/11/21 16:44 Dose: 100 mg Documented by: Thiamine HCl 200 mg/ Sodium (Chloride) 52 mls @ 208 mls/hr IV QAM [facility] Stop: 03/10/21 08:59 Last Admin: 02/12/21 09:26 Dose: Not Given Documented by: Folic Acid 1 mg/ Syringe 10 mls @ 5 mls/min IV QAM [facility] Stop: 03/10/21 08:59 Last Admin: 02/12/21 08:22 Dose: 5 mls/min Documented by: Pantoprazole Sodium 40 mg/ (Syringe) 10 mls @ 5 mls/min IV DAILY [facility] Stop: 03/14/21 08:59 Last Admin: 02/12/21 08:22 Dose: 5 mls/min Documented by: Lamotrigine (Lamotrigine 100 Mg Tab) 100 mg PO DAILY@0900 [facility] Stop: 03/10/21 08:59 Last Admin: 02/12/21 08:21 Dose: 100 mg Documented by: [place] Carbonate ([place] Carbonate Slow Rel 300 Mg Tab) 600 mg PO DAILY [facility] Stop: 03/11/21 10:14 Last Admin: 02/12/21 08:22 Dose: 600 mg Documented by: Melatonin (Melatonin 3 Mg Tab) 3 mg PO HS PRN PRN Reason: Sleep Stop: 03/13/21 00:29 Multivitamins/Minerals (Cerovite Adv Formula Tab) 1 tab PO QAM [facility] Stop: 03/09/21 16:59 Last Admin: 02/12/21 08:22 Dose: 1 tab Documented by: Sucralfate (Sucralfate 1 Gm Tab) 1 gm PO QID [facility] Stop: 03/10/21 12:59 Last Admin: 02/12/21 08:21 Dose: 1 gm Documented by: Ziprasidone (Ziprasidone Hcl 80 Mg Cap) 160 mg PO DAILY@1800 [facility] Stop: 03/09/21 17:59 Last Admin: 02/11/21 18:43 Dose: 160 mg Documented by: Post Discharge Appointments Primary Care Physician Name Of Family Doctor: Dr. Enma De Jesus @ [facility] Date of Appointment with PCP: 02/17/21 Time of Appointment with PCP: 11 am Provider Appointment Comment: in person Primary Care Release of Information: Obtained, Reviewed and Signed
[2021-02-12] MEDS: hydrOXYzine HCl 25 MG TAB PO PRN (16:40)
[2021-02-12 17:01] LABS: Calcium 8.6 mg/dl (8.5-10.1); Creatinine Clr Calc Pharmacy 92.4 ml/min; Est GFR (African American) 117.7; Est GFR (Non-African American) 101.6; Potassium 4.3 mmol/L (3.5-5.1)
[2021-02-12] MEDS: ziprasidone HCL 80 MG CAP PO SCH (18:07)
--- NOTE | 2021-02-13 07:51 | Hospitalist Progress Note ---
Date of Service February 13, 2021 Assessment & Plan Admission and Anticipated Discharge Date Admission Date: February 07, 2021
--- NOTE | 2021-02-13 08:59 | Psychiatric Progress Note ---
Date of Service February 13, 2021 Impression / Recommendations Impression Supervising psychiatrist was directly involved in review and discussion of the patient's case and participated in medical decision making regarding treatment recommendations. INITIAL RECOMMENDATIONS: 02/08/2021 - Psychiatric consultation requested by our hospitalist service to evaluate the patient for history of eating disorder and bipolar I disorder. Pt known to our service from two previous admissions to our unit in 2019, related to her bipolar I disorder symptoms. Pt was reportedly sent for hospitalization from her heating worker, Dr. De Jesus - reportedly evading these recommendations a few days prior. - Recommend discontinuation of ziprasidone, as this medication is well-known to contribute to QTc prolongation, which is not a new issue for this patient. Response to medication is also highly related to appropriate caloric intake, which patient reports she has not been achieving for several weeks. Would strongly consider cardiology consultation before considering this medication (or other antipsychotic agents) again in this particular patient. - Given that we are discontinuing one of patient's mood stabilization agents, would suggest continuing lithium 600mg daily (will reach out to outpatient psychiatrist as this reported dose is inconsistent with [facility] records - TID dosing of 300mg/300mg/600mg). Would advise repeat lithium level if patient d emonstrates any signs of lithium toxicity, which may be in the setting of poor nutritional intake. - Continue lamotrigine home dose of 100mg daily, titration could be consider for additional mood stabilization properties. It is reported that patient's hydroxyzine was discontinued during her hospitalization in [place], and would advise consistency with this change as hydroxyzine can also contribute to QTc prolongation. - Pt was uncooperative with assessment today, unfortunately verbalizing some frustrations related to her past admissions to our unit. Pt was informed of the above medication recommendations and became upset. Pt demanded to speak with her nurse, suggested she would leave the hospital, and refused to continue conversation with this provider. - 302 petitioning statement was completed by this provider related to concerns for restrictive eating behaviors and very poor nutritional intake for the past 3 weeks. >10lb weight loss, concerning electrolyte imbalance ( potassium of 2.7 on presentation), prolonged QTc interval (547 on presentation), and inability to safely be continued on the medication regimen that stabilizes her bipolar I disorder symptoms. Pt should not be permitted to leave the hospital AMA, 302 warrant can be pursued by calling Crisis services if patient should request this. - Appreciate the opportunity to participate in the care of this patient. Please reach out to our service with any additional questions or updates. - See problem list below for ongoing recommendations - (1) Anorexia nervosa, binge eating/purging type: 02/09/21 - Patient on a 302 warrant for anorexia with acute decompensation, 11 pound weight loss in 1 week, no food for 4-5 days, resulting in potassium 2.7 and QTC as high as 578. Her outpatient eating disorder physician had recommended inpatient hospitalization due to these concerns on February 03, and although the patient agreed to go to the ER, she instead went home to [place]. She then saw her outpatient psychiatrist over the weekend and did not inform him of her medical instability, and was referred to the ER as she was still not eating, had lost additional weight, and was hypokalemic with prolonged QTC after returning to her outpatient eating disorder physician 02/07/21. She has been labile, agitated, and poorly cooperative here in the hospital, unwilling to engage in discussions of her medications and the safety concerns expressed by her outpatient clinicians, and after discussion with them agree that involuntary inpatient eating disorder treatment is indicated. She is now on a completed 302 and we will assist with referrals to eating disorder units. 02/11/21 - Continue efforts to refer to inpatient eating disorder programs. Pt remains on a completed 302. She is refusing to consider voluntary treatment for inpatient eating disorder programs. On last report there were still several psychiatric units reviewing referrals for possible admission. - In general, patient's nutritional intake has improved and she has gained some weight since her initial admission. Electrolytes improved. She is reporting far less emotional distress which is allowing her to focus on her eating. - Pt states that she is willing to engage her parents in safety planning conversations regarding monitoring of her eating disorder on discharge. - Coordinated care with her outpatient PCP/heating worker and reviewed bed search update. It was reported that her current specialist is hoping to coordinate with the patient's PCP in [place] regarding transition of care, as patient will be returning with her parents to [place]. She is happy to hear that the patient's eating is improved and is willing to consider discharge from the medical floor if an adequate safety plan can be arranged regarding the patient's eating disorder behaviors. 02/12/21 - Pt reports ongoing improvement with nutritional intake, electrolytes continue to be stable. Ongoing bed search for inpatient eating disorder treatment, though referrals have been declined by appropriate facilities thus far. - Reviewed with patient need to focus on discharge/safety planning in the event that an appropriate facility is not found. Pt is maintaining medical stability since admission. She agreed to involve parents in safety/discharge planning efforts - including accountability related to her eating disorder treatment. - Anticipate working toward a safe and appropriate discharge plan for 02/14 unless an appropriate facility can be found before that time. Pt has been more cooperative with safety planning efforts, denies SI and HI. 02/13/21 - Pt continues to be consistent with nutritional intake, reporting motivation to maintain these improvements. We have coordinated with parents with patient's cooperation who agree that patient has decompensated due to increased stress in the past 2 weeks. They verbalized awareness of additional need for support and structure at this time. They developed a plan to enforce treatment as determined with outpatient heating worker. They agreed to eating meals as a family and maintaining supervision to reduce likelihood of purging behaviors. - Pt reports she is planning to follow-up with Dr. De Jesus for continued eating disorder treatment until her graduation in a few weeks. Follow-up appointment scheduled for 02/17 - Pt did agree to sign releases for all of her outpatient providers to allow for coordination of care related to her hospitalization. Will plan to fax hospital records to her outpatient treatment team. - From a psychiatric perspective, it appears that factors leading to acute safety concerns on admission have been mitigated. Pt is agreeable with following outpatient treatment plan and now seems appropriate for discharge with treatment to continue in a lesser restrictive setting. (2) Mood disorder: 02/09 Complex case, previously well controlled on ziprasidone, but given the risk of QTC prolongation and this medication and her unstable eating disorder, it is contraindicated in her outpatient psychiatrist no longer feels comfortable prescribing it. The inpatient hospitalist service indicated the torque tester felt it was safe to give her as long as she was on the classroom monitor, so if she is complying with that while on the unit awaiting placement, it could be continued, but ultimately a safer medication will likely need to be agreed upon by the patient and her outpatient psychiatrist. She was unwilling to engage in a discussion of these options today. [place] is also a cardiac irritant which is concerning given her chronic eating disorder and poor treatment adherence. There appears to be a component of maladaptive coping which is complicating the case and preventing the patient from engaging with treatment staff and working towards a safe discharge plan. 02/11 - We continue to suggest that ziprasidone be cross-titrated to a mood stabilization agent or antipsychotic medication with reduced risk of QTc prolongation. Pt is unwilling to engage in conversation about a possibly safer alternative. She was made aware that it cannot be guaranteed that her outpatient psychiatrist or future providers will be willing to continue this medication. - Pt verbalized understanding of the risks discussed and remains unwilling to consider changing medications as she does feel the ziprasidone has been the most effective medication at managing her "psychosis". We do have the benefit of a cardiology consultation as well as reports from the patient that she is using the medication as a motivating factor to improve her eating behavior so that she can remain on the medication. Given long-term risk, ideally an alternative plan would still be determined. - Will continue to address acute safety concerns, which are primarily related to her eating disorder history, and work to develop an appropriate discharge plan in the event that an eating disorder unit cannot be found. - She continues to deny suicidal ideation or acute mood concerns. She is future oriented in conversation. 02/12 - Continue as above. No episodes of significant emotional dysregulation. Mood is reportedly stable, no signs or symptoms of psychosis. 02/13 - Mood remains stable, patient continues to be cooperative with no episodes of significant emotional dysregulation. She continues to deny SI, SIB, hallucinations, paranoia, delusions, or acute mood or safety concerns. - Recommend consistent follow-up with outpatient psychiatrist for continued treatment - Our service continues to be concerned about ongoing use of ziprasidone in the setting of patient's eating disorder history, recent relapse in restricting/purging behaviors, and likelihood for ongoing stressors. Pt was unwilling to consider an alternative agent with reduced risk of QTc prolongation. Parents have also expressed concern about discontinuation of the medication, as they state patient's mood stability has improved greatly on the medication. Risks of continued use of the medication were discussed repeatedly with the patient, who verbalized understanding of the risks. Interval History Identifying Information 20-year-old female admitted medically on 02/07/2021 after presenting to the ED upon recommendation from her PCP/heating worker due to restricting behavior and weight loss. Psychiatric consultation was requested by our hospitalist team to evaluate patient for history of eating disorder and bipolar I disorder diagnoses. Chief Complaint "I'm good." Review of Systems Notes Constitutional: denied Cardiovascular: denied Respiratory: denied Gastrointestinal: denied Neurological: denied Psychiatric: denies symptoms other than stated above Total of at least 10 systems reviewed, pertinent positives as above and in HPI. Subjective Subjective Patient's case was reviewed and discussed during morning report with psychiatric nurse liaison and supervising psychiatrist. Discussed progress made in safety/discharge planning - as bed search for an appropriate inpatient eating disorder treatment facility continues to be unsuccessful. Patient's 302 commitment is due to on 02/14 at 1300. Safety planning regarding relapse in eating disorder behaviors was discussed with parents with patient's cooperation, and they verbalize willingness to support patient by providing additional supervision and support. Patient's heating worker was also contacted and did not verbalize acute concerns related to the idea of discharge today. Pt was seen today to assess progress since admission and review safety and discharge plans that have been established. Pt reports stability of mood and excitement about the idea of discharge today. Pt reports she is feeling much happier and is motivated to continue to work on her eating disorder treatment plan. Pt is agreeing to involve her parents more heavily in supervision - permitting daily weights, eating meals together, sitting together after meals, etc. Pt was reminded that these treatment decisions should be make with the input of her outpatient provider. Pt has an outpatient appointment this coming which she is planning to attend. Pt denied SI and acute mood concerns. She denied other needs at this time. Risk Assessment: Presenting risk factors reviewed on discharge. Precipitating stressors mitigated by: medical admission for acute stabilization related to recent restrictive eating patterns, continued monitoring of nutritional intake, routine weights which suggest gradual weight gain, assessment and continued recommendations from our senior systems engineer, involvement of psychiatric staff with safety and discharge planning, involvement of parents, and coordination with outpatient providers. Referrals had been made for more intensive treatment at an inpatient eating disorder facility; however, patient's condition improved and she is no longer requiring acute inpatient treatment, she is also unwilling to pursue this treatment on a voluntary basis. At this time, patient is requesting discharge and is no longer considered to be at acute risk of harm to herself. Pt will be discharged with recommendation for ongoing outpatient psychiatric treatment to include coordination of care among her numerous providers. Pt is at increased risk of harm to self or others when compared to the general population and there are several risk factors which are not likely to be mitigated in an inpatient treatment setting. She has strong traits of borderline personality disorder and a long history of eating disorder - prognosis is uncertain, though patient does have numerous goals that are currently motivating her toward stability of these disorders. Physical Exam Psychiatric Orientation: alert, oriented x 3 and cooperative Apperance: appropriately dressed, appropriately groomed and appeared stated age Eye Contact: good eye contact Motor Behavior: no abnormal motor movements (observed while sitting cross-legged on bed) Speech: normal rate/rhythm/volume of speech Affect: euthymic affect Mood: no depressed mood and no anxious mood Thought Process: goal directed thought process and clear/coherent thought process Thought Content: reality based without delusions; no hopelessness and no worthlessness Suicidal Thoughts: denies suicidal thoughts, denies suicidal plan and denies suicidal intent Homicidal Thoughts: denies homicidal thoughts Hallucinations: no auditory hallucinations and no visual hallucinations Cognition: attention grossly intact and language grossly intact Estimated Intelligence: consistent with education level Insight: + fair insight Judgement: + fair judgement Vital Signs (Past 24 Hours) Last Vital Signs Temp 37 C 02/12/21 15:29 Pulse 77 02/12/21 15:29 Resp 16 02/12/21 15:29 BP 104/66 02/12/21 15:29 Pulse Ox 100 02/12/21 15:29 Results & Data ([facility]) Laboratory Results Laboratory Results - last 24 hr 02/12/21 02/12/21 16:36 19:58 Sodium 140 Potassium 4.3 Chloride 110 H Carbon Dioxide 28 Anion Gap 2.0 L BUN 12 Creatinine 0.82 Est Cr Clr Drug Dosing 92.4 Est GFR ( Amer) 117.7 Est GFR (Non-Af Amer) 101.6 BUN/Creatinine Ratio 15.0 Glucose 88 Calcium 8.6 [place] 0.5 L Current Inpatient Medications Current Inpatient Medications: Current Inpatient Medications Folic Acid (Folic Acid 1 Mg Tab) 1 mg PO QAM [facility] Stop: 03/15/21 08:59 Haloperidol Lactate (Haloperidol Lactate 5 Mg/Ml 1 Ml Vial) 5 mg IM Q8H PRN PRN Reason: Agitation Stop: 03/13/21 16:58 Hydroxyzine HCl (Hydroxyzine Hcl 25 Mg Tab) 100 mg PO DAILY PRN PRN Reason: Anxiety Stop: 03/10/21 20:23 Last Admin: 02/12/21 16:40 Dose: 100 mg Documented by: Thiamine HCl 200 mg/ Sodium (Chloride) 52 mls @ 208 mls/hr IV QAM [facility] Stop: 03/10/21 08:59 Last Admin: 02/12/21 09:26 Dose: Not Given Documented by: Folic Acid 1 mg/ Syringe 10 mls @ 5 mls/min IV QAM [facility] Stop: 03/10/21 08:59 Last Admin: 02/12/21 08:22 Dose: 5 mls/min Documented by: Pantoprazole Sodium 40 mg/ (Syringe) 10 mls @ 5 mls/min IV DAILY [facility] Stop: 03/14/21 08:59 Last Admin: 02/12/21 08:22 Dose: 5 mls/min Documented by: Lamotrigine (Lamotrigine 100 Mg Tab) 100 mg PO DAILY@0900 [facility] Stop: 03/10/21 08:59 Last Admin: 02/12/21 08:21 Dose: 100 mg Documented by: [place] Carbonate ([place] Carbonate Slow Rel 300 Mg Tab) 600 mg PO DAILY [facility] Stop: 03/11/21 10:14 Last Admin: 02/12/21 08:22 Dose: 600 mg Documented by: Melatonin (Melatonin 3 Mg Tab) 3 mg PO HS PRN PRN Reason: Sleep Stop: 03/13/21 00:29 Multivitamins/Minerals (Cerovite Adv Formula Tab) 1 tab PO QAM [facility] Stop: 03/09/21 16:59 Last Admin: 02/12/21 08:22 Dose: 1 tab Documented by: Pantoprazole Sodium (Pantoprazole 40 Mg Tab) 40 mg PO QAM [facility] Stop: 03/15/21 08:59 Sucralfate (Sucralfate 1 Gm Tab) 1 gm PO QID [facility] Stop: 03/10/21 12:59 Last Admin: 02/12/21 21:04 Dose: 1 gm Documented by: Thiamine HCl (Thiamine Hcl 100 Mg Tab) 100 mg PO QAM [facility] Stop: 03/15/21 08:59 Ziprasidone (Ziprasidone Hcl 80 Mg Cap) 160 mg PO DAILY@1800 [facility] Stop: 03/09/21 17:59 Last Admin: 02/12/21 18:07 Dose: 160 mg Documented by: Post Discharge Appointments Primary Care Physician Name Of Family Doctor: Dr. Enma De Jesus @ [facility] Date of Appointment with PCP: 02/17/21 Time of Appointment with PCP: 11 am Provider Appointment Comment: in person Primary Care Release of Information: Obtained, Reviewed and Signed
[2021-02-13] MEDS ORDERED: FOLIC ACID 1 MG TAB PO SCH (09:00)
[2021-02-13] MEDS ORDERED: PANTOprazole 40 MG TAB PO SCH (09:00)
[2021-02-13] MEDS ORDERED: THIAMINE HCL 100 MG TAB PO SCH (09:00)
[2021-02-13] MEDS: SUCRALFATE 1 GM TAB PO SCH ×2 (09:25→13:29)
[2021-02-13] MEDS: lamoTRIgine 100 MG TAB PO SCH (09:26)
[2021-02-13] MEDS: LITHIUM CARBONATE SLOW REL 300 MG TAB PO SCH (09:26)
[2021-02-13] MEDS: CEROVITE ADV FORMULA TAB PO SCH (09:26)
--- NOTE | 2021-02-13 20:16 | Discharge Summary ---
Date of Service February 13, 2021 Admission HPI Per Admitting Provider 20yo female, currently a senior at [employer], with long-standing history of anorexia nervosa - purging subtype, bipolar disorder, and anxiety who presents as a direct admission from Dr Enma De Jesus's office. Dr De Jesus is on the [facility] and specializes in eating disorders. Although Evita is taking [employer] classes remotely from [place] she comes back to [place] frequently to see Dr De Jesus in her clinic. Apparently Evita has had a 2-week period of severe anorexia with 3 episodes/day of purging. She has lost at least 10-11 pounds over the last 1-2 weeks. She drinks diet sodas for hydration. Last week she came to [place] for a visit with Dr De Jesus and hospital admission was advised at that time for potassium repletion, correction of her QTc interval, and psychiatry consult. It was recommended that Evita come to [facility]. However, Evita instead drove back to [place] and was ultimately admitted to [facility] in [facility]. She was admitted and discharged Sunday of last week after receiving IVF and IV potassium. By report she did not eat during that hospital stay and did not have consultation with psychiatry. Following discharge she went to her mom/dad's home in [place]. Today Evita drove from [place] to [place] for another visit with Dr De Jesus. QTc on EKG in the office was prolonged, and potassium was again low. Dr De Jesus again advised admission to the hospital and she was agreeable. At my request Dr De Jesus performed a COVID test at the [employer] clinic on campus and this returned negative. At that point she was sent over to [facility]. During my admission assessment Evita admits to feeling depressed over the last 2 weeks. She was vague about what was contributing to her depression. She alluded to difficulties with her parents and she asked me NOT to share any medical information with them. Denies that parents are physically or verbally abusive although it sounds as if they have frequent disagreements. She also alluded to a science program that she got accepted into at [employer]. It sounds as if the process to get into this program was stressful. Denied ANY suicidal or homicidal ideations. Reports compliance with her medications for bipolar including lithium 600mg daily, lamictal 100mg daily, and geodon 160mg at 6pm each evening. She feels that this combination of meds is working well. She is aggravated that several people have told her that they may need to be changed because of "heart effects." Patient reports doing a very hard treadmill run at home in [place] sometime last week. She typically runs for 60 minutes and about 40 minutes into the run she experienced severe chest pain. She had to stop running. The pain improved gradually over hours/days (?) and she still has mild pain albeit it is improved. Pain is also worsened by eating or when she vomits. She also mentions that her HR hit 200 BPM during the same work-out. Lastly, she has had intermittent paresthesias of both legs from the knees down to the feet when she is standing over the toilet purging. Rather than kneeling on the ground she stands/hovers over the toilet. The numbness lasts about 20 minutes then gets better. Denies any motor weakness. Has occasional back pain. No headaches. No issues with arms. No bowel incontinence but has had constipation for 1-2 weeks. States he has to strain to pass her urine. Admission Exam Per Admitting Provider Constitutional: + thin; no acute distress and no altered mental status looks pale, washed out Eyes: PERRL ENMT: Mouth: + oropharynx abnormality (mildly erythematous pharynx ) Neck: trachea midline, no thyromegaly Respiratory: normal respiratory effort, lungs clear to auscultation Cardiovascular: Rate/Rhythm: regular rate and regular rhythm Heart Sounds: normal S1 and normal S2; no murmur Vessels: posterior tibial pulses present and dorsalis pedis pulses present; no JVD Extremities: no edema Gastrointestinal (Abdomen): normal bowel sounds, soft, nontender, no hepatosplenomegaly Musculoskeletal: no cyanosis or clubbing, extremities motor strength 5/5 Skin: no rashes, warm and dry Neurologic: patellar DTR's 2+ bilat, sensation intact (arms/legs b/l ) moves all extremities; no focal motor deficits Psychiatric: Orientation: alert and oriented x 3 Lymphatic: no cervical lymphadenopathy Principal Diagnosis Anorexia nervosa, binge eating/purging type; severe protein-calorie malnutrition Discharge Exam Thin female, no acute distress NCAT, MMM CV: regular rhythm, rate 70s, no murmur noted Resp: CTABL Abd: soft, nontender Appearance: fairly-groomed, wearing hospital gown Behavior: calm, cooperative, interactive, eye contact good Mood: "good" Affect: pleasant, affect congruent with mood Speech: appropriate rate, quantity and volume Thought process: linear, coherent, goal-directed Thought content: appropriate to topic of discussion; denies SI/HI Cognition: alert, focused, abstraction intact Insight: fair (understands events that led to and required hospitalization, but limited/fair insight into the severity of her eating disorder) Judgment: fair Discharge Data Allergies Allergy/AdvReac Type Severity Reaction Status Date / Time Fish Containing Products AdvReac Intermediate Gastrointestinal Verified 02/09/21 10:07 Upset escitalopram [From Lexapro] AdvReac Mild Insomnia Unverified 02/09/21 10:07 Consultations 02/07/21 16:54 Consult Psychiatry Routine 02/08/21 18:07 Consult Cardiology Routine Hospital Course (1) Anorexia nervosa, binge eating/purging type: Anorexia nervosa, binge eating/purging type; severe protein-calorie malnutrition Patient was monitored closely in an inpatient setting while we advanced nutrition due to the high risk of refeeding syndrome and arrhythmia. Nutrition was gradually advanced while electrolytes were closely monitored. Patient did require electrolyte repletion. Thiamine and MVI were given while admitted. Weight improved appropriately as nutrition was advanced. Psychiatry was consulted and initially proceeded with 302 proceedings for involuntary commitment and transfer to an inpatient eating disorder treatment facility, but a bed was not located, and a suitable safety plan was identified, as described below. Prolonged QT interval Patient's QTc on admission was 547, suspected to be secondary to hypokalemia, malnutrition, and chronic ziprasidone, lithium, and hydroxyzine therapy. Electrolytes were repleted as indicated. By hospital day two, QTc had shortened to 452. Cardiology noted patient's prolonged QTc was not primarily due to medications, as QTc had normalized in the setting of continuation of patient's home medication regimen; rather, the QTc prolongation was either due to malnutr ition plus patient's medication, or malnutrition alone. Cardiology concluded that continuation of patient's medication regimen was likely safe in the setting of maintaining oral calorie intake. Cardiology recommended periodic outpatient screening of patient's QTc. Patient was hemodynamically stable for the entirety of her hospitalization, and had no symptoms of paradoxical arrhythmia. Bipolar I Patient was continued on lamotrigine, ziprasidone, hydroxyzine, and lithium during her stay. Behaviorally, patient was cooperative until hospital day 3, when patient became agitated in the setting of discussions about potentially discontinuing patient's ziprasidone due to concerns of QTc prolongation, as well as pursuing a 302 order for involuntary commitment. At this time, patient attempted elopement, which was stopped by staff. Haldol IM was administered. Physical restraints were not indicated nor used. For the remainder of patient's hospitalization, patient was largely cooperative, and her engagement with the treatment team improved as discharge home with a safety plan was proposed. Patient was discharged home with safety plan on hospital day 7. Patient did not display symptoms of overt julio cesar nor depression throughout her hospitalization, and at no time did she endorse SI/HI. Low normal EF Echo on hospital day 2 showed a low-normal EF of 50-55%, and was otherwise unremarkable. Cardiology recommended outpatient follow-up with a furnace loader to monitor patient for LV dysfunction. Chest pain Patient endorsed mild chest pain on admission. EKG was without ischemic change. Patient's chest pain was suspected to be secondary to esophagitis from frequent purging. Patient was treated with pantoprazole and sucralfate. Patient's chest pain resolved on hospital day 2 and did not recur during her hospitalization. (2) Severe protein-calorie malnutrition: (3) Prolonged QT interval: (4) Hypokalemia: (5) Bipolar disorder: (6) Chest pain: (7) Esophagitis: (8) Paresthesias: (9) DVT prophylaxis: Total Time Total Time Spent Total Time Spent (In Minutes): See attending documentation Discharge Plan Discharge Items Patient Disposition: Home - Self-Care Reason For Visit: HYPOKALEMIA,ANOREXIA Discharge Diagnosis: Anorexia nervosa, severe protein-calorie malnutrition, moderate hypokalemia Activity: Per Instructions section Exercise/Sports: Gradually increase as tolerated Non-emergency contact: Primary Care Provider, Psychiatrist and Therapist Call non-emergency contact if: you have any medication questions and your symptoms worsen Follow-up/Referrals: Sandee Mulligan LSW [Primary Care Provider] - Diet: Regular Addtl Attending Provider Instructions: You were admitted to the hospital for anorexia nervosa, severe protein-calorie malnutrition, and low potassium resulting in heart rhythm abnormalities. You were treated with nutrition, IV fluid, and electrolyte repletion. Nutrition was gradually advanced while electrolytes were repleted. You were seen by psychiatry, and their team as well as the medical team is comfortable with discharge home to your family with our safety plan in place. A discharge summary will be sent to your primary care physician to ensure continuity of care. Please bring this discharge summary with you to your next office appointment so that your provider can review it at that time. Diet: It is critical to your health that you maintain adequate food and fluid intake. Aim for three meals a day with snacks throughout the day. Limit Diet coke intake and instead drink water through the day. Anorexia nervosa is an illness, and the medicine we use to treat it is adequate nutrition. Think of food like the medicine we are prescribing to ensure you continue to get healthier. Eat meals with friends or family. This will help you stay focused on your recovery, which will in turn help you achieve everything you have to look forward to. If you have thoughts of purging, or engage in purging, contact Dr. De Jesus. Be open and honest about it Dr. De Jesus as well as your parents. This will help them help you, which, again, will help you reach your full potential. You can do this! Activity: No exercise for now. You can gradually increase your activity to include walks and doing things around the house, but speak with your primary care provider before engaging in exercise, sport, or anything else that increases your heart rate. Follow-up appointments: Make a follow-up appointment with your PCP and psychiatrist within the next week. It is very important that you follow up with them shortly after discharge from the hospital. Make an appointment with an outpatient furnace loader to follow your heart function. We recommend this because the echocardiogram (sonogram of the heart) showed low-normal function. While this is not an immediate concern, it is very important that this is monitored over time. Talk to your PCP if you need help finding a furnace loader. Keep all your follow-up appointments as already scheduled. If you cannot make an appointment, notify your provider. Medications: Your medication list has been reviewed and reconciled upon discharge to ensure accuracy and continuity of care. Please take all of your medications exactly as prescribed. * Your current lithium dose is 600mg once daily. It is very important that you speak with your outpatient psychiatrist about if your dose of lithium should be changed. * Continue all your other medications as previously prescribed. Tell your primary care provider if you cannot afford your medications. Call your primary care provider if you are having any side effects or any other problems. Call your primary care provider before taking any over the counter medications or supplements, including herbals and vitamins, because some of these may interact with your current medications and/or make your symptoms worse. CONTACT YOUR PRIMARY CARE PROVIDER if you experience any of the following: Fever Lightheadedness, dizziness, fainting, or loss of consciousness Very fast or very slow heartbeat Shortness of breath or difficulty breathing Inability to take medications or follow treatment plan CALL 911 OR GO TO THE EMERGENCY DEPARTMENT if you experience any of the following: Sudden, severe abdominal pain Sudden, severe nausea or vomiting Vomit that is red, bloody, black, or looks like coffee grounds Sudden chest pain, or chest pain that radiates (moves) to your jaw or arm Sudden, severe shortness of breath or difficulty breathing Thank you for allowing us to participate in your care. Pending Studies at Discharge: No Stand-Alone Forms: [employer] [place] [place] [employer], Smoking Cessation Medications and DC Order Prescriptions: New lithium carbonate 300 mg capsule 600 mg PO DAILY Qty: 60 RF: 0 Continued ziprasidone HCl 80 mg capsule 160 mg PO DAILY@1800 RF: 0 lamotrigine 100 mg tablet 100 mg PO DAILY@0900 RF: 0 hydroxyzine pamoate 25 mg capsule 25 mg PO DAILY PRN (Reason: Anxiety) RF: 0 Discharge Orders: Discharge Order (Routine); Ordered 02/13/21 Ordered By: Moe Paredes Admission Data Admit Date/Time: 02/07/21 14:53 Attending Provider: Kathie Iverson Admit Provider: Ed Thompson Primary Care Provider: Sandee Mulligan Other Providers: Ame Menendez ; Ed Thompson ; Gibson Faust Other Interventions: Discharge Summary Assessment (RN) Last Done: 02/13/21 13:47 Supervising Physician Co-Signing Physician Notes Resident Physician Supervision Note: I independently interviewed and examined the patient and verified the rudolph history and physical, reviewed labs and image studies, discussed the case with the resident Dr. Paredes and agree with the findings and care plan. Resident Activity Tracking Resident Involvement: Resident Care Provided Care Provided: Adult Hospital Medicine
== END 2021-02-13 14:00 | disposition home or self-care (01) | DRG 883 ==
LOC: 2N 14:53 → SUATTDRO 14:53